=== PATIENT | male | born 1935 | race Caucasian/White ===

== ENCOUNTER 2019-07-07 21:14 | Inpatient (IN) | payer MEDICARE ==
[~2019-07-07] VITALS: Ht 180.3 cm; Wt 78.9 kg
--- NOTE | 2019-07-07 21:17 | NUR ---
BIB EMS 860 C/O BACK PAIN S/P GLF. DENIES KO PT ALERT AND ORIENTED TIMES THREE. WALKS WITH ASSISTANCE, GENERALIZED WEAKNESS. PAIN REPORTED 8/10 ON ASSESMENT
[2019-07-07] MEDS ORDERED: AMLO5TAB9 PO (21:44)
[2019-07-07] MEDS ORDERED: GABA600T12 PO (21:44)
[2019-07-07] MEDS ORDERED: GABA-534 PO (21:44)
[2019-07-07] MEDS ORDERED: INSU100C10 SQ (21:44)
[2019-07-07] MEDS ORDERED: PANT40TA4 PO (21:52)
[2019-07-07] MEDS ORDERED: BIMA2.5D5 EACHEYE (21:52)
[2019-07-07] MEDS ORDERED: METO-295 PO (21:52)
[2019-07-07] MEDS ORDERED: INSU100I30 SQ (21:52)
[2019-07-07] MEDS ORDERED: TAMS-12 PO (21:52)
[2019-07-07] MEDS ORDERED: QUIN40TA14 PO (21:52)
[2019-07-07] MEDS ORDERED: HYDROCODONE/APAP 5/325MG 1 EACH TABLET ONE (21:52)
[2019-07-07] MEDS ORDERED: LEVO50TA8 PO (21:52)
[2019-07-07] MEDS ORDERED: TIMO5SOL11 EACHEYE (21:52)
[2019-07-07] MEDS ORDERED: HYDROCODONE/APAP 5/325MG 1 EACH TABLET PO ONE (22:00)
--- NOTE | 2019-07-07 22:10 | NUR ---
PT IN RADIOLOGY
--- NOTE | 2019-07-08 00:37 | NUR ---
CALLED RN CHIROPRACTOR SOLE PRACTITIONER FOR MED SURG BED.
--- NOTE | 2019-07-08 00:39 | NUR ---
BED ASSIGNMENT 309-1
--- NOTE | 2019-07-08 01:05 | NUR ---
CALLED [facility] FOR PANEL ADMISSION, WAITING FOR DNP DMIITRIY CALL BACK
--- NOTE | 2019-07-08 01:06 | NUR ---
DR. GARCIA SPEAKING TO [facility] RONY REGARDING ADMISSION.
--- NOTE | 2019-07-08 01:08 | NUR ---
report given to herrera in 3 west to transfer pt. pt stable in NAD.
[2019-07-08] MEDS ORDERED: MORPHINE SULFATE INJ 2 MG/ML DISP.SYRIN IV PRN (01:30)
[2019-07-08] MEDS ORDERED: MAGNESIUM HYDROXIDE 30 ML UDC PO PRN (01:30)
[2019-07-08] MEDS ORDERED: ONDANSETRON HCL/PF 4 MG/2 ML VIAL IVP PRN (01:30)
[2019-07-08] MEDS ORDERED: ACETAMINOPHEN 325 MG TABLET PO PRN (01:30)
[2019-07-08] MEDS ORDERED: ZOLPIDEM TARTRATE 5 MG TABLET PO PRN (01:30)
[2019-07-08] MEDS ORDERED: MAG HYDROX/AL HYDROX/SIMETH 30 ML UDC PO PRN (01:30)
[2019-07-08] MEDS ORDERED: Z GUARD REMEDY 2 OZ OINT TP PRN (01:30)
[2019-07-08] MEDS ORDERED: CLONIDINE HCL 0.1 MG TABLET PO PRN (01:30)
--- NOTE | 2019-07-08 01:35 | NUR ---
PT TRANSFERRED TO BED 309 VIA [facility]
--- NOTE | 2019-07-08 01:40 | NUR ---
RECEIVED PATIENT VIA GURNEY FROM ED IN STABLE CONDITION. PATIENT AWAKE, A/O X4. NO C/O PAIN OR DISCOMFORT. PERIPHERAL LINE IN RIGHT WRIST #22 GAUGE PLACED AND TOLERATED WELL. NO ACTIVE BLEEDING NOTED. URINE COLLECTED FOR UA. ENCOURAGED USE OF CALL LIGHT FOR ASSISTANCE AND VERBALIZED GOOD UNDERSTANDING. BED ALARM ON AND FUNCTIONING PROPERLY. BED IN LOW LOCK SETTING WITH ALL BELONGINGS PLACED NEAR BEDSIDE. WILL CONTINUE TO MONITOR
[2019-07-08 02:00] VITALS: BP 156/75
[2019-07-08] MEDS ORDERED: DEXTROSE 50%-WATER 50 ML DISP.SYRIN IV PRN (02:00)
[2019-07-08 02:19] LABS: BILIRUBIN,URINE NEGATIVE (NEGATIVE); BLOOD, URINE TRACE-INTA Ery/uL (NEGATIVE); COLOR,URINE YELLOW (YELLOW); KETONES,URINE TRACE (NEGATIVE); LEUKOCYTE ESTERASE ,URINE 2+ (NEGATIVE); NITRITE, URINE NEGATIVE (NEGATIVE); PH,URINE 5.5 (5.0-8.0); PROTEIN,URINE NEGATIVE (NEGATIVE); UGLUCOSE 1+ mg/dL (NEGATIVE); UROBILINOGEN,URINE 0.2 EU/dL (0.2)
[2019-07-08 02:24] LABS: APPEARANCE,URINE HAZY (CLEAR)
[2019-07-08 02:26] LABS: BASOPHILS # (AUTO) 0.1 /CMM (0.0-0.2); BASOPHILS % (AUTO) 0.7 % (0.0-2.0); EOSINOPHILS % (AUTO) 1.8 % (0.0-6.0); HEMATOCRIT 56 % (39-51); LYMPHOCYTES # (AUTO) 1.5 /CMM (0.8-4.8); LYMPHOCYTES % (AUTO) 10.9 % (20.0-44.0); MEAN CORPUSCULAR HGB CONC 31 g/dl (31.0-36.0); MEAN CORPUSCULAR VOLUME 66 fL (80-96); MONOCYTES # (AUTO) 1.5 /CMM (0.1-1.30); MONOCYTES % (AUTO) 10.9 % (2.0-12.0); NEUTROPHILS # (AUTO) 10.7 /CMM (1.8-8.9); NEUTROPHILS % (AUTO) 75.7 % (43.0-81.0); WHITE BLOOD COUNT (AUTO) 14.1 K/uL (4.3-11.0)
[2019-07-08 02:32] LABS: RED BLOOD CELL COUNT(AUTO) > 8.00 MIL/uL (4.5-6.0)
[2019-07-08 02:37] LABS: BACTERIA,URINE Moderate /HPF (None Seen); SQUAMOUS EPITHELIAL CELL,UR Moderate /HPF (None Seen); WBC,URINE 51-80 /HPF (0-3)
[2019-07-08 02:44] LABS: ALANINE AMINOTRANSFERASE 24 U/L (12-78); ALBUMIN 3.6 g/dL (3.4-5.0); ALKALINE PHOSPHATASE 81 U/L (46-116); ASPARTATE AMINOTRANSFERASE 22 U/L (15-37); BILIRUBIN,DIRECT 0.1 mg/dL (0.0-0.2); BILIRUBIN,TOTAL 0.6 mg/dL (0.2-1.0); CALCIUM, SERUM 9.3 mg/dL (8.5-10.1); CARBON DIOXIDE 21 mmol/L (21-32); CHLORIDE 99 mmol/L (98-107); CREATININE 1.8 mg/dL (0.6-1.3); GLUCOSE 221 mg/dL (74-106); MAGNESIUM 1.8 mg/dL (1.8-2.4); PHOSPHORUS 3.8 mg/dL (2.5-4.9); POTASSIUM 5.5 mmol/L (3.5-5.1); SODIUM SERUM 135 mmol/L (136-145); TOTAL PROTEIN, SERUM 7.6 g/dL (6.4-8.2); UREA NITROGEN, BLOOD 43 mg/dL (7-18)
--- NOTE | 2019-07-08 02:45 | NUR ---
RACK PRODUCTION WORKER RONY MADE AWARE OF ABNORMAL LABS: K+ 5.5, NA+ 135, UA (+), STAT TROP (-). WITH NEW ORDERS FOR NS 0.9% AT 75ML/HR AND ROCEPHIN 1GM Q24 HRS. ORDERED CARRIED OUT AND VERIFIED
[2019-07-08 03:09] LABS: PLATELET COUNT (AUTO) 352 /CMM (150-450)
[2019-07-08 03:13] LABS: BAND % (MANUAL) 3 % (0.0-5.0); CHOLESTEROL 154 mg/dL (<200); EOSINOPHILS % (MANUAL) 3 % (0-4); HDL CHOLESTEROL 61 mg/dL (40-60); LDL 90 mg/dL (0-99); LYMPHOCYTES % (MANUAL) 16 % (16-48); MONOCYTES % (MANUAL) 7 % (0-11.0); NEUTROPHILS % (MANUAL) 71 (42-76); THYROID STIMULATING HORMONE 3.025 uIU/mL (0.358-3.74); TRIGLYCERIDES 24 mg/dL (30-150)
[2019-07-08] MEDS ORDERED: CEFTRIAXONE 1 G VIAL IM SCH ×2 (04:00→05:00)
[2019-07-08] MEDS: IV NS 0.9% 1,000 ML IV PRN ×2 (04:59→18:26)
[2019-07-08] MEDS ORDERED: SODIUM POLYSTYRENE SULFONATE 15 G/60 ML BOTTLE PO ONE (05:00)
[2019-07-08] MEDS ORDERED: CEFTRIAXONE 1 G VIAL IV SCH (05:00)
[2019-07-08] MEDS: CEFTRIAXONE 1 G in IV NS 0.9% 50 ML IV SCH (05:19)
[2019-07-08] MEDS ORDERED: SODIUM POLYSTYRENE SULFONATE 15 G/60 ML BOTTLE ONE (05:53)
[2019-07-08] MEDS: HYDROCODONE/APAP 5/325MG 1 EACH TABLET PO PRN ×2 (05:59→22:40)
[2019-07-08] MEDS: INSULIN REGULAR, HUMAN 100 UNIT/ML 3 ML VIAL SQ PRN ×4 (06:13→21:45)
--- NOTE | 2019-07-08 06:46 | NUR ---
MS RN NOTES PATIENT ASLEEP IN BED WITH NO DISTRESS NOTED. CALL LIGHT WITHIN REACH. NO C/O PAIN OR DISCOMFORT. PERIPHERAL LINE REMAINS INTACT AND PATENT. ALL DUE MEDS GIVEN ORDERED WITH NO ASE. BED IN LOW LOCK SETTING. BED ALARM ON AND FUNCTIONING PROPERLY. ALL BELONGINGS KEPT NEAR BEDSIDE. WILL CONTINUE TO MONITOR.
[2019-07-08] MEDS: BLOOD SUGAR DIAGNOSTIC 1 EACH STRIP IN SCH ×4 (06:59→21:20)
--- NOTE | 2019-07-08 07:15 | NUR ---
MS RN NOTES PATIENT IN BED ALERT ORIENTED X 4. NO ACUTE DISTRESS NOTED, BREATHING UNLABORED. IV ACCESS PATENT AND INTACT, NO REDNESS OR SWELLING NOTED.SAFETY MEASURES IN PLACE. CALL LIGHT WITHIN REACH. WILL CONTINUE TO MONITOR ACCORDINGLY.
[2019-07-08] MEDS ORDERED: PANTOPRAZOLE 40 MG TABLET.DR PO SCH (07:30)
[2019-07-08] MEDS: PANTOPRAZOLE 40 MG TABLET.DR PO SCH (07:49)
[2019-07-08] MEDS: LEVOTHYROXINE SODIUM 50 MCG TABLET PO SCH (07:50)
[2019-07-08 08:00] VITALS: BP 127/93
[2019-07-08] MEDS ORDERED: TIMOLOL -XE 0.5% 5 ML BOTTLE EACHEYE SCH (09:00)
[2019-07-08] MEDS ORDERED: QUINAPRIL HCL 40 MG PO SCH (09:00)
[2019-07-08] MEDS ORDERED: LISINOPRIL (20MG) 20 MG TABLET PO SCH (09:00)
[2019-07-08] MEDS ORDERED: NAPROXEN 250 MG TABLET PO SCH (09:00)
[2019-07-08] MEDS ORDERED: AMLODIPINE BESYLATE 5 MG TABLET PO SCH (09:00)
[2019-07-08] MEDS: TAMSULOSIN 0.4 MG CAP.SR.24H PO SCH (09:37)
[2019-07-08] MEDS: GABAPENTIN 300 MG CAPSULE PO SCH ×3 (09:37→16:59)
[2019-07-08] MEDS: METOCLOPRAMIDE HCL 10 MG TABLET PO SCH ×4 (09:37→21:19)
[2019-07-08] MEDS: TIMOLOL 0.5% SOLN OPHTH 5 ML BOTTLE EACHEYE SCH (10:41)
[2019-07-08] MEDS: hydrALAZINE HCL 25 MG TABLET PO SCH ×2 (13:39→21:20)
[2019-07-08 16:00] VITALS: BP 160/109
[2019-07-08] MEDS: AMLODIPINE BESYLATE 5 MG TABLET PO SCH (17:04)
[2019-07-08] MEDS ORDERED: BIMATOPROST 2.5 ML DROPS OP SCH (18:00)
--- NOTE | 2019-07-08 18:55 | NUR ---
MS RN NOTES PATIENT IN BED ALERT ORIENTED X 4. NO ACUTE DISTRESS NOTED, BREATHING UNLABORED. DUE MEDICATIONS GIVEN, NO ASE NOTED. NEEDS ATTENDED AND ANTICIPATED.KEPT CLEAN DRY AND COMFORTABLE. IV ACCESS PATENT AND INTACT, NO REDNESS OR SWELLING NOTED.SAFETY MEASURES IN PLACE. CALL LIGHT WITHIN REACH. WILL ENDORSE TO NIGHT NURSE FOR CONTINUITY OF CARE
--- NOTE | 2019-07-08 19:30 | NUR ---
MS RN NOTE: PATIENT RESTING IN BED, NO ACUTE DISTRESS NOTED. BREATHING EVEN AND UNLABORED, NO SOB NOTED. NOTED THAT PATIENT IV WAS DISLODGED, WILL TRY TO START A NEW IV. NO S/S HYPER/HYPOGLYCEMIA NOTED. BED LOCKED AND IN LOWEST POSITION, CALL LIGHT IN REACH. WILL CONTINUE TO MONITOR.
[2019-07-08 20:00] VITALS: BP 137/92
[2019-07-08] MEDS: LATANOPROST EYE DROP 0.005% 2.5 ML BOTTLE OP SCH (21:22)
[2019-07-08] MEDS: INSULIN GLARGINE, 100 UNIT/ML CARTRIDGE SQ SCH (21:44)
--- NOTE | 2019-07-08 21:55 | NUR ---
MS RN NOTE: PATIENT BLOOD SUGAR LEVEL 227MG/DL, PATIENT TO RECEIVE 4 UNITS PER SLIDING SCALE. NO S/S OF HYPERGLYCEMIA NOTED. WILL CONTINUE TO MONITOR.
[2019-07-08] MEDS ORDERED: INSULIN GLARGINE,BASAGLAR 100 UNIT/ML INSULN.PEN SQ SCH (22:00)
--- NOTE | 2019-07-08 22:20 | NUR ---
MS RN NOTE: IV STARTED TO LEFT HAND #24 WITH GOOD BLOOD RETURN. WILL CONTINUE TO MONITOR.
--- NOTE | 2019-07-08 23:05 | NUR ---
RN INITIAL NOTES: RECEIVED REPORT FROM SALOME CASILLAS. PT IN BED, AWAKE, A/O X2-3 FORGETFUL AT TIMES. NEW IV ACCESS IN PLACED G 24, PATENT AND FLUSHING WELL. PT AWAITING DELIVERY OF TLSO BRACE. FOR CT LUMBAR SPINE, CT THORACIC SPINE IN WO CONTRAST. AWAITING NEUROSURGERY EVAL PER DR THOMAS/NEUROLOGIST. SAFETY PRECAUTIONS FOR FALL INITIATED, CALL LIGHT IN REACH, WILL CONTINUE MONITORING PT.
[2019-07-09] MEDS ORDERED: CEFTRIAXONE 1 G VIAL IV SCH (04:00)
[2019-07-09] MEDS: CEFTRIAXONE 1 G in IV NS 0.9% 50 ML IV SCH (05:03)
[2019-07-09 05:08] VITALS: BP 157/97
[2019-07-09] MEDS: hydrALAZINE HCL 25 MG TABLET PO SCH ×3 (05:08→21:00)
[2019-07-09] MEDS: BLOOD SUGAR DIAGNOSTIC 1 EACH STRIP IN SCH ×4 (06:03→21:17)
[2019-07-09] MEDS: INSULIN REGULAR, HUMAN 100 UNIT/ML 3 ML VIAL SQ PRN ×4 (06:06→17:22)
--- NOTE | 2019-07-09 06:07 | NUR ---
accu check: blood sugar 248, 4units of insulin given per sliding scale. will continue to monitor
[2019-07-09] MEDS: IV NS 0.9% 1,000 ML IV PRN (06:24)
[2019-07-09 06:43] LABS: BASOPHILS # (AUTO) 0.1 /CMM (0.0-0.2); BASOPHILS % (AUTO) 0.9 % (0.0-2.0); EOSINOPHILS % (AUTO) 3.7 % (0.0-6.0); HEMATOCRIT 56 % (39-51); HEMOGLOBIN 17.4 g/dL (13.5-17.5); LYMPHOCYTES # (AUTO) 1.4 /CMM (0.8-4.8); LYMPHOCYTES % (AUTO) 16.3 % (20.0-44.0); MEAN CORPUSCULAR HGB CONC 31 g/dl (31.0-36.0); MEAN CORPUSCULAR VOLUME 66 fL (80-96); MONOCYTES # (AUTO) 1.3 /CMM (0.1-1.30); MONOCYTES % (AUTO) 14.4 % (2.0-12.0); NEUTROPHILS # (AUTO) 5.6 /CMM (1.8-8.9); NEUTROPHILS % (AUTO) 64.7 % (43.0-81.0); PLATELET COUNT (AUTO) 353 /CMM (150-450); WHITE BLOOD COUNT (AUTO) 8.7 K/uL (4.3-11.0)
[2019-07-09 06:49] LABS: ALANINE AMINOTRANSFERASE 21 U/L (12-78); ALBUMIN 3.3 g/dL (3.4-5.0); ALKALINE PHOSPHATASE 87 U/L (46-116); ASPARTATE AMINOTRANSFERASE 14 U/L (15-37); BILIRUBIN,TOTAL 0.5 mg/dL (0.2-1.0); CALCIUM, SERUM 8.7 mg/dL (8.5-10.1); CARBON DIOXIDE 26 mmol/L (21-32); CHLORIDE 101 mmol/L (98-107); CREATININE 1.5 mg/dL (0.6-1.3); GLUCOSE 223 mg/dL (74-106); MAGNESIUM 1.6 mg/dL (1.8-2.4); PHOSPHORUS 3.1 mg/dL (2.5-4.9); POTASSIUM 4.6 mmol/L (3.5-5.1); SODIUM SERUM 137 mmol/L (136-145); TOTAL PROTEIN, SERUM 7.6 g/dL (6.4-8.2); UREA NITROGEN, BLOOD 29 mg/dL (7-18)
[2019-07-09 06:51] LABS: CREATINE KINASE, TOTAL 40 U/L (39-308)
--- NOTE | 2019-07-09 06:52 | NUR ---
rn closing notes: pt remains forgetful, a/o x2-3, on ra respirations even and unlabored. iv access remains patent and flushing well, infusing with ns at 75ml/hr. awaiting for delivery of tlso brace, for pt eval, neurosurgery consult. p[t for ct thoracic and ct lumbar spine wo contrast. vs remains stable, needs attended. safety precautions for fall remains engaged, call light in reach, will endorse to day rn for continuity of care.
[2019-07-09 06:57] LABS: RED BLOOD CELL COUNT(AUTO) > 8.00 MIL/uL (4.5-6.0)
--- NOTE | 2019-07-09 07:30 | NUR ---
PHUONG RN OPENING NOTES RECEIVED PATIENT ASLEEP IN BED, AROUSABLE. HOB ELEVATED. NO SOB OBSERVED. DENIES ANY C/O PAIN NOR DISCOMFORT. ALERT AND ORIENTED X2-3 WITH EPISODES OF FORGETFULNESS. LEFT HAND #25 INTACT AND PATENT INFUSING NS @ 75ML/HR VIRGIL WELL. BED IN LOWEST POSITION, LOCKED. BED ALARM ON. CALL LIGHT WITHIN REACH.
[2019-07-09 08:00] VITALS: BP 143/96
[2019-07-09 08:34] LABS: BAND % (MANUAL) 5 % (0.0-5.0); EOSINOPHILS % (MANUAL) 2 % (0-4); LYMPHOCYTES % (MANUAL) 12 % (16-48); MONOCYTES % (MANUAL) 11 % (0-11.0); NEUTROPHILS % (MANUAL) 70 (42-76)
[2019-07-09] MEDS: AMLODIPINE BESYLATE 5 MG TABLET PO SCH ×2 (08:37→17:14)
[2019-07-09] MEDS: PANTOPRAZOLE 40 MG TABLET.DR PO SCH (08:37)
[2019-07-09] MEDS: TAMSULOSIN 0.4 MG CAP.SR.24H PO SCH (08:37)
[2019-07-09] MEDS: LEVOTHYROXINE SODIUM 50 MCG TABLET PO SCH (08:37)
[2019-07-09] MEDS: GABAPENTIN 300 MG CAPSULE PO SCH ×3 (08:37→17:14)
[2019-07-09] MEDS: METOCLOPRAMIDE HCL 10 MG TABLET PO SCH ×4 (08:38→21:00)
[2019-07-09] MEDS: TIMOLOL 0.5% SOLN OPHTH 5 ML BOTTLE EACHEYE SCH (09:44)
--- NOTE | 2019-07-09 09:56 | NUR ---
MS RN NOTES PATIENT OFF UNIT FOR CT SCAN WITHOUT CONTRAST.
[2019-07-09] MEDS: Magnesium 1GM/D5W 100ML PREMIX 100 ML IV SCH ×2 (11:50→12:59)
--- NOTE | 2019-07-09 12:30 | NUR ---
MS RN NOTES PATIENT BEING FITTED TLSO BRACE BY [facility].
--- NOTE | 2019-07-09 12:53 | NUR ---
WOUND CARE CONSULT:PATIENT PRESENTS WITH INCONTINENCE ASSOCIATED SKIN DAMAGE BOTH INNER BUTTOCKS ,SCROTUM , ALSO HAS BOTH ELBOW WITH REDNESS , RT ELBOW HEALING ABRASION, BOTH LOWER EXTREMITIES WITH SKIN DISCOLORATION , SKIN INTACT, PRESENT ON ADMISSION, RECOMMENDATION MADE FOR SKIN PROTECTION , DISCUSES WITH NURSING STAFF, CURRENT GUSTAVO SCORE IS 13, ISOFLEX CRISTIN BED IN PLACE, MD IN AGREEMENT WITH PLAN OF CARE . WILL SEE PRN Addendum: 07/09/19 at 1302 by ANTONIO CORONA RN Amended: Links added.
[2019-07-09] MEDS: HYDROCODONE/APAP 5/325MG 1 EACH TABLET PO PRN (14:04)
[2019-07-09 16:00] VITALS: BP 132/86
--- NOTE | 2019-07-09 17:24 | NUR ---
MS RN NOTES BS 212MG/DL, INSULIN HELD DUE TO PATIENT REFUSED DINNER.
--- NOTE | 2019-07-09 18:44 | NUR ---
MS RN CLOSING NOTES PATIENT ALERT AND AWAKE ORIENTED X2-3 WITH EPISODES OF FORGETFULNESS. HOB ELEVATED. NO SOB OBSERVED. DENIES ANY C/O PAIN NOR DISCOMFORT. LEFT HAND #25 INTACT AND PATENT INFUSING NS @ 75ML/HR VIRGIL WELL. PATIENT VIRGIL PHYSICAL THERAPY WELL. PATIENT INDEPENDENT WITH BED MOBILITY, ABLE TO STAND UP WITH CONTACT GUARD ASSIST BUT DID NOT WANT TO WALK PER PHYSICAL THERAPIST. TLSO BRACE IN PLACE. PATIENT ABLE TO STAND WITH STREADY GAIT. ABLE TO VERBALIZE NEEDS. IN NO APPARENT DISTRESS. BED IN LOWEST POSITION, LOCKED. BED ALARM ON. CALL LIGHT WITHIN REACH.
--- NOTE | 2019-07-09 19:05 | NUR ---
MS RN NOTE RECEIVED PT IN STABLE CONDITION A/O X2-3. CURRENTLY ASLEEP. NO SIGNS OF SOB OR DISTRESS, NO INDICATIONS OF PAIN. IV IN L HAND IN PLACE WITH IVF INFUSING. BRACE PLACE AT BEDSIDE. ALL CURRENT NEEDS ATTENDED TO. BED LOW, LOCKED, UPPER RAILS UP, AND CALL LIGHT WITHIN REACH. WILL CONT. TO MONITOR.
[2019-07-09 20:00] VITALS: BP 123/69
[2019-07-09 20:53] VITALS: BP 128/69
[2019-07-09] MEDS: LATANOPROST EYE DROP 0.005% 2.5 ML BOTTLE OP SCH (21:18)
[2019-07-09] MEDS: INSULIN GLARGINE, 100 UNIT/ML CARTRIDGE SQ SCH (21:22)
--- NOTE | 2019-07-09 21:23 | NUR ---
MS RN NOTE PT NOTED WITH BP OF 123/69, SCHEDULED HYDRALAZINE HELD. PT NOTED WITH BLOOD SUGAR OF 228. PER AM SHIFT, PT DID NOT EAT ANY DINNER. SCHEDULED DOSE OF 25 LONG ACTING INSULIN HELD. WHEN ATTEMPTED TO GIVE PT HIS SCHEDULED REGLAN, PT REFUSED. STATED, "I DON'T WANT ANY PILLS." RISKS AND BENEFITS MADE AWARE. PT ENCOURAGED TO HAVE DINNER SO INSULIN CAN BE GIVEN. PT REFUSED. WILL CONT. TO MONITOR.
[2019-07-10] MEDS: HYDROCODONE/APAP 5/325MG 1 EACH TABLET PO PRN ×2 (02:57→15:55)
[2019-07-10] MEDS: hydrALAZINE HCL 25 MG TABLET PO SCH ×3 (04:53→21:00)
[2019-07-10] MEDS: CEFTRIAXONE 1 G in IV NS 0.9% 50 ML IV SCH (04:54)
[2019-07-10] MEDS: INSULIN REGULAR, HUMAN 100 UNIT/ML 3 ML VIAL SQ PRN ×2 (06:11→12:08)
[2019-07-10 06:23] LABS: BASOPHILS # (AUTO) 0.1 /CMM (0.0-0.2); BASOPHILS % (AUTO) 1.1 % (0.0-2.0); EOSINOPHILS % (AUTO) 4.3 % (0.0-6.0); HEMATOCRIT 53 % (39-51); HEMOGLOBIN 16.2 g/dL (13.5-17.5); LYMPHOCYTES # (AUTO) 1.7 /CMM (0.8-4.8); LYMPHOCYTES % (AUTO) 17.5 % (20.0-44.0); MEAN CORPUSCULAR HGB CONC 31 g/dl (31.0-36.0); MEAN CORPUSCULAR VOLUME 66 fL (80-96); MONOCYTES # (AUTO) 1.4 /CMM (0.1-1.30); MONOCYTES % (AUTO) 14.4 % (2.0-12.0); NEUTROPHILS # (AUTO) 5.9 /CMM (1.8-8.9); NEUTROPHILS % (AUTO) 62.7 % (43.0-81.0); PLATELET COUNT (AUTO) 334 /CMM (150-450); WHITE BLOOD COUNT (AUTO) 9.5 K/uL (4.3-11.0)
--- NOTE | 2019-07-10 06:23 | NUR ---
MS RN NOTE PT IN STABLE CONDITION A/O X2-3. CURRENTLY RESTING IN BED. NO SIGNS OF SOB OR DISTRESS, NO INDICATIONS OF PAIN. IV IN L HAND IN PLACE WITH IVF INFUSING. BRACE REMAINS AT BEDSIDE. ALL CURRENT NEEDS ATTENDED TO. BED LOW, LOCKED, UPPER RAILS UP, AND CALL LIGHT WITHIN REACH. WILL CONT. TO MONITOR AND ENDORSE TO NEXT SHIFT FOR JOZEF.
[2019-07-10 06:27] LABS: RED BLOOD CELL COUNT(AUTO) > 8.00 MIL/uL (4.5-6.0)
[2019-07-10 06:29] LABS: CARBON DIOXIDE 26 mmol/L (21-32); CHLORIDE 102 mmol/L (98-107); CREATININE 1.5 mg/dL (0.6-1.3); GLUCOSE 237 mg/dL (74-106); POTASSIUM 4.2 mmol/L (3.5-5.1); SODIUM SERUM 137 mmol/L (136-145); UREA NITROGEN, BLOOD 25 mg/dL (7-18)
[2019-07-10] MEDS: BLOOD SUGAR DIAGNOSTIC 1 EACH STRIP IN SCH ×4 (06:32→21:21)
--- NOTE | 2019-07-10 07:41 | NUR ---
MS RN OPENING NOTES RECEIVED PATIENT IN BED, ALERT AND AWAKE X3. PATIENT WITH EPISODES OF FORGETFULNESS. DENIES ANY C/O PAIN NOR DISCOMFORT AT THIS TIME. SNO SOB. HOB ELEVATED. SEN BY DR. SIFUENTES. BED IN LOWEST POSITION, LOCKED. BED ALARM ON. CALL LIGHT WITHIN REACH. IN NO APPARENT DISTRESS.
[2019-07-10 08:00] VITALS: BP 128/87
[2019-07-10] MEDS: PANTOPRAZOLE 40 MG TABLET.DR PO SCH (08:19)
[2019-07-10] MEDS: LEVOTHYROXINE SODIUM 50 MCG TABLET PO SCH (08:19)
[2019-07-10] MEDS: TIMOLOL 0.5% SOLN OPHTH 5 ML BOTTLE EACHEYE SCH (08:37)
[2019-07-10] MEDS: GABAPENTIN 300 MG CAPSULE PO SCH ×3 (08:38→17:54)
[2019-07-10] MEDS: METOCLOPRAMIDE HCL 10 MG TABLET PO SCH ×4 (08:38→21:00)
[2019-07-10] MEDS: TAMSULOSIN 0.4 MG CAP.SR.24H PO SCH (08:39)
[2019-07-10] MEDS: AMLODIPINE BESYLATE 5 MG TABLET PO SCH ×2 (08:39→17:54)
[2019-07-10 10:07] LABS: *SPE A/G RATIO 0.9 (0.7-1.7); *SPE ALBUMIN 3.2 g/dL (2.9-4.4); *SPE ALPHA-1-GLOBULIN 0.3 g/dL (0.0-0.4); *SPE ALPHA-2-GLOBULIN 0.9 g/dL (0.4-1.0); *SPE BETA GLOBULIN 1.3 g/dL (0.7-1.3); *SPE GLOBULIN, TOTAL 3.4 g/dL (2.2-3.9); *SPE M-SPIKE Not Observed g/dL (Not Observed); *SPEGAMMA GLOBULIN 0.9 g/dL (0.4-1.8)
[2019-07-10 13:09] LABS: PTH, INTACT 29 pg/mL (15-65)
[2019-07-10 16:00] VITALS: BP 132/81
--- NOTE | 2019-07-10 17:30 | NUR ---
MS RN NOTES BS 240MG/DL, INSULIN HELD. PATIENT DID NOT WANT TO EAT DINNER.
--- NOTE | 2019-07-10 17:52 | NUR ---
MS RN NOTES SEEN BY NICOLA SORTO (NEURO SURGERY) WITH NNO. NO REC FOR SURGERY.
--- NOTE | 2019-07-10 18:55 | NUR ---
MS RN CLOSING NOTES ALERT AND AWAKE X3. PATIENT WITH EPISODES OF FORGETFULNESS. DENIES ANY C/O PAIN NOR DISCOMFORT AT THIS TIME. NO SOB. HOB ELEVATED. PATIENT SEEN BY PHYSICAL THERAPY VIRGIL WELL. TLSO BRACE APPLIED WHEN OUT OF BED. PATIENT INDEPENDENT WITH BED MOBILITY AND ABLE TO TOLREATE PAIN. LEFT HAND @22 SL INTACT AND PATENT WITHOUT S/S OF COMPLICATIONS. BED IN LOWEST POSITION, LOCKED. BED ALARM ON. CALL LIGHT WITHIN REACH. IN NO APPARENT DISTRESS.
[2019-07-10 20:40] VITALS: BP 112/71
[2019-07-10] MEDS: LATANOPROST EYE DROP 0.005% 2.5 ML BOTTLE OP SCH (21:17)
[2019-07-10] MEDS: INSULIN GLARGINE, 100 UNIT/ML CARTRIDGE SQ SCH (21:22)
--- NOTE | 2019-07-10 21:22 | NUR ---
MS RN NOTE PT NOTED WITH BLOOD SUGAR OF 219, PER MORNING SHIFT PT REFUSED DINNER. INSULIN COVERAGE HELD AND 21OO DOSE OF 25 UNITS OF LANTUS HELD. HYDRALAZINE HELD FOR BP OF 112/71. PT REFUSES REGLAN. RISKS AND BENEFITS MADE AWARE. ENCOURAGE PT TO EAT A SANDWICH 3X BUT PT REFUSED. WILL CONT. TO MONITOR.
[2019-07-11] MEDS: hydrALAZINE HCL 25 MG TABLET PO SCH ×2 (04:35→13:28)
[2019-07-11] MEDS: CEFTRIAXONE 1 G in IV NS 0.9% 50 ML IV SCH (04:35)
[2019-07-11] MEDS: INSULIN REGULAR, HUMAN 100 UNIT/ML 3 ML VIAL SQ PRN ×3 (06:12→17:27)
[2019-07-11 06:25] LABS: BASOPHILS # (AUTO) 0.1 /CMM (0.0-0.2); BASOPHILS % (AUTO) 1.3 % (0.0-2.0); EOSINOPHILS % (AUTO) 4.2 % (0.0-6.0); HEMATOCRIT 52 % (39-51); LYMPHOCYTES # (AUTO) 1.4 /CMM (0.8-4.8); LYMPHOCYTES % (AUTO) 17.6 % (20.0-44.0); MEAN CORPUSCULAR HGB CONC 31 g/dl (31.0-36.0); MEAN CORPUSCULAR VOLUME 65 fL (80-96); MONOCYTES # (AUTO) 1.1 /CMM (0.1-1.30); MONOCYTES % (AUTO) 13.4 % (2.0-12.0); NEUTROPHILS # (AUTO) 5.2 /CMM (1.8-8.9); NEUTROPHILS % (AUTO) 63.5 % (43.0-81.0); PLATELET COUNT (AUTO) 318 /CMM (150-450); RED BLOOD CELL COUNT(AUTO) 7.92 MIL/uL (4.5-6.0); WHITE BLOOD COUNT (AUTO) 8.2 K/uL (4.3-11.0)
--- NOTE | 2019-07-11 06:25 | NUR ---
MS RN NOTE PT REMAINS IN STABLE CONDITION A/O X2-3. CURRENTLY WATCHING TV. NO SIGNS OF SOB OR DISTRESS, NO INDICATIONS OF PAIN. IV IN L HAND IN PLACE WITH IVF INFUSING. BRACE PLACED AT BEDSIDE. ALL CURRENT NEEDS ATTENDED TO. BED LOW, LOCKED, UPPER RAILS UP, AND CALL LIGHT WITHIN REACH. WILL CONT. TO MONITOR AND ENDORSE TO NEXT SHIFT FOR JOZEF.
[2019-07-11 07:00] LABS: CALCIUM, SERUM 8.7 mg/dL (8.5-10.1); CARBON DIOXIDE 22 mmol/L (21-32); CHLORIDE 101 mmol/L (98-107); CREATININE 1.6 mg/dL (0.6-1.3); GLUCOSE 286 mg/dL (74-106); MAGNESIUM 1.8 mg/dL (1.8-2.4); PHOSPHORUS 3.3 mg/dL (2.5-4.9); POTASSIUM 4.3 mmol/L (3.5-5.1); SODIUM SERUM 136 mmol/L (136-145); UREA NITROGEN, BLOOD 24 mg/dL (7-18)
--- NOTE | 2019-07-11 07:15 | NUR ---
MS/RN - Assessment Patient is awake, A/O x 2, no complaints overnight, denies pain at this time, no apparent distress noted, afebrile, stable on room air. Saline lock on the left hand is patent, intact, with no signs of infiltration. Labs reviewed, no critical results seen. Will do wound care as ordered. Patient educated on plan of care. Fall and aspiration precautions maintained. Will continue with current medical management.
[2019-07-11 08:00] VITALS: BP 137/78
[2019-07-11] MEDS: BLOOD SUGAR DIAGNOSTIC 1 EACH STRIP IN SCH ×3 (08:15→17:17)
[2019-07-11] MEDS: METOCLOPRAMIDE HCL 10 MG TABLET PO SCH ×3 (08:21→17:14)
[2019-07-11] MEDS: TAMSULOSIN 0.4 MG CAP.SR.24H PO SCH (08:21)
[2019-07-11] MEDS: PANTOPRAZOLE 40 MG TABLET.DR PO SCH (08:21)
[2019-07-11] MEDS: LEVOTHYROXINE SODIUM 50 MCG TABLET PO SCH (08:21)
[2019-07-11] MEDS: GABAPENTIN 300 MG CAPSULE PO SCH ×3 (08:23→17:14)
[2019-07-11] MEDS: AMLODIPINE BESYLATE 5 MG TABLET PO SCH ×2 (08:23→17:15)
[2019-07-11] MEDS: TIMOLOL 0.5% SOLN OPHTH 5 ML BOTTLE EACHEYE SCH (08:24)
[2019-07-11] MEDS ORDERED: CEFTRIAXONE 1 G in IV D5W 50 ML IV SCH (12:40)
[2019-07-11 16:00] VITALS: BP 126/85
--- NOTE | 2019-07-11 16:00 | NUR ---
MS/RN - Neurosurgery Eval Seen and examined by Dr. Tashi Chávez with order to do outpatient MRI without contrast of thoracic/lumbar spine in 4 weeks and follow up with him in 5 weeks.
[2019-07-11 17:15] VITALS: BP 126/85
--- NOTE | 2019-07-11 17:35 | NUR ---
M/S RN - Discharge Patient states feeling a little bit better, A/O x 2, discharged to [facility] in stable condition. Reviewed discharge instructions with SONJA Christianson at [facility] and she verbalized full understanding and all questions answered to her satisfaction. All belongings with patient and he deny any missing items. VSS, denies pain, afebrile, no c/o SOB, tolerating room air, no apparent distress seen. No fall/injury during hospital stay. Patient allowed picture to be taken on sacrum area but refused the rest. Patient stated "Too many pictures, they already took tons of pictures 2 days ago." Explained to the patient the hospital policy regarding skin but still refused. Per order of Dr. Hinojosa, discharge with IV line for Rocephin to be given 1 more day to complete antibiotic course for UTI. Discharge papers sent with ambulance crew. Sister aware of discharge.
[2019-07-11] MEDS ORDERED: INSULIN GLARGINE, 100 UNIT/ML CARTRIDGE SQ SCH (22:00)
[2019-07-12] MEDS ORDERED: CEFTRIAXONE 1 G in IV D5W 50 ML IV SCH (05:00)
== END 2019-07-11 17:50 | DRG 551 ==
LOC: ER 21:18 → MED 07-08 01:08
PROVIDERS: ADMIT Family Medicine; ATTEND Student in an Organized Health Care Education/Training Program
DX: S22.059A Unspecified fracture of T5-T6 vertebra, initial encounter for closed fracture (principal); N17.0 Acute kidney failure with tubular necrosis; E87.1 Hypo-osmolality and hyponatremia; N39.0 Urinary tract infection, site not specified; N11.9 Chronic tubulo-interstitial nephritis, unspecified; S22.089A Unspecified fracture of T11-T12 vertebra, initial encounter for closed fracture; I12.9 Hypertensive chronic kidney disease with stage 1 through stage 4 chronic kidney disease, or unspecified chronic kidney disease; Y92.121 Bathroom in nursing home as the place of occurrence of the external cause; W18.30XA Fall on same level, unspecified, initial encounter; N18.9 Chronic kidney disease, unspecified; E11.22 Type 2 diabetes mellitus with diabetic chronic kidney disease; E11.65 Type 2 diabetes mellitus with hyperglycemia; E11.21 Type 2 diabetes mellitus with diabetic nephropathy; E03.9 Hypothyroidism, unspecified; K21.9 Gastro-esophageal reflux disease without esophagitis; N40.0 Benign prostatic hyperplasia without lower urinary tract symptoms; Z83.3 Family history of diabetes mellitus; Z82.49 Family history of ischemic heart disease and other diseases of the circulatory system; Z79.4 Long term (current) use of insulin; Z88.7 Allergy status to serum and vaccine; H40.9 Unspecified glaucoma; Z79.899 Other long term (current) drug therapy; M47.814 Spondylosis without myelopathy or radiculopathy, thoracic region; M41.9 Scoliosis, unspecified; D72.829 Elevated white blood cell count, unspecified; E87.5 Hyperkalemia; D75.1 Secondary polycythemia; E86.1 Hypovolemia; M48.061 Spinal stenosis, lumbar region without neurogenic claudication; M25.78 Osteophyte, vertebrae
CPT/HCPCS: 36415; 71045-TC; 72074-TC; 72128-TC; 72131-TC; 76770-TC; 80048-TC; 80053-TC; 80061-TC; 80076-TC; 81000-TC; 82550-TC; 82962-TC; 83735-TC; 83970; 84100-TC; 84155; 84165; 84443-TC; 84484-TC; 85025-TC; 87081-TC; 87086-TC; 97110-TC; 97116-TC; 97530-TC; A4216; G0378; J0696; J1815; J2270; J3475; J7030; J7060; J8597

== ENCOUNTER 2019-09-30 23:05 | Inpatient (IN) | payer MEDICARE ==
[~2019-09-30] VITALS: Ht 182.9 cm; Wt 76.7 kg
[~2019-09-30 23:05] MED LIST: AMLO5TAB9 PO; BIMA2.5D5 EACHEYE; GABA-534 PO; GABA600T12 PO; INSU100C10 SQ; INSU100I30 SQ; LEVO50TA8 PO; METO-295 PO; PANT40TA4 PO; QUIN40TA14 PO; TAMS-12 PO; TIMO5SOL11 EACHEYE
--- NOTE | 2019-09-30 23:14 | NUR ---
RECEIVED PT W/ ALOC. PT NON-VERBAL AND COMNFUSED. BED RIDDEN. PLACED PT ON O2 OF 5 LPM VIA NC AND SUCTIONED O2 SAT INCREASED FROM 89% TO 94%. ALSO W/ RECTAL TEMP OF 87.5. MADE AWARE AND CALLED DERMATOLOGY NURSE PRACTITIONER FOR CLIFFORD LIPSCOMB. PT IS PLACED ON AMONITOR
[2019-09-30] MEDS ORDERED: PIPERACILLIN /TAZOBACTAM 3.375 G in IV D5W 50 ML IV ONE (23:30)
[2019-09-30] MEDS ORDERED: VANCOMYCIN 1 GM in IV D5W 250 ML IV ONE (23:30)
[2019-09-30] MEDS ORDERED: IV NS 0.9% 1,000 ML BAG IV ONE (23:30)
[2019-09-30] MEDS ORDERED: VANCOMYCIN 1 GM VIAL ONE (23:47)
[2019-09-30] MEDS ORDERED: PIPERACILLIN /TAZOBACTAM 3.375 G VIAL IV ONE (23:47)
[2019-09-30 23:50] LABS: BASOPHILS % (AUTO) 0.3 % (0.0-2.0); EOSINOPHILS % (AUTO) 2.4 % (0.0-6.0); HEMATOCRIT 45 % (39-51); HEMOGLOBIN 13.7 g/dL (13.5-17.5); LYMPHOCYTES # (AUTO) 0.8 /CMM (0.8-4.8); LYMPHOCYTES % (AUTO) 8.5 % (20.0-44.0); MEAN CORPUSCULAR HGB CONC 30 g/dl (31.0-36.0); MEAN CORPUSCULAR VOLUME 67 fL (80-96); MONOCYTES # (AUTO) 0.6 /CMM (0.1-1.30); MONOCYTES % (AUTO) 7.3 % (2.0-12.0); NEUTROPHILS # (AUTO) 7.2 /CMM (1.8-8.9); NEUTROPHILS % (AUTO) 81.5 % (43.0-81.0); PLATELET COUNT (AUTO) 207 /CMM (150-450); RED BLOOD CELL COUNT(AUTO) 6.71 MIL/uL (4.5-6.0); WHITE BLOOD COUNT (AUTO) 8.9 K/uL (4.3-11.0)
[2019-09-30 23:56] LABS: CALCIUM, SERUM 9.2 mg/dL (8.5-10.1); CARBON DIOXIDE 27 mmol/L (21-32); CHLORIDE 102 mmol/L (98-107); CREATININE 1.9 mg/dL (0.6-1.3); GLUCOSE 180 mg/dL (74-106); POTASSIUM 4.3 mmol/L (3.5-5.1); SODIUM SERUM 133 mmol/L (136-145); UREA NITROGEN, BLOOD 50 mg/dL (7-18)
[2019-10-01] VITALS (73 sets, daily range): BP systolic 81–131; BP diastolic 46–96
[2019-10-01] LABS: ALANINE AMINOTRANSFERASE 41 U/L (12-78); ALBUMIN 2.8 g/dL (3.4-5.0); ALKALINE PHOSPHATASE 99 U/L (46-116); ASPARTATE AMINOTRANSFERASE 29 U/L (15-37); BILIRUBIN,DIRECT 0.1 mg/dL (0.0-0.2); BILIRUBIN,TOTAL 0.2 mg/dL (0.2-1.0); TOTAL PROTEIN, SERUM 7.1 g/dL (6.4-8.2)
--- NOTE | 2019-10-01 00:37 | NUR ---
PT NEEDS FREQUENT SUCTIONING TO KEEP THE O2 SAT ABOVE 90%. CURRENTLY ON O2 AT 5LPM VIA NC W/ O2 SAT OF 93. WILL CONT TO MONITOR ,
[2019-10-01] MEDS ORDERED: DEXAMETHASONE SOD PHOSPHATE 10 MG/ML VIAL ONE (00:55)
[2019-10-01] MEDS ORDERED: IV NS 0.9% 1,000 ML BAG IV ONE (01:00)
[2019-10-01] MEDS ORDERED: DEXAMETHASONE SOD PHOSPHATE 10 MG/ML VIAL IV ONE (01:00)
[2019-10-01] MEDS ORDERED: APIX5TAB4 PO (01:26)
[2019-10-01] MEDS ORDERED: GABA300C PO (01:26)
[2019-10-01] MEDS ORDERED: AMLO5TAB4 PO (01:26)
[2019-10-01] MEDS ORDERED: HYDR20VI4 IJ (01:26)
[2019-10-01] MEDS ORDERED: METO-295 PO (01:26)
[2019-10-01] MEDS ORDERED: PANT40TA2 PO (01:26)
[2019-10-01] MEDS ORDERED: CHOL200026 PO (01:26)
[2019-10-01] MEDS ORDERED: TAMS-12 GT (01:26)
[2019-10-01] MEDS ORDERED: MIRT15TA GT (01:26)
[2019-10-01] MEDS ORDERED: DOCU-141 PO (01:26)
[2019-10-01] MEDS ORDERED: LEVO25TA7 GT (01:26)
[2019-10-01] MEDS ORDERED: ATOR10TA GT (01:26)
[2019-10-01] MEDS ORDERED: ASPI-1169 PO (01:26)
--- NOTE | 2019-10-01 01:41 | NUR ---
etomidate 20mg Iv given
--- NOTE | 2019-10-01 01:42 | NUR ---
SUCCINYLCHOLINE 100MG IVPP GIVEN
--- NOTE | 2019-10-01 01:44 | NUR ---
PT GOT SUCCESSFULLY INTUBATED AT THE BED SIDE BY ROSALIO FOOTE
[2019-10-01] MEDS ORDERED: NOREPINEPHRINE 4 MG/4 ML AMPUL IV ONE ×2 (01:45→01:48)
[2019-10-01] MEDS ORDERED: PROPOFOL 100 ML ONE (01:45)
--- NOTE | 2019-10-01 01:45 | NUR ---
RT NOTES: PT RECEIVED ON NON REBREATHER 15 LPM. PT SHOWS SIGNS OF RESP DISTRESS. PT INTUBATED VIA ETT 7.5 SECURED @24 CM AT THE LIP LINE BY ER MD TEE. CO2 COLOR METRIC COLOR CHANGE CONFIRM. BREATH SOUNDS CLEAR BILATERALLY. PT PLACED ON [facility] VENT ON NOTED SETTINGS PER MD ORDERS. SUCTIONED LARGE AMOUNT OF BLOODY THICK SECRETIONS. ALARMS SET AND AUDIBLE. VENT PLUGGED INTO RED OUTLET. AMBUBAG AT BEDSIDE. ABG TO BE TAKEN IN 30 MINS. WAITING ON X-RAY RESULTS. WILL CONT. TO MONITOR. Addendum: 10/01/19 at 0212 by MANDEEP LAW RT Amended: Links added.
--- NOTE | 2019-10-01 01:57 | NUR ---
LEVOPHED STARTED AT RATE OF 7 MCG/ MIN PER MD'S ORDER. PT REMAINED ON CONT MONITORING
--- NOTE | 2019-10-01 02:16 | NUR ---
PROPOFOL STARTED AT 10 MCG/KG/MIN. PT REMAINED ON CONT MONITORING.
[2019-10-01] MEDS ORDERED: IV D5/0.45 NACL 1,000 ML IV PRN ×2 (02:22→09:58)
[2019-10-01] MEDS ORDERED: MORPHINE SULFATE INJ 2 MG/ML DISP.SYRIN IV PRN (02:30)
[2019-10-01] MEDS ORDERED: MAG HYDROX/AL HYDROX/SIMETH 30 ML UDC PO PRN (02:30)
[2019-10-01] MEDS ORDERED: MAGNESIUM HYDROXIDE 30 ML UDC PO PRN (02:30)
[2019-10-01] MEDS ORDERED: ACETAMINOPHEN 650 MG/SUPP.RECT RC PRN (02:30)
[2019-10-01] MEDS ORDERED: ONDANSETRON HCL/PF 4 MG/2 ML VIAL IVP PRN (02:30)
[2019-10-01 02:37] LABS: APPEARANCE,URINE SL CLOUDY (CLEAR); BILIRUBIN,URINE NEGATIVE (NEGATIVE); BLOOD, URINE SMALL Ery/uL (NEGATIVE); COLOR,URINE YELLOW (YELLOW); KETONES,URINE NEGATIVE (NEGATIVE); LEUKOCYTE ESTERASE ,URINE NEGATIVE (NEGATIVE); NITRITE, URINE NEGATIVE (NEGATIVE); PROTEIN,URINE TRACE mg/dl (NEGATIVE); UGLUCOSE NEGATIVE (NEGATIVE); UROBILINOGEN,URINE 0.2 EU/dL (0.2)
--- NOTE | 2019-10-01 02:55 | NUR ---
REPORT GIVEN TO ANN AT ICU
[2019-10-01] MEDS ORDERED: VANCOMYCIN 1 GM in IV D5W 250ml IV SCH (03:00)
[2019-10-01] MEDS ORDERED: DEXTROSE 50%-WATER 50 ML DISP.SYRIN IV PRN (03:00)
[2019-10-01] MEDS ORDERED: ETOMIDATE 2 MG/ML VIAL IV ONE ×2 (03:00→09:31)
[2019-10-01] MEDS ORDERED: SUCCINYLCHOLINE CHLORIDE 20 MG/ML VIAL IV ONE ×2 (03:00→09:31)
[2019-10-01] MEDS ORDERED: NOREPINEPHRINE 8 MG in IV D5W 500 ML IV PRN ×2 (03:00)
[2019-10-01] MEDS ORDERED: PROPOFOL 100 ML IV PRN (03:00)
--- NOTE | 2019-10-01 03:04 | NUR ---
PT CURRENTLY ON LEVOPHED AT 20MCG/ MIN AND PROPOFOL 20 MCG/KG/MIN. REMANINED ON CONTINUOUS MONITORING W/ STABLE VS.
[2019-10-01 03:09] LABS: ABG BASE EXCESS -8.6 mmol/L; ABG OXYGEN SATURATION 98.9 % (92.0-98.5); ABG PCO2 38.7 mmHg (35.0-45.0); ABG PH 7.275 (7.350-7.450); ABG PO2 196.6 mmHg (75.0-100.0); AaDO2 477.7 mmHg; MetHb 0.3 % (0.0-1.5); O2Hb 96.6 % (94.0-97.0); PEEP,BG 0 cm H2O; SITE, ABG Right Radial
--- NOTE | 2019-10-01 03:31 | NUR ---
PT WAS TRANSFERRED TO ICU UNDER ACLS
[2019-10-01 03:35] LABS: BACTERIA,URINE Few /HPF (None Seen); RBC,URINE TOO NUMEROUS TO COUN /HPF (0-2); SQUAMOUS EPITHELIAL CELL,UR Rare /HPF (None Seen)
--- NOTE | 2019-10-01 04:00 | NUR ---
DOUGH CUTTER. ADMISSION. RECEIVED THE PT FROM ER VIA RNEY. ORALLY INTUBATED. SEDATED WITH DIPRIVAN. ETT 7.5LIP 24, AC 16,TV 500,FIO2 100%,SAT 98%. NO ACUTE DISTRESS NOTED, DISH CLOTH INSPECTOR SHOWING NSR. DAVID SOFT WRIST RESTRAINT INITIATED FROM ER. DIPRIVAN STARTED FROM ER. 10MCG/KG/MIN, LEVOPHED STARED FROM ER RECEIVED WITH 22MCG/MIN, MULTIPLE WOUND NOTED, WOUND CONSULTATION ORDERED. PICTURE TAKEN AND PLACED IN THE CHART. ETT SUCTION BLOOD.NOTED.WILL CONTINUE TO MONITOR.
[2019-10-01] MEDS: PROPOFOL 100 ML IV PRN ×2 (04:17→12:57)
[2019-10-01 04:20] LABS: BASOPHILS % (AUTO) 0.2 % (0.0-2.0); CARBON DIOXIDE 20 mmol/L (21-32); CHLORIDE 104 mmol/L (98-107); CREATININE 1.8 mg/dL (0.6-1.3); GLUCOSE 258 mg/dL (74-106); HEMATOCRIT 43 % (39-51); HEMOGLOBIN 12.9 g/dL (13.5-17.5); LYMPHOCYTES # (AUTO) 0.4 /CMM (0.8-4.8); LYMPHOCYTES % (AUTO) 3.4 % (20.0-44.0); MEAN CORPUSCULAR HGB CONC 30 g/dl (31.0-36.0); MEAN CORPUSCULAR VOLUME 67 fL (80-96); MONOCYTES # (AUTO) 0.2 /CMM (0.1-1.30); MONOCYTES % (AUTO) 1.8 % (2.0-12.0); NEUTROPHILS # (AUTO) 10.5 /CMM (1.8-8.9); NEUTROPHILS % (AUTO) 93.6 % (43.0-81.0); PLATELET COUNT (AUTO) 216 /CMM (150-450); POTASSIUM 4.4 mmol/L (3.5-5.1); RED BLOOD CELL COUNT(AUTO) 6.41 MIL/uL (4.5-6.0); SODIUM SERUM 133 mmol/L (136-145); UREA NITROGEN, BLOOD 45 mg/dL (7-18); WHITE BLOOD COUNT (AUTO) 11.3 K/uL (4.3-11.0)
[2019-10-01 04:26] LABS: ALANINE AMINOTRANSFERASE 38 U/L (12-78); ALBUMIN 2.5 g/dL (3.4-5.0); ALKALINE PHOSPHATASE 93 U/L (46-116); ASPARTATE AMINOTRANSFERASE 32 U/L (15-37); BILIRUBIN,TOTAL 0.7 mg/dL (0.2-1.0); MAGNESIUM 1.7 mg/dL (1.8-2.4); PHOSPHORUS 4.6 mg/dL (2.5-4.9); TOTAL PROTEIN, SERUM 6.3 g/dL (6.4-8.2)
[2019-10-01 04:30] LABS: THYROID STIMULATING HORMONE 10.144 uIU/mL (0.358-3.74)
[2019-10-01] MEDS ORDERED: PIPERACILLIN /TAZOBACTAM 3.375 G VIAL IV ONE (05:06)
[2019-10-01 05:08] LABS: BAND % (MANUAL) 4 % (0.0-5.0); LYMPHOCYTES % (MANUAL) 5 % (16-48); MONOCYTES % (MANUAL) 1 % (0-11.0); NEUTROPHILS % (MANUAL) 90 (42-76)
[2019-10-01] MEDS: PIPERACILLIN /TAZOBACTAM 3.375 G in IV D5W 50 ML IV SCH ×3 (05:34→17:09)
[2019-10-01] MEDS ORDERED: FEE PK DOSING 1 MIN EA MC ONE (06:23)
[2019-10-01] MEDS: NOREPINEPHRINE 8 MG in IV D5W 500 ML IV PRN ×4 (06:44→17:45)
[2019-10-01] MEDS ORDERED: MAG HYDROX/AL HYDROX/SIMETH 30 ML UDC GT PRN (07:00)
[2019-10-01] MEDS ORDERED: MAGNESIUM HYDROXIDE 30 ML UDC GT PRN (07:00)
--- NOTE | 2019-10-01 07:00 | NUR ---
RN NOTES RECEIVED PT ON BED, INTUBATED AND SEDATED , TOLERATING CURRENT VENT SETTING WELL, VSS STABLE, ON TELE SR HR IN 90'S , T=94.0, PT ON BEAR HUGGER , R NARE NGT TUBE INTACT AND CLAMPED AT THIS TIME , DIPRIVAN AT 10MCG/KG/MIN AND LEVO AT 22 MCG/ MIN RUINING VIA L FEMORAL TLC IV SITE , SR UP X3. CALL LIGHT WITHIN EASY REACH, BED LOCKED AND IN LOWEST POSITION , CONTINUE TO MONITOR
--- NOTE | 2019-10-01 07:29 | NUR ---
WINDING MACHINE OPERATOR. RT RUPINDER NGT PLACED.
--- NOTE | 2019-10-01 07:29 | NUR ---
APPARATUS OPERATOR. AM CARE. ORAL CARE. BED BATH GIVEN. FIO2 TITRATED DOWN 50%. LIABILITY CLAIMS REPRESENTATIVE SHOWING NSR. IV RT FEMORAL TRIPLE LUMEN DIPRIVAN 10MCG/KG/MIN,LEVOPHED 22MCG/MIN. IVF D51/2NS 100ML/H. HOB ELEVATED. NPO. DAVID SOFT WRIST RESTRAINT CHECKED AND RELEASED. NO INJURY OR REDNESS NOTED.CLIFFORD HUGGER ON. TEMPERATURE WAS 88.4. WILL CONTINUE TO MONITOR.
[2019-10-01] MEDS: BLOOD SUGAR DIAGNOSTIC 1 EACH STRIP IN SCH ×4 (08:11→22:11)
[2019-10-01] MEDS: INSULIN REGULAR, HUMAN 100 UNIT/ML 3 ML VIAL SQ PRN ×5 (08:11→22:14)
[2019-10-01] MEDS: GABAPENTIN 300 MG CAPSULE GT SCH ×3 (08:12→16:38)
[2019-10-01] MEDS: LEVOTHYROXINE SODIUM 25 MCG TABLET GT SCH (08:12)
[2019-10-01] MEDS: ASPIRIN 81 MG TAB.CHEW GT SCH (08:12)
[2019-10-01] MEDS: CHOLECALCIFEROL 1,000 UNIT TABLET (VIT D3) GT SCH (08:12)
[2019-10-01] MEDS: TAMSULOSIN 0.4 MG CAP.SR.24H GT SCH (08:12)
[2019-10-01] MEDS: APIXABAN 2.5 MG TABLET GT SCH ×2 (08:14→16:38)
[2019-10-01] MEDS ORDERED: LORAZEPAM INJ 2 MG/ML VIAL IV STA (08:47)
[2019-10-01] MEDS ORDERED: ASPIRIN 81 MG TAB.CHEW PO SCH (09:00)
[2019-10-01] MEDS ORDERED: APIXABAN 5 MG TABLET PO SCH (09:00)
[2019-10-01] MEDS ORDERED: GABAPENTIN 300 MG CAPSULE PO SCH (09:00)
--- NOTE | 2019-10-01 09:00 | NUR ---
RN NOTES PT HAS NOT VOIDED YET, DR ARMANDO NOTIFED. DR TORRES WILL BE ON THE FLOOR TO INSERT COUDE CATHETER
[2019-10-01] MEDS ORDERED: LORAZEPAM INJ 2 MG/ML VIAL IVP PRN (10:00)
[2019-10-01 10:25] LABS: ABG BASE EXCESS -7.8 mmol/L; ABG OXYGEN SATURATION 97.8 % (92.0-98.5); ABG PH 7.331 (7.350-7.450); ABG PO2 113.5 mmHg (75.0-100.0); AaDO2 205.9 mmHg; COHb 1.8 % (0.5-1.5); MetHb 0.3 % (0.0-1.5); O2Hb 95.7 % (94.0-97.0); SITE, ABG Right Femoral; VT, ABG 500 mL
[2019-10-01] MEDS ORDERED: IV NS 0.9% 500 ML IV ONE ×2 (10:30→12:30)
[2019-10-01] MEDS ORDERED: Magnesium 1GM/D5W 100ML PREMIX 100 ML IV SCH (10:30)
[2019-10-01] MEDS ORDERED: NOREPINEPHRINE 16 MG in IV D5W 500 ML IV PRN (12:00)
--- NOTE | 2019-10-01 12:00 | NUR ---
RN NOTED PT HAS NOT VOIDED YET, DR ARMANDO NOTIFED. DR TORRES WILL BE ON THE FLOOR TO INSERT COUDE CATHETER PER DR ARMANDO.
--- NOTE | 2019-10-01 12:15 | NUR ---
RN NOTES BG =400, DR PRABHA ANTONIOFED, PT IS SEDATED , INSULIN COVERAGE GIVEN PER SLIDING SCALE, NEW ORDER RECEIVED TO CHANGE IVF TO NS AT 125CC/HR , CONTINUE TO MONITOR .
[2019-10-01] MEDS: Z GUARD REMEDY 2 OZ OINT TP PRN (12:43)
[2019-10-01] MEDS ORDERED: LIDOCAINE HCL/MPF 1% 30 ML VIAL IJ ONE (13:28)
[2019-10-01] MEDS: IV NS 0.9% 1,000 ML IV PRN ×2 (13:43→22:05)
--- NOTE | 2019-10-01 13:49 | NUR ---
RN NOTES BLOODY DRAINAGE NOTED AT THE LEFT FEMORAL TLC SITE, DR TORRES AT THE BEDSIDE , PRESSURE DRESSING APPLIED, CONTINUE TO MONITOR.
[2019-10-01] MEDS ORDERED: IV NS 0.9% 1,000 ML BAG IV PRN (14:00)
--- NOTE | 2019-10-01 14:00 | NUR ---
RN NOTES UNABLE TO WEAN OFF PRESSOR, IVF NS 500x2 BAGS GIVEN , DR STOKES NOTIFED .
--- NOTE | 2019-10-01 14:19 | NUR ---
RN NOTES BG =340 , DR PRABHA MAGALLANES, ORDER RECEIVED TO COVER BG WITH SLIDING SCALE . CONTINUE TO MONITOR .
[2019-10-01 14:38] LABS: CREATININE, URINE 109.8 MG/DL (30.0-125.0); URINE TOTAL PROTEIN 31.6 mg/dL (0-11.9)
[2019-10-01 16:56] LABS: CREATININE, URINE 74.5 MG/DL (30.0-125.0); URINE TOTAL PROTEIN 24.8 mg/dL (0-11.9)
--- NOTE | 2019-10-01 17:00 | NUR ---
RN NOTES L FEMORAL LTC SITE , CLEAN, DRY AND INTACT ,DR STOKES NOTIFED REGARDING CORTISOL LEVEL 8.1, NEW ORDER RECEIVED.
[2019-10-01 17:07] LABS: APPEARANCE,URINE CLEAR (CLEAR); BILIRUBIN,URINE NEGATIVE (NEGATIVE); BLOOD, URINE LARGE Ery/uL (NEGATIVE); COLOR,URINE YELLOW (YELLOW); KETONES,URINE NEGATIVE (NEGATIVE); LEUKOCYTE ESTERASE ,URINE NEGATIVE (NEGATIVE); NITRITE, URINE NEGATIVE (NEGATIVE); PROTEIN,URINE NEGATIVE (NEGATIVE); UGLUCOSE 250 MG/DL mg/dL (NEGATIVE); UROBILINOGEN,URINE 0.2 EU/dL (0.2)
[2019-10-01 17:20] LABS: BACTERIA,URINE 1+ /HPF (None Seen); RBC,URINE TOO NUMEROUS TO COUN /HPF (0-2); SQUAMOUS EPITHELIAL CELL,UR Few /HPF (None Seen); WBC,URINE 0-2 /HPF (0-3)
[2019-10-01] MEDS: HYDROCORTISONE SOD SUCCINATE 100 MG/2 ML VIAL IV SCH (17:44)
[2019-10-01 17:53] LABS: EOSINOPHIL,URINE None Seen
--- NOTE | 2019-10-01 18:21 | NUR ---
RN NOTES PT REMAINS INTUBATED AND SEDATED, ,DIPRIVAN AT 16 MCG /KG/MIN AND LEVO AT 12 MCG/MIN RUNNING VIA LEFT FEMORAL TLC RUNNING , NS AT 125CC/HR , SR UP X3, CALL LIGHT WITHIN EASY REACH, BED LOCKED AND IN LOWEST POSITION, WILL ENDOSE TO PROMOTIONAL REPRESENTATIVE NURSE FOR CONTINUITY OF CARE .
--- NOTE | 2019-10-01 19:00 | NUR ---
RECEIVED PATIENT ORALLY INTUBATED TO THE VENTILATOR ON AC MODE,NOT IN ANY DISTRESS,SEDATED ON PROPOFOL DRIP, + WEAK GAG.+ COUGH.WITHDRAWS TO PAIN. ON LEVOPHED DRIP FOR BP SUPPORT. TRIPLE LUMEN CATH . @ LEFT GROIN, DRESSING DRY AND INTACT( WILL MONITOR SITE FOR BLEEDING). JOHNSON CATH. WITH BLOODY DRAINAGE( WILL CLOSELY MONITOR,IRRIGATE IF NEEDED TO PREVENT CLOTTING). COMFORT CARE DONE. WILL TITRATE LEVOPHED DRIP TOLERATED.
[2019-10-01] MEDS: DOCUSATE SODIUM LIQ 100 MG/10 ML UDC GT SCH (21:48)
[2019-10-01] MEDS: ATORVASTATIN 10 MG TABLET GT SCH (21:48)
[2019-10-01] MEDS: MIRTAZAPINE 15 MG TABLET GT SCH (21:48)
[2019-10-01] MEDS ORDERED: DOCUSATE SODIUM 100 MG CAPSULE PO SCH (22:00)
--- NOTE | 2019-10-01 22:00 | NUR ---
JOHNSON CATH. STILL DRAINING DARK BLOOD,IRRIGATED , OBTAINED FEW SMALL BLOOD CLOTS.WILL CLOSELY MONITOR AND OBSERVE IF IT CLEARS OUT WITH IRRIGATION.
[2019-10-02] VITALS (90 sets, daily range): BP systolic 72–123; BP diastolic 24–92
--- NOTE | 2019-10-02 | NUR ---
STATUS UNCHANGED.STILL ON LEVOPHED DRIP, WILL TITRATE PROPOFOL DOWN.STILL VERY SEDATED ,RESPONDS TO DEEP PAIN ONLY.JOHNSON CATH DRAINAGE CLEARING A LITTLE ,NO MORE BLOOD CLOTS NOTED.
[2019-10-02] MEDS: PIPERACILLIN /TAZOBACTAM 3.375 G in IV D5W 50 ML IV SCH ×5 (00:06→23:57)
[2019-10-02] MEDS: VANCOMYCIN 1 GM in IV D5W 250 ML IV SCH (00:31)
--- NOTE | 2019-10-02 02:00 | NUR ---
BP REMAINS STABLE, PROPOFOL DOWN TO 14 MCG/MIN.STILL WITH RASS =3.URINE NOT BLOODY ANYMORE,MORE PINKISH. AM CARE DONE.
[2019-10-02] MEDS: PROPOFOL 100 ML IV PRN ×2 (02:04→16:50)
--- NOTE | 2019-10-02 04:00 | NUR ---
remains stable.levophed drip now down to 8 mcg/min.remains sedated,not in any distress.Report given to Guera CASILLAS
[2019-10-02 04:22] LABS: BASOPHILS % (AUTO) 0.1 % (0.0-2.0); HEMATOCRIT 37 % (39-51); HEMOGLOBIN 11.2 g/dL (13.5-17.5); LYMPHOCYTES # (AUTO) 0.8 /CMM (0.8-4.8); LYMPHOCYTES % (AUTO) 2.9 % (20.0-44.0); MEAN CORPUSCULAR HGB CONC 31 g/dl (31.0-36.0); MEAN CORPUSCULAR VOLUME 66 fL (80-96); MONOCYTES # (AUTO) 0.5 /CMM (0.1-1.30); NEUTROPHILS # (AUTO) 24.8 /CMM (1.8-8.9); PLATELET COUNT (AUTO) 207 /CMM (150-450); RED BLOOD CELL COUNT(AUTO) 5.51 MIL/uL (4.5-6.0); WHITE BLOOD COUNT (AUTO) 26.1 K/uL (4.3-11.0)
[2019-10-02 04:50] LABS: ALANINE AMINOTRANSFERASE 34 U/L (12-78); ALBUMIN 2.1 g/dL (3.4-5.0); ALKALINE PHOSPHATASE 80 U/L (46-116); ASPARTATE AMINOTRANSFERASE 27 U/L (15-37); BILIRUBIN,TOTAL 0.3 mg/dL (0.2-1.0); CALCIUM, SERUM 7.4 mg/dL (8.5-10.1); CARBON DIOXIDE 20 mmol/L (21-32); CHLORIDE 103 mmol/L (98-107); CREATININE 2.1 mg/dL (0.6-1.3); GLUCOSE 212 mg/dL (74-106); MAGNESIUM 1.9 mg/dL (1.8-2.4); PHOSPHORUS 2.9 mg/dL (2.5-4.9); POTASSIUM 4.5 mmol/L (3.5-5.1); SODIUM SERUM 134 mmol/L (136-145); TOTAL PROTEIN, SERUM 5.6 g/dL (6.4-8.2); UREA NITROGEN, BLOOD 46 mg/dL (7-18)
[2019-10-02 04:53] LABS: CREATINE KINASE, TOTAL 24 U/L (39-308)
[2019-10-02] MEDS: NOREPINEPHRINE 8 MG in IV D5W 500 ML IV PRN ×2 (05:04→23:46)
[2019-10-02] MEDS: HYDROCORTISONE SOD SUCCINATE 100 MG/2 ML VIAL IV SCH ×3 (05:27→21:24)
[2019-10-02 06:15] LABS: BAND % (MANUAL) 15 % (0.0-5.0); LYMPHOCYTES % (MANUAL) 4 % (16-48); MONOCYTES % (MANUAL) 1 % (0-11.0); NEUTROPHILS % (MANUAL) 80 (42-76)
--- NOTE | 2019-10-02 07:10 | NUR ---
MANAGER CHEMICAL INITIAL NOTES Rec'd pt on bed, sedated, not in any distress. On MV via ETT, sating at 98%. SR on telemonitor. Has NGT on R nare, patent & intact, clamped at this time. Has L femoral in place no s/sx of infection/infiltration noted w/ NS x 125 cc/hr, Levophed x 8 mcg, & Propofol x 14 mcg infusing well. Has L wrist G20 SL. Has FC draining to pinkish UOP. Has B soft wrist restraints in place, no sign of injury noted. Safety precaution in place w/ bed in lowest & locked pos. Call light placed w/in reach. Will cont to monitor & attend pt needs.
--- NOTE | 2019-10-02 07:57 | NUR ---
WOUND CARE CONSULT: PT FOLLOWED BY PLASTIC SURGERY AND PODIATRY TEAMS FOR WOUNDS. DEFER TO SURGICAL TEAMS FOR WOUND TREATMENT PLAN. DISCUSSED SKIN PROTECTION WITH NURSING STAFF. FIRST STEP LOW AIRLOSS MATTRESS ON ORDER. WILL SEE PRN. CURRENT GUSTAVO SCORE IS 10.
--- NOTE | 2019-10-02 08:00 | NUR ---
Sedation vacation started. Pt noted having involuntary muscle twitching more on L side of the body. 0830 Pt seen & examined by Dr. Allen, updated about pt condition. made aware that pt having involuntary muscle twitching upon turning off the Propofol. Per , may give Ativan PRN. 0900 Dr. Allen informed that pt having pink tinged urine. Pt on ASA & Eliquis. Per , hold ASA & give Eliquis.
--- NOTE | 2019-10-02 08:02 | NUR ---
RT NOTE RECEIVED PT ETT ON VENT.PT IS STABLE AT THIS TIME WITH NO SIGNS OF SOB. STEPHANE AMARAL. SKeysha'D FOR MOD AMT OF FROTHY TINGED SECRETIONS. VENT ALARMS SET AND AUDIBLE. VENT PLUGGED IN RED OUTLET. CONTINUE [facility] VENT SUPPORT. CONTINUE TO MONITOR. Addendum: 10/02/19 at 0806 by MAGALIE RIVERA RT Amended: Links added.
[2019-10-02] MEDS: BLOOD SUGAR DIAGNOSTIC 1 EACH STRIP IN SCH ×4 (08:07→23:47)
[2019-10-02] MEDS: INSULIN REGULAR, HUMAN 100 UNIT/ML 3 ML VIAL SQ PRN ×4 (08:09→23:56)
[2019-10-02 08:27] LABS: ABG BASE EXCESS -8.1 mmol/L; ABG OXYGEN SATURATION 95.1 % (92.0-98.5); ABG PCO2 27.8 mmHg (35.0-45.0); ABG PH 7.372 (7.350-7.450); ABG PO2 75.2 mmHg (75.0-100.0); COHb 1.9 % (0.5-1.5); MetHb 0.3 % (0.0-1.5); PEEP,BG 0 cm H2O; SITE, ABG Right Radial; VENT MODE, BG AC 500 40% +0; VT, ABG 500 mL
--- NOTE | 2019-10-02 08:45 | NUR ---
Per Arti SHARMA, may order NPO except meds & start pt on SSI q6h while NPO.
[2019-10-02] MEDS: GABAPENTIN 300 MG CAPSULE GT SCH ×3 (08:53→16:50)
[2019-10-02] MEDS: LEVOTHYROXINE SODIUM 25 MCG TABLET GT SCH (08:53)
[2019-10-02] MEDS: ASPIRIN 81 MG TAB.CHEW GT SCH ×2 (08:53→09:00)
[2019-10-02] MEDS: CHOLECALCIFEROL 1,000 UNIT TABLET (VIT D3) GT SCH (08:53)
[2019-10-02] MEDS: TAMSULOSIN 0.4 MG CAP.SR.24H GT SCH (08:53)
[2019-10-02] MEDS: APIXABAN 2.5 MG TABLET GT SCH (08:54)
[2019-10-02] MEDS ORDERED: DEXTROSE 50%-WATER 50 ML DISP.SYRIN IV PRN (09:00)
[2019-10-02] MEDS: THERAHONEY GEL 1.5 OZ TUBE TP SCH (09:01)
[2019-10-02] MEDS: IV NS 0.9% 1,000 ML IV PRN ×2 (10:15→17:18)
--- NOTE | 2019-10-02 12:00 | NUR ---
Pt seen & examined by Arti SHARMA, updated about pt status.
[2019-10-02] MEDS: Z GUARD REMEDY 2 OZ OINT TP PRN (12:23)
--- NOTE | 2019-10-02 12:30 | NUR ---
Victorina CAMARILLO updated about status.
--- NOTE | 2019-10-02 13:25 | NUR ---
Pt seen & examined by Dr. Lubin.
--- NOTE | 2019-10-02 15:30 | NUR ---
Noted moderate bleeding from L femoral TLC site, gauze soaked w/ blood. Pressure dressing reinforced. Also noted bleeding from penile area. Dr. Allen notified, ordered may hold ASA & eliquis for 48 hours. CN made aware.
--- NOTE | 2019-10-02 18:06 | NUR ---
Pt seen & examined by Joi SHARMA, updated about pt status.
--- NOTE | 2019-10-02 18:52 | NUR ---
UPPER INSPECTOR CLOSING NOTES Pt resting comfortably on his bed, remains sedated. Tolerated MV settings via ETT, sating at 98%. SR/SB on telemonitor. NGT on R nare kept patent & intact, NPO except meds for now. L femoral kept in place w/ pressure dressing on d/t bleeding noted - NS x 80 cc/hr, Levophed x 2 mcg, & Propofol x 10 mcg infusing well. L wrist G20 SL. FC still draining to pinkish UOP. B soft wrist restraints kept in place, no sign of injury noted. Safety precaution kept in place w/ bed in lowest & locked pos. Will endorse to PM RN for JOZEF.
--- NOTE | 2019-10-02 19:30 | NUR ---
HEAVY DUTY MECHANIC INITIAL SHIFT NOTES RECEIVED PATIENT IN BED, ASLEEP, SEDATED ON DIPRIVAN GTT @ 10MCG/KG/MIN. ALSO ON LEVOPHED GTT AT 2MCG/MIN. DRIPS INFUSING THROUGH LEFT FEMORAL TLC. ALL PORTS FLUSHED WITH NS, NOTED WITH GOOD BLOOD RETURN, SITE FREE FROM ANY S/S OF INFILTRATION OR PHLEBITIS. LEFT FEM TLC COVERED WITH PRESSURE DRESSING DUE TO BLEEDING NOTED AT SITE, MD AWARE PER DAY SHIFT NURSE, CURRENTLY HOLDING BLOOD THINNER MEDS UNTIL 10/04/19, MD TO REASSESS AT THAT TIME FOR CONTINUATION IF NEEDED. JOHNSON CATHETER PATENT AND INTACT, DRAINING PINK COLORED URINE VIA GRAVITY, NOTED WITH SEDIMENTS AND OCCASIONAL MUCOUS THREADS. PATIENT ORALLY INTUBATED, ON MECHANICAL VENTILATION AT PRESCRIBED SETTINGS, TOLERATING WELL, FREE FROM ANY S/S OF RESPIRATORY DISTRESS. CLIFFORD HUGGER CURRENTLY IN PLACE, CORE TEMP 95.0, AXILLARY TEMP @ 96.2. BED IN LOWEST AND LOCKED POSITION, SEMIFOWLERS. WILL MONITOR CLOSELY
[2019-10-02] MEDS: ATORVASTATIN 10 MG TABLET GT SCH (21:24)
[2019-10-02] MEDS: DOCUSATE SODIUM LIQ 100 MG/10 ML UDC GT SCH (21:24)
[2019-10-02] MEDS: MIRTAZAPINE 15 MG TABLET GT SCH (21:24)
--- NOTE | 2019-10-02 21:34 | NUR ---
RECEIVED PT INTUBATED ON VENT. NO RESP DISTRESS. PT TOLERATING VENT SETTINGS. SX'D FOR MOD AMT OF THIN RED BLOOD SECRETIONS. VENT ALARMS SET AND AUDIBLE. CONTINUE [facility] VENT SUPPORT. Addendum: 10/02/19 at 2135 by RUMA PARTIDA RT Amended: Links added.
[2019-10-03] VITALS (77 sets, daily range): BP systolic 92–134; BP diastolic 44–84
--- NOTE | 2019-10-03 | NUR ---
CHILDBIRTH AND INFANT CARE TEACHER CLOSING NOTES NO ACUTE CHANGES SO FAR IN SHIFT, REMAINS ON LEVOPHED GTT @ 2MCG/MIN AND DIPRIVAN GTT @ 10MCG/KG/MIN. WILL CONTINUE TO MONITOR.
[2019-10-03] MEDS: VANCOMYCIN 1 GM in IV D5W 250 ML IV SCH (00:36)
[2019-10-03 04:28] LABS: LYMPHOCYTES # (AUTO) 0.8 /CMM (0.8-4.8); MONOCYTES # (AUTO) 0.4 /CMM (0.1-1.30)
[2019-10-03] MEDS: PROPOFOL 100 ML IV PRN ×2 (04:33→14:35)
[2019-10-03 04:35] LABS: BASOPHILS % (AUTO) 0.1 % (0.0-2.0); HEMATOCRIT 35 % (39-51); HEMOGLOBIN 10.7 g/dL (13.5-17.5); LYMPHOCYTES % (AUTO) 4.3 % (20.0-44.0); MEAN CORPUSCULAR HGB CONC 31 g/dl (31.0-36.0); MEAN CORPUSCULAR VOLUME 66 fL (80-96); MONOCYTES % (AUTO) 2.5 % (2.0-12.0); NEUTROPHILS # (AUTO) 16.3 /CMM (1.8-8.9); NEUTROPHILS % (AUTO) 93.1 % (43.0-81.0); PLATELET COUNT (AUTO) 138 /CMM (150-450); RED BLOOD CELL COUNT(AUTO) 5.21 MIL/uL (4.5-6.0); WHITE BLOOD COUNT (AUTO) 17.6 K/uL (4.3-11.0)
[2019-10-03] MEDS: HYDROCORTISONE SOD SUCCINATE 100 MG/2 ML VIAL IV SCH ×3 (04:35→21:00)
[2019-10-03 04:40] LABS: CALCIUM, SERUM 7.4 mg/dL (8.5-10.1); CARBON DIOXIDE 17 mmol/L (21-32); CHLORIDE 107 mmol/L (98-107); GLUCOSE 246 mg/dL (74-106); MAGNESIUM 2.4 mg/dL (1.8-2.4); PHOSPHORUS 3.7 mg/dL (2.5-4.9); POTASSIUM 3.6 mmol/L (3.5-5.1); SODIUM SERUM 137 mmol/L (136-145); UREA NITROGEN, BLOOD 46 mg/dL (7-18)
[2019-10-03] MEDS: PIPERACILLIN /TAZOBACTAM 3.375 G in IV D5W 50 ML IV SCH ×4 (05:14→23:28)
[2019-10-03] MEDS: BLOOD SUGAR DIAGNOSTIC 1 EACH STRIP IN SCH ×3 (05:15→17:00)
[2019-10-03] MEDS: INSULIN REGULAR, HUMAN 100 UNIT/ML 3 ML VIAL SQ PRN ×3 (05:17→17:41)
--- NOTE | 2019-10-03 06:30 | NUR ---
CENTRAL PROCESSING TECH CLOSING NOTES PATIENT RESTING COMFORTABLY IN BED, NO ACUTE DISTRESS NOTED. LEVOPHED GTT TITRATED OFF/ON HOLD AT THIS TIME DUE TO BP 121/71, SBP TRENDING ABOVE 90 CONSECUTIVELY. DIPRIVAN GTT REMAINS AT 10MCG/KG/MIN, UNABLE TO TITRATE OFF PATIENT BEGINS TO GAG ON ETT AND SET OFF VENTILATOR. WILL ENDORSE THE PATIENT TO THE AM SHIFT NURSE FOR CONTINUITY OF CARE
--- NOTE | 2019-10-03 07:30 | NUR ---
ICU/RN: Pt received intubated, sedated, tolerating current vent settings. OGT auscultated, positive placement, clamped. Medications infusing well into L femoral TLC. Saturated dressing noted with large blood clots noted; dressing changed, pressure dressing applied. Initiated sedation vacation to assess to neuro status. No seizure activity noted. FC draining clear yellow urine to gravity with pink sediments. Turned and repositioned for comfort. Safety measures in place. Will continue to monitor pt.
[2019-10-03] MEDS: IV NS 0.9% 1,000 ML IV PRN ×2 (08:09→20:58)
[2019-10-03] MEDS: TAMSULOSIN 0.4 MG CAP.SR.24H GT SCH (08:10)
[2019-10-03] MEDS: GABAPENTIN 300 MG CAPSULE GT SCH ×3 (08:10→16:12)
[2019-10-03] MEDS: Z GUARD REMEDY 2 OZ OINT TP PRN (08:10)
[2019-10-03] MEDS: CHOLECALCIFEROL 1,000 UNIT TABLET (VIT D3) GT SCH (08:10)
[2019-10-03] MEDS: THERAHONEY GEL 1.5 OZ TUBE TP SCH (08:10)
[2019-10-03] MEDS: LEVOTHYROXINE SODIUM 25 MCG TABLET GT SCH (08:10)
--- NOTE | 2019-10-03 08:30 | NUR ---
ICU/RN: Resumed sedation; pt unable to follow commands however exhibits s/s pain and discomfort, pt gagging on tube and crying. Restraint care rendered.
[2019-10-03 08:35] LABS: ABG BASE EXCESS -7.4 mmol/L; ABG OXYGEN SATURATION 97.5 % (92.0-98.5); ABG PCO2 26.2 mmHg (35.0-45.0); ABG PH 7.402 (7.350-7.450); ABG PO2 105.9 mmHg (75.0-100.0); AaDO2 149.2 mmHg; COHb 1.8 % (0.5-1.5); MetHb 0.3 % (0.0-1.5); O2Hb 95.5 % (94.0-97.0); PEEP,BG 0 cm H2O; SITE, ABG Right Radial; VT, ABG 500 mL
[2019-10-03 11:07] LABS: PTH, INTACT 103 pg/mL (15-65)
[2019-10-03 13:07] LABS: *SPE A/G RATIO 0.9 (0.7-1.7); *SPE ALBUMIN 2.4 g/dL (2.9-4.4); *SPE ALPHA-1-GLOBULIN 0.4 g/dL (0.0-0.4); *SPE ALPHA-2-GLOBULIN 0.8 g/dL (0.4-1.0); *SPE GLOBULIN, TOTAL 2.7 g/dL (2.2-3.9); *SPE M-SPIKE Not Observed g/dL (Not Observed); *SPEGAMMA GLOBULIN 0.5 g/dL (0.4-1.8)
--- NOTE | 2019-10-03 14:30 | NUR ---
ICU/RN: Arti Young, TIME STAMP ASSEMBLER at bedside; updated on pt status. Pt remains off Levophed; currently sedated on Diprivan. Informed of bloody dressing this am. New orders noted and carried out.
--- NOTE | 2019-10-03 15:15 | NUR ---
ICU/RN: Bed bath, wound care rendered. FC irrigated. Tolerated well.
[2019-10-03] MEDS: GLUCERNA 1.2 1,000 ML BOTTLE NG PRN (17:00)
--- NOTE | 2019-10-03 18:42 | NUR ---
ICU/RN: Pt s/n [employer] for ID f/u. Updated on pt status.
--- NOTE | 2019-10-03 19:34 | NUR ---
PT RECEIVED ORALLY INTUBATED WITH 7.5 ETT SECURED @ 24 CM LIPLINE ON MECHANICAL VENTILATION WITH NOTED SETTINGS. PT IS SEDATED. AMBU BAG @ BEDSIDE. SX DONE. ALARMS ON AND AUDIBLE. VENT PLUGGED INTO RED OUTLET. NO SOB OR RESPIRATORY DISTRESS NOTED AT THIS TIME. WILL MONITOR T/O SHIFT.
--- NOTE | 2019-10-03 19:45 | NUR ---
ICU/STOCK ROOM MANAGER RECEIVED REPORT FROM DAY SHIFT NURSE. SEE FLOWSHEET FOR ASSESSMENT. THERE ARE A COUPLE SKIN ISSUES THAT PT HAS, WHICH IS ADDRESSED ON FLOWSHEET ALONG WITH THE INTERVENTION TO EACH.PT HAS RIGHT NG-TUBE WITH FEEDING, WHICH PT IS TOLERATING.WILL TITRATE FEEDING TO GOAL RATE OF 60. PT WAS TURNING AND REPOSITIONING FOR COMFORT AND CARE. WILL CONTINUE TO MONITOR THIS PT.
--- NOTE | 2019-10-03 20:37 | NUR ---
ICU/SAUSAGE GRINDER DR CECILIA HOUGH CAME TO SEE PT. ASKED THAT SEDATION VACATION BE DONE WHILE HE WAS HERE. THIS WAS DONE. PT DID NOT WAKE UP MUCH. HOWEVER HE DID OPEN EYES, VENT WAS BEING BUCKED PT AT THIS TIME. DR SMITH ASKED THAT SEDATION BE DECREASED DOWN TO 5 MCG AND NOT BE INCREASED. THIS WAS DONE . WILL CONTINUE TO MONITOR THIS PT.
[2019-10-03] MEDS: ATORVASTATIN 10 MG TABLET GT SCH (20:57)
[2019-10-03] MEDS: MIRTAZAPINE 15 MG TABLET GT SCH (20:57)
[2019-10-03] MEDS: DOCUSATE SODIUM LIQ 100 MG/10 ML UDC GT SCH (20:57)
--- NOTE | 2019-10-03 21:54 | NUR ---
ICU/CASE SPECIALIST RESIDUALS FROM FEEDING IS AT 40ML. WILL CONTINUE TO KEEP THE FEEDING AT 30ML AND WILL RECHECK THE RESIDUALS AT MIDNIGHT.
--- NOTE | 2019-10-03 22:20 | NUR ---
ICU/TIMBER SETTER PT WAS GIVEN PM CARE, ALONG WITH ORAL CARE. PT TOLERATED THIS WELL, REMAINS ON CURRENT VENT SETTINGS WITH SATURATION AT 100%. PT WAS TURNED AND REPOSITIONED FOR COMFORT AND CARE. WILL CONTINUE TO MONITOR THIS PT.
[2019-10-04] VITALS (38 sets, daily range): BP systolic 98–128; BP diastolic 52–76
[2019-10-04] MEDS: BLOOD SUGAR DIAGNOSTIC 1 EACH STRIP IN SCH ×4 (00:07→17:04)
[2019-10-04] MEDS: INSULIN REGULAR, HUMAN 100 UNIT/ML 3 ML VIAL SQ PRN ×4 (00:08→17:06)
--- NOTE | 2019-10-04 00:10 | NUR ---
ICU/MORGUE KEEPER PT'S MIDNIGHT BLOOD SUGAR IS 165. THERE IS COVERAGE FOR THIS PER MD ORDERS AND HOSPITAL PROTOCOL. PT WILL CONTINUE TO MONITOR THIS SUGARS ORDERS. PT WAS TURNED AND REPOSITIONED FOR COMFORT AND CARE.
[2019-10-04] MEDS: VANCOMYCIN 1 GM in IV D5W 250 ML IV SCH (00:15)
--- NOTE | 2019-10-04 00:20 | NUR ---
ICU/COAT OPERATOR INSULATOR RESIDUALS FROM FEEDING IS AT 50ML. WILL CONTINUE TO KEEP THE FEEDING AT 30ML AND WILL RECHECK THE RESIDUALS IN 2 HOURS.
--- NOTE | 2019-10-04 02:30 | NUR ---
ICU/ARTISTS' BOOKING REPRESENTATIVE PT WAS GIVEN AM CARE, ALONG WITH ORAL CARE. PT TOLERATED THIS WELL, REMAINS ON CURRENT VENT SETTINGS WITH SATURATION AT 100%. PT WAS TURNED AND REPOSITIONED FOR COMFORT AND CARE. WILL CONTINUE TO MONITOR THIS PT.
--- NOTE | 2019-10-04 03:00 | NUR ---
ICU/FABRIC CUTTER RESIDUALS FROM FEEDING IS AT 55ML. WILL CONTINUE TO KEEP THE FEEDING AT 30ML AND WILL RECHECK THE RESIDUALS IN 2-3 HOURS.
--- NOTE | 2019-10-04 04:20 | NUR ---
ICU/SPORTS INSTRUCTOR AM LABS WERE DRAWN, AWAIT FOR ANY ABNORMAL LABS
[2019-10-04 05:00] LABS: CALCIUM, SERUM 7.1 mg/dL (8.5-10.1); CARBON DIOXIDE 18 mmol/L (21-32); CHLORIDE 111 mmol/L (98-107); GLUCOSE 220 mg/dL (74-106); MAGNESIUM 2.7 mg/dL (1.8-2.4); PHOSPHORUS 3.3 mg/dL (2.5-4.9); POTASSIUM 3.1 mmol/L (3.5-5.1); SODIUM SERUM 140 mmol/L (136-145); UREA NITROGEN, BLOOD 44 mg/dL (7-18)
[2019-10-04 05:32] LABS: BASOPHILS % (AUTO) 0.1 % (0.0-2.0); EOSINOPHILS % (AUTO) 0.1 % (0.0-6.0); HEMATOCRIT 34 % (39-51); HEMOGLOBIN 10.4 g/dL (13.5-17.5); LYMPHOCYTES # (AUTO) 1.2 /CMM (0.8-4.8); LYMPHOCYTES % (AUTO) 7.2 % (20.0-44.0); MEAN CORPUSCULAR HGB CONC 31 g/dl (31.0-36.0); MEAN CORPUSCULAR VOLUME 66 fL (80-96); MONOCYTES # (AUTO) 0.9 /CMM (0.1-1.30); MONOCYTES % (AUTO) 5.4 % (2.0-12.0); NEUTROPHILS # (AUTO) 13.9 /CMM (1.8-8.9); NEUTROPHILS % (AUTO) 87.2 % (43.0-81.0); PLATELET COUNT (AUTO) 139 /CMM (150-450); RED BLOOD CELL COUNT(AUTO) 5.11 MIL/uL (4.5-6.0)
[2019-10-04] MEDS: HYDROCORTISONE SOD SUCCINATE 100 MG/2 ML VIAL IV SCH ×3 (05:51→20:51)
[2019-10-04] MEDS: PIPERACILLIN /TAZOBACTAM 3.375 G in IV D5W 50 ML IV SCH ×3 (05:51→17:06)
[2019-10-04] MEDS: PROPOFOL 100 ML IV PRN ×2 (05:52→08:23)
--- NOTE | 2019-10-04 06:00 | NUR ---
ICU/OFFICE AUTOMATION CLERK PT'S AM BLOOD SUGAR IS 220. THERE IS COVERAGE FOR THIS PER MD ORDERS AND HOSPITAL PROTOCOL. PT WILL CONTINUE TO MONITOR THIS SUGARS ORDERS. PT WAS TURNED AND REPOSITIONED FOR COMFORT AND CARE.
[2019-10-04 06:13] LABS: BAND % (MANUAL) 4 % (0.0-5.0); LYMPHOCYTES % (MANUAL) 6 % (16-48); MONOCYTES % (MANUAL) 6 % (0-11.0); NEUTROPHILS % (MANUAL) 84 (42-76)
[2019-10-04] MEDS: CHOLECALCIFEROL 1,000 UNIT TABLET (VIT D3) GT SCH (08:22)
[2019-10-04] MEDS: TAMSULOSIN 0.4 MG CAP.SR.24H GT SCH (08:22)
[2019-10-04] MEDS: GABAPENTIN 300 MG CAPSULE GT SCH ×3 (08:22→16:08)
[2019-10-04] MEDS: LEVOTHYROXINE SODIUM 25 MCG TABLET GT SCH (08:22)
[2019-10-04] MEDS: Z GUARD REMEDY 2 OZ OINT TP PRN (08:23)
[2019-10-04] MEDS: THERAHONEY GEL 1.5 OZ TUBE TP SCH (08:23)
[2019-10-04] MEDS ORDERED: APIXABAN 5 MG TABLET PO SCH (09:00)
--- NOTE | 2019-10-04 09:15 | NUR ---
ICU/RN: Dr Alejandro dumont; updated on pt status. Informed of current fluid status, output, pt currently in intermittent a-fib, sinus bradycardia. New orders noted and carried out.
[2019-10-04] MEDS: ASPIRIN 81 MG TAB.CHEW PO SCH (09:19)
[2019-10-04] MEDS: IV NS 0.9% 1,000 ML IV PRN (09:52)
--- NOTE | 2019-10-04 10:00 | NUR ---
ICU/RN: ZACHARY Young rounds; updated on pt status. Neuro recs reviewed. Pt with no change in mental status, on low dose Diprivan. Tolerating TF with 20cc residual. Urine with less blood clots. Currently in a-fib. New orders noted and carried out.
[2019-10-04] MEDS ORDERED: POTASSIUM CHLORIDE 20 MEQ POWDER PACKET GT SCH (11:00)
[2019-10-04] MEDS: APIXABAN 2.5 MG TABLET PO SCH ×2 (11:31→16:07)
--- NOTE | 2019-10-04 15:00 | NUR ---
ICU/RN: Resumed sedation; pt noted gagging and crying from discomfort.
[2019-10-04] MEDS: GLUCERNA 1.2 1,000 ML BOTTLE NG PRN (16:20)
--- NOTE | 2019-10-04 18:00 | NUR ---
ICU/RN: Spoke with SONAJ Mullen from [facility] - per RN, pt was previously "A&Ox2 and able to communicate needs, but I can't verify because the chart has been transferred to medical records. You'll have to call again in the morning."
--- NOTE | 2019-10-04 18:20 | NUR ---
ICU/RN: Called Zach (person to notify on chart) and Mary (sister). Unable to contact to obtain consent for authorization to release medical records for Dr Sy. Zach, nephew does not have voice mal box set up; Mary, sister has non-working number listed. Will endorse oncoming RN to f/u consent.
--- NOTE | 2019-10-04 18:59 | NUR ---
ICU/RN: Sedation resumed; pt bucking vent, gagging, appears distressed. TF ongoing with 35 cc residuals. FC draining to gravity. Safety measures in place.
--- NOTE | 2019-10-04 19:30 | NUR ---
ICU NOTES RECEIVED PT ON VENT VIA ORAL ET-TUBE W/ FIO2%40%,TV 500,A/C16 W/ O2 SAT OF 98%.ET-TUBE FR 7.5 AT 24 CM LIP LINE.SUCTIONED FOR SMALL-MODERATE BLOODY SECRETIONS.OPENS EYES WHEN NAME CALLED,DOES NOT TRACK,DOES NOT FOLLOW COMMANDS.ON DIPRIVAN DRIP AT 5MCG/KG/MIN.SALEM SUMP TUBE VIA RT. NARES PATENT,ASPIRATED 5ML TUBE FEEDING W/C IS RUNNING AT 40ML/HR.JOHNSON INTACT,DRAINING YELLOW URINE W/ SEDIMENTS.ON CLIFFORD LIPSCOMB,TEMP =98.6 DEGREE F.
--- NOTE | 2019-10-04 22:00 | NUR ---
ICU NOTES SUCTIONED FOR SCANT BLOODY-SECRETIONS FROM ET-TUBE,MODERATE AMT WHITE SECRETIONS FROM MOUTH.ORAL CARE DONE.
[2019-10-04] MEDS: DOCUSATE SODIUM LIQ 100 MG/10 ML UDC GT SCH (22:10)
[2019-10-04] MEDS: ATORVASTATIN 10 MG TABLET GT SCH (22:10)
[2019-10-04] MEDS: MIRTAZAPINE 15 MG TABLET GT SCH (22:10)
[2019-10-05] VITALS (29 sets, daily range): BP systolic 101–134; BP diastolic 58–68
[2019-10-05] MEDS: PIPERACILLIN /TAZOBACTAM 3.375 G in IV D5W 50 ML IV SCH ×5 (00:48→23:54)
[2019-10-05] MEDS: INSULIN REGULAR, HUMAN 100 UNIT/ML 3 ML VIAL SQ PRN ×5 (00:57→23:58)
[2019-10-05] MEDS: BLOOD SUGAR DIAGNOSTIC 1 EACH STRIP IN SCH ×4 (01:13→23:55)
[2019-10-05] MEDS: PROPOFOL 100 ML IV PRN (01:18)
[2019-10-05] MEDS: VANCOMYCIN 1 GM in IV D5W 250 ML IV SCH ×2 (01:19→23:55)
--- NOTE | 2019-10-05 03:00 | NUR ---
ICU NOTES INCONTINENT OF LARGE SOFT STOOL,CLEANSED.BED BATH DONE.CONTINUES TO SUCTION BLOOD TO PINK-TINGED SECRETIONS.ORAL CARE DONE.OPENS EYES WHEN CALLED.DOES NOT FOLLOW COMMANDS.
[2019-10-05 04:30] LABS: BASOPHILS % (AUTO) 0.2 % (0.0-2.0); EOSINOPHILS % (AUTO) 0.1 % (0.0-6.0); HEMATOCRIT 34 % (39-51); HEMOGLOBIN 10.5 g/dL (13.5-17.5); LYMPHOCYTES % (AUTO) 5.5 % (20.0-44.0); MEAN CORPUSCULAR HGB CONC 31 g/dl (31.0-36.0); MEAN CORPUSCULAR VOLUME 67 fL (80-96); MONOCYTES # (AUTO) 0.9 /CMM (0.1-1.30); MONOCYTES % (AUTO) 5.2 % (2.0-12.0); NEUTROPHILS # (AUTO) 16.1 /CMM (1.8-8.9); PLATELET COUNT (AUTO) 152 /CMM (150-450); RED BLOOD CELL COUNT(AUTO) 5.12 MIL/uL (4.5-6.0)
[2019-10-05 04:44] LABS: CALCIUM, SERUM 7.5 mg/dL (8.5-10.1); CHLORIDE 112 mmol/L (98-107); CREATININE 1.8 mg/dL (0.6-1.3); GLUCOSE 304 mg/dL (74-106); MAGNESIUM 2.1 mg/dL (1.8-2.4); PHOSPHORUS 3.1 mg/dL (2.5-4.9); POTASSIUM 3.7 mmol/L (3.5-5.1); SODIUM SERUM 142 mmol/L (136-145); UREA NITROGEN, BLOOD 45 mg/dL (7-18)
[2019-10-05 04:50] LABS: CARBON DIOXIDE 21 mmol/L (21-32)
[2019-10-05] MEDS: HYDROCORTISONE SOD SUCCINATE 100 MG/2 ML VIAL IV SCH ×3 (05:30→20:57)
--- NOTE | 2019-10-05 06:48 | NUR ---
RT PT RECEIVED INTUBATED ON [facility] VENT WITH NOTED SETTING. ETT PATENT AND SECURE. PT TOLERATING SETTING WELL. NO SOB OR DISTRESS NOTED ON SHIFT. CONTINUE CURRENT CARE PLAN AND MONITOR FOR ANY CHANGES. Addendum: 10/05/19 at 0651 by JERRY ZAMORA RT Amended: Links added.
[2019-10-05 07:14] LABS: BAND % (MANUAL) 2 % (0.0-5.0); LYMPHOCYTES % (MANUAL) 3 % (16-48); MONOCYTES % (MANUAL) 7 % (0-11.0); MYELOCYTES % 1 % (0-0); NEUTROPHILS % (MANUAL) 87 (42-76)
--- NOTE | 2019-10-05 07:15 | NUR ---
RN INITIAL NOTES RECEIVED PT INTUBATED, TOLERATING VENT WELL. NO RESPIRATORY DISTRESS NOTED. NO HOB ELEVATED. NO SIGNS OF PAIN NOTED. BLOODY SECRETIONS NOTED FROM ETT. PT SEDATED, ON DIPRIVAN AT 5MCG/KG/MIN. WILL TITRATE ACCORDINGLY. RIGHT NARE NGT IN PLACE. TOLERATING GTF WELL. NO RESIDUAL NOTED. FC IN PLACE. NO HEMATURIA NOTED. BLE ELEVATED. WILL MONITOR
[2019-10-05] MEDS: TAMSULOSIN 0.4 MG CAP.SR.24H GT SCH (08:13)
[2019-10-05] MEDS: GABAPENTIN 300 MG CAPSULE GT SCH ×3 (08:13→17:12)
[2019-10-05] MEDS: CHOLECALCIFEROL 1,000 UNIT TABLET (VIT D3) GT SCH (08:13)
[2019-10-05] MEDS: LEVOTHYROXINE SODIUM 25 MCG TABLET GT SCH (08:13)
[2019-10-05] MEDS: THERAHONEY GEL 1.5 OZ TUBE TP SCH (08:14)
[2019-10-05] MEDS: ASPIRIN 81 MG TAB.CHEW PO SCH (08:15)
[2019-10-05] MEDS: APIXABAN 2.5 MG TABLET PO SCH ×2 (08:15→17:00)
[2019-10-05 08:33] LABS: ABG BASE EXCESS -6.8 mmol/L; ABG OXYGEN SATURATION 97.3 % (92.0-98.5); ABG PCO2 23.3 mmHg (35.0-45.0); ABG PH 7.446 (7.350-7.450); AaDO2 159.4 mmHg; COHb 1.5 % (0.5-1.5); O2Hb 95.8 % (94.0-97.0); SITE, ABG Right Radial
[2019-10-05] MEDS: GLUCERNA 1.2 1,000 ML BOTTLE NG PRN (12:14)
[2019-10-05] MEDS ORDERED: DEXTROSE 50%-WATER 50 ML DISP.SYRIN IV PRN (12:30)
--- NOTE | 2019-10-05 15:00 | NUR ---
RN NOTES 1200 SEEN AND EXAMINED BY ARMANDO HAYNES NP. AWARE OF LAB VALUES AND CXR RESULT. PT OFF DIPRIVAN. PT NON FOLLOWING COMMANDS. WITHDRAWS TO PAIN. PUPILS UNEQUAL. NO SEIZURE NOTED. TOLERATING GTF WELL. BLOODY SECRETIONS NOTED. HELD ELIQUIS AND ASPIRIN. NO HEMATURIA NOTED. WILL MONITOR 1500 SEEN AND EXAMINED BY DR STOKES. AWARE OF ABG RESULT. PT OFF DIPRIVAN. NO SEIZURE NOTED. SPOKE WITH MAURO BhattNEPHVENTURA) REGARDING PLAN OF CARE. WILL MONITOR
--- NOTE | 2019-10-05 18:40 | NUR ---
RN CLOSING NOTES NO SIGNIFICANT CHANGE NOTED. PT REMAINS INTUBATED, ON VENT. NO RESPIRATORY DISTRESS NOTED. NO SIGNS OF PAIN NOTED. TOLERATING GTF WELL. TX PROVIDED ORDERED. KEPT CLEAN AND DRY. REPOSITIONED Q2. WILL ENDORSE FOR CONTINUITY OF CARE.
--- NOTE | 2019-10-05 19:39 | NUR ---
ACTOR UNDERSTUDY. INITIAL ASSESSMENT. RECEIVED THE PT REST ON THE BED, ORALLY INTUBATED, DIPRIVAN OFF. PT IS VERY LETHARGIC, DOES NOT FOLLOW COMMANDS. ETT 7.5,AC 16,LIP 24,TV 500,FIO2 40%.SAT 98%. NO ACUTE DISTRESS NOTED, SAND MOLDER SHOWING NSR, IV LT FEMORAL TLC, TKO RUNNING. RT NARE NGT INTACT, GLUCERNA 59ML/H. FC PATENT. HOB ELEVATED, WILL CONTINUE TO MONITOR VITALS.
--- NOTE | 2019-10-05 19:43 | NUR ---
RT Pt received orally intubated with a 7.5 ET tube secured at 24cm at the lip line. Pt responds to stimuli when suctioned. Vent is plugged into red outlet. No respiratory distress noted. Addendum: 10/05/19 at 2330 by LAURA ADEN RT Amended: Links added.
[2019-10-05] MEDS: MIRTAZAPINE 15 MG TABLET GT SCH (20:57)
[2019-10-05] MEDS: DOCUSATE SODIUM LIQ 100 MG/10 ML UDC GT SCH (20:57)
[2019-10-05] MEDS: ATORVASTATIN 10 MG TABLET GT SCH (20:58)
[2019-10-06] VITALS (29 sets, daily range): BP systolic 103–132; BP diastolic 58–72
[2019-10-06 05:03] LABS: BASOPHILS % (AUTO) 0.2 % (0.0-2.0); EOSINOPHILS % (AUTO) 1.5 % (0.0-6.0); HEMATOCRIT 34 % (39-51); HEMOGLOBIN 10.6 g/dL (13.5-17.5); LYMPHOCYTES # (AUTO) 1.2 /CMM (0.8-4.8); LYMPHOCYTES % (AUTO) 7.1 % (20.0-44.0); MEAN CORPUSCULAR HGB CONC 31 g/dl (31.0-36.0); MEAN CORPUSCULAR VOLUME 67 fL (80-96); MONOCYTES # (AUTO) 1.3 /CMM (0.1-1.30); MONOCYTES % (AUTO) 7.5 % (2.0-12.0); NEUTROPHILS # (AUTO) 14.6 /CMM (1.8-8.9); NEUTROPHILS % (AUTO) 83.7 % (43.0-81.0); PLATELET COUNT (AUTO) 157 /CMM (150-450); RED BLOOD CELL COUNT(AUTO) 5.08 MIL/uL (4.5-6.0); WHITE BLOOD COUNT (AUTO) 17.4 K/uL (4.3-11.0)
[2019-10-06 05:17] LABS: CALCIUM, SERUM 7.7 mg/dL (8.5-10.1); CARBON DIOXIDE 22 mmol/L (21-32); CHLORIDE 111 mmol/L (98-107); CREATININE 1.6 mg/dL (0.6-1.3); GLUCOSE 275 mg/dL (74-106); MAGNESIUM 2.1 mg/dL (1.8-2.4); POTASSIUM 3.7 mmol/L (3.5-5.1); SODIUM SERUM 140 mmol/L (136-145); UREA NITROGEN, BLOOD 43 mg/dL (7-18)
--- NOTE | 2019-10-06 05:17 | NUR ---
curriculum assistant. am, care, oral care, bed bath given. linen changed, remaining same vent setting tolerated well. sat 98%, no acute distress noted, satellite project site monitor showing nsr, iv lt femoral tko running, hob elevated, fc patent urine draining. turn and reposition q2h. ngt feeding tolearted well. afebrile. will continue to monitor vitals.
[2019-10-06] MEDS: PIPERACILLIN /TAZOBACTAM 3.375 G in IV D5W 50 ML IV SCH ×3 (05:49→17:10)
[2019-10-06] MEDS: BLOOD SUGAR DIAGNOSTIC 1 EACH STRIP IN SCH ×4 (05:50→23:49)
[2019-10-06] MEDS: HYDROCORTISONE SOD SUCCINATE 100 MG/2 ML VIAL IV SCH ×3 (05:50→21:28)
[2019-10-06] MEDS: INSULIN REGULAR, HUMAN 100 UNIT/ML 3 ML VIAL SQ PRN ×3 (05:53→17:22)
[2019-10-06] MEDS: GLUCERNA 1.2 1,000 ML BOTTLE NG PRN (05:53)
[2019-10-06 05:58] LABS: EOSINOPHILS % (MANUAL) 2 % (0-4); LYMPHOCYTES % (MANUAL) 5 % (16-48); MONOCYTES % (MANUAL) 4 % (0-11.0); NEUTROPHILS % (MANUAL) 89 (42-76)
--- NOTE | 2019-10-06 07:15 | NUR ---
RN INITIAL NOTES RECEIVED PT INTUBATED, TOLERATING VENT WELL. NO RESPIRATORY DISTRESS NOTED. NO HOB ELEVATED. NO SIGNS OF PAIN NOTED. RIGHT NARE NGT IN PLACE. TOLERATING GTF WELL. NO RESIDUAL NOTED. FC IN PLACE. NO HEMATURIA NOTED. BLE ELEVATED. WILL MONITOR
[2019-10-06] MEDS: LEVOTHYROXINE SODIUM 25 MCG TABLET GT SCH (08:27)
[2019-10-06] MEDS: CHOLECALCIFEROL 1,000 UNIT TABLET (VIT D3) GT SCH (08:27)
[2019-10-06] MEDS: TAMSULOSIN 0.4 MG CAP.SR.24H GT SCH (08:27)
[2019-10-06] MEDS: ASPIRIN 81 MG TAB.CHEW PO SCH (08:27)
[2019-10-06] MEDS: GABAPENTIN 300 MG CAPSULE GT SCH ×3 (08:27→17:09)
[2019-10-06] MEDS: THERAHONEY GEL 1.5 OZ TUBE TP SCH (08:28)
[2019-10-06] MEDS: APIXABAN 2.5 MG TABLET PO SCH ×2 (08:28→17:11)
--- NOTE | 2019-10-06 09:45 | NUR ---
PATIENT SUCTIONED -MODERATE AMOUNT OF THICK YELLOW SECRETIONS.
--- NOTE | 2019-10-06 10:00 | NUR ---
PATIENT NOTED TACHYPNEIC. OVERBREATHING THE VENT. COUGHING CONTINUOUSLY. AWAKE BUT DOES NOT FOLLOW SIMPLE COMMANDS. DIPRIVAN 5 MCG/KG/MIN STARTED-TITRATE PER PROTOCOL.
[2019-10-06] MEDS: PROPOFOL 100 ML IV PRN (10:02)
--- NOTE | 2019-10-06 14:00 | NUR ---
RN NOTES 1200 SEEN AND EXAMINED BY DR NOLAN. PT INTUBATED, ON VENT. NO RESPIRATORY DISTRESS NOTED. ON DIPRIVAN AT 5MCG/KG/MIN. NO RESPIRATORY DISTRESS NOTED. HOB ELEVATED. PINK TINGED SECRETIONS NOTED. WILL MONITOR 1400 SEEN AND EXAMINED BY ARMANDO HAYNES NP. PT AWAKE, EYES TRACKS, RESPONDS TO PAIN. ON DIPRIVAN AT 5MCG/KG/MIN. MANAGER FRONT AWARE OF LATEST LAB VALUES AND CXR RESULT. TOLERATING GTF WELL. WILL CLOSELY MONITOR. POSSIBLE TRACH AND PEG PLACEMENT.
--- NOTE | 2019-10-06 18:35 | NUR ---
RN CLOSING NOTES PT REMAINS INTUBATED, ON VENT. NO RESPIRATORY DISTRESS NOTED. NO SIGNS OF PAIN NOTED. ON DIPRIVAN AT 5MCG/KG/MIN. OPEN EYES SPONTANEOUSLY, TRACKS. TOLERATING GTF WELL. TX PROVIDED ORDERED. KEPT CLEAN AND DRY. REPOSITIONED Q2. WILL ENDORSE FOR CONTINUITY OF CARE.
--- NOTE | 2019-10-06 19:25 | NUR ---
ICU/RN NOTES PATIENT IN BED, OBTUNDED, IN NO ACUTE DISTRESS, INTUBATED, WITH PRESCRIBED VENT SETTING, O2 SAT 100. BREATHING EVEN AND UNLABORED. NO SOB NOTED. PATIENT ON TELE MONITORING WITH SINUS RHYTHM, WITH BBB. FC IN PLACE, PATENT, DRAINING WELL WITH CLEAR YELLOW URINE, HOB ELEVATED 45 DEGREE. IV SITES WITH NO S/S OF INFECTION INFILTRATION RUNNING WITH PROPOFOL ORDERED. TOLERATING WELL. G-TUBE IN PLACE, PATENT, CONNECTED TO FEEDING ORDERED. SAFETY MAINTAINED, BED AT THE LOWEST LOCKED POSITION. CALL LIGHT WITHIN REACH. WILL CONTINUE TO MONITOR PER PLAN OF CARE.
[2019-10-06] MEDS: CEFEPIME 1 GM in IV NS 0.9% 50 ML IV SCH (20:15)
[2019-10-06] MEDS: ATORVASTATIN 10 MG TABLET GT SCH (21:28)
[2019-10-06] MEDS: DOCUSATE SODIUM LIQ 100 MG/10 ML UDC GT SCH (21:28)
[2019-10-06] MEDS: MIRTAZAPINE 15 MG TABLET GT SCH (21:28)
[2019-10-07] VITALS (25 sets, daily range): BP systolic 91–139; BP diastolic 52–77
[2019-10-07] MEDS: INSULIN REGULAR, HUMAN 100 UNIT/ML 3 ML VIAL SQ PRN ×5 (00:03→23:52)
[2019-10-07] MEDS: PROPOFOL 100 ML IV PRN (03:02)
[2019-10-07 04:29] LABS: HEMATOCRIT 34 % (39-51); HEMOGLOBIN 10.6 g/dL (13.5-17.5); LYMPHOCYTES # (AUTO) 0.9 /CMM (0.8-4.8); LYMPHOCYTES % (AUTO) 5.3 % (20.0-44.0); MEAN CORPUSCULAR HGB CONC 31 g/dl (31.0-36.0); MEAN CORPUSCULAR VOLUME 67 fL (80-96); MONOCYTES # (AUTO) 1.4 /CMM (0.1-1.30); MONOCYTES % (AUTO) 7.9 % (2.0-12.0); NEUTROPHILS % (AUTO) 85.8 % (43.0-81.0); PLATELET COUNT (AUTO) 153 /CMM (150-450); RED BLOOD CELL COUNT(AUTO) 5.05 MIL/uL (4.5-6.0); WHITE BLOOD COUNT (AUTO) 17.5 K/uL (4.3-11.0)
[2019-10-07] MEDS: GLUCERNA 1.2 1,000 ML BOTTLE NG PRN (04:40)
[2019-10-07] MEDS: HYDROCORTISONE SOD SUCCINATE 100 MG/2 ML VIAL IV SCH ×3 (04:40→21:09)
[2019-10-07 05:06] LABS: CALCIUM, SERUM 7.8 mg/dL (8.5-10.1); CARBON DIOXIDE 24 mmol/L (21-32); CHLORIDE 113 mmol/L (98-107); CREATININE 1.4 mg/dL (0.6-1.3); GLUCOSE 252 mg/dL (74-106); MAGNESIUM 2.1 mg/dL (1.8-2.4); PHOSPHORUS 2.8 mg/dL (2.5-4.9); POTASSIUM 3.9 mmol/L (3.5-5.1); SODIUM SERUM 145 mmol/L (136-145); UREA NITROGEN, BLOOD 44 mg/dL (7-18)
[2019-10-07 05:13] LABS: BAND % (MANUAL) 2 % (0.0-5.0); EOSINOPHILS % (MANUAL) 1 % (0-4); LYMPHOCYTES % (MANUAL) 7 % (16-48); MONOCYTES % (MANUAL) 5 % (0-11.0); NEUTROPHILS % (MANUAL) 85 (42-76)
[2019-10-07] MEDS: BLOOD SUGAR DIAGNOSTIC 1 EACH STRIP IN SCH ×4 (06:31→23:50)
--- NOTE | 2019-10-07 06:54 | NUR ---
ICU/RN NOTES PATIENT IN BED, AWAKE, OPEN EYES, IN NO ACUTE DISTRESS, INTUBATED, WITH PRESCRIBED VENT SETTING, O2 SAT 99%. BREATHING EVEN AND UNLABORED. NO SOB NOTED. PATIENT ON TELE MONITORING WITH SINUS RHYTHM. FC IN PLACE, PATENT, DRAINING WELL WITH CLEAR YELLOW URINE, HOB ELEVATED 45 DEGREE. IV SITE AND LEFT FEMORAL TLC SITE WITH NO S/S OF INFECTION INFILTRATION RUNNING WITH PROPOFOL ORDERED. TOLERATING WELL. NG-TUBE IN PLACE, PATENT, CONNECTED TO FEEDING, DECREASED RATE TO 30CC/HR DUE TO PATIENT HAVING RESIDUAL 80-90CC, PATIENT WITH 20CC RESIDUAL AT THIS TIME, HOB ELEVATED. ALL DUE MEDS GIVEN ORDERED, TREATMENTS RENDERED, TOLERATED WELL. SAFETY MAINTAINED, BED AT THE LOWEST LOCKED POSITION. CALL LIGHT WITHIN REACH. WILL ENDORSE TO AM SHIFT NURSE FOR JOZEF.
--- NOTE | 2019-10-07 07:30 | NUR ---
RN NOTES RECEIVED PATIENT. SEDATED. INTUBATED WITH ETT 7.5 AT 25 CM ON THE LIP. TOLERATING CURRENT VENT SETTING. SATING FINE. SINUS RHYTHM ON THE MONITOR WITH HR ON THE 80'S. GTF FEEDING RUNNING AT DESIRED RATE. GT IN PLACE AND INTACT, MINIMAL GASTRIC RESIDUAL TAKEN AT THIS TIME. WITH ONGOING DIPRIVAN AT MCG/MIN THROUGH THE L FEMORAL PICC TLC, DRESSING CLEAN AND INTACT. SEDATION VACATION INITIATED WILL RESTART ADMINISTRATION WHEN NECESSARY. JOHNSON CATHETER IN PLACE AND DRAINING TO CLOUDY URINE. HOB ELEVATED. SAFETY MEASURES IN PLACE. CALL LIGHT WITHIN REACH. WILL CONTINUE TO MONITOR PATIENT ACCORDINGLY
[2019-10-07] MEDS: GABAPENTIN 300 MG CAPSULE GT SCH ×3 (08:42→17:12)
[2019-10-07] MEDS: TAMSULOSIN 0.4 MG CAP.SR.24H GT SCH (08:42)
[2019-10-07] MEDS: CHOLECALCIFEROL 1,000 UNIT TABLET (VIT D3) GT SCH (08:42)
[2019-10-07] MEDS: ASPIRIN 81 MG TAB.CHEW PO SCH (08:42)
[2019-10-07] MEDS: LEVOTHYROXINE SODIUM 25 MCG TABLET GT SCH (08:42)
[2019-10-07] MEDS: APIXABAN 2.5 MG TABLET PO SCH ×2 (08:44→17:13)
[2019-10-07] MEDS: THERAHONEY GEL 1.5 OZ TUBE TP SCH (08:46)
--- NOTE | 2019-10-07 19:30 | NUR ---
RN NOTES HANDS OFF. ENDORSED FOR CONTINUITY OF CARE. NOT ON ANY DISTRESS. ON DIPRIVAN AT 5MCG/KG/MIN. ALL NURSING NEEDS ANTICIPATED AND ATTENDED.CALL LIGHT WITHIN REACH.
[2019-10-07] MEDS ORDERED: MEROPENEM 1 G VIAL IV ONE (19:50)
--- NOTE | 2019-10-07 20:00 | NUR ---
RETAIL ACCOUNT SPECIALIST NOTES PT IN BED SEDATED, AND INTUBATED WITH ETT 7.5 AT 25 CM ON THE LIP. NO DISTRESS OR DISCOMFORT NOTED. NO S/S OF PAIN NOTED. ON VENT TOLERATING THE SETTINGS WELL. O2 SAT 99%. ON TELE SB 52. GTF INFUSING WELL GLUCERNA AT 30 ML/HR, 0 ML RESIDUAL NOTED. KEPT HOB ELEVATED. ON DIPRIVAN AT 5MCG/MIN VIA L FEMORAL TLC. DRESSING CLEAN AND INTACT. F/C INTACT AND PATENT DRAINING CLOUDY URINE. REPOSITION HIM FOR SKIN MANAGEMENT. ALL NEEDS ATTENDED. SIDE RAILS UP X 3 AND CALL LIGHT WITHIN REACH. VSS. WILL CONTINUE TO MONITOR HIM.
[2019-10-07] MEDS ORDERED: CEFEPIME 1 GM VIAL ONE (20:45)
[2019-10-07] MEDS: CEFEPIME 1 GM in IV NS 0.9% 50 ML IV SCH (20:53)
[2019-10-07] MEDS: ATORVASTATIN 10 MG TABLET GT SCH (21:09)
[2019-10-07] MEDS: DOCUSATE SODIUM LIQ 100 MG/10 ML UDC GT SCH (21:09)
[2019-10-07] MEDS: MIRTAZAPINE 15 MG TABLET GT SCH (21:09)
[2019-10-08] VITALS (26 sets, daily range): BP systolic 108–146; BP diastolic 59–88
[2019-10-08] MEDS: PROPOFOL 100 ML IV PRN (02:34)
[2019-10-08] MEDS: HYDROCORTISONE SOD SUCCINATE 100 MG/2 ML VIAL IV SCH ×3 (05:13→21:48)
[2019-10-08 05:15] LABS: BASOPHILS % (AUTO) 0.2 % (0.0-2.0); EOSINOPHILS % (AUTO) 2.9 % (0.0-6.0); HEMATOCRIT 33 % (39-51); HEMOGLOBIN 10.2 g/dL (13.5-17.5); LYMPHOCYTES % (AUTO) 6.8 % (20.0-44.0); MEAN CORPUSCULAR HGB CONC 31 g/dl (31.0-36.0); MEAN CORPUSCULAR VOLUME 67 fL (80-96); MONOCYTES # (AUTO) 1.1 /CMM (0.1-1.30); MONOCYTES % (AUTO) 7.2 % (2.0-12.0); NEUTROPHILS # (AUTO) 12.5 /CMM (1.8-8.9); NEUTROPHILS % (AUTO) 82.9 % (43.0-81.0); PLATELET COUNT (AUTO) 185 /CMM (150-450); RED BLOOD CELL COUNT(AUTO) 4.92 MIL/uL (4.5-6.0); WHITE BLOOD COUNT (AUTO) 15.1 K/uL (4.3-11.0)
[2019-10-08 05:27] LABS: CALCIUM, SERUM 8.2 mg/dL (8.5-10.1); CREATININE 1.3 mg/dL (0.6-1.3); MAGNESIUM 2.4 mg/dL (1.8-2.4); PHOSPHORUS 2.7 mg/dL (2.5-4.9); POTASSIUM 3.7 mmol/L (3.5-5.1)
[2019-10-08] MEDS: BLOOD SUGAR DIAGNOSTIC 1 EACH STRIP IN SCH ×4 (06:05→23:33)
[2019-10-08] MEDS: INSULIN REGULAR, HUMAN 100 UNIT/ML 3 ML VIAL SQ PRN ×4 (06:15→23:35)
--- NOTE | 2019-10-08 06:28 | NUR ---
SEASONAL WAREHOUSE ASSOCIATE NOTE PT IN BED SEDATED. NO DISTRESS OR DISCOMFORT NOTED. NO S/S OF PAIN NOTED. 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 NGT RT NARES INTACT AND PATENT INFUSING GLUCERNA WELL, 0 ML RESIDUAL NOTED. REPOSITION HIM Q2H, KEPT HIM DRY AND CLEAN. ALL NEEDS ATTENDED. SIDE RAILS UP X 3 AND CALL LIGHT WITHIN REACH. WILL ENDORSE TO DAY SHIFT NURSE FOR CONTINUE TO CARE.
--- NOTE | 2019-10-08 06:34 | NUR ---
ORTHODONTIC BAND MAKER NOTE DIPRIVAN REMAIN INFUSING AT 5MCG PT REMAIN SEDATED. NO DISTRESS OR DISCOMFORT NOTED. KEPT HIM DRY AND CLEAN.
--- NOTE | 2019-10-08 07:30 | NUR ---
RN NOTES RECEIVED PATIENT BACK FROM INSPECTOR FINAL ASSEMBLY CONVEYOR LINE NURSE, PATIENT ON VENT, NO SIGN OF RESPIRATORY DISTRESS NOTED. NO INDICATION OF PAIN. PATIENT ON SEDATION OF DIPRIVAN AT 5MCCG/ MIN, WILL DO SEDATION VACATION. GTF FEEDING ON HOLD TEMPORARILY PATIENT HAS RESIDUAL PER INSPECTOR FINAL ASSEMBLY CONVEYOR LINE NURSE. 500CC NOTED UPON CHECKING, WILL RESTART IN A WHILE. HOB KEPT ELEVATED. SUCTIONED SECRETIONS ON THE MOUTH AND THROUGH ETT. SAFETY MEASURES IN PLACE. WILL CONTINUE TO MONITOR AND AND ANTICIPATE NEEDS
--- NOTE | 2019-10-08 08:00 | NUR ---
RN NOTES NGT NOT IN PLACE UPON CHECKING. NEW ONE INSERTED AT 75CM ON THE TIP NOSE. PLACEMENT CONFIRMED WITH SONJA PETERS
--- NOTE | 2019-10-08 08:45 | NUR ---
RN NOTES DR. STOKES WITH ORDERS FOR VENT SETTING CHANGES.
[2019-10-08] MEDS: GABAPENTIN 300 MG CAPSULE GT SCH ×3 (09:01→17:24)
[2019-10-08] MEDS: ASPIRIN 81 MG TAB.CHEW PO SCH (09:01)
[2019-10-08] MEDS: CHOLECALCIFEROL 1,000 UNIT TABLET (VIT D3) GT SCH (09:01)
[2019-10-08] MEDS: LEVOTHYROXINE SODIUM 25 MCG TABLET GT SCH (09:01)
[2019-10-08] MEDS: TAMSULOSIN 0.4 MG CAP.SR.24H GT SCH (09:01)
[2019-10-08] MEDS: APIXABAN 2.5 MG TABLET PO SCH ×2 (09:02→17:26)
[2019-10-08] MEDS: THERAHONEY GEL 1.5 OZ TUBE TP SCH (09:03)
[2019-10-08] MEDS: GLUCERNA 1.2 1,000 ML BOTTLE NG PRN (09:07)
[2019-10-08 10:00] LABS: ABG BASE EXCESS -1.4 mmol/L; ABG OXYGEN SATURATION 97.6 % (92.0-98.5); ABG PCO2 30.8 mmHg (35.0-45.0); ABG PH 7.464 (7.350-7.450); ABG PO2 104.2 mmHg (75.0-100.0); AaDO2 145.6 mmHg; COHb 1.2 % (0.5-1.5); MetHb 0.1 % (0.0-1.5); O2Hb 96.3 % (94.0-97.0); PEEP,BG 5 cm H2O; SITE, ABG Right Femoral; VENT MODE, BG simv; VT, ABG 500 mL
--- NOTE | 2019-10-08 17:07 | NUR ---
RT END OF THE SHIFT REPORT, PT. 84 Y OLD MALE REMAIN ORALLY INTUBATED ETT#7.5 @ 24 CM LIP LINE WITH NOTED VENT SETTINGS, @0845 PLACED ON SIMV MODE PER DR. STOKES ORDER AT THE BEDSIDE. POST ABG DONE NO CHANGES PT. REMAIN IN SAME SETTINGS, VIRGIL. WELL AND WILL KEEP ON CURRENT SETTINGS, CPAP TRAIL 10/09 AM. BILATERALLY CHEST RISE NOTED, B/S BILATERALLY RALES AND SUX'S FOR MOD. AMT OF YELLOW SECRETIONS, PT. STABLE VENT PLUGGED INTO RED OUT LET AND HME CHANGED, MARKETING OPERATIONS CONSULTANT DONE. CONTINUE TO MONITOR CLOSELY AND REPORT WILL PASS TO PM SHIFT. Addendum: 10/08/19 at 1710 by ROSEMARY PABLO RT Amended: Links added.
--- NOTE | 2019-10-08 19:25 | NUR ---
RN NOTES HANDS OFF. ENDORSED FOR CONTINUITY OF CARE NOT ON ANY FORM OF DISTRESS. TOLERATING CURRENT VEENT SETTING AT SIMV MODE. ALL NURSING NEEDS ANTICIPATED, AND ATTENDED. SAFETY MEASURES IN PLACE
[2019-10-08] MEDS: CEFEPIME 1 GM in IV D5W 50 ML IV SCH (21:08)
[2019-10-08] MEDS: FLUCONAZOLE IN NS,PREMIX 100 MG in PREMIX 1 EA IV SCH ×2 (21:13)
[2019-10-08] MEDS: DOXYCYCLINE 100 MG in IV D5W 100 ML IV SCH (21:45)
[2019-10-08] MEDS: DOCUSATE SODIUM LIQ 100 MG/10 ML UDC GT SCH (21:48)
[2019-10-08] MEDS: MIRTAZAPINE 15 MG TABLET GT SCH (21:48)
[2019-10-08] MEDS: ATORVASTATIN 10 MG TABLET GT SCH (21:48)
[2019-10-09] VITALS (25 sets, daily range): BP systolic 112–153; BP diastolic 59–110
[2019-10-09 04:24] LABS: BASOPHILS % (AUTO) 0.2 % (0.0-2.0); EOSINOPHILS % (AUTO) 1.5 % (0.0-6.0); HEMATOCRIT 33 % (39-51); LYMPHOCYTES # (AUTO) 0.9 /CMM (0.8-4.8); LYMPHOCYTES % (AUTO) 6.5 % (20.0-44.0); MEAN CORPUSCULAR HGB CONC 31 g/dl (31.0-36.0); MEAN CORPUSCULAR VOLUME 68 fL (80-96); MONOCYTES # (AUTO) 0.7 /CMM (0.1-1.30); MONOCYTES % (AUTO) 5.1 % (2.0-12.0); NEUTROPHILS # (AUTO) 12.2 /CMM (1.8-8.9); NEUTROPHILS % (AUTO) 86.7 % (43.0-81.0); PLATELET COUNT (AUTO) 270 /CMM (150-450); WHITE BLOOD COUNT (AUTO) 14.1 K/uL (4.3-11.0)
[2019-10-09 04:52] LABS: CALCIUM, SERUM 8.1 mg/dL (8.5-10.1); CREATININE 1.2 mg/dL (0.6-1.3); MAGNESIUM 2.2 mg/dL (1.8-2.4); POTASSIUM 3.8 mmol/L (3.5-5.1)
[2019-10-09] MEDS: HYDROCORTISONE SOD SUCCINATE 100 MG/2 ML VIAL IV SCH ×2 (05:39→10:24)
[2019-10-09] MEDS: BLOOD SUGAR DIAGNOSTIC 1 EACH STRIP IN SCH ×3 (05:40→17:36)
[2019-10-09] MEDS: INSULIN REGULAR, HUMAN 100 UNIT/ML 3 ML VIAL SQ PRN ×3 (05:59→17:39)
[2019-10-09] MEDS: GLUCERNA 1.2 1,000 ML BOTTLE NG PRN (06:03)
--- NOTE | 2019-10-09 06:46 | NUR ---
APICULTURIST APICULTURIST DISCUSSED SACRAL DTI WITH WOUND MARQUISE BARAKAT. OF 10/08/19, DTI NOW IN EVOLUTION AND WAS EVALUATED BY APICULTURIST ON 10-08-19. TREATMENT PLAN REVIEWED AND IN PLACE. WOUND CARE TEAM WILL CONTINUE TO FOLLOW FOR PROGRESSION/HEALING. PATIENT CONTINUES TO HAVE MULTIPLE CO-MORBIDITIES, FURTHER SKIN BREAKDOWN MAY BE UNAVOIDABLE. ALL PRESSURE ULCER PREVENTION MEASURES CONTINUE TO BE IN PLACE AT THIS TIME.
--- NOTE | 2019-10-09 07:07 | NUR ---
EDUCATION REPORTER NOTE NO ACUTE DISTRESS NOTED. TOLERATED VENT SETTINGS WELL. ETT IN PLACE. SUCTIONED NEEDED. NGT IN PLACE WITH POSITIVE PLACEMENT AND NO RESIDUALS NOTED. ALL NEEDS ATTENDED TO PROMPTLY. KEPT CLEAN AND DRY. REPOSITIONED Q2H. WILL ENDORSE TO NEXT SHIFT FOR CONTINUITY OF CARE.
--- NOTE | 2019-10-09 07:52 | NUR ---
RT PT RECEIVED ORALLY INTUBATED WITH 7.5 ETT SECURED AT 25 CM AT THE LIP. ON SIMV MODE, TOLERATED WELL. PER MD ORDER, PT PLACED ON CPAP MODE. CURRENTLY TOLERATING WELL. VENT ALARMS CHECKED AND AUDIBLE. CUFF PRESSURE CHECKED, PELLETIZER OPERATOR. PT AIRWAY SUCTIONED AND PATENT. SMALL, THICK, YELLOW SECRETIONS SUCTIONED. BREATH SOUNDS CLEAR. AMBU BAG AT HEAD OF BED. HOB AT 30 DEGREES. CONTINUING CURRENT PLAN OF RESPIRATORY CARE. Addendum: 10/09/19 at 1038 by GARY MARTINEZ RT Amended: Links added.
[2019-10-09] MEDS: CHOLECALCIFEROL 1,000 UNIT TABLET (VIT D3) GT SCH (08:27)
[2019-10-09] MEDS: ASPIRIN 81 MG TAB.CHEW PO SCH (08:27)
[2019-10-09] MEDS: APIXABAN 2.5 MG TABLET PO SCH ×2 (08:27→15:43)
[2019-10-09] MEDS: LEVOTHYROXINE SODIUM 25 MCG TABLET GT SCH (08:28)
[2019-10-09] MEDS: TAMSULOSIN 0.4 MG CAP.SR.24H GT SCH (08:28)
[2019-10-09] MEDS: GABAPENTIN 300 MG CAPSULE GT SCH ×3 (08:28→17:25)
[2019-10-09] MEDS: DOXYCYCLINE 100 MG in IV D5W 100 ML IV SCH ×2 (08:29→21:55)
[2019-10-09] MEDS: THERAHONEY GEL 1.5 OZ TUBE TP SCH (08:29)
[2019-10-09 09:24] LABS: ABG BASE EXCESS 0.9 mmol/L; ABG OXYGEN SATURATION 96.8 % (92.0-98.5); ABG PCO2 31.4 mmHg (35.0-45.0); ABG PH 7.495 (7.350-7.450); ABG PO2 95.7 mmHg (75.0-100.0); AaDO2 81.3 mmHg; COHb 0.5 % (0.5-1.5); O2Hb 95.3 % (94.0-97.0); SITE, ABG Right Radial; VENT MODE, BG CPAP 12 +5 30%
[2019-10-09] MEDS: LACTOBACILLUS RHAMNOSUS GG 1 EACH CAP.SPRINK PO SCH ×2 (09:51→17:25)
--- NOTE | 2019-10-09 10:36 | NUR ---
RN NOTE 0715: Received patient awake, opens eyes, able to answer yes/no at times. With ETT to SIMV mode, tolerated, no respiratory distress noted at this time. With left NGT intact, feeding tolerated well, no residuals, kept HOB elevated. With left femoral TLC intact, on TKO. Per previous nurse, with episode of BM with blood clots, will continue to observe. With Henson cath intact, noted with adiel colored urine drained to BSD. 0730: RT changed settings to CPAP. 0900: Dr. Allen aware for the ABG result, will continue CPAP and plan to do cool aerosol tomorrow. 1030: No any significant changes noted at this time. Turned and repositioned q2.
[2019-10-09] MEDS ORDERED: NEUTRA PHOS 1 POWD.PACKET NG ONE (11:30)
--- NOTE | 2019-10-09 15:42 | NUR ---
RN NOTE Noted with episode again of blood in stool, sent to lab, made Jaziel SHARMA aware, he consulted GI.
--- NOTE | 2019-10-09 15:43 | NUR ---
RN NOTE Will hold Eliquis for bleeding, GEOGRAPHIC INFORMATION SYSTEM ANALYST aware, awaiting GI consult.
[2019-10-09 18:13] LABS: OCCULT BLOOD STOOL POSITIVE (NEGATIVE)
--- NOTE | 2019-10-09 18:48 | NUR ---
RN NOTE No any significant changes. Tolerated CPAP. No respiratory distress noted. Kept clean, warm and dry. Needs attended. NGT feeding tolerated.
--- NOTE | 2019-10-09 19:30 | NUR ---
GRINDER MILL OPERATOR NOTE RECEIVED PT ASLEEP BUT EASILY AROUSABLE TO NAME AND STIMULI. ON VENT WITH CPAP SETTINGS WELL TOLERATED. BREATHING UNLABORED. HOB ELEVATED AND ON ASPIRATION PRECAUTIONS. HOB ELEVATED. TELE- SR 70. LEFT FEMORAL CENTRAL LINE IN PLACE AND PATENT. NG TUBE IN PLACE WITH POSITIVE PLACEMENT AND NO RESIDUALS NOTED. JOHNSON CATHETER IN PLACE AND DRAINING BY GRAVITY. WILL CONTINUE TO MONITOR.
[2019-10-09] MEDS: CEFEPIME 1 GM in IV D5W 50 ML IV SCH (19:51)
[2019-10-09] MEDS: FLUCONAZOLE IN NS,PREMIX 100 MG in PREMIX 1 EA IV SCH ×2 (20:16)
[2019-10-09] MEDS: MIRTAZAPINE 15 MG TABLET GT SCH (22:01)
[2019-10-09] MEDS: ATORVASTATIN 10 MG TABLET GT SCH (22:01)
[2019-10-09] MEDS: DOCUSATE SODIUM LIQ 100 MG/10 ML UDC GT SCH (22:01)
[2019-10-10] VITALS (25 sets, daily range): BP systolic 98–138; BP diastolic 51–108
[2019-10-10] MEDS: BLOOD SUGAR DIAGNOSTIC 1 EACH STRIP IN SCH ×4 (00:45→18:05)
[2019-10-10] MEDS: INSULIN REGULAR, HUMAN 100 UNIT/ML 3 ML VIAL SQ PRN ×4 (00:52→18:10)
[2019-10-10 04:18] LABS: BASOPHILS % (AUTO) 0.1 % (0.0-2.0); EOSINOPHILS % (AUTO) 4.9 % (0.0-6.0); HEMATOCRIT 28 % (39-51); HEMOGLOBIN 8.6 g/dL (13.5-17.5); LYMPHOCYTES # (AUTO) 1.8 /CMM (0.8-4.8); LYMPHOCYTES % (AUTO) 14.9 % (20.0-44.0); MEAN CORPUSCULAR HGB CONC 31 g/dl (31.0-36.0); MEAN CORPUSCULAR VOLUME 69 fL (80-96); MONOCYTES # (AUTO) 1.3 /CMM (0.1-1.30); MONOCYTES % (AUTO) 10.8 % (2.0-12.0); NEUTROPHILS # (AUTO) 8.5 /CMM (1.8-8.9); NEUTROPHILS % (AUTO) 69.3 % (43.0-81.0); PLATELET COUNT (AUTO) 322 /CMM (150-450); RED BLOOD CELL COUNT(AUTO) 4.08 MIL/uL (4.5-6.0); WHITE BLOOD COUNT (AUTO) 12.3 K/uL (4.3-11.0)
[2019-10-10 04:29] LABS: CALCIUM, SERUM 7.9 mg/dL (8.5-10.1); CREATININE 1.1 mg/dL (0.6-1.3); POTASSIUM 3.5 mmol/L (3.5-5.1)
[2019-10-10] MEDS: GLUCERNA 1.2 1,000 ML BOTTLE NG PRN (04:55)
--- NOTE | 2019-10-10 05:43 | NUR ---
RECEIVED PT ON MECH VENT, CPAP MODE. NO DISTRESS THE WHOLE NIGHT. TOLERATED WELL. CONTINUE MECH VENT SUPPORT. Addendum: 10/10/19 at 0545 by RUMA PARTIDA RT Amended: Links added.
--- NOTE | 2019-10-10 07:08 | NUR ---
METAL ROOFING MECHANIC NOTE PT REMAINED STABLE DURING SHIFT. NO DISTRESS NOTED. VENT SETTINGS TOLERATED. REPOSITIONED Q2H. SUCTIONED NEEDED. WOUND CARE PERFORMED ORDERED. ALL NEEDS ATTENDED TO PROMPTLY. WILL ENDORSE TO NEXT SHIFT FOR CONTINUITY OF CARE.
[2019-10-10] MEDS: GABAPENTIN 300 MG CAPSULE GT SCH ×3 (08:56→16:44)
[2019-10-10] MEDS: LACTOBACILLUS RHAMNOSUS GG 1 EACH CAP.SPRINK PO SCH ×2 (08:56→16:45)
[2019-10-10] MEDS: HYDROCORTISONE SOD SUCCINATE 100 MG/2 ML VIAL IV SCH (08:56)
[2019-10-10] MEDS: TAMSULOSIN 0.4 MG CAP.SR.24H GT SCH (08:56)
[2019-10-10] MEDS: CHOLECALCIFEROL 1,000 UNIT TABLET (VIT D3) GT SCH (08:56)
[2019-10-10] MEDS: LEVOTHYROXINE SODIUM 25 MCG TABLET GT SCH (08:56)
[2019-10-10] MEDS: APIXABAN 2.5 MG TABLET PO SCH ×2 (08:57→16:45)
[2019-10-10] MEDS: THERAHONEY GEL 1.5 OZ TUBE TP SCH (08:57)
[2019-10-10] MEDS: DOXYCYCLINE 100 MG in IV D5W 100 ML IV SCH ×2 (08:57→20:57)
[2019-10-10] MEDS: ASPIRIN 81 MG TAB.CHEW PO SCH (08:57)
[2019-10-10] MEDS: IV D5W 1,000 ML IV PRN (10:52)
[2019-10-10] MEDS ORDERED: NEUTRA PHOS 1 POWD.PACKET PO ONE (11:00)
--- NOTE | 2019-10-10 11:47 | NUR ---
RN NOTE 0715: Received patient opens eyes, responds to name. With ETT to CPAP, tolerated well. No respiratory distress noted. With NGT intact, feeding tolerated, noted with 30mL residuals, kept HOB elevated. With left femoral TLC intact. With Henson intact, noted with cloudy yellow urine with sediments. 0830: S/E by Dr. Allen, RT just placed on cool aerosol, will monitor. 0900: S/E by Dr. Webster, made aware for x2 bloody BM last night, per MD, will not scope yet, and to do BT when <7 Hgb. MD ordered to do H/H q12. 1145: No any significant changes noted. Tolerated cool aerosol at this time. RT will run ABG.
[2019-10-10 13:24] LABS: ABG BASE EXCESS 1.7 mmol/L; ABG OXYGEN SATURATION 97.2 % (92.0-98.5); ABG PH 7.466 (7.350-7.450); ABG PO2 101.3 mmHg (75.0-100.0); AaDO2 142.5 mmHg; COHb 1.1 % (0.5-1.5); MetHb 0.2 % (0.0-1.5); O2Hb 95.9 % (94.0-97.0); SITE, ABG Left Radial; VENT MODE, BG CA 40%
[2019-10-10 17:02] LABS: HEMOGLOBIN 7.7 g/dL (13.5-17.5)
--- NOTE | 2019-10-10 19:00 | NUR ---
Received patient lethargic ,arousable,opens eyes spontaneously,+ cough and gag,grimaces to pain.,right arm contracted,withdraws left arm and both lower extremities to pain.Orally intubated on T -piece ,not in any distress,breathing regular and non labored. On tube feeding via NGT ,Aspiration Precaution observed.Comfort care done .Monitor for S/S of bleeding.H and H check q 12 hrs.
--- NOTE | 2019-10-10 19:14 | NUR ---
RN NOTE No any significant changes. Still noted with 2 BM with blood clots, GI aware. Monitoring H/H, >7.0 at this time. Tolerated cool aerosol, no respiratory distress noted.
[2019-10-10] MEDS: CEFEPIME 1 GM in IV D5W 50 ML IV SCH (19:54)
[2019-10-10] MEDS: FLUCONAZOLE IN NS,PREMIX 100 MG in PREMIX 1 EA IV SCH ×2 (19:54)
--- NOTE | 2019-10-10 22:00 | NUR ---
Status unchanged,stable vital signs,not in nay resp .distress.Noted some rectal bleed.back care done.
[2019-10-10] MEDS: ATORVASTATIN 10 MG TABLET GT SCH (22:06)
[2019-10-10] MEDS: MIRTAZAPINE 15 MG TABLET GT SCH (22:06)
[2019-10-10] MEDS: DOCUSATE SODIUM LIQ 100 MG/10 ML UDC GT SCH (22:06)
[2019-10-11] VITALS (29 sets, daily range): BP systolic 111–149; BP diastolic 54–119
--- NOTE | 2019-10-11 | NUR ---
Status unchanged,lethargic but easily arousable,not in any distress,tolerating T- piece.Still with rectal bleed noted but V/S stable,no other bleeding site noted.
[2019-10-11] MEDS: BLOOD SUGAR DIAGNOSTIC 1 EACH STRIP IN SCH ×5 (00:27→23:08)
[2019-10-11] MEDS: INSULIN REGULAR, HUMAN 100 UNIT/ML 3 ML VIAL SQ PRN ×4 (00:30→17:08)
[2019-10-11] MEDS: GLUCERNA 1.2 1,000 ML BOTTLE NG PRN (03:03)
--- NOTE | 2019-10-11 04:00 | NUR ---
Remains stable, on T -piece, saturating well but with copious amount of secretions.Still with rectal bleed.
--- NOTE | 2019-10-11 05:00 | NUR ---
AM care done,aptient very awake and lalert.tolerating T piece, not in nay distress.
[2019-10-11 05:11] LABS: BASOPHILS # (AUTO) 0.1 /CMM (0.0-0.2); BASOPHILS % (AUTO) 1.1 % (0.0-2.0); HEMATOCRIT 23 % (39-51); LYMPHOCYTES # (AUTO) 1.8 /CMM (0.8-4.8); LYMPHOCYTES % (AUTO) 16.2 % (20.0-44.0); MEAN CORPUSCULAR HGB CONC 30 g/dl (31.0-36.0); MEAN CORPUSCULAR VOLUME 70 fL (80-96); MONOCYTES # (AUTO) 1.1 /CMM (0.1-1.30); MONOCYTES % (AUTO) 9.5 % (2.0-12.0); NEUTROPHILS # (AUTO) 7.6 /CMM (1.8-8.9); NEUTROPHILS % (AUTO) 67.2 % (43.0-81.0); PLATELET COUNT (AUTO) 357 /CMM (150-450); RED BLOOD CELL COUNT(AUTO) 3.24 MIL/uL (4.5-6.0); WHITE BLOOD COUNT (AUTO) 11.4 K/uL (4.3-11.0)
[2019-10-11 05:24] LABS: CALCIUM, SERUM 7.7 mg/dL (8.5-10.1); CREATININE 1.1 mg/dL (0.6-1.3); MAGNESIUM 1.8 mg/dL (1.8-2.4); PHOSPHORUS 2.3 mg/dL (2.5-4.9); POTASSIUM 3.8 mmol/L (3.5-5.1)
[2019-10-11 06:03] LABS: HEMOGLOBIN 6.9 g/dL (13.5-17.5)
[2019-10-11 06:18] LABS: EOSINOPHILS % (MANUAL) 6 % (0-4)
[2019-10-11 06:19] LABS: LYMPHOCYTES % (MANUAL) 19 % (16-48); MONOCYTES % (MANUAL) 8 % (0-11.0)
[2019-10-11 06:20] LABS: NEUTROPHILS % (MANUAL) 67 (42-76)
--- NOTE | 2019-10-11 06:30 | NUR ---
Hgb=6.9,Dr. Dorsey was made aware ,ordered to transfuse 1 unit PRBC today.
--- NOTE | 2019-10-11 07:30 | NUR ---
OUTER DIAMETER GRINDER TOOL INITIAL NOTE RECEIVED PATIENT AWAKE, SLEEPY, RESPONDS TO NAME, FOLLOWS SIMPLE COMMANDS. DENIES PAIN OR DISCOMFORT. NO RESPIRATORY DISTRESS NOTED. WITH ETT IN PLACE PATENT AND INTACT ON CA TOLERATING WELL. ON TELE MONITOR SR. RIGHT NARE NGT PATENT AND INTACT, TOLERATING GTF. F/C PATENT, INTACT, DRAINING BY GRAVITY. WITH LEFT FEMORAL TLC PATENT AND INTACT, IVF RUNNING. PER REPORT PATIENT STILL WITH BLOODY STOOL LAST NIGHT. PENDING BLOOD TRANSFUSION. CALL [facility] FOR CONSENT, NO ANSWER AT THIS TIME. WILL CALL AGAIN LATER. HOB ELEVATED. SIDE RAILS UP AND LOCKED. WILL CONTINUE TO MONITOR.
--- NOTE | 2019-10-11 08:33 | NUR ---
CLAM TREADER NOTE SEEN AND EXAMINED BY ZACHARY MARTINEZ.
--- NOTE | 2019-10-11 08:34 | NUR ---
JOB PRINTER NOTE SECOND ATTEMPT TO CALL [facility], NO ANSWER AND NO VOICEMAIL IS SET UP. WILL TRY AGAIN LATER.
[2019-10-11] MEDS: GABAPENTIN 300 MG CAPSULE GT SCH ×3 (08:42→17:07)
[2019-10-11] MEDS: LACTOBACILLUS RHAMNOSUS GG 1 EACH CAP.SPRINK PO SCH ×2 (08:42→17:07)
[2019-10-11] MEDS: ASPIRIN 81 MG TAB.CHEW PO SCH (08:42)
[2019-10-11] MEDS: LEVOTHYROXINE SODIUM 25 MCG TABLET GT SCH (08:42)
[2019-10-11] MEDS: TAMSULOSIN 0.4 MG CAP.SR.24H GT SCH (08:42)
[2019-10-11] MEDS: HYDROCORTISONE SOD SUCCINATE 100 MG/2 ML VIAL IV SCH (08:42)
[2019-10-11] MEDS: APIXABAN 2.5 MG TABLET PO SCH ×2 (08:43→17:00)
[2019-10-11] MEDS: THERAHONEY GEL 1.5 OZ TUBE TP SCH (08:43)
[2019-10-11] MEDS: CHOLECALCIFEROL 1,000 UNIT TABLET (VIT D3) GT SCH (08:44)
[2019-10-11] MEDS: DOXYCYCLINE 100 MG in IV D5W 100 ML IV SCH ×2 (08:45→20:54)
[2019-10-11] MEDS: IV D5W 1,000 ML IV PRN (09:11)
[2019-10-11 09:25] LABS: ABG BASE EXCESS 5.3 mmol/L; ABG OXYGEN SATURATION 97.6 % (92.0-98.5); ABG PCO2 37.8 mmHg (35.0-45.0); ABG PH 7.501 (7.350-7.450); AaDO2 131.7 mmHg; COHb 1.2 % (0.5-1.5); MetHb 0.4 % (0.0-1.5); SITE, ABG Right Radial; VENT MODE, BG T-PIECE 40% C/A
--- NOTE | 2019-10-11 09:28 | NUR ---
VALVE INSERTER NOTE SEEN AND EXAMINED BY DR. STOKES, NO PLANS FOR EXTUBATION TODAY. WILL CONTINUE TO MONITOR. THIRD CALL MADE TO [facility].
--- NOTE | 2019-10-11 09:34 | NUR ---
curriculum writer note seen and examined by dr. mcclendon. informed him regarding bleeding at central line and still attempting to receive consent for blood transfusion. per dr. mcclendon monitor for now and ordered ptt, pt/inr stat. will continue to monitor.
--- NOTE | 2019-10-11 10:55 | NUR ---
ROLL TUBE SETTER NOTE RELAYED TO DR. ALBA PTT, PT/INR RESULT WITH ORDER TO RECEIVE CONSENT FOR EGD/COLONOSCOPY FOR TOMORROW
--- NOTE | 2019-10-11 11:07 | NUR ---
MANAGED CARE PROVIDER NOTE RECEIVED TELEPHONE CONSENT FOR BLOOD TRANSFUSION AND EGD/COLONOSCOPY FROM [facility]
[2019-10-11] MEDS ORDERED: NEUTRA PHOS 1 POWD.PACKET PO ONE (11:30)
[2019-10-11] MEDS: HYDROGEL DRESSING 90 GM TUBE TP SCH (13:43)
[2019-10-11 17:24] LABS: HEMOGLOBIN 8.2 g/dL (13.5-17.5)
--- NOTE | 2019-10-11 19:17 | NUR ---
HOTBED LEVER OPERATOR CLOSING NOTE NO SIGNIFICANT CHANGES OVERNIGHT. NO RESPIRATORY DISTRESS. TOLERATING COOL AEROSOL. NO S/S OF PAIN OR DISCOMFORT NOTED. NGT PATENT, INTACT, IN PLACE, TOLERATING GTF. F/C PATENT AND INTACT, DRAINING BY GRAVITY. HAD ONE UNIT OF PRBC TRANSFUSED AND TOLERATED WELL WITH NO COMPLICATIONS. KEPT CLEAN AND DRY. WOUND TX DONE. HOB ELEVATED. SUCTIONED Q2. SIDE RAILS UP AND LOCKED. BED KEPT AT LOWEST POSITION. TURNED AND REPOSITIONED Q2 AND PRN. WILL ENDORSE CONTINUITY OF CARE TO PM NURSE.
[2019-10-11] MEDS ORDERED: PEG 3350/NA SULF,BICARB,CL/KCL 4,000 ML BOTTLE PO ONE (19:30)
--- NOTE | 2019-10-11 19:44 | NUR ---
INCINERATOR PLANT GENERAL SUPERVISOR. INITIAL ASSESSMENT. RECEIVED THE PT REST ON THE BED. AWAKE, ALERT, FOLLOW COMMANDS. ETT PATENT. OXYGEN T PIECE CONNECTED TO THE ETT. ETT 7.5,LIP 25CM, FIO2 40%. SAT 98%. NO ACUTE DISTRESS NOTED. SALT MANAGER SHOWING NSR. IV LT FEMORAL TLC. FC PATENT. HOB ELEVATED. NGT INTACT. GLUCERNIA 60ML/ HR ,IVF D5W 50ML/H. HOB ELEVATED. TURN AND REPOSITION Q2H. WILL CONTINUE TO MONITOR VITALS.
--- NOTE | 2019-10-11 20:37 | NUR ---
RT NOTE PT RECEIVED INTUBATED WITH ET TUBE SIZE 7.5 @ 25 MID LIP LINE ON AEROSOL T-PIECE @ 40%. CUFF DEFLATED. PT AWAKE/ALERT. TX GIVEN, NO ADVERSE REACTIONS NOTED. SX DONE, ET TUBE SECURED AND PATENT. WATER CHANGED. NO SOB NOTED AT THIS TIME. Addendum: 10/11/19 at 2037 by JOSE MANUEL JIANG RT Amended: Links added.
[2019-10-11] MEDS: ATORVASTATIN 10 MG TABLET GT SCH (20:53)
[2019-10-11] MEDS: DOCUSATE SODIUM LIQ 100 MG/10 ML UDC GT SCH (20:53)
[2019-10-11] MEDS: MIRTAZAPINE 15 MG TABLET GT SCH (20:53)
[2019-10-11] MEDS: CEFEPIME 1 GM in IV D5W 50 ML IV SCH (20:54)
[2019-10-11] MEDS: FLUCONAZOLE IN NS,PREMIX 100 MG in PREMIX 1 EA IV SCH ×2 (20:54)
--- NOTE | 2019-10-11 23:09 | NUR ---
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 pt is npo. from 0000. tomorrow am. colonoscopy.
[2019-10-12] VITALS (44 sets, daily range): BP systolic 58–144; BP diastolic 37–99
--- NOTE | 2019-10-12 02:46 | NUR ---
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 AM CARE, ORAL CARE, BED BATH GIVEN. LINEN CHANGED. REMAINING SAME OXYGEN TOLERATED WELL. SAT 99%. NO ACUTE DISTRESS NOTED. CASING IN LINE SETTER SHOWING NSR. IV LT FEMORAL TRIPLE LUMEN. IVF D5W 50ML/H. FC PATENT. URINR DRAINING., PT IS NPO. SINCE 0000. AFEBRILE. TURN AND REPOSITION Q2H. WILL CONTINUE TO MONITOR VITALS.
[2019-10-12] MEDS: IV D5W 1,000 ML IV PRN (02:55)
[2019-10-12] MEDS: BLOOD SUGAR DIAGNOSTIC 1 EACH STRIP IN SCH ×4 (04:52→23:53)
[2019-10-12] MEDS: INSULIN REGULAR, HUMAN 100 UNIT/ML 3 ML VIAL SQ PRN ×4 (04:53→23:52)
[2019-10-12 05:04] LABS: BASOPHILS # (AUTO) 0.1 /CMM (0.0-0.2); BASOPHILS % (AUTO) 0.5 % (0.0-2.0); EOSINOPHILS % (AUTO) 5.8 % (0.0-6.0); HEMATOCRIT 26 % (39-51); HEMOGLOBIN 8.1 g/dL (13.5-17.5); LYMPHOCYTES % (AUTO) 15.2 % (20.0-44.0); MEAN CORPUSCULAR HGB CONC 31 g/dl (31.0-36.0); MEAN CORPUSCULAR VOLUME 73 fL (80-96); MONOCYTES # (AUTO) 1.3 /CMM (0.1-1.30); MONOCYTES % (AUTO) 9.3 % (2.0-12.0); NEUTROPHILS # (AUTO) 9.4 /CMM (1.8-8.9); NEUTROPHILS % (AUTO) 69.2 % (43.0-81.0); PLATELET COUNT (AUTO) 366 /CMM (150-450); RED BLOOD CELL COUNT(AUTO) 3.59 MIL/uL (4.5-6.0); WHITE BLOOD COUNT (AUTO) 13.5 K/uL (4.3-11.0)
[2019-10-12 05:15] LABS: CALCIUM, SERUM 7.8 mg/dL (8.5-10.1); CREATININE 0.9 mg/dL (0.6-1.3); PHOSPHORUS 2.3 mg/dL (2.5-4.9); POTASSIUM 3.9 mmol/L (3.5-5.1)
[2019-10-12] MEDS ORDERED: SORBITOL SOLUTION 30 ML PO SCH (06:00)
[2019-10-12] MEDS ORDERED: NEUTRA PHOS 1 POWD.PACKET PO ONE ×2 (07:30→12:00)
--- NOTE | 2019-10-12 08:00 | NUR ---
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
--- NOTE | 2019-10-12 08:15 | NUR ---
DIRECTOR DATA ARCHITECTURE: is in room, updated with pt.current condition, VS, resp status on T-piece, suction amount, I/O, NPO, waiting EGD/colonoscopy, see new order
--- NOTE | 2019-10-12 08:40 | NUR ---
COMPTROLLER: is in room, updated with pt.current condition, neurostatus, VS, labs, NPO (Golytely was given, pt.is clear by report, Sorbitol was not given/ said to ask night nurse why/charge nurse notified), EGD will be at BS, ordered: place pt back on AC mode vent
[2019-10-12] MEDS: DOXYCYCLINE 100 MG in IV D5W 100 ML IV SCH ×2 (08:43→21:30)
[2019-10-12] MEDS: LACTOBACILLUS RHAMNOSUS GG 1 EACH CAP.SPRINK PO SCH ×2 (09:00→17:15)
[2019-10-12] MEDS: APIXABAN 2.5 MG TABLET PO SCH ×2 (09:00→16:47)
[2019-10-12] MEDS: GABAPENTIN 300 MG CAPSULE GT SCH ×3 (09:00→17:15)
--- NOTE | 2019-10-12 09:15 | NUR ---
SERVICE SUPPORT REPRESENTATIVE: Anesthesiologist, OR team updated with pt.current condition, VS, NPO, vent setting, labs
--- NOTE | 2019-10-12 10:05 | NUR ---
UPHOLSTERY DEPARTMENT SUPERVISOR: EGD/Colonoscopy done, no any path events for bleeding by report, ordered: resume all meds, GTF, place back in NGT. SBP 65-85 now, SR, MAP 60, pt.is reactive with suction, anesthesiologist is in room, said: give bolus IV NS 500ml, see order
--- NOTE | 2019-10-12 10:25 | NUR ---
SEMICONDUCTORS WAFER BREAKER: called to pt family/nobody answered, no events of acute bleeding with EGD/colonoscopy/see note. NS bolus running, SBP 99, SR, O2sat. 100%
--- NOTE | 2019-10-12 10:30 | NUR ---
RETAIL GROCER: NS 500 ml bolus given, BP 114/58 now, SR, pt.can open eyes, rest
--- NOTE | 2019-10-12 11:30 | NUR ---
MACHINE BANDER AND CELLOPHANER HELPER: sacral area debridement was done by MARQUISE Dodson, no bleeding, spoke with ZACHARY Sheriff re EGD/colonoscopy result, 30% L.femoral TLC dressing saturated with blood, said: continue hold Eliquis, will reevaluate TLC, pt had bleeding from TLC before. R.NGT paced in with SONJA Ritter verification, resume NGTF
[2019-10-12] MEDS: TAMSULOSIN 0.4 MG CAP.SR.24H GT SCH (11:47)
[2019-10-12] MEDS: ASPIRIN 81 MG TAB.CHEW PO SCH (11:47)
[2019-10-12] MEDS: GLUCERNA 1.2 1,000 ML BOTTLE NG PRN (11:47)
[2019-10-12] MEDS: HYDROCORTISONE SOD SUCCINATE 100 MG/2 ML VIAL IV SCH (11:47)
[2019-10-12] MEDS: CHOLECALCIFEROL 1,000 UNIT TABLET (VIT D3) GT SCH (11:47)
[2019-10-12] MEDS: LEVOTHYROXINE SODIUM 25 MCG TABLET GT SCH (11:47)
[2019-10-12] MEDS: HYDROGEL DRESSING 90 GM TUBE TP SCH (11:50)
[2019-10-12] MEDS: THERAHONEY GEL 1.5 OZ TUBE TP SCH (11:50)
--- NOTE | 2019-10-12 13:27 | NUR ---
ROOM SERVICE SUPERVISOR: NGTF residual 30 ml now, keep HOB over 40, pt.is awake, eyes contact+, SR, O2sat. over 96%, SBP over 100, updated with EGD, colonoscopy result, VS more stable now, said: switch to T-piece in 1 hr, RT notified
--- NOTE | 2019-10-12 18:08 | NUR ---
SILVER HOLLOWARE ASSEMBLER: BS 250, Na+ 143, pt is getting NGTF Glucerna 60ml/h, IVF D5W@50ml/h, notified ZACHARY Sheriff/ordered: change IVF for 1/2NS@50ml/h. All PM,skin,wounds care done, O2sat. WNL on T-piece, no SOB, SR, SBP over 100, below 150, same neurostatus, reactive by touch, suctioned well/less secretion
[2019-10-12] MEDS: IV 1/2NS 1000 ML 1,000 ML IV PRN (18:15)
[2019-10-12] MEDS: CEFEPIME 1 GM in IV D5W 50 ML IV SCH (20:00)
--- NOTE | 2019-10-12 20:00 | NUR ---
Received patient resting in no acute distress. EET to cool aerosol at 40% FIO2 tolerating well. Secretions suctioned PRN.SR.VSS.Hemodynamically stable.Tube feeding via Right nare NGT infusing. Patient with order NPO except meds.NGT flushed and clamped.Placement verified.IVF infusing well. FC to gravity drainage.Turned and repositioned.
[2019-10-12] MEDS: FLUCONAZOLE IN NS,PREMIX 100 MG in PREMIX 1 EA IV SCH ×2 (20:30)
[2019-10-12] MEDS: DOCUSATE SODIUM LIQ 100 MG/10 ML UDC GT SCH (21:42)
[2019-10-12] MEDS: MIRTAZAPINE 15 MG TABLET GT SCH (21:42)
[2019-10-12] MEDS: ATORVASTATIN 10 MG TABLET GT SCH (21:42)
[2019-10-13] VITALS (22 sets, daily range): BP systolic 96–132; BP diastolic 48–82
[2019-10-13 05:19] LABS: BASOPHILS # (AUTO) 0.1 /CMM (0.0-0.2); BASOPHILS % (AUTO) 0.5 % (0.0-2.0); HEMATOCRIT 25 % (39-51); HEMOGLOBIN 7.7 g/dL (13.5-17.5); LYMPHOCYTES # (AUTO) 1.7 /CMM (0.8-4.8); LYMPHOCYTES % (AUTO) 14.8 % (20.0-44.0); MEAN CORPUSCULAR HGB CONC 31 g/dl (31.0-36.0); MEAN CORPUSCULAR VOLUME 72 fL (80-96); MONOCYTES # (AUTO) 1.2 /CMM (0.1-1.30); MONOCYTES % (AUTO) 10.7 % (2.0-12.0); NEUTROPHILS # (AUTO) 7.8 /CMM (1.8-8.9); PLATELET COUNT (AUTO) 363 /CMM (150-450); RED BLOOD CELL COUNT(AUTO) 3.43 MIL/uL (4.5-6.0); WHITE BLOOD COUNT (AUTO) 11.4 K/uL (4.3-11.0)
[2019-10-13 05:37] LABS: CALCIUM, SERUM 7.2 mg/dL (8.5-10.1); CREATININE 0.9 mg/dL (0.6-1.3); MAGNESIUM 1.4 mg/dL (1.8-2.4); PHOSPHORUS 2.4 mg/dL (2.5-4.9); POTASSIUM 3.5 mmol/L (3.5-5.1)
[2019-10-13] MEDS: BLOOD SUGAR DIAGNOSTIC 1 EACH STRIP IN SCH ×3 (05:39→17:17)
--- NOTE | 2019-10-13 06:00 | NUR ---
Patient resting.VS remains stable.SR.No significant change noted.Cool aerosol FIO2 titrated down to 28 % by Sebastian DICKENS.Patent tolerating well.AM care done.Wound care done.All due medications administered.All needs anticipated and met.
[2019-10-13 06:25] LABS: EOSINOPHILS % (MANUAL) 3 % (0-4); LYMPHOCYTES % (MANUAL) 14 % (16-48); MONOCYTES % (MANUAL) 4 % (0-11.0); NEUTROPHILS % (MANUAL) 79 (42-76)
--- NOTE | 2019-10-13 07:56 | NUR ---
CURING ROOM SUPERVISOR: pt.is awake, Ox1, very weak, eyes contact+, can answer y/n, can follow simple commands, R.site weakness/CVA history, SR, SBP over 100 below 160, O2sat. over 96% on T-piece ETT 28% 10L, large amount of frothy secretion /suctioned, RT is in room/updated, order for NPO was place by 10/11 for service time 19.30 10/12, but pt.was on NPO over night 10/12, EGD done10/12 morning time, continue NGTF per order, NPO cancelled, TLC dressing is intact, 50 saturated with old blood, no acute bleeding by report, waiting to reevaluate TLC, H/H 7.06/14 now, Eliquis on hold per ZACHARY Sheriff order, B.foot wounds care done morning time by report
[2019-10-13] MEDS ORDERED: NEUTRA PHOS 1 POWD.PACKET PO ONE (08:00)
[2019-10-13] MEDS: Magnesium 1GM/D5W 100ML PREMIX 100 ML IV SCH ×2 (08:42→09:34)
[2019-10-13] MEDS: CHOLECALCIFEROL 1,000 UNIT TABLET (VIT D3) GT SCH (08:43)
[2019-10-13] MEDS: ASPIRIN 81 MG TAB.CHEW PO SCH (08:43)
[2019-10-13] MEDS: TAMSULOSIN 0.4 MG CAP.SR.24H GT SCH (08:43)
[2019-10-13] MEDS: HYDROCORTISONE SOD SUCCINATE 100 MG/2 ML VIAL IV SCH (08:43)
[2019-10-13] MEDS: LACTOBACILLUS RHAMNOSUS GG 1 EACH CAP.SPRINK PO SCH ×2 (08:43→16:12)
[2019-10-13] MEDS: LEVOTHYROXINE SODIUM 25 MCG TABLET GT SCH (08:43)
[2019-10-13] MEDS: HYDROGEL DRESSING 90 GM TUBE TP SCH (08:44)
[2019-10-13] MEDS: Z GUARD REMEDY 2 OZ OINT TP PRN (08:45)
[2019-10-13] MEDS: GABAPENTIN 300 MG CAPSULE GT SCH ×3 (08:49→16:12)
[2019-10-13] MEDS: APIXABAN 2.5 MG TABLET PO SCH ×2 (09:00→16:50)
--- NOTE | 2019-10-13 09:00 | NUR ---
PRESS CLEANER: is in room, updated with pt.current condition, VS, O2sat., ETT suction amount, neurostatus, GTF, I/O, plan: good suction/upper airway toilet/keep on T-piece during 1-2 days more, reevaluation for possible extubation, RT is in room
[2019-10-13] MEDS: DOXYCYCLINE 100 MG in IV D5W 100 ML IV SCH ×2 (09:13→21:31)
[2019-10-13] MEDS: THERAHONEY GEL 1.5 OZ TUBE TP SCH (09:14)
--- NOTE | 2019-10-13 09:30 | NUR ---
MOCCASIN SEWER: ZACHARY Sheriff is in room, updated with pt.neurostatus, VS, I/O, IVF, GTF, labs, H/H, meds, visit and plan, checked L.femoral TLC, ordered: check H/H at 17.00, labs for tomorrow
[2019-10-13] MEDS: INSULIN REGULAR, HUMAN 100 UNIT/ML 3 ML VIAL SQ PRN ×2 (11:43→17:19)
--- NOTE | 2019-10-13 11:46 | NUR ---
MAIL CARRIER TECHNICIAN: is in room/updated with pt.VS, I/O, GTF, labs, H/H, EGD/colonoscopy result, orders, POC per
--- NOTE | 2019-10-13 14:19 | NUR ---
DIETITIAN ASSISTANT: is in room, updated with pt current condition, POC, orders, VS, I/O, NGTF, H/H, meds, no new orders
[2019-10-13] MEDS: IV 1/2NS 1000 ML 1,000 ML IV PRN (17:06)
--- NOTE | 2019-10-13 17:20 | NUR ---
SMELLER: pt.is awake/Ox1, very weak, rest, no pain, SR, SBP over 100, O2sat.over 95%, NGTF residual WNL, still lot of suctioned frothy secretion from ETT, all PM, skin, wounds care done, L.femoral TLC dressing changed/no bleeding, H/H 7.6 now
[2019-10-13 17:23] LABS: HEMOGLOBIN 7.6 g/dL (13.5-17.5)
--- NOTE | 2019-10-13 19:20 | NUR ---
AIR TUCKER NOTE PATIENT RECEIVED A/O X 1. ABLE TO FOLLOW SIMPLE COMMANDS AND ANSWER YES OR NO QUESTIONS. PATIENT CURRENTLY ON T-PEICE 10 L TOLERATING WELL. 02% AT 98%. PATIENT NOTED TO HAVE WET COUGH. PATIENT SUCTIONED THIN WHITE FROTHY SPUTUM NOTED. PATIENT NG PATENT AND INTACT AT 70 CM. NO S/S OF ASPIRATION NOTED. NO RESIDUAL NOTED. PATIENT HAS JOHNSON CATH PATENT AND DRAINING TO GRAVITY. PATIENT REPOSITIONED FOR COMFORT. RN WILL CONTINUE TO MONITOR FOR CHANGES.
[2019-10-13] MEDS: CEFEPIME 1 GM in IV D5W 50 ML IV SCH (19:28)
[2019-10-13] MEDS: FLUCONAZOLE IN NS,PREMIX 100 MG in PREMIX 1 EA IV SCH ×2 (19:54)
--- NOTE | 2019-10-13 21:00 | NUR ---
RETAIL MERCHANDISING COORDINATOR NOTE NO NEW CHANGES. RN WILL CONTINUE TO MONITOR. PATIENT TURNED AND REPOSITIONED. ORAL CARE GIVEN.
[2019-10-13] MEDS: GLUCERNA 1.2 1,000 ML BOTTLE NG PRN (21:02)
[2019-10-13] MEDS: DOCUSATE SODIUM LIQ 100 MG/10 ML UDC GT SCH (21:31)
[2019-10-13] MEDS: MIRTAZAPINE 15 MG TABLET GT SCH (21:31)
[2019-10-13] MEDS: ATORVASTATIN 10 MG TABLET GT SCH (21:31)
[2019-10-14] VITALS (23 sets, daily range): BP systolic 99–134; BP diastolic 56–75
--- NOTE | 2019-10-14 | NUR ---
FINE GRADE BULLDOZER OPERATOR NOTE WOUND CARE GIVEN, BED BATH GIVEN. PATIENT TOLERATED TURNING WELL
[2019-10-14] MEDS: BLOOD SUGAR DIAGNOSTIC 1 EACH STRIP IN SCH ×5 (00:34→23:40)
[2019-10-14] MEDS: INSULIN REGULAR, HUMAN 100 UNIT/ML 3 ML VIAL SQ PRN ×5 (00:36→23:43)
[2019-10-14 04:52] LABS: BASOPHILS # (AUTO) 0.1 /CMM (0.0-0.2); BASOPHILS % (AUTO) 1.5 % (0.0-2.0); EOSINOPHILS % (AUTO) 4.5 % (0.0-6.0); HEMATOCRIT 24 % (39-51); HEMOGLOBIN 7.5 g/dL (13.5-17.5); LYMPHOCYTES # (AUTO) 1.3 /CMM (0.8-4.8); LYMPHOCYTES % (AUTO) 14.7 % (20.0-44.0); MEAN CORPUSCULAR HGB CONC 32 g/dl (31.0-36.0); MEAN CORPUSCULAR VOLUME 73 fL (80-96); MONOCYTES % (AUTO) 11.2 % (2.0-12.0); NEUTROPHILS # (AUTO) 6.2 /CMM (1.8-8.9); NEUTROPHILS % (AUTO) 68.1 % (43.0-81.0); PLATELET COUNT (AUTO) 362 /CMM (150-450); RED BLOOD CELL COUNT(AUTO) 3.24 MIL/uL (4.5-6.0); WHITE BLOOD COUNT (AUTO) 9.1 K/uL (4.3-11.0)
--- NOTE | 2019-10-14 05:00 | NUR ---
LARRIMAN NOTE NO ACUTE CHANGES NOTED. NO RESIDUAL NOTED. PATIENT SUCTIONED AND ORAL CARE GIVEN. RN WILL CONTINUE TO MONITOR.
[2019-10-14 05:10] LABS: CALCIUM, SERUM 7.8 mg/dL (8.5-10.1); CARBON DIOXIDE 32 mmol/L (21-32); CHLORIDE 107 mmol/L (98-107); GLUCOSE 173 mg/dL (74-106); MAGNESIUM 1.7 mg/dL (1.8-2.4); PHOSPHORUS 2.3 mg/dL (2.5-4.9); POTASSIUM 3.6 mmol/L (3.5-5.1); SODIUM SERUM 141 mmol/L (136-145); UREA NITROGEN, BLOOD 15 mg/dL (7-18)
--- NOTE | 2019-10-14 07:20 | NUR ---
TOOL AND DIE DESIGNER NOTES RECEIVED BEDSIDE REPORT. PATIENT AWAKE A/O X1-2 ABLE ANSWER SIMPLE QUESTIONS WITH A NOD.NO S/S OF RESPIRATORY DISTRESS ETT 7.5/25 TOLERATING VENT SETTINGS ORDERED. NO C/O PAIN AT THIS TIME. SINUS ON MONITOR JOHNSON CATH DRAINING CLEAR YELLOW URINE. NGT IN RIGHT NARES RUNNING GLUCERNA @ 60ML/HR TOLERATING WELL WITH NO RESIDUAL . IVF TKO TO LEFT WRIST # 20 GAUGE. LEFT FEMORAL HD CATH NO BLEEDING NOTED. SAFETY AND ASPIRATION PRECAUTIONS IN PLACE BED IN LOW LOCKED POSITION . WILL CONT TO MONITOR ACCORDINGLY Addendum: 10/14/19 at 0819 by ENRIQUE ADEN RN CORRECTION PT ETT ON T-PIECE @ 10 LTRS
--- NOTE | 2019-10-14 07:41 | NUR ---
SEPTIC TANK SETTER NOTE REPORT GIVEN TO ENRIQUE CASILLAS FOR JOZEF.NO CHANGES NOTED THROUGH THE SHIFT. CARE GIVEN ORDERED.
[2019-10-14] MEDS: TAMSULOSIN 0.4 MG CAP.SR.24H GT SCH (08:33)
[2019-10-14] MEDS: HYDROCORTISONE SOD SUCCINATE 100 MG/2 ML VIAL IV SCH (08:33)
[2019-10-14] MEDS: CHOLECALCIFEROL 1,000 UNIT TABLET (VIT D3) GT SCH (08:33)
[2019-10-14] MEDS: LACTOBACILLUS RHAMNOSUS GG 1 EACH CAP.SPRINK PO SCH ×2 (08:33→16:41)
[2019-10-14] MEDS: GABAPENTIN 300 MG CAPSULE GT SCH ×3 (08:33→16:41)
[2019-10-14] MEDS: LEVOTHYROXINE SODIUM 25 MCG TABLET GT SCH (08:33)
[2019-10-14] MEDS: DOXYCYCLINE HYCLATE (100 MG) 100 MG TABLET GT SCH ×2 (08:47→21:01)
[2019-10-14] MEDS ORDERED: NEUTRA PHOS 1 POWD.PACKET PO ONE (09:00)
[2019-10-14] MEDS: ASPIRIN 81 MG TAB.CHEW PO SCH (09:00)
[2019-10-14] MEDS: APIXABAN 2.5 MG TABLET PO SCH ×2 (09:00→16:39)
[2019-10-14] MEDS: THERAHONEY GEL 1.5 OZ TUBE TP SCH (09:15)
[2019-10-14] MEDS: Magnesium 1GM/D5W 100ML PREMIX 100 ML IV SCH ×2 (09:15→10:22)
[2019-10-14] MEDS: HYDROGEL DRESSING 90 GM TUBE TP SCH (09:15)
--- NOTE | 2019-10-14 14:45 | NUR ---
BEDBATH GIVE ORAL RICHY AND WOUND TREATMENTS RENDERED
[2019-10-14] MEDS: IV 1/2NS 1000 ML 1,000 ML IV PRN (15:02)
[2019-10-14] MEDS: GLUCERNA 1.2 1,000 ML BOTTLE NG PRN (16:41)
--- NOTE | 2019-10-14 19:19 | NUR ---
REPORT ENDORSED TO NOC NO SIGNIFICANT CHANGES NOTED THROUGHOUT SHIFT
--- NOTE | 2019-10-14 19:25 | NUR ---
CERTIFIED ACTIVITIES DIRECTOR NOTES, RECEIVED BEDSIDE REPORT FROM SONJA NUNEZ PATIENT AWAKE A/O TO SELF, ABLE NOD TO SIMPLE QUESTIONS, BREATHING EVEN AND UNLABORED, NO S/S OF RESPIRATORY DISTRESS, NO C/O PAIN OR DISCOMFORT AT THIS TIME, ETT 7.5/25 ON COOL AEROSOL, AT 40%O2, POSSIBLE EXTUBATION TOMORROW, NSR ON MONITOR WITH HR IN 70S AT THIS TIME, JOHNSON CATH DRAINING CLEAR YELLOW URINE BY GRAVITY, NGT IN RIGHT NARE, GLUCERNA INFUSING @ 60ML/H, PATIENT TOLERATING WELL WITH, NO RESIDUAL NOTED AT THIS TIME, IVF TKO TO LEFT WRIST # 20 GAUGE. LEFT FEMORAL HD CATH NO BLEEDING/ABNORMALITY NOTED AT THIS TIME, SAFETY AND ASPIRATION PRECAUTIONS IN PLACED, SUCTIONED AT THIS TIME, BED LOCKED AND IN LOW POSITION , WILL CONTINUE TO MONITOR CLOSELY.
[2019-10-14] MEDS: CEFEPIME 1 GM in IV D5W 50 ML IV SCH (20:01)
[2019-10-14] MEDS: FLUCONAZOLE (100 MG) 100 MG TABLET PO SCH (20:57)
[2019-10-14] MEDS: ATORVASTATIN 10 MG TABLET GT SCH (21:01)
[2019-10-14] MEDS: MIRTAZAPINE 15 MG TABLET GT SCH (21:01)
[2019-10-14] MEDS: DOCUSATE SODIUM LIQ 100 MG/10 ML UDC GT SCH (21:01)
[2019-10-15] VITALS (24 sets, daily range): BP systolic 113–154; BP diastolic 57–96
[2019-10-15 04:31] LABS: BASOPHILS # (AUTO) 0.2 /CMM (0.0-0.2); BASOPHILS % (AUTO) 2.1 % (0.0-2.0); EOSINOPHILS % (AUTO) 4.8 % (0.0-6.0); HEMATOCRIT 25 % (39-51); HEMOGLOBIN 7.5 g/dL (13.5-17.5); LYMPHOCYTES # (AUTO) 1.3 /CMM (0.8-4.8); LYMPHOCYTES % (AUTO) 16.8 % (20.0-44.0); MEAN CORPUSCULAR HGB CONC 31 g/dl (31.0-36.0); MEAN CORPUSCULAR VOLUME 74 fL (80-96); MONOCYTES # (AUTO) 0.8 /CMM (0.1-1.30); MONOCYTES % (AUTO) 10.4 % (2.0-12.0); NEUTROPHILS % (AUTO) 65.9 % (43.0-81.0); PLATELET COUNT (AUTO) 371 /CMM (150-450); RED BLOOD CELL COUNT(AUTO) 3.31 MIL/uL (4.5-6.0); WHITE BLOOD COUNT (AUTO) 7.7 K/uL (4.3-11.0)
[2019-10-15 04:54] LABS: PHOSPHORUS 2.5 mg/dL (2.5-4.9); POTASSIUM 3.7 mmol/L (3.5-5.1)
[2019-10-15] MEDS: BLOOD SUGAR DIAGNOSTIC 1 EACH STRIP IN SCH ×3 (05:08→18:05)
[2019-10-15] MEDS: INSULIN REGULAR, HUMAN 100 UNIT/ML 3 ML VIAL SQ PRN ×4 (05:12→18:07)
--- NOTE | 2019-10-15 06:48 | NUR ---
SYSTEMS APPLICATIONS PROGRAMMING LEAD NOTES, NO SIGNIFICANT CHANGES IN CONDITION NOTED THROUGHOUT THE NIGHT, WILL ENDORSE CONTINUITY OF CARE TO ONCOMING NURSE.
--- NOTE | 2019-10-15 07:13 | NUR ---
ICU REGISTERED NURSE NOTES RECEIVED BEDSIDE REPORT. PATIENT AWAKE A/O X1-2 ABLE ANSWER SIMPLE QUESTIONS WITH A NOD.NO S/S OF RESPIRATORY DISTRESS ETT 7.5/25 T-PIECE @ 10 LTRS. NO C/O PAIN AT THIS TIME. SINUS ON MONITOR JOHNSON CATH DRAINING CLEAR YELLOW URINE. NGT IN RIGHT NARES RUNNING GLUCERNA @ 60ML/HR TOLERATING WELL WITH NO RESIDUAL . IV LEFT WRIST # 20 GAUGE SL LEFT FEMORAL TRIPLE LUMEN LINE TKO DRESSING CLEAN AND DRY WITH OLD BLOOD NOTED . SAFETY AND ASPIRATION PRECAUTIONS IN PLACE BED IN LOW LOCKED POSITION . WILL CONT TO MONITOR ACCORDINGLY
[2019-10-15] MEDS: LACTOBACILLUS RHAMNOSUS GG 1 EACH CAP.SPRINK PO SCH ×2 (08:07→16:26)
[2019-10-15] MEDS: DOXYCYCLINE HYCLATE (100 MG) 100 MG TABLET GT SCH ×2 (08:07→20:36)
[2019-10-15] MEDS: ASPIRIN 81 MG TAB.CHEW PO SCH (08:07)
[2019-10-15] MEDS: HYDROCORTISONE SOD SUCCINATE 100 MG/2 ML VIAL IV SCH (08:07)
[2019-10-15] MEDS: TAMSULOSIN 0.4 MG CAP.SR.24H GT SCH (08:07)
[2019-10-15] MEDS: GABAPENTIN 300 MG CAPSULE GT SCH ×3 (08:07→16:26)
[2019-10-15] MEDS: LEVOTHYROXINE SODIUM 25 MCG TABLET GT SCH (08:07)
[2019-10-15] MEDS: CHOLECALCIFEROL 1,000 UNIT TABLET (VIT D3) GT SCH (08:07)
[2019-10-15] MEDS: HYDROGEL DRESSING 90 GM TUBE TP SCH (08:08)
[2019-10-15] MEDS: APIXABAN 2.5 MG TABLET PO SCH ×2 (08:08→16:33)
[2019-10-15] MEDS: THERAHONEY GEL 1.5 OZ TUBE TP SCH (08:09)
[2019-10-15 08:13] LABS: EOSINOPHILS % (MANUAL) 1 % (0-4); LYMPHOCYTES % (MANUAL) 13 % (16-48); MONOCYTES % (MANUAL) 15 % (0-11.0); NEUTROPHILS % (MANUAL) 71 (42-76)
[2019-10-15] MEDS: GLUCERNA 1.2 1,000 ML BOTTLE NG PRN (09:09)
--- NOTE | 2019-10-15 09:20 | NUR ---
RT PER DR SHI ORDER PATIENT WAS EXTUBATED AND PLACED ON 5L N/C VIRGIL WELL.
--- NOTE | 2019-10-15 09:21 | NUR ---
PT EXTUBATED PLACED ON 5 LTRS NASAL CANNULA
[2019-10-15] MEDS ORDERED: DC PROPOFOL WHEN EXTUBATED XX PRN (10:00)
[2019-10-15] MEDS: IV 1/2NS 1000 ML 1,000 ML IV PRN (10:57)
[2019-10-15 10:59] LABS: ABG BASE EXCESS 7.6 mmol/L; ABG OXYGEN SATURATION 97.8 % (92.0-98.5); ABG PCO2 44.2 mmHg (35.0-45.0); ABG PH 7.476 (7.350-7.450); ABG PO2 110.2 mmHg (75.0-100.0); AaDO2 124.2 mmHg; COHb 1.1 % (0.5-1.5); MetHb 0.4 % (0.0-1.5); O2Hb 96.3 % (94.0-97.0); SITE, ABG Right Radial; VENT MODE, BG 5L N/C
--- NOTE | 2019-10-15 11:19 | NUR ---
OBTAINED ORDER FROM RONY FOR SWALLOW EVALUATION
--- NOTE | 2019-10-15 11:30 | NUR ---
DR RAMÍREZ TO SEE PT FOR GT PLACEMENT. KEEP PT OFF ELIQUIS AND ASA TILL DECISION IS MADE WELL PROCEDURE
--- NOTE | 2019-10-15 12:21 | NUR ---
ST AT BEDSIDE FOR SWALLOW EVALUATION . PT TOLERATED BUT WILL DO FURTHER EVALUATION TUES 10/16
--- NOTE | 2019-10-15 13:00 | NUR ---
BEDBATH GIVEN WOUND AND ORAL CARE RENDERED
[2019-10-15] MEDS: IV NS 0.9% 250 ML IV PRN (16:25)
--- NOTE | 2019-10-15 19:13 | NUR ---
REPORT ENDORSED TO JOSE ESTRADA
--- NOTE | 2019-10-15 19:30 | NUR ---
ICU NOTES RECEIVED PT AWAKE ALERT,FOLLOWS SIMPLE VERBAL COMMANDS.ON 5LN/C W/ SATURATION OF100%.DENIES SHORTNESS OF BREATH,DENIES PAIN OR DISCOMFORT.LT WRIST W/ RESTRAINTS PT. ATTEMPTS TO PULL TUBES.RT ARM W/ SEVERE WEAKNESS SEC. TO PREVIOUS CVA.MONITOR SHOWS.TUBE FEEDING OF GLUCERNA AT 70ML/HR VIA LT NARES,NO RESIDUAL OBTAINED.JOHNSON PATENT AND DRAINING YELLOW URINE.
[2019-10-15] MEDS: FLUCONAZOLE (100 MG) 100 MG TABLET PO SCH (19:47)
[2019-10-15] MEDS: ATORVASTATIN 10 MG TABLET GT SCH (22:34)
[2019-10-15] MEDS: MIRTAZAPINE 15 MG TABLET GT SCH (22:34)
[2019-10-15] MEDS: DOCUSATE SODIUM LIQ 100 MG/10 ML UDC GT SCH (22:34)
[2019-10-16] VITALS (18 sets, daily range): BP systolic 128–153; BP diastolic 65–83
[2019-10-16] MEDS: INSULIN REGULAR, HUMAN 100 UNIT/ML 3 ML VIAL SQ PRN ×4 (00:34→17:20)
[2019-10-16] MEDS: BLOOD SUGAR DIAGNOSTIC 1 EACH STRIP IN SCH ×5 (00:36→23:57)
--- NOTE | 2019-10-16 02:07 | NUR ---
ICU NOTES SOUND ASLEEP,RESPIRATIONS REGULAR AND EVEN.UIF=412%
--- NOTE | 2019-10-16 04:00 | NUR ---
ICU NOTES COMPLETE BED BATH DONE.,AFTER DRESSING CHANGES WRITTEN.W/ PRODUCTIVE COUGH BUT SWALLOWS SECRETIONS.ATTEMPTED TO DO PRAL CARE BUT PT BITES TONSIL SUCTION OR SWAB.TOLERATING 3LN/C W/SAT OF 100%.
[2019-10-16 04:28] LABS: BASOPHILS # (AUTO) 0.1 /CMM (0.0-0.2); BASOPHILS % (AUTO) 1.6 % (0.0-2.0); EOSINOPHILS % (AUTO) 5.5 % (0.0-6.0); HEMATOCRIT 25 % (39-51); HEMOGLOBIN 7.8 g/dL (13.5-17.5); LYMPHOCYTES # (AUTO) 1.5 /CMM (0.8-4.8); LYMPHOCYTES % (AUTO) 21.2 % (20.0-44.0); MEAN CORPUSCULAR HGB CONC 32 g/dl (31.0-36.0); MEAN CORPUSCULAR VOLUME 74 fL (80-96); MONOCYTES # (AUTO) 0.7 /CMM (0.1-1.30); MONOCYTES % (AUTO) 9.7 % (2.0-12.0); NEUTROPHILS # (AUTO) 4.5 /CMM (1.8-8.9); PLATELET COUNT (AUTO) 360 /CMM (150-450); RED BLOOD CELL COUNT(AUTO) 3.32 MIL/uL (4.5-6.0); WHITE BLOOD COUNT (AUTO) 7.3 K/uL (4.3-11.0)
[2019-10-16 04:33] LABS: CALCIUM, SERUM 8.1 mg/dL (8.5-10.1); CREATININE 0.9 mg/dL (0.6-1.3); POTASSIUM 3.6 mmol/L (3.5-5.1)
--- NOTE | 2019-10-16 07:06 | NUR ---
ICU NOTES REPORT AND CARE OF PT GIVEN TO ENRIQUE CASILLAS.
[2019-10-16] MEDS: TAMSULOSIN 0.4 MG CAP.SR.24H GT SCH (08:21)
[2019-10-16] MEDS: DOXYCYCLINE HYCLATE (100 MG) 100 MG TABLET GT SCH (08:21)
[2019-10-16] MEDS: LACTOBACILLUS RHAMNOSUS GG 1 EACH CAP.SPRINK PO SCH ×2 (08:21→16:33)
[2019-10-16] MEDS: GABAPENTIN 300 MG CAPSULE GT SCH ×3 (08:21→16:33)
[2019-10-16] MEDS: LEVOTHYROXINE SODIUM 25 MCG TABLET GT SCH (08:22)
[2019-10-16] MEDS: CHOLECALCIFEROL 1,000 UNIT TABLET (VIT D3) GT SCH (08:22)
[2019-10-16] MEDS: HYDROCORTISONE SOD SUCCINATE 100 MG/2 ML VIAL IV SCH (08:22)
[2019-10-16] MEDS: APIXABAN 2.5 MG TABLET PO SCH ×2 (08:23→16:34)
[2019-10-16] MEDS: THERAHONEY GEL 1.5 OZ TUBE TP SCH (08:23)
[2019-10-16] MEDS: HYDROGEL DRESSING 90 GM TUBE TP SCH (08:23)
[2019-10-16] MEDS: ASPIRIN 81 MG TAB.CHEW PO SCH (08:23)
--- NOTE | 2019-10-16 11:00 | NUR ---
NGT REMOVED PT TOLERATED BEDBATH GIVEN ORAL AND WOUND CARE RENDERED
--- NOTE | 2019-10-16 13:30 | NUR ---
PT AT BEDSIDE TO EVALUATE
--- NOTE | 2019-10-16 14:50 | NUR ---
LEFT FEMORAL TRIPLE LUMEN REMOVED CATH INTACT PRESSURE HELD FOR 10 MINUTES. PRESSURE DRESSING APPLIED. LEFT WRIST # 20 GAUGE SALINE LOCK REMOVED PRESSURE APPLIED CATH INTACT
--- NOTE | 2019-10-16 15:11 | NUR ---
REPORT GIVEN TO VICKY RN [facility] PT TO GO TO 115-2
--- NOTE | 2019-10-16 15:30 | NUR ---
PT TRANSFERRED TO [facility] ACLS PROTOCOL ON OXYGEN VIA GURNEY WITH ALL BELONGINGS PT TOLERATED WELL
[2019-10-16] MEDS: IV NS 0.9% 250 ML IV PRN (18:46)
--- NOTE | 2019-10-16 19:32 | NUR ---
[facility]/RN CLOSING NOTES PATIENT CONTINUES TO REMAIN IN STABLE CONDITION THROUGHOUT THE SHIFT. PROVIDED COMFORT AND SAFETY. PATIENT ABLE TO TOLERATE MEALS AND MEDS WELL. IV ACCESS ON KENTRELL INTACT AND PATENT. FLUSHING WELL. NO S/S OF INFECTION OR INFILTRATION. ALL NEEDS ANTICIPATED. KEPT CLEAN AND DRY. CALL LIGHT WITHIN REACHED. BED LOCKED AND IN LOWEST POSITION. SAFETY MAINTAINED. WILL CONTINUE TO MONITOR CLOSELY. ENDORSED TO PM NURSE FOR OJZEF.
--- NOTE | 2019-10-16 21:11 | NUR ---
RN NOTE. INITIAL ASSESSMENT. RECEIVED THE PT REST ON THE BED, AWAKE, ALERT. LETHARGIC. RT SIDE WEAKNESS. S/P CVA. OXYGEN 4L VIA NASAL CANNULA. SAT 98%. NO ACUTE DISTRESS NOTED. DRYING CAN WORKER SHOWING NSR. IV RT UPPER ARM MID LINE SALINE LOCK. HOB ELEVATED. WILL CONTINUE TO MONITOR VITALS.
[2019-10-16] MEDS: DOCUSATE SODIUM LIQ 100 MG/10 ML UDC GT SCH (21:56)
--- NOTE | 2019-10-16 21:56 | NUR ---
SUPERVISOR SANDING. COLACE NOT GIVEN. PT HAS LOOSE STOOL
[2019-10-16] MEDS ORDERED: INSULIN GLARGINE, 100 UNIT/ML CARTRIDGE SQ SCH (22:00)
[2019-10-16] MEDS: MIRTAZAPINE 15 MG TABLET GT SCH (22:03)
[2019-10-16] MEDS: ATORVASTATIN 10 MG TABLET GT SCH (22:03)
[2019-10-16] MEDS: FLUCONAZOLE (100 MG) 100 MG TABLET PO SCH (22:03)
[2019-10-17] VITALS: BP 115/55
--- NOTE | 2019-10-17 02:30 | NUR ---
TD RN NOTE: RECEIVED BEDSIDE REPORT FROM SONJA SOLORIO. PT IS AWAKE WITH NO APPARENT DISTRESS NOTED. NO COMPLAINTS OF PAIN OR DISCOMFORT AT THIS TIME. ON 3LPM NASAL CANNULA, NO SOB NOTED. ON TELE MONITOR SINUS RHYTHM HR 67 BPM. JOHNSON CATH INTACT AND DRAINING WELL. LEFT UPPER ARM MIDLINE INTACT AND PATENT, FLUSHING WELL. KEPT CLEAN, DRY AND COMFORTABLE. SAFETY AND FALL PRECAUTIONS OBSERVED AND MAINTAINED. WILL CONTINUE TO MONITOR PT.
--- NOTE | 2019-10-17 02:32 | NUR ---
report given to evelia davis.
[2019-10-17 04:00] VITALS: BP 114/73
[2019-10-17] MEDS: BLOOD SUGAR DIAGNOSTIC 1 EACH STRIP IN SCH ×2 (05:58→11:52)
--- NOTE | 2019-10-17 06:50 | NUR ---
TD RN NOTE: NO CHANGES NOTED THROUGHOUT THE SHIFT. NO APPARENT DISTRESS NOTED. NO COMPLAINTS OF PAIN OR DISCOMFORT AT THIS TIME. ON 3LPM NASAL CANNULA, NO SOB NOTED. ON TELE MONITOR SINUS RHYTHM HR 64 BPM. LEFT UPPER ARM MIDLINE INTACT AND PATENT, FLUSHING WELL. KEPT CLEAN, DRY AND COMFORTABLE. SAFETY AND FALL PRECAUTIONS OBSERVED AND MAINTAINED. WILL ENDORSE TO DAY SHIFT RN FOR CONTINUITY OF CARE
--- NOTE | 2019-10-17 07:30 | NUR ---
RN NOTES RECEIVED PATIENT ASLEEP, EASILY AWAKEN BY VERBAL STIMULI, ORIENTED X2, ABLE TO RESPOND APPROPRIATELY. ABLE TO FOLLOW COMMANDS. ABLE TO MOVE THE LEFT UPPER EXTREMITY, STRENGTH GREATER THAT THE RIGHT, SAME WITH THE LOWER EXTREMITIES. NOT ON ANY FORM OF DISTRESS, WITH NASAL CANNULA OXYGEN AT 3LPM, SATING FINE. SINUS RHYTHM ON THE MONITOR WITH HR ON THE 90'S. NO COMPLAINTS OF PAIN, NO INDICATION NOTED. IV ACCESS ON THE LEFT UPPER ARM: MIDLINE IN PLACE AND INTACT, SALINE LOCK. JOHNSON CATHETER IN PLACE DRAINING WELL TO CLEAR YELLOW URINE. PATIENT ENCOURAGE TO CALL FOR HELP/ASSISTANCE, VERBALIZE FEELINGS AND CONCERNS. SAFETY MEASURES OBSERVED AND MAINTAINED. BED IN LOW AND LOCKED POSITIONED. WILL CONTINUE TO MONITOR PATIENT AND ANTICIPATE NEEDS
[2019-10-17 07:37] LABS: BASOPHILS # (AUTO) 0.1 /CMM (0.0-0.2); BASOPHILS % (AUTO) 1.5 % (0.0-2.0); EOSINOPHILS % (AUTO) 7.4 % (0.0-6.0); HEMATOCRIT 27 % (39-51); HEMOGLOBIN 8.4 g/dL (13.5-17.5); LYMPHOCYTES # (AUTO) 1.8 /CMM (0.8-4.8); LYMPHOCYTES % (AUTO) 23.9 % (20.0-44.0); MEAN CORPUSCULAR HGB CONC 31 g/dl (31.0-36.0); MEAN CORPUSCULAR VOLUME 75 fL (80-96); MONOCYTES # (AUTO) 0.9 /CMM (0.1-1.30); MONOCYTES % (AUTO) 12.2 % (2.0-12.0); NEUTROPHILS # (AUTO) 4.2 /CMM (1.8-8.9); PLATELET COUNT (AUTO) 244 /CMM (150-450); RED BLOOD CELL COUNT(AUTO) 3.64 MIL/uL (4.5-6.0); WHITE BLOOD COUNT (AUTO) 7.7 K/uL (4.3-11.0)
[2019-10-17 07:38] LABS: CREATININE 0.8 mg/dL (0.6-1.3); MAGNESIUM 1.7 mg/dL (1.8-2.4); PHOSPHORUS 2.2 mg/dL (2.5-4.9); POTASSIUM 3.7 mmol/L (3.5-5.1)
[2019-10-17 08:00] VITALS: BP 135/68
[2019-10-17] MEDS: TAMSULOSIN 0.4 MG CAP.SR.24H GT SCH (09:30)
[2019-10-17] MEDS: GABAPENTIN 300 MG CAPSULE GT SCH ×2 (09:30→13:24)
[2019-10-17] MEDS: CHOLECALCIFEROL 1,000 UNIT TABLET (VIT D3) GT SCH (09:30)
[2019-10-17] MEDS: LACTOBACILLUS RHAMNOSUS GG 1 EACH CAP.SPRINK PO SCH (09:30)
[2019-10-17] MEDS: LEVOTHYROXINE SODIUM 25 MCG TABLET GT SCH (09:30)
[2019-10-17] MEDS: HYDROCORTISONE SOD SUCCINATE 100 MG/2 ML VIAL IV SCH (09:31)
[2019-10-17] MEDS: ASPIRIN 81 MG TAB.CHEW PO SCH (09:31)
[2019-10-17] MEDS: APIXABAN 2.5 MG TABLET PO SCH (09:33)
[2019-10-17] MEDS: HYDROGEL DRESSING 90 GM TUBE TP SCH (09:34)
[2019-10-17] MEDS: THERAHONEY GEL 1.5 OZ TUBE TP SCH (09:34)
[2019-10-17] MEDS: Magnesium 1GM/D5W 100ML PREMIX 100 ML IV SCH ×2 (10:17→11:34)
[2019-10-17] MEDS ORDERED: NEUTRA PHOS 1 POWD.PACKET GT ONE ×2 (11:00)
[2019-10-17] MEDS ORDERED: K PHOS NEUTRAL 250 MG TABLET PO ONE (11:00)
[2019-10-17] MEDS: INSULIN REGULAR, HUMAN 100 UNIT/ML 3 ML VIAL SQ PRN (11:57)
[2019-10-17 12:00] VITALS: BP_SYST 127; BP_DIAS 70; BP_DIAS 77
--- NOTE | 2019-10-17 12:22 | NUR ---
RN NOTES SEEN AND EXAMINED BY DR. SIFUENTES. WITH ORDERS MADE
[2019-10-17 16:00] VITALS: BP 129/72
--- NOTE | 2019-10-17 16:00 | NUR ---
RN NOTES REPORT GIVEN TO SONJA BELL AT [facility].
--- NOTE | 2019-10-17 17:00 | NUR ---
RN NOTES PATIENT WHEELED OUT OF THE UNIT ACCOMPANIED BY 2 EMT. ALL DISCHARGE AND MEDICATION INSTRUCTION GIVEN TO THE NURSE ON REPORT. IV AND ID BAND REMOVED. ALL SKIN ISSUES NOTED, TAKEN PICTURES AND FILED ON THE CHART. NO BELONGINGS NOTED ON CHECKING.
== END 2019-10-17 17:00 | DRG 853 ==
LOC: ER 23:11 → ICU 10-01 01:59 → TELE-TD 10-16 15:37
PROVIDERS: ADMIT Nurse Practitioner Acute Care; ATTEND Student in an Organized Health Care Education/Training Program
PROC: 5A1955Z Respiratory Ventilation, Greater than 96 Consecutive Hours (ICD-10-PCS; principal; 2019-10-01)
PROC: 0BH17EZ Insertion of Endotracheal Airway into Trachea, Via Natural or Artificial Opening (ICD-10-PCS; 2019-10-01)
PROC: 0JBR0ZZ Excision of Left Foot Subcutaneous Tissue and Fascia, Open Approach (ICD-10-PCS; 2019-10-01)
PROC: 30233N1 Transfusion of Nonautologous Red Blood Cells into Peripheral Vein, Percutaneous Approach (ICD-10-PCS; 2019-10-11)
PROC: 05HA33Z Insertion of Infusion Device into Left Brachial Vein, Percutaneous Approach (ICD-10-PCS; 2019-10-11)
PROC: 0JB70ZZ Excision of Back Subcutaneous Tissue and Fascia, Open Approach (ICD-10-PCS; 2019-10-12)
PROC: 0DJ08ZZ Inspection of Upper Intestinal Tract, Via Natural or Artificial Opening Endoscopic (ICD-10-PCS; 2019-10-12)
PROC: 0DJD8ZZ Inspection of Lower Intestinal Tract, Via Natural or Artificial Opening Endoscopic (ICD-10-PCS; 2019-10-12)
DX: A41.9 Sepsis, unspecified organism (principal); J96.02 Acute respiratory failure with hypercapnia; N17.0 Acute kidney failure with tubular necrosis; E43 Unspecified severe protein-calorie malnutrition; J96.01 Acute respiratory failure with hypoxia; R65.21 Severe sepsis with septic shock; G92 Toxic encephalopathy; J69.0 Pneumonitis due to inhalation of food and vomit; B37.0 Candidal stomatitis; I69.351 Hemiplegia and hemiparesis following cerebral infarction affecting right dominant side; E27.40 Unspecified adrenocortical insufficiency; J98.11 Atelectasis; E87.0 Hyperosmolality and hypernatremia; E87.2 Acidosis; L97.429 Non-pressure chronic ulcer of left heel and midfoot with unspecified severity; L97.419 Non-pressure chronic ulcer of right heel and midfoot with unspecified severity; N39.0 Urinary tract infection, site not specified; K55.9 Vascular disorder of intestine, unspecified; T82.838A Hemorrhage due to vascular prosthetic devices, implants and grafts, initial encounter; E11.621 Type 2 diabetes mellitus with foot ulcer; I48.91 Unspecified atrial fibrillation; K21.9 Gastro-esophageal reflux disease without esophagitis; Z83.3 Family history of diabetes mellitus; Z82.49 Family history of ischemic heart disease and other diseases of the circulatory system; Z79.899 Other long term (current) drug therapy; Z79.82 Long term (current) use of aspirin; Z79.4 Long term (current) use of insulin; Z79.01 Long term (current) use of anticoagulants; Z88.7 Allergy status to serum and vaccine; D64.9 Anemia, unspecified; R26.9 Unspecified abnormalities of gait and mobility; E03.9 Hypothyroidism, unspecified; E11.22 Type 2 diabetes mellitus with diabetic chronic kidney disease; E11.36 Type 2 diabetes mellitus with diabetic cataract; E11.40 Type 2 diabetes mellitus with diabetic neuropathy, unspecified; E11.622 Type 2 diabetes mellitus with other skin ulcer; E78.5 Hyperlipidemia, unspecified; H40.9 Unspecified glaucoma; I12.9 Hypertensive chronic kidney disease with stage 1 through stage 4 chronic kidney disease, or unspecified chronic kidney disease; N18.9 Chronic kidney disease, unspecified; N40.0 Benign prostatic hyperplasia without lower urinary tract symptoms; R13.10 Dysphagia, unspecified; K57.30 Diverticulosis of large intestine without perforation or abscess without bleeding; K64.8 Other hemorrhoids; B96.4 Proteus (mirabilis) (morganii) as the cause of diseases classified elsewhere; M62.84 Sarcopenia; J44.9 Chronic obstructive pulmonary disease, unspecified; M12.9 Arthropathy, unspecified; R56.9 Unspecified convulsions; Z74.09 Other reduced mobility; M85.9 Disorder of bone density and structure, unspecified; S70.322A Blister (nonthermal), left thigh, initial encounter; S20.319A Abrasion of unspecified front wall of thorax, initial encounter; S00.211A Abrasion of right eyelid and periocular area, initial encounter; X58.XXXA Exposure to other specified factors, initial encounter; Y92.9 Unspecified place or not applicable; Y95 Nosocomial condition
CPT/HCPCS: 31720; 36415; 36600; 70450-TC; 71045-TC; 76770-TC; 80048-TC; 80053-TC; 80076-TC; 80202-TC; 81000-TC; 82272-TC; 82533; 82550-TC; 82570-TC; 82803-TC; 82962-TC; 83605-TC; 83735-TC; 83970; 84100-TC; 84155; 84155-TC; 84165; 84300-TC; 84439-TC; 84443-TC; 84478-TC; 84484-TC; 85025-TC; 85027-TC; 85610-TC; 85730-TC; 86850-TC; 86921-TC; 87040-TC; 87070-TC; 87081-TC; 87086-TC; 87186-TC; 88305-TC; 92526; 92611-TC; 94002-TC; 94003-TC; 94640-TC; 94760-TC; 94799-TC; 95819-TC; 97110-TC; 97112-TC; 97530-TC; 99082-TC; A4216; A4349; A6248; A6253; A6403; G0378; J0330; J0692; J1100; J1450; J1720; J1815; J2060; J2185; J2543; J2704; J3370; J3475; J3490; J7030; J7040; J7050; J7060; J7070; P9016-BL

== ENCOUNTER 2019-11-18 14:58 | Inpatient (IN) | payer MEDICARE, MEDICAID ==
[~2019-11-18] VITALS: Ht 182.9 cm; Wt 84.8 kg
[2019-11-18] VITALS (7 sets, daily range): BP systolic 90–117; BP diastolic 43–61
[~2019-11-18 14:58] MED LIST changes: +AMLO5TAB4 PO; -AMLO5TAB9 PO; +APIX5TAB4 PO; +ASPI-1169 PO; +ATOR10TA GT; -BIMA2.5D5 EACHEYE; +CHOL200026 PO; +DOCU-141 PO; -GABA-534 PO; +GABA300C PO; -GABA600T12 PO; +HYDR20VI4 IJ; -INSU100C10 SQ; -INSU100I30 SQ; +LEVO25TA7 GT; -LEVO50TA8 PO; +MIRT15TA GT; +PANT40TA2 PO; -PANT40TA4 PO; -QUIN40TA14 PO; +TAMS-12 GT; -TAMS-12 PO; -TIMO5SOL11 EACHEYE
--- NOTE | 2019-11-18 15:14 | NUR ---
PT REC'D TO ER [facility]IA [facility] AL[facility]ED NO SPEECH IV STARTED 20 LEFT HAND HEPLOCKED UA FROM JOHNSON SENT TO LAB MOITORS APPLIED TO PTAWAITING EVALUATION BY ER PROVIDER.
[2019-11-18] MEDS ORDERED: DOCU-141 GT (15:16)
[2019-11-18] MEDS ORDERED: METO-295 GT (15:16)
[2019-11-18] MEDS ORDERED: NA P133E RC (15:16)
[2019-11-18] MEDS ORDERED: PANT40TA2 PO (15:16)
[2019-11-18] MEDS ORDERED: MAGN400O6 GT (15:16)
[2019-11-18] MEDS ORDERED: MIRT15TA7 GT (15:16)
[2019-11-18] MEDS ORDERED: CHOL100045 GT (15:16)
[2019-11-18] MEDS ORDERED: LEVO50TA8 GT (15:16)
[2019-11-18] MEDS ORDERED: HYDR-4076 GT (15:16)
[2019-11-18] MEDS ORDERED: TAMS-12 GT (15:16)
[2019-11-18] MEDS ORDERED: APIX5TAB GT (15:16)
[2019-11-18] MEDS ORDERED: BISA10SU11 RC (15:16)
[2019-11-18] MEDS ORDERED: GABA-534 GT (15:16)
[2019-11-18] MEDS ORDERED: ACET-868 GT (15:16)
[2019-11-18] MEDS ORDERED: ATOR10TA GT (15:16)
[2019-11-18] MEDS ORDERED: INSU100V27 SQ (15:16)
[2019-11-18] MEDS ORDERED: ASPI-1169 GT (15:16)
[2019-11-18] MEDS ORDERED: AMLO5TAB4 GT (15:16)
[2019-11-18] MEDS ORDERED: IV NS 0.9% 500 ML BAG IV ONE (16:00)
[2019-11-18 16:02] LABS: APPEARANCE,URINE CLOUDY (CLEAR); BILIRUBIN,URINE NEGATIVE (NEGATIVE); BLOOD, URINE LARGE Ery/uL (NEGATIVE); COLOR,URINE YELLOW (YELLOW); KETONES,URINE NEGATIVE (NEGATIVE); LEUKOCYTE ESTERASE ,URINE LARGE (NEGATIVE); NITRITE, URINE POSITIVE (NEGATIVE); PROTEIN,URINE 30 mg/dl (NEGATIVE); UGLUCOSE 100 MG/DL mg/dL (NEGATIVE); UROBILINOGEN,URINE 0.2 EU/dL (0.2)
[2019-11-18 16:11] LABS: WHITE BLOOD COUNT (AUTO) 10.2 K/uL (4.3-11.0)
--- NOTE | 2019-11-18 16:11 | NUR ---
PT MORE ALERT IV FLUIDS GIVEN PER MD ORDER
[2019-11-18 16:17] LABS: BACTERIA,URINE 4+ /HPF (None Seen); SQUAMOUS EPITHELIAL CELL,UR 0-2 /HPF (None Seen); WBC,URINE TOO NUMEROUS TO COUN /HPF (0-3)
[2019-11-18 16:18] LABS: CALCIUM, SERUM 9.5 mg/dL (8.5-10.1); CARBON DIOXIDE 30 mmol/L (21-32); CHLORIDE 106 mmol/L (98-107); CREATININE 2.2 mg/dL (0.6-1.3); GLUCOSE 240 mg/dL (74-106); SODIUM SERUM 144 mmol/L (136-145); UREA NITROGEN, BLOOD 56 mg/dL (7-18)
[2019-11-18 16:22] LABS: BASOPHILS # (AUTO) 0.1 /CMM (0.0-0.2); BASOPHILS % (AUTO) 0.6 % (0.0-2.0); EOSINOPHILS % (AUTO) 4.6 % (0.0-6.0); LYMPHOCYTES # (AUTO) 1.9 /CMM (0.8-4.8); LYMPHOCYTES % (AUTO) 18.9 % (20.0-44.0); MEAN CORPUSCULAR HGB CONC 30 g/dl (31.0-36.0); MEAN CORPUSCULAR VOLUME 73 fL (80-96); MONOCYTES # (AUTO) 1.1 /CMM (0.1-1.30); MONOCYTES % (AUTO) 10.7 % (2.0-12.0); NEUTROPHILS # (AUTO) 6.6 /CMM (1.8-8.9); NEUTROPHILS % (AUTO) 65.2 % (43.0-81.0); PLATELET COUNT (AUTO) 428 /CMM (150-450); RED BLOOD CELL COUNT(AUTO) 2.93 MIL/uL (4.5-6.0)
[2019-11-18 16:25] LABS: HEMOGLOBIN 6.4 g/dL (13.5-17.5)
[2019-11-18 16:26] LABS: HEMATOCRIT 21 % (39-51)
[2019-11-18 16:30] LABS: ALANINE AMINOTRANSFERASE 14 U/L (12-78); ALBUMIN 2.1 g/dL (3.4-5.0); ALKALINE PHOSPHATASE 97 U/L (46-116); ASPARTATE AMINOTRANSFERASE 13 U/L (15-37); B-TYPE NATRIURETIC PEPTIDE 300 PG/ML (0-125); BILIRUBIN,DIRECT 0.1 mg/dL (0.0-0.2); BILIRUBIN,TOTAL 0.2 mg/dL (0.2-1.0)
--- NOTE | 2019-11-18 16:33 | NUR ---
CALLED [facility]. TINNER HELPER WAS PAGED
[2019-11-18] MEDS ORDERED: CEFTRIAXONE 1GM BAG (ER ONLY) 1 GM/50 ML PIGGYBACK IV ONE (17:00)
[2019-11-18] MEDS ORDERED: MAGNESIUM HYDROXIDE 30 ML UDC PO PRN ×2 (17:30→18:00)
[2019-11-18] MEDS ORDERED: ACETAMINOPHEN 325 MG TABLET PO PRN ×2 (17:30→18:00)
[2019-11-18] MEDS ORDERED: BISACODYL SUPP (10 MG) 10 MG/SUPP.RECT SUPP.RECT RC PRN (17:30)
[2019-11-18] MEDS ORDERED: NA PHOS,M-B/NA PHOS,DI-BA 1 EA ENEMA RC PRN (17:30)
[2019-11-18] MEDS ORDERED: MAG HYDROX/AL HYDROX/SIMETH 30 ML UDC PO PRN (18:00)
[2019-11-18] MEDS ORDERED: ONDANSETRON HCL/PF 4 MG/2 ML VIAL IVP PRN (18:00)
[2019-11-18] MEDS ORDERED: Z GUARD REMEDY 2 OZ OINT TP PRN (18:00)
[2019-11-18] MEDS ORDERED: ZOSYN IVPB 3.375 G in IV D5W 50ml IV ONE (18:00)
[2019-11-18] MEDS ORDERED: DEXTROSE 50%-WATER 50 ML DISP.SYRIN IV PRN (18:00)
[2019-11-18 18:11] LABS: EOSINOPHILS % (MANUAL) 7 % (0-4); LYMPHOCYTES % (MANUAL) 19 % (16-48); MONOCYTES % (MANUAL) 8 % (0-11.0); NEUTROPHILS % (MANUAL) 66 (42-76)
--- NOTE | 2019-11-18 18:51 | NUR ---
PT GIVEN ROCHPHIN 1 GM PER MD ORDER
[2019-11-18] MEDS: IV D5/0.45 NACL 1,000 ML IV PRN (18:52)
--- NOTE | 2019-11-18 18:52 | NUR ---
REPORT GIVEN TO INES TRANSFER TO FLOOR STABLE
[2019-11-18] MEDS: METOCLOPRAMIDE HCL 10 MG TABLET PO SCH ×2 (18:58→21:57)
--- NOTE | 2019-11-18 19:00 | NUR ---
RN ADMITTING NOTES PT ADMITTED TO UNIT AT 1830 VIA DEMETRICE. A/O X2. PT LOOKS WEAK AND LETHARGIC BUT ABLE TO ANSWER SIMPLE QUESTIONS. ORIENTED TO UNIT AND STAFF. PT WITH DX OF SEPSIS. V/S TAKEN AND RECORDED. PT ON 02 VIA N/C AT 2LPM, TOLERATING WELL WITH SP02 OF 96% NOTED. PT WITH IV ACCESS ON LEFT WRIST G#20 INTACT AND PATENT, IVF OF D5 1/2 NS @ 75ML/HR STARTED. PT PLACED ON TELEMONITORING WITH CURRENT READING OF SR WITH BBB'S AND HR ON THE 80'S. SAFETY MEASURES INITIATED. BED PLACED IN LOWEST LOCKED POSITION WITH SR UP X2. CALL LIGHT WITHIN REACH. PT NOTED WITH HGB OF 6.4, DR VILLAFANA MADE AWARE WITH ORDER FOR TYPE AND SCREEN AND TO INFUSE 1 UNIT OF PRBC. PT ASLEEP AT THIS TIME NOW. hob ELEVATED. WILL ENDORSE TO ASSAULT AMPHIBIOUS VEHICLE CREWMAN NURSE TO CONTINUE THE ADMITTING PROCESS.,
--- NOTE | 2019-11-18 19:55 | NUR ---
RECIEVED TELEPHONE CONSENT FOR BLOOD TRANSFUSION. PT [id number] ; NEPHEW CALLED LISTED DECISION MAKER FOR PATIENT MAURO VANG AND PROVIDED CONSENT OVER THE PHONE FOR TRANSFUSION OF BLOOD. 2ND NURSE PACO RN VERIFIED OVER THE PHONE. ALSO REVIEWED ADMISSION AND POC WITH NEPHEW. ADMISSION ASSESSMENT PERFORMED WITH SOME INFO HE PROVIDED BUT PRIMARILY RECORDS SENT FROM [facility] USED FOR ADMISSION ASSESSMENT.
--- NOTE | 2019-11-18 20:36 | NUR ---
lab clled blood ready
[2019-11-18] MEDS: hydrALAZINE HCL 25 MG TABLET PO SCH (21:00)
[2019-11-18] MEDS: MIRTAZAPINE 15 MG TABLET PO SCH (21:57)
[2019-11-18] MEDS: ATORVASTATIN 10 MG TABLET PO SCH (21:59)
[2019-11-18] MEDS: BLOOD SUGAR DIAGNOSTIC 1 EACH STRIP VI SCH (22:22)
[2019-11-19] VITALS (14 sets, daily range): BP systolic 81–122; BP diastolic 40–66
--- NOTE | 2019-11-19 01:30 | NUR ---
BLOOD TRANSFUSION ENDED; ABX GIVEN LATE. ABX STARTED; DELAYED D/T BLOOD TRANSFUSION. 1 unit of prbc infused. with no s/s of rxn. vss. pt in no aparent distress.
[2019-11-19] MEDS: PIPERACILLIN /TAZOBACTAM 3.375 G in IV D5W 100 ML IV SCH ×3 (01:31→16:35)
[2019-11-19] MEDS: hydrALAZINE HCL 25 MG TABLET PO SCH ×3 (05:25→21:00)
[2019-11-19] MEDS: LEVOTHYROXINE SODIUM 50 MCG TABLET PO SCH (06:35)
[2019-11-19] MEDS: BLOOD SUGAR DIAGNOSTIC 1 EACH STRIP VI SCH ×4 (06:35→21:29)
[2019-11-19] MEDS: METOCLOPRAMIDE HCL 10 MG TABLET PO SCH ×4 (06:35→21:29)
--- NOTE | 2019-11-19 06:55 | NUR ---
MS RN NOTES PATIENT RESTING COMFORTABLY IN BED, SAFETY PRECAUTIONS IN PLACE. BED LOCKED IN LOWEST POSITION WITH SIDE RAILS X2. CALL LIGHT WITHIN EASY REACH. BREATHING EVEN AND UNLABORED, NO S/S OF ACUTE DISTRESS OR DISCOMFORT NOTED. PATIENT ON 2L NC O2, WILL CONTINUE TO MONITOR.
[2019-11-19 07:12] LABS: BASOPHILS # (AUTO) 0.1 /CMM (0.0-0.2); BASOPHILS % (AUTO) 0.6 % (0.0-2.0); EOSINOPHILS % (AUTO) 5.3 % (0.0-6.0); HEMATOCRIT 24 % (39-51); HEMOGLOBIN 7.4 g/dL (13.5-17.5); LYMPHOCYTES # (AUTO) 1.5 /CMM (0.8-4.8); LYMPHOCYTES % (AUTO) 16.2 % (20.0-44.0); MEAN CORPUSCULAR HGB CONC 31 g/dl (31.0-36.0); MEAN CORPUSCULAR VOLUME 74 fL (80-96); MONOCYTES # (AUTO) 0.9 /CMM (0.1-1.30); MONOCYTES % (AUTO) 10.4 % (2.0-12.0); NEUTROPHILS # (AUTO) 6.2 /CMM (1.8-8.9); NEUTROPHILS % (AUTO) 67.5 % (43.0-81.0); PLATELET COUNT (AUTO) 383 /CMM (150-450); RED BLOOD CELL COUNT(AUTO) 3.22 MIL/uL (4.5-6.0); WHITE BLOOD COUNT (AUTO) 9.2 K/uL (4.3-11.0)
[2019-11-19 07:26] LABS: OCCULT BLOOD STOOL POSITIVE (NEGATIVE)
[2019-11-19] MEDS ORDERED: PANTOPRAZOLE 40 MG TABLET.DR PO SCH (07:30)
[2019-11-19 07:35] LABS: CALCIUM, SERUM 8.8 mg/dL (8.5-10.1); CARBON DIOXIDE 28 mmol/L (21-32); CHLORIDE 107 mmol/L (98-107); CREATININE 1.8 mg/dL (0.6-1.3); GLUCOSE 274 mg/dL (74-106); MAGNESIUM 1.8 mg/dL (1.8-2.4); PHOSPHORUS 2.7 mg/dL (2.5-4.9); POTASSIUM 3.9 mmol/L (3.5-5.1); SODIUM SERUM 142 mmol/L (136-145); UREA NITROGEN, BLOOD 44 mg/dL (7-18)
[2019-11-19] MEDS: TAMSULOSIN 0.4 MG CAP.SR.24H PO SCH (08:12)
[2019-11-19] MEDS: PANTOPRAZOLE 40 MG VIAL IV SCH (08:12)
[2019-11-19] MEDS: GABAPENTIN 300 MG CAPSULE PO SCH ×3 (08:12→16:29)
[2019-11-19] MEDS: IV D5/0.45 NACL 1,000 ML IV PRN (08:22)
--- NOTE | 2019-11-19 09:41 | NUR ---
RN NOTE PER GIVE OTHER UNIT OF BLOOD, WILL ADMIN SOON ABLE TO
--- NOTE | 2019-11-19 12:07 | NUR ---
Social service consult requested by Dr. Ceron stating pt. is elderly and lives alone. ALAYNA consulted with classification case manager Krystal who informed SW that pt. is a resident of [facility] and pt. will be discharged back to the SNF.
[2019-11-19] MEDS: INSULIN REGULAR, HUMAN 100 UNIT/ML 3 ML VIAL SQ PRN (12:25)
--- NOTE | 2019-11-19 12:33 | NUR ---
CONSENT FOR DEBRIDEMENT CONSENT OBTAINED FROM LINDSAY VANG AT THIS TIME FOR SERIAL DEBRIDEMENT OF SACRUM AND LEFT HEEL, CONSENT VERIFIED BY SONJA RIVERS
--- NOTE | 2019-11-19 14:30 | NUR ---
NET ARCHITECT NOTES JOINERY SETTER OUT AT BEDSIDE, WOUND DEBRIDEMENT DONE. WILL CONTINUE TO MONITOR. Addendum: 11/19/19 at 1456 by SILVESTRE SANDERS RN SWAB COLLECTED FROM SITE (LEFT HEEL) FOR C/S, AWAITING RESULTS.
[2019-11-19] MEDS: DOCUSATE SODIUM 100 MG CAPSULE PO SCH (16:29)
[2019-11-19 17:14] LABS: HEMOGLOBIN 8.4 g/dL (13.5-17.5)
[2019-11-19] MEDS: *INSULIN REGULAR(HUMULIN R)HUM 100 UNIT/ML VIAL SQ PRN ×2 (17:37→21:31)
[2019-11-19] MEDS: HYDROGEL DRESSING 90 GM TUBE TP SCH (17:54)
--- NOTE | 2019-11-19 18:33 | NUR ---
MS RN CLOSING NOTES PATIENT RESTING COMFORTABLY IN BED, TOLERATING 2L O2 VIA NC WELL; BREATHING EVEN AND UNLABORED; NO S/S OF ACUTE DISTRESS NOTED. SEIZURES AND SAFETY PRECAUTIONS IN PLACE; BED LOCKED IN LOWEST POSITION, SIDE RAILS UP; CALL LIGHT WITHIN EASY REACH. PATIENT SEMI-FOWLERS POSITION. L WRIST #20, INTACT AND PATENT, NO SIGNS OF REDNESS OR INFILTRATION. JOHNSON CATH, INTACT, CLEAN AND DRY, OUTPUT STILL SLIGHTLY CLOUDY. WILL ENDORSE JOZEF TO ONCOMING SHIFT.
--- NOTE | 2019-11-19 19:30 | NUR ---
RN OPEN NOTES RECEIVED PATIENT AWAKE IN BED. A/OX1. NO SIGNS OF DISTRESS OR DISCOMFORT. BREATHING EVEN AND UNLABORED. ON 2LPM O2 VIA NC. IV ACCESS IN L WRIST WITH ZOSYN INFUSING, PATENT AND INTACT, NO SIGNS OF REDNESS OR INFILTRATION. HAS F/C INTACT DRAINING CLOUDY YELLOW FLUID. BED IN LOW LOCKED POSITION WITH SIDE RAILS X2. HOB ELEVATED. CALL LIGHT WITHIN REACH. WILL CONTINUE TO MONITOR.
[2019-11-19] MEDS: ATORVASTATIN 10 MG TABLET PO SCH (21:29)
[2019-11-19] MEDS: MIRTAZAPINE 15 MG TABLET PO SCH (21:29)
--- NOTE | 2019-11-19 21:40 | NUR ---
RN NOTES TELEPHONE CALL TO LINDSAY VANG [phone] TO OBTAIN CONSENT FOR EGD SCHEDULED TOMORROW AM AT [address] MCNEIL. WAS UNABLE TO LEAVE [facility] DUE TO NOT YET SET UP. WILL REATTEMPT AND CONTINUE TO MONITOR.
--- NOTE | 2019-11-19 21:50 | NUR ---
RN NOTES REATTEMPT TELEPHONE CALL TO LINDSAY VANG [phone] TO OBTAIN CONSENT FOR EGD SCHEDULED TOMORROW AM AT [address] MCNEIL. STILL UNABLE TO LEAVE [facility] DUE TO NOT YET SET UP. ALSO MADE PHONE CALL TO NEXT OF [facility] [phone], WHICH IS AN NON WORKING NUMBER. WILL NOTIFY MD OF FAILURE TO RECEIVE CONSENT AND CONTINUE TO MONITOR.
--- NOTE | 2019-11-19 21:55 | NUR ---
RN NOTES NOTIFIED MD OF FAILURE TO OBTAIN CONSENT FOR EGD SCHEDULED IN THE AM. PER MD WILL CANCEL PROCEDURE AT THIS TIME.
[2019-11-20] MEDS: PIPERACILLIN /TAZOBACTAM 3.375 G in IV D5W 100 ML IV SCH ×3 (00:31→15:54)
[2019-11-20] MEDS: hydrALAZINE HCL 25 MG TABLET PO SCH ×3 (05:00→21:00)
[2019-11-20] MEDS: IV D5/0.45 NACL 1,000 ML IV PRN ×2 (06:18→21:20)
[2019-11-20] MEDS: INSULIN REGULAR, HUMAN 100 UNIT/ML 3 ML VIAL SQ PRN ×2 (06:20→11:49)
[2019-11-20] MEDS: BLOOD SUGAR DIAGNOSTIC 1 EACH STRIP VI SCH ×4 (06:20→21:38)
[2019-11-20] MEDS: METOCLOPRAMIDE HCL 10 MG TABLET PO SCH ×4 (07:30→21:24)
--- NOTE | 2019-11-20 07:30 | NUR ---
PT RECEIVED RESTING COMFORTABLY IN BED. NO S/S OR C/O PAIN OR DISTRESS NOTED. SIDE RAILS UP X2, CALL LIGHT LEFT WITHIN REACH. WILL CONTINUE PLAN OF CARE.
--- NOTE | 2019-11-20 07:37 | NUR ---
RN CLOSING NOTES PATIENT RESTING COMFORTABLY IN BED. A/OX1. NO SIGNS OF DISTRESS OR DISCOMFORT. BREATHING EVEN AND UNLABORED. ON 2LPM O2 VIA NC. IV ACCESS IN L WRIST WITH D5 1/2 NS INFUSING, PATENT AND INTACT, NO SIGNS OF REDNESS OR INFILTRATION. HAS F/C INTACT DRAINING CLOUDY YELLOW FLUID. ALL NEEDS MET. NO SIGNIFICANT CHANGES THROUGH THE NIGHT. PATIENT KEPT CLEAN DRY AND COMFORTABLE. REPOSITIONED Q2H AND PRN. BED IN LOW LOCKED POSITION WITH SIDE RAILS X2. HOB ELEVATED. CALL LIGHT WITHIN REACH. ENDORSED TO AM SHIFT FOR JOZEF.
[2019-11-20 07:58] LABS: BASOPHILS # (AUTO) 0.2 /CMM (0.0-0.2); BASOPHILS % (AUTO) 1.6 % (0.0-2.0); EOSINOPHILS % (AUTO) 6.4 % (0.0-6.0); HEMATOCRIT 27 % (39-51); HEMOGLOBIN 8.4 g/dL (13.5-17.5); LYMPHOCYTES % (AUTO) 21.5 % (20.0-44.0); MEAN CORPUSCULAR HGB CONC 32 g/dl (31.0-36.0); MEAN CORPUSCULAR VOLUME 74 fL (80-96); MONOCYTES # (AUTO) 1.1 /CMM (0.1-1.30); MONOCYTES % (AUTO) 11.6 % (2.0-12.0); NEUTROPHILS # (AUTO) 5.6 /CMM (1.8-8.9); NEUTROPHILS % (AUTO) 58.9 % (43.0-81.0); PLATELET COUNT (AUTO) 397 /CMM (150-450); RED BLOOD CELL COUNT(AUTO) 3.59 MIL/uL (4.5-6.0); WHITE BLOOD COUNT (AUTO) 9.5 K/uL (4.3-11.0)
[2019-11-20 08:12] LABS: CALCIUM, SERUM 8.7 mg/dL (8.5-10.1); CARBON DIOXIDE 27 mmol/L (21-32); CHLORIDE 105 mmol/L (98-107); CREATININE 1.7 mg/dL (0.6-1.3); GLUCOSE 172 mg/dL (74-106); MAGNESIUM 1.7 mg/dL (1.8-2.4); PHOSPHORUS 2.6 mg/dL (2.5-4.9); POTASSIUM 3.4 mmol/L (3.5-5.1); SODIUM SERUM 140 mmol/L (136-145); UREA NITROGEN, BLOOD 31 mg/dL (7-18)
[2019-11-20 08:19] VITALS: BP 107/65
[2019-11-20 08:53] LABS: EOSINOPHILS % (MANUAL) 9 % (0-4); LYMPHOCYTES % (MANUAL) 20 % (16-48); MONOCYTES % (MANUAL) 12 % (0-11.0); NEUTROPHILS % (MANUAL) 59 (42-76)
[2019-11-20] MEDS ORDERED: Magnesium 1GM/D5W 100ML PREMIX 100 ML IV SCH (09:28)
--- NOTE | 2019-11-20 10:02 | NUR ---
WOUND CARE CONSULT WOUND CARE RECEIVED CONSULT FOR DIABETIC FOOT ULCER, SACRAL PARTIAL THICKNESS WOUND. WOUND CARE WILL DEFER CONSULT AND ALL TREATMENT PLANS TO PLASTIC SURGICAL TEAM INCLUDING DPLisa HANCOCK WHO ARE ALL FOLLOWING THIS PATIENT. PATIENT WITH GUSTAVO AT 12, ALL PRESSURE ULCER PREVENTION MEASURES ARE NOTED TO BE IN PLACE AT THIS TIME. WILL SEE PRN.
[2019-11-20] MEDS: LEVOTHYROXINE SODIUM 50 MCG TABLET PO SCH (10:09)
[2019-11-20] MEDS: GABAPENTIN 300 MG CAPSULE PO SCH ×3 (10:09→17:40)
[2019-11-20] MEDS: TAMSULOSIN 0.4 MG CAP.SR.24H PO SCH (10:09)
[2019-11-20] MEDS: PANTOPRAZOLE 40 MG VIAL IV SCH (10:10)
[2019-11-20] MEDS: HYDROGEL DRESSING 90 GM TUBE TP SCH (10:11)
[2019-11-20] MEDS ORDERED: POTASSIUM CHLORIDE 10 MEQ TABLET.SA PO ONE (10:30)
[2019-11-20 16:39] VITALS: BP 105/65
[2019-11-20] MEDS: DOCUSATE SODIUM 100 MG CAPSULE PO SCH (17:40)
--- NOTE | 2019-11-20 18:32 | NUR ---
CHANGE OF SHIFT REPORT PT RESTING COMFORTABLY IN BED. NO S/S OR C/O PAIN OR DISTRESS NOTED. SIDE RAILS UP X2, CALL LIGHT LEFT WITHIN REACH. PT KEPT CLEAN, DRY, AND COMFORTABLE. NO SIGNIFICANT CHANGES SINCE PREVIOUS SHIFT. WILL GIVE REPORT TO JOSE CASILLAS.
[2019-11-20] MEDS ORDERED: FEE PK DOSING 1 MIN EA MC ONE (18:53)
[2019-11-20] MEDS: VANCOMYCIN 1 GM in IV D5W 250 ML IV SCH (19:33)
--- NOTE | 2019-11-20 19:54 | NUR ---
MS RN OPENING NOTES Patient received resting in bed a/o x1. On 2L O2 via NC, breathing even and unlabored, no sob noted. No complaints of pain or discomfort, no facial grimacing noted. IV located on R Hand #22 running D5 1/2 NS. Henson catheter noted. Isolation precautions in place. Safety precautions in place with bed in lowest position, call light within reach, breaks on, and side rails up x2. Will continue to monitor.
[2019-11-20 20:00] VITALS: BP 94/61
[2019-11-20] MEDS: MEROPENEM 500 MG in IV NS 0.9% 50 ML IV SCH (21:20)
[2019-11-20] MEDS: MIRTAZAPINE 15 MG TABLET PO SCH (21:24)
[2019-11-20] MEDS: ATORVASTATIN 10 MG TABLET PO SCH (21:24)
[2019-11-20] MEDS: *INSULIN REGULAR(HUMULIN R)HUM 100 UNIT/ML VIAL SQ PRN (21:40)
[2019-11-21] MEDS: hydrALAZINE HCL 25 MG TABLET PO SCH ×3 (04:10→21:45)
[2019-11-21] MEDS: BLOOD SUGAR DIAGNOSTIC 1 EACH STRIP VI SCH ×4 (06:30→22:08)
[2019-11-21] MEDS: INSULIN REGULAR, HUMAN 100 UNIT/ML 3 ML VIAL SQ PRN ×3 (06:33→17:20)
--- NOTE | 2019-11-21 06:41 | NUR ---
MS RN CLOSING NOTES Patient is currently resting in bed a/o x1. Patient on 2L O2 via NC with breathing even and unlabored, no SOB noted. No signs of acute distress and no pain or discomfort noted with no facial grimacing. Henson is intact with 100 mL output. IV located on R hand g 22 running D5 1/2 NS @ 75ml/hr. Patient repositioned as needed, wounds kept clean and dry throughout the shift. All needs were attended to and patient was kept clean and dry. Safety precautions in place with bed in lowest position, call light within reach, breaks on ,and side rails up x2. Will endorse to oncoming shift about anjali.
[2019-11-21 07:38] LABS: BASOPHILS # (AUTO) 0.1 /CMM (0.0-0.2); BASOPHILS % (AUTO) 0.8 % (0.0-2.0); HEMATOCRIT 25 % (39-51); HEMOGLOBIN 7.6 g/dL (13.5-17.5); LYMPHOCYTES # (AUTO) 1.5 /CMM (0.8-4.8); LYMPHOCYTES % (AUTO) 20.2 % (20.0-44.0); MEAN CORPUSCULAR HGB CONC 31 g/dl (31.0-36.0); MEAN CORPUSCULAR VOLUME 75 fL (80-96); MONOCYTES # (AUTO) 0.8 /CMM (0.1-1.30); MONOCYTES % (AUTO) 10.2 % (2.0-12.0); NEUTROPHILS # (AUTO) 4.6 /CMM (1.8-8.9); NEUTROPHILS % (AUTO) 61.8 % (43.0-81.0); PLATELET COUNT (AUTO) 305 /CMM (150-450); RED BLOOD CELL COUNT(AUTO) 3.26 MIL/uL (4.5-6.0); WHITE BLOOD COUNT (AUTO) 7.5 K/uL (4.3-11.0)
[2019-11-21 07:43] LABS: CALCIUM, SERUM 8.2 mg/dL (8.5-10.1); CARBON DIOXIDE 25 mmol/L (21-32); CHLORIDE 103 mmol/L (98-107); CREATININE 1.4 mg/dL (0.6-1.3); GLUCOSE 271 mg/dL (74-106); MAGNESIUM 1.8 mg/dL (1.8-2.4); PHOSPHORUS 2.8 mg/dL (2.5-4.9); POTASSIUM 3.1 mmol/L (3.5-5.1); SODIUM SERUM 138 mmol/L (136-145); UREA NITROGEN, BLOOD 26 mg/dL (7-18)
[2019-11-21 08:00] VITALS: BP 100/57
--- NOTE | 2019-11-21 08:00 | NUR ---
m/s assistant restaurant general manager: initial assessment received pt in bed awake, alert to self only. pt unable to comprehend. reality orientation provided prn. instructed to call for assistance. will continue to monitor.
[2019-11-21] MEDS: MEROPENEM 500 MG in IV NS 0.9% 50 ML IV SCH (09:00)
[2019-11-21] MEDS: PANTOPRAZOLE 40 MG VIAL IV SCH (09:00)
[2019-11-21] MEDS: GABAPENTIN 300 MG CAPSULE PO SCH ×3 (09:06→17:14)
[2019-11-21] MEDS: METOCLOPRAMIDE HCL 10 MG TABLET PO SCH ×4 (09:06→21:46)
[2019-11-21] MEDS: TAMSULOSIN 0.4 MG CAP.SR.24H PO SCH (09:06)
[2019-11-21] MEDS: LEVOTHYROXINE SODIUM 50 MCG TABLET PO SCH (09:06)
[2019-11-21] MEDS: HYDROGEL DRESSING 90 GM TUBE TP SCH (09:11)
--- NOTE | 2019-11-21 10:00 | NUR ---
m/s riffler tender: notes tx done to sacral wound and shona heels ulcers as ordered. kept clean and dry. turned and repositioned. kept comfortable. continue on iv fluids, infusing well. no distress noted. will continue to monitor.
[2019-11-21] MEDS: POTASSIUM CL. PREMIX PERIPHER. 50 ML IV SCH ×4 (10:12→13:31)
--- NOTE | 2019-11-21 12:00 | NUR ---
m/s pipe fitter gas pipe: notes lunch served with hob elevated. aws developer assisting with lunch. no s/s of aspiration noted. will continue to monitor.
[2019-11-21] MEDS: IV D5/0.45 NACL 1,000 ML IV PRN (13:28)
--- NOTE | 2019-11-21 13:45 | NUR ---
m/s director of strategic sales: gi consult seen and examined by dr. bazan with order for egd consent and npo after midnight. orders read back and carried out and acknowledged.
--- NOTE | 2019-11-21 14:30 | NUR ---
m/s pit shovel operator: notes judit rothman (nephew) notified, spoke to him over the phone with another nurse and discussed about egd procedure for tomorrow and given full consents over the phone. pt will be npo after midnight.
[2019-11-21 16:00] VITALS: BP 106/64
--- NOTE | 2019-11-21 16:00 | NUR ---
m/s psychiatry instructor: notes pm care rendered. tx done to sacral wound. turned and repositioned. kept comfortable. no distress noted. will monitor.
--- NOTE | 2019-11-21 17:00 | NUR ---
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 needs attended. no s/s of aspiration noted.
[2019-11-21] MEDS: DOCUSATE SODIUM 100 MG CAPSULE PO SCH (17:14)
--- NOTE | 2019-11-21 19:00 | NUR ---
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 needs attended. no distress noted. continue on iv fluids, infusing well. call light within reach. will monitor.
--- NOTE | 2019-11-21 19:20 | NUR ---
m/s caramel cutter helper: notes report given to pedro (rn) for continuity of care.
[2019-11-21] MEDS: VANCOMYCIN 1 GM in IV D5W 250 ML IV SCH (19:21)
[2019-11-21 20:00] VITALS: BP 137/101
[2019-11-21 21:17] VITALS: BP 137/101
--- NOTE | 2019-11-21 21:36 | NUR ---
MS RN OPENING NOTES Patient currently resting in bed in semi fowlers position, a/o x1. Patient is on 2L O2 via NC, breathing even and unlabored- no SOB noted. No signs of acute distress and no sign of pain or discomfort with no facial grimacing. IV located on Right hand running D51/[address] and noted. Safety precautions are in place with bed in lowest position, side rails up x2, breaks on, and call light within reach. Will continue to monitor.
[2019-11-21] MEDS: MEROPENEM 500 MG in IV NS 0.9% 100 ML IV SCH (21:44)
[2019-11-21] MEDS: MIRTAZAPINE 15 MG TABLET PO SCH (21:45)
[2019-11-21] MEDS: ATORVASTATIN 10 MG TABLET PO SCH (21:45)
[2019-11-21] MEDS: *INSULIN REGULAR(HUMULIN R)HUM 100 UNIT/ML VIAL SQ PRN (22:10)
[2019-11-22] MEDS: hydrALAZINE HCL 25 MG TABLET PO SCH ×3 (05:00→21:00)
[2019-11-22] MEDS: IV D5/0.45 NACL 1,000 ML IV PRN (06:25)
[2019-11-22 07:18] LABS: CALCIUM, SERUM 8.2 mg/dL (8.5-10.1); CREATININE 1.2 mg/dL (0.6-1.3); POTASSIUM 3.7 mmol/L (3.5-5.1)
[2019-11-22] MEDS: LEVOTHYROXINE SODIUM 50 MCG TABLET PO SCH (07:30)
[2019-11-22] MEDS: METOCLOPRAMIDE HCL 10 MG TABLET PO SCH ×4 (07:30→21:57)
--- NOTE | 2019-11-22 07:31 | NUR ---
MS RN CLOSING NOTES Patient currently resting in bed in semi fowlers position, a/o x1. Patient is on 2L O2 via NC, breathing even and unlabored- no SOB noted. No signs of acute distress and no sign of pain or discomfort with no facial grimacing. IV located on Right hand running D51/[address] and noted. Safety precautions are in place with bed in lowest position, side rails up x2, breaks on, and call light within reach. Patient was kept clean and dry throughout the night. All needs attended to. Will continue to monitor.
[2019-11-22] MEDS: BLOOD SUGAR DIAGNOSTIC 1 EACH STRIP VI SCH ×4 (07:34→21:54)
--- NOTE | 2019-11-22 07:39 | NUR ---
RN OPENING NOTES Patient received on 2l nasal cannula, no sob noted, patient remains a/o x1. Henson remains placed and patient currently did not have any output as reported by the NOC RN. Patient remains NPO and R hand #22 with D5 1/2 NS @ 75 ml per hour. Bed at the lowest setting, call light within reach, side rails up x2. last blood sugar check was 93 as reported and did not need any insulin coverage.
[2019-11-22 08:00] VITALS: BP 106/53
[2019-11-22 08:38] LABS: MAGNESIUM 1.6 mg/dL (1.8-2.4); PHOSPHORUS 2.4 mg/dL (2.5-4.9)
[2019-11-22 08:45] LABS: BASOPHILS % (AUTO) 0.3 % (0.0-2.0); EOSINOPHILS % (AUTO) 7.6 % (0.0-6.0); HEMATOCRIT 25 % (39-51); LYMPHOCYTES # (AUTO) 1.1 /CMM (0.8-4.8); LYMPHOCYTES % (AUTO) 12.4 % (20.0-44.0); MEAN CORPUSCULAR HGB CONC 32 g/dl (31.0-36.0); MEAN CORPUSCULAR VOLUME 74 fL (80-96); MONOCYTES # (AUTO) 0.7 /CMM (0.1-1.30); NEUTROPHILS # (AUTO) 6.4 /CMM (1.8-8.9); NEUTROPHILS % (AUTO) 71.7 % (43.0-81.0); PLATELET COUNT (AUTO) 297 /CMM (150-450); RED BLOOD CELL COUNT(AUTO) 3.42 MIL/uL (4.5-6.0); WHITE BLOOD COUNT (AUTO) 8.9 K/uL (4.3-11.0)
[2019-11-22] MEDS: MEROPENEM 500 MG in IV NS 0.9% 100 ML IV SCH ×2 (08:54→21:57)
[2019-11-22] MEDS: PANTOPRAZOLE 40 MG VIAL IV SCH (08:56)
[2019-11-22] MEDS: GABAPENTIN 300 MG CAPSULE PO SCH ×3 (08:57→16:33)
[2019-11-22] MEDS: TAMSULOSIN 0.4 MG CAP.SR.24H PO SCH (08:57)
[2019-11-22] MEDS: HYDROGEL DRESSING 90 GM TUBE TP SCH (08:58)
[2019-11-22] MEDS ORDERED: NEUTRA PHOS 1 POWD.PACKET PO ONE (13:00)
--- NOTE | 2019-11-22 13:09 | NUR ---
RN NOTES Afternoon medications held due to patient having low BP post OP. Stable at this time.
[2019-11-22] MEDS: Magnesium 1GM/D5W 100ML PREMIX 100 ML IV SCH ×2 (13:11→14:40)
[2019-11-22 16:00] VITALS: BP 99/48
[2019-11-22] MEDS: DOCUSATE SODIUM 100 MG CAPSULE PO SCH (16:33)
[2019-11-22] MEDS: INSULIN REGULAR, HUMAN 100 UNIT/ML 3 ML VIAL SQ PRN (16:46)
--- NOTE | 2019-11-22 18:14 | NUR ---
RN CLOSING NOTES Patient remains on 2l nasal cannula, no sob noted, patient shows no s/s of pain at this time. Patient remains a/o x1. Henson intact and drained around 900 ml today. All medication given to patient and blood sugar is stable all shift. Coverage insulin given to patient. Magnesium replaced as well. Bed at the lowest setting, call light within reach, side rails up x2. Will give report to NOC RN for JOZEF bedside.
--- NOTE | 2019-11-22 19:45 | NUR ---
MS RN OPENING NOTES RECEIVED PATIENT FROM MORNING SHIFT, ALERT AND ORIENTED X 1-2. CONFUSED, VERBALLY RESPONSIVE. BREATHING REGULAR AND UNLABORED ON OXYGEN AT 2L/min VIA NASAL CANNULA. RIGHT HAND G22 IV LINE INTACT AND PATENT, INFUSING WELL WITH NO BLEEDING OR S/S OF INFECTION/INFILTRATION NOTED. JOHNSON CATH INTACT, DRAINING CLEAR YELLOW URINE WITH MODERATE AMOUNT ON URINARY BAG. NO S/S OF PAIN/DISCOMFORT NOTED OF THE TIME. BED LOW AND LOCKED ON SEMI FOWLERS POSITION. CALL LIGHT IN REACH. WILL CONTINUE TO MONITOR.
[2019-11-22 20:00] VITALS: BP 104/79
[2019-11-22] MEDS: VANCOMYCIN 1 GM in IV D5W 250 ML IV SCH (20:16)
[2019-11-22] MEDS: MIRTAZAPINE 15 MG TABLET PO SCH (21:57)
[2019-11-22] MEDS: ATORVASTATIN 10 MG TABLET PO SCH (21:57)
[2019-11-22 22:00] VITALS: BP 104/79
--- NOTE | 2019-11-22 22:00 | NUR ---
MS RN NOTES BS 230mg/dl TAKEN, 4UNITS OF REGULAR INSULIN GIVEN SQ. ASSISTED ON EATING SNACKS. WILL CONTINUE TO MONITOR.
[2019-11-22] MEDS: *INSULIN REGULAR(HUMULIN R)HUM 100 UNIT/ML VIAL SQ PRN (22:06)
[2019-11-23] MEDS: hydrALAZINE HCL 25 MG TABLET PO SCH ×3 (05:00→21:00)
[2019-11-23] MEDS: IV D5/0.45 NACL 1,000 ML IV PRN (05:58)
--- NOTE | 2019-11-23 06:30 | NUR ---
MS RN NOTES BS 137mg/dl, 2UNITS OF REGULAR INSULIN GIVEN SQ. ASSISTED ON EATING SNACKS. WILL CONTINUE TO MONITOR.
[2019-11-23] MEDS: BLOOD SUGAR DIAGNOSTIC 1 EACH STRIP VI SCH ×4 (06:32→22:10)
[2019-11-23] MEDS: INSULIN REGULAR, HUMAN 100 UNIT/ML 3 ML VIAL SQ PRN ×2 (06:34→16:49)
--- NOTE | 2019-11-23 06:45 | NUR ---
MS RN CLOSING NOTES PATIENT IN BED ALERT AND ORIENTED X 1. CONFUSED, VERBALLY RESPONSIVE. BREATHING REGULAR AND UNLABORED ON OXYGEN AT 2L/min VIA NASAL CANNULA. RIGHT HAND G22 IV LINE INTACT AND INFUSING WELL WITH NO BLEEDING OR S/S OF INFECTION/INFILTRATION NOTED. JOHNSON CATH INTACT, DRAINING CLEAR YELLOW URINE WITH MODERATE AMOUNT ON URINARY BAG. NO S/S OF PAIN/DISCOMFORT NOTED OF THE TIME. BED LOW AND LOCKED ON SEMI FOWLERS POSITION. CALL LIGHT IN REACH. WILL CONTINUE TO MONITOR. Addendum: 11/23/19 at 0647 by SUSI COLIN RN MS RN CLOSING NOTES PATIENT IN BED ALERT AND ORIENTED X 1. CONFUSED, VERBALLY RESPONSIVE. BREATHING REGULAR AND UNLABORED ON OXYGEN AT 2L/min VIA NASAL CANNULA. RIGHT HAND G22 IV LINE INTACT AND INFUSING WELL. JOHNSON CATH INTACT, DRAINING CLEAR YELLOW URINE WITH 600cc OUTPUT. NO S/S OF PAIN/DISCOMFORT NOTED ON THE SHIFT. BED LOW AND LOCKED ON SEMI FOWLERS POSITION. CALL LIGHT IN REACH. WILL ENDORSE TO MORNING SHIFT FOR JOZEF.
[2019-11-23 07:13] LABS: BASOPHILS # (AUTO) 0.1 /CMM (0.0-0.2); BASOPHILS % (AUTO) 0.7 % (0.0-2.0); EOSINOPHILS % (AUTO) 2.8 % (0.0-6.0); HEMATOCRIT 31 % (39-51); HEMOGLOBIN 10.2 g/dL (13.5-17.5); LYMPHOCYTES # (AUTO) 1.5 /CMM (0.8-4.8); LYMPHOCYTES % (AUTO) 14.9 % (20.0-44.0); MEAN CORPUSCULAR HGB CONC 33 g/dl (31.0-36.0); MEAN CORPUSCULAR VOLUME 89 fL (80-96); MONOCYTES % (AUTO) 10.1 % (2.0-12.0); NEUTROPHILS # (AUTO) 7.2 /CMM (1.8-8.9); NEUTROPHILS % (AUTO) 71.5 % (43.0-81.0); PLATELET COUNT (AUTO) 390 /CMM (150-450); RED BLOOD CELL COUNT(AUTO) 3.42 MIL/uL (4.5-6.0)
--- NOTE | 2019-11-23 07:20 | NUR ---
RECEIVED PATIENT ALERT AND ORIENTED X 1-2. CONFUSED, VERBALLY RESPONSIVE. BREATHING REGULAR AND UNLABORED ON OXYGEN AT 2L/min VIA NASAL CANNULA. RIGHT HAND G22 IV LINE INTACT AND PATENT, JOHNSON CATH INTACT, DRAINING CLEAR YELLOW URINE . BED LOW AND LOCKED ON SEMI FOWLERS POSITION. CALL LIGHT IN REACH. WILL CONTINUE TO MONITOR.
[2019-11-23 07:57] LABS: CALCIUM, SERUM 8.1 mg/dL (8.5-10.1); CREATININE 1.3 mg/dL (0.6-1.3); MAGNESIUM 1.4 mg/dL (1.8-2.4); PHOSPHORUS 2.5 mg/dL (2.5-4.9); POTASSIUM 3.2 mmol/L (3.5-5.1)
[2019-11-23 08:00] VITALS: BP 95/62
[2019-11-23] MEDS: LEVOTHYROXINE SODIUM 50 MCG TABLET PO SCH (08:57)
[2019-11-23] MEDS: TAMSULOSIN 0.4 MG CAP.SR.24H PO SCH (08:57)
[2019-11-23] MEDS: GABAPENTIN 300 MG CAPSULE PO SCH ×3 (08:57→16:47)
[2019-11-23] MEDS: MEROPENEM 500 MG in IV NS 0.9% 100 ML IV SCH ×2 (08:57→21:51)
[2019-11-23] MEDS: PANTOPRAZOLE 40 MG VIAL IV SCH (08:57)
[2019-11-23] MEDS: METOCLOPRAMIDE HCL 10 MG TABLET PO SCH ×4 (08:58→21:51)
[2019-11-23] MEDS: POTASSIUM CHLORIDE 20 MEQ POWDER PACKET PO SCH ×2 (11:16→11:49)
[2019-11-23] MEDS: Magnesium 1GM/D5W 100ML PREMIX 100 ML IV SCH ×4 (11:16→16:29)
[2019-11-23] MEDS: HYDROGEL DRESSING 90 GM TUBE TP SCH (11:50)
[2019-11-23 16:00] VITALS: BP 136/71
[2019-11-23] MEDS: DOCUSATE SODIUM 100 MG CAPSULE PO SCH (16:47)
--- NOTE | 2019-11-23 18:37 | NUR ---
Patient remains on 2l nasal cannula, no sob noted, no s/s of pain at this time. Patient a/o x1. Henson intact with output 200 ml. Magnesium replaced as ordered. Potassium replaced as ordered. PAtient turned and repositioned Q2HR. Wound care as directed. Bed at the lowest setting, call light within reach, side rails up x2. Call light within reach. All needs attended. Will endorse to next shift for JOZEF
--- NOTE | 2019-11-23 19:30 | NUR ---
MS/RN NOTES RECEIVED PT. LYING IN BED. PT. IS AWAKE, ALERT AND ORIENTED TO SELF. BREATHING EVEN AND UNLABORED ON 2LPM O2 VIA NC. NO SOB, RESPIRATORY DISTRESS OR COMPLAINTS OF PAIN NOTED AT THIS TIME. PT. WITH LEFT FOREARM 22 GAUGE IV SALINE LOCK PRESENT, PATENT AND INTACT. PT. WITH JOHNSON CATHETER PRESENT, PATENT AND INTACT DRAINING KHALIDA COLORED URINE. BED LOCKED AND IN LOWEST POSITION, SIDE RAILS UP X3, BED ALARM ON, CALL LIGHT WITHIN REACH, WILL CONTINUE TO MONITOR.
[2019-11-23] MEDS: VANCOMYCIN 1 GM in IV D5W 250 ML IV SCH (20:16)
[2019-11-23 21:00] VITALS: BP 107/73
[2019-11-23] MEDS: ATORVASTATIN 10 MG TABLET PO SCH (21:51)
[2019-11-23] MEDS: MIRTAZAPINE 15 MG TABLET PO SCH (21:51)
[2019-11-23] MEDS: *INSULIN REGULAR(HUMULIN R)HUM 100 UNIT/ML VIAL SQ PRN (22:04)
[2019-11-24] MEDS: hydrALAZINE HCL 25 MG TABLET PO SCH ×3 (05:00→21:33)
--- NOTE | 2019-11-24 06:50 | NUR ---
MS/RN NOTES PT. IS LYING IN BED RESTING. BREATHING EVEN AND UNLABORED ON 2LPM O2 VIA NC. NO SOB, RESPIRATORY DISTRESS OR COMPLAINTS OF PAIN NOTED AT THIS TIME AND THROUGHOUT SHIFT. PT. WITH LEFT FOREARM 22 GAUGE IV SALINE LOCK PRESENT, PATENT AND INTACT. PT. WITH JOHNSON CATHETER PRESENT, PATENT AND INTACT DRAINING KHALIDA COLORED URINE. ALL PT. NEEDS MET. PT. OFFLOADED, TURNED AND REPOSITIONED Q2H AND NEEDED. BED LOCKED AND IN LOWEST POSITION, SIDE RAILS UP X3, BED ALARM ON, CALL LIGHT WITHIN REACH, WILL ENDORSE TO DAYSHIFT NURSE FOR CONTINUITY OF CARE.
[2019-11-24] MEDS: BLOOD SUGAR DIAGNOSTIC 1 EACH STRIP VI SCH ×4 (07:07→21:45)
[2019-11-24 08:00] VITALS: BP 101/64
--- NOTE | 2019-11-24 08:00 | NUR ---
ms rn received on bed, awake,none verbal patient,not in any form of distress, respirations even and unlabored,no sob noted, lungs are diminish,abdomen soft,positive bowel sounds,denies pain at this time,all needs attended.
[2019-11-24 08:14] LABS: CALCIUM, SERUM 8.1 mg/dL (8.5-10.1); CREATININE 1.2 mg/dL (0.6-1.3); MAGNESIUM 2.9 mg/dL (1.8-2.4); POTASSIUM 3.8 mmol/L (3.5-5.1)
--- NOTE | 2019-11-24 09:00 | NUR ---
ms ryan breakfast served,due meds givne, barely tolerated.
[2019-11-24] MEDS: PANTOPRAZOLE 40 MG VIAL IV SCH (09:59)
[2019-11-24] MEDS: TAMSULOSIN 0.4 MG CAP.SR.24H PO SCH (09:59)
[2019-11-24] MEDS: GABAPENTIN 300 MG CAPSULE PO SCH ×3 (09:59→18:35)
[2019-11-24] MEDS: MEROPENEM 500 MG in IV NS 0.9% 100 ML IV SCH ×2 (10:01→21:31)
[2019-11-24] MEDS: METOCLOPRAMIDE HCL 10 MG TABLET PO SCH ×4 (10:05→21:32)
[2019-11-24] MEDS: LEVOTHYROXINE SODIUM 50 MCG TABLET PO SCH (10:05)
[2019-11-24 16:00] VITALS: BP 97/47
[2019-11-24] MEDS: DOCUSATE SODIUM 100 MG CAPSULE PO SCH (18:35)
[2019-11-24] MEDS: HYDROGEL DRESSING 90 GM TUBE TP SCH (18:36)
[2019-11-24] MEDS: INSULIN REGULAR, HUMAN 100 UNIT/ML 3 ML VIAL SQ PRN (18:38)
--- NOTE | 2019-11-24 18:42 | NUR ---
MS RN ON BED, NO DISTRESS NOTED,
[2019-11-24] MEDS: VANCOMYCIN 1 GM in IV D5W 250 ML IV SCH (19:31)
[2019-11-24 20:00] VITALS: BP 109/44
--- NOTE | 2019-11-24 20:46 | NUR ---
RN NOTES PM SHIFT PATIENT ALERT AND ORIENTED X1, NO DISTRESS, NO SOB, ON HIGH GOLDBERG'S, ABLE TO SWALLOW PUREED DIET, KEPT SAFE, WILL CONTINUE TO MONITOR
[2019-11-24] MEDS: ATORVASTATIN 10 MG TABLET PO SCH (21:33)
[2019-11-24] MEDS: MIRTAZAPINE 15 MG TABLET PO SCH (21:33)
[2019-11-24] MEDS: *INSULIN REGULAR(HUMULIN R)HUM 100 UNIT/ML VIAL SQ PRN (21:44)
[2019-11-25] VITALS (93 sets, daily range): BP systolic 38–206; BP diastolic 19–168
[2019-11-25] MEDS: hydrALAZINE HCL 25 MG TABLET PO SCH (04:18)
--- NOTE | 2019-11-25 05:21 | NUR ---
RN NOTES AM SHIFT DECREASED BP, BEING MONITORED SINCE 399, ON TRENDELENBERG POSITION, BP REMAINED LOW, NOTIFIED DR. MANCUSO, WITH NEW ORDER TO GIVE NS 1L BOLUS, PATIENT IS AROUSEABLE TO VOICE AND TACTILE STIMULATION.
[2019-11-25] MEDS ORDERED: IV NS 0.9% 1,000 ML IV PRN ×2 (05:30→07:30)
[2019-11-25 05:48] LABS: ABG BASE EXCESS -5.3 mmol/L; ABG OXYGEN SATURATION 98.6 % (92.0-98.5); ABG PCO2 37.1 mmHg (35.0-45.0); ABG PH 7.347 (7.350-7.450); ABG PO2 156.3 mmHg (75.0-100.0); AaDO2 122.4 mmHg; MetHb 0.7 % (0.0-1.5); O2Hb 96.9 % (94.0-97.0); SITE, ABG Right Brachial; VENT MODE, BG Nasal Cannula
[2019-11-25 05:55] LABS: BASOPHILS % (AUTO) 0.5 % (0.0-2.0); EOSINOPHILS % (AUTO) 4.6 % (0.0-6.0); HEMATOCRIT 26 % (39-51); HEMOGLOBIN 7.9 g/dL (13.5-17.5); LYMPHOCYTES # (AUTO) 0.9 /CMM (0.8-4.8); LYMPHOCYTES % (AUTO) 13.1 % (20.0-44.0); MEAN CORPUSCULAR HGB CONC 31 g/dl (31.0-36.0); MEAN CORPUSCULAR VOLUME 74 fL (80-96); MONOCYTES # (AUTO) 0.8 /CMM (0.1-1.30); MONOCYTES % (AUTO) 11.7 % (2.0-12.0); NEUTROPHILS # (AUTO) 4.9 /CMM (1.8-8.9); NEUTROPHILS % (AUTO) 70.1 % (43.0-81.0); PLATELET COUNT (AUTO) 210 /CMM (150-450); RED BLOOD CELL COUNT(AUTO) 3.47 MIL/uL (4.5-6.0); WHITE BLOOD COUNT (AUTO) 6.9 K/uL (4.3-11.0)
--- NOTE | 2019-11-25 06:02 | NUR ---
RN NOTES PATIENT BEING MONITORED CLOSELY SINCE 0400, DECREASED BP AND LOW HR, (SEE FLOWSHEET), PATIENT IS PALER AND LETHARGIC, ON 2LPM VIA NC, OLIGURIC, JOHNSON CATHETER OUTPUT 100 ML, NOTIFIED DR. MANCUSO, HAS AN INITIAL ORDER OF BOLUS NS 1L. NOTED PATIENT GETTING MORE PALE, BP HAS NOT IMPROVED, BG 80 MG/DL. NOTIFIED CHARGE NURSE COLLINS, ACTIVATED BORING MACHINE OPERATOR PRODUCTION, GIVEN ATROPINE X2, ABG, STAT BMP, CBC DONE, TRANSFERRED TO ICU, ED CHARGE NURSE. PICC LINE INSERTION ALSO ORDERED.
[2019-11-25 06:06] LABS: CALCIUM, SERUM 7.5 mg/dL (8.5-10.1); CARBON DIOXIDE 22 mmol/L (21-32); CHLORIDE 104 mmol/L (98-107); CREATININE 1.4 mg/dL (0.6-1.3); GLUCOSE 89 mg/dL (74-106); SODIUM SERUM 135 mmol/L (136-145); UREA NITROGEN, BLOOD 17 mg/dL (7-18)
[2019-11-25 06:09] LABS: MAGNESIUM 2.7 mg/dL (1.8-2.4); PHOSPHORUS 2.8 mg/dL (2.5-4.9)
--- NOTE | 2019-11-25 06:23 | NUR ---
EXTRACT OPERATOR PT WAS TRANSFERRED FROM MED/SURG FLOOR ROOM 326-2 AFTER TUBE CUTTER. PT WENT TO HYPOTENSION & SEVERE BRADYCARDIA. PT WAS GIVEN NS BOLUS 1 L. & ATROPIN 1 MG IVP X 2. STAT EKG & ABG DONE, WELL STAT LABS. PT IS ON NRBM-100%. ONLY ONE IV ACCESS GAUGE #22 ON RIGHT FA. HARD STICK- NEED PICC LINE INSERTION. VSS, AFEBRILE. BP-104/72, HR-55, RR-12, O2 SAT-100%. F/C DRAINED ONLY 100 ML OF DARK URINE FOR THE LAST 12 HOURS. SCOPE-SB. PT HAS ORDER TO START LEVOPHED DRIP TO KEEP SBP>90. WILL CONTINUE CLOSE MONITORING.
--- NOTE | 2019-11-25 07:26 | NUR ---
RN NOTES PM SHIFT ATTEMPTED NOTIFYING PATIENT'S NEXT OF KIN TO PHONE NUMBERS LISTED [phone] AND [phone], BOTH NOT WORKING.
[2019-11-25] MEDS: METOCLOPRAMIDE HCL 10 MG TABLET PO SCH ×2 (07:30→12:00)
[2019-11-25] MEDS: LEVOTHYROXINE SODIUM 50 MCG TABLET PO SCH (07:30)
--- NOTE | 2019-11-25 07:30 | NUR ---
ROUGE MILLER INITIAL NOTE RECEIVED PATIENT DROWSY, AROUSABLE TO PAIN. NO S/S PAIN OR DISCOMFORT. NO RESPIRATORY DISTRESS AT THIS TIME, ON 15LPM O2 NON-REBREATHER. ON TELE MONITOR SINUS RUDDY. F/C PATENT, INTACT, DRAINING BY GRAVITY. ISOLATION PRECAUTIONS OBSERVED. HOB ELEVATED. SIDE RAILS UP AND LOCKED. WILL CONTINUE TO MONITOR.
[2019-11-25 07:59] LABS: CALCIUM, SERUM 7.7 mg/dL (8.5-10.1); CREATININE 1.3 mg/dL (0.6-1.3)
--- NOTE | 2019-11-25 08:08 | NUR ---
FASTENER TECHNOLOGIST NOTE NOTED WITH RECTAL TEMP 87.1. WITH NEW ORDER FOR CLIFFORD DEISI. WILL CONTINUE TO MONITOR.
[2019-11-25 08:20] LABS: POTASSIUM 3.9 mmol/L (3.5-5.1)
[2019-11-25 08:23] LABS: CHOLESTEROL 71 mg/dL (<200); FERRITIN 157 ng/mL (8-388); HDL CHOLESTEROL 35 mg/dL (40-60); LDL 29 mg/dL (0-99); THYROID STIMULATING HORMONE 5.587 uIU/mL (0.358-3.74); TRIGLYCERIDES 35 mg/dL (30-150)
[2019-11-25 08:53] LABS: IRON, SERUM 17 ug/dl (50-175); TOTAL IRON BINDING CAPACITY 191 ug/dl (250-450)
[2019-11-25] MEDS ORDERED: PROPOFOL 100 ML IV PRN ×2 (09:00)
[2019-11-25] MEDS: GABAPENTIN 300 MG CAPSULE PO SCH (09:00)
[2019-11-25] MEDS: TAMSULOSIN 0.4 MG CAP.SR.24H PO SCH (09:00)
--- NOTE | 2019-11-25 09:06 | NUR ---
POT PUSHER NOTE ER DOCTOR AT BEDSIDE FOR INTUBATION
--- NOTE | 2019-11-25 09:34 | NUR ---
TANK CAR CLEANER NOTE POST INTUBATION PATIENT HYPOTENSIVE, WAITING ON LEVOPHED MEDICATION. NOTED WITH NO PULSE, PEA, FARZANEH BORJA CALLED. 922: FARZANEH BORJA CALLED DR. LAGOS AT BEDSIDE. [phone]: PULSES PALPABLE, CPR CEASED. WILL CONTINUE TO MONITOR.
[2019-11-25] MEDS: NOREPINEPHRINE 8 MG in IV D5W 500 ML IV PRN (09:49)
[2019-11-25] MEDS: BLOOD SUGAR DIAGNOSTIC 1 EACH STRIP VI SCH ×2 (09:49→12:35)
--- NOTE | 2019-11-25 09:49 | NUR ---
WINDING INSPECTOR AND TESTER NOTE PICC LINE NURSE AT BEDSIDE FOR PICC LINE PLACEMENT
[2019-11-25] MEDS: HYDROGEL DRESSING 90 GM TUBE TP SCH (09:50)
[2019-11-25] MEDS: IV D5/0.45 NACL 1,000 ML IV SCH ×2 (10:00→11:41)
[2019-11-25] MEDS: PANTOPRAZOLE 40 MG VIAL IV SCH (10:42)
[2019-11-25] MEDS: HYDROCORTISONE SOD SUCCINATE 100 MG/2 ML VIAL IV SCH ×3 (10:42→19:20)
[2019-11-25 10:50] LABS: ABG BASE EXCESS -6.7 mmol/L; ABG OXYGEN SATURATION 97.4 % (92.0-98.5); ABG PCO2 28.5 mmHg (35.0-45.0); ABG PH 7.398 (7.350-7.450); ABG PO2 103.5 mmHg (75.0-100.0); AaDO2 220.9 mmHg; COHb 0.8 % (0.5-1.5); MetHb 0.6 % (0.0-1.5); PEEP,BG 0 cm H2O; SITE, ABG Right Radial; VT, ABG 500 mL
--- NOTE | 2019-11-25 11:00 | NUR ---
EMPLOYEE ADVISER NOTE RELAYED CHEST XRAY TO DR. LAGOS WITH NEW ORDERS RECEIVED TO ADVANCE ETT BY 2CM. NOTED AND RT AWARE.
[2019-11-25] MEDS ORDERED: ROCURONIUM BROMIDE 50 MG/5 ML IV ONE (11:40)
[2019-11-25] MEDS ORDERED: ETOMIDATE 2 MG/ML VIAL IV ONE (11:40)
[2019-11-25] MEDS ORDERED: EPINEPHRINE (1:10,000) SYRINGE 1 MG/10 ML DISP.SYRIN IVP ONE (11:40)
[2019-11-25] MEDS ORDERED: ATROPINE SULFATE 1 MG/10 ML DISP.SYRIN IV ONE (11:40)
[2019-11-25] MEDS: MEROPENEM 500 MG in IV NS 0.9% 100 ML IV SCH ×2 (12:15→20:28)
[2019-11-25] MEDS: INSULIN REGULAR, HUMAN 100 UNIT/ML 3 ML VIAL SQ PRN ×2 (12:36→19:19)
[2019-11-25] MEDS ORDERED: MAG HYDROX/AL HYDROX/SIMETH 30 ML UDC GT PRN (12:46)
[2019-11-25] MEDS ORDERED: ATORVASTATIN 10 MG TABLET GT SCH (12:46)
[2019-11-25] MEDS ORDERED: MAGNESIUM HYDROXIDE 30 ML UDC GT PRN (12:47)
[2019-11-25] MEDS ORDERED: ACETAMINOPHEN 650 MG/20.3 ML UDC PO PRN (13:00)
[2019-11-25] MEDS ORDERED: PHARMACY TO CHANGE PO MEDS TO GT/NG XX PRN (13:00)
[2019-11-25] MEDS ORDERED: DEXTROSE 50%-WATER 50 ML DISP.SYRIN IV PRN (13:00)
[2019-11-25] MEDS ORDERED: ACETAMINOPHEN 650 MG/20.3 ML UDC GT PRN (13:00)
[2019-11-25] MEDS: GABAPENTIN 300 MG CAPSULE GT SCH ×2 (13:00→17:00)
[2019-11-25] MEDS ORDERED: ACETAMINOPHEN LIQUID 325 MG/10.1 ML UDC GT PRN (13:00)
--- NOTE | 2019-11-25 15:59 | NUR ---
DIGITAL ASSOCIATE NOTE BLOOD TRANSFUSION COMPLETED WITH NO COMPLICATIONS/REACTIONS. WILL CONTINUE TO MONITOR.
[2019-11-25] MEDS: METOCLOPRAMIDE HCL 10 MG TABLET GT SCH ×2 (17:30→22:22)
[2019-11-25] MEDS: IV D5/0.45 NACL 1,000 ML IV PRN (17:58)
[2019-11-25] MEDS: DOCUSATE SODIUM LIQ 100 MG/10 ML UDC GT SCH (18:00)
[2019-11-25] MEDS: BLOOD SUGAR DIAGNOSTIC 1 EACH STRIP IN SCH (19:04)
[2019-11-25] MEDS: VANCOMYCIN 1 GM in IV D5W 250 ML IV SCH (19:29)
--- NOTE | 2019-11-25 19:43 | NUR ---
BREWMASTER NOTE CONTINUITY OF CARE ENDORSED TO PM NURSE
--- NOTE | 2019-11-25 20:00 | NUR ---
WELFARE MANAGER - NOTES - RECEIVED PATIENT INTUBATED, AROUSABLE TO PAIN. NO S/S PAIN OR DISCOMFORT. NO RESPIRATORY DISTRESS AT THIS TIME. ON TELE MONITOR SINUS RHYTHM. F/C PATENT, INTACT, DRAINING MINIMAL URINE OUTPUT. ISOLATION PRECAUTIONS OBSERVED. HOB ELEVATED. SIDE RAILS UP AND LOCKED. WILL CONTINUE TO MONITOR.
[2019-11-25] MEDS: MIRTAZAPINE 15 MG TABLET GT SCH (22:21)
[2019-11-26] VITALS (100 sets, daily range): BP systolic 76–172; BP diastolic 32–117
[2019-11-26] MEDS: BLOOD SUGAR DIAGNOSTIC 1 EACH STRIP IN SCH ×4 (00:21→17:56)
[2019-11-26] MEDS: INSULIN REGULAR, HUMAN 100 UNIT/ML 3 ML VIAL SQ PRN ×4 (00:24→17:57)
[2019-11-26] MEDS: IV D5/0.45 NACL 1,000 ML IV PRN (01:40)
[2019-11-26 04:20] LABS: BASOPHILS % (AUTO) 0.3 % (0.0-2.0); EOSINOPHILS % (AUTO) 0.1 % (0.0-6.0); HEMATOCRIT 30 % (39-51); HEMOGLOBIN 9.6 g/dL (13.5-17.5); LYMPHOCYTES # (AUTO) 0.4 /CMM (0.8-4.8); LYMPHOCYTES % (AUTO) 4.4 % (20.0-44.0); MEAN CORPUSCULAR HGB CONC 32 g/dl (31.0-36.0); MEAN CORPUSCULAR VOLUME 75 fL (80-96); MONOCYTES # (AUTO) 0.1 /CMM (0.1-1.30); NEUTROPHILS # (AUTO) 9.6 /CMM (1.8-8.9); NEUTROPHILS % (AUTO) 94.2 % (43.0-81.0); PLATELET COUNT (AUTO) 235 /CMM (150-450); RED BLOOD CELL COUNT(AUTO) 4.02 MIL/uL (4.5-6.0); WHITE BLOOD COUNT (AUTO) 10.2 K/uL (4.3-11.0)
[2019-11-26 04:30] LABS: ALANINE AMINOTRANSFERASE 15 U/L (12-78); ALBUMIN 1.5 g/dL (3.4-5.0); ALKALINE PHOSPHATASE 85 U/L (46-116); ASPARTATE AMINOTRANSFERASE 21 U/L (15-37); BILIRUBIN,TOTAL 0.2 mg/dL (0.2-1.0); CALCIUM, SERUM 7.3 mg/dL (8.5-10.1); CARBON DIOXIDE 17 mmol/L (21-32); CHLORIDE 100 mmol/L (98-107); CREATININE 1.8 mg/dL (0.6-1.3); GLUCOSE 283 mg/dL (74-106); MAGNESIUM 2.4 mg/dL (1.8-2.4); PHOSPHORUS 2.6 mg/dL (2.5-4.9); POTASSIUM 4.1 mmol/L (3.5-5.1); SODIUM SERUM 132 mmol/L (136-145); TOTAL PROTEIN, SERUM 5.7 g/dL (6.4-8.2); UREA NITROGEN, BLOOD 18 mg/dL (7-18)
[2019-11-26] MEDS: LEVOTHYROXINE SODIUM 50 MCG TABLET GT SCH (07:30)
[2019-11-26] MEDS: METOCLOPRAMIDE HCL 10 MG TABLET GT SCH ×4 (07:30→22:57)
--- NOTE | 2019-11-26 07:30 | NUR ---
LANDFILL GAS COLLECTION OPERATOR INITIAL NOTE RECEIVED PATIENT NON-VERBAL, OBTUNDED. NO S/S OF PAIN OR DISCOMFORT. NO RESPIRATORY DISTRESS NOTED. WITH ETT 7.5CM/ 24CM AT THE LIP. ON TELE MONITOR SINUS RHYTHM. OGT PATENT AND INTACT, CLAMPED. F/C DRAINING BY GRAVITY. BILATERAL WRIST RESTRAINTS IN PLACE FOR SAFETY. CIRCULATION CHECKED. ANTHONY PICC LINE PATENT AND INTACT, IVF RUNNING. HOB ELEVATED. TURNED AND REPOSITIONED. SIDE RAILS UP AND LOCKED. BED KEPT AT LOWEST POSITION. WILL CONTINUE TO MONITOR.
[2019-11-26] MEDS: MEROPENEM 500 MG in IV NS 0.9% 100 ML IV SCH ×2 (08:09→20:26)
[2019-11-26] MEDS: HYDROCORTISONE SOD SUCCINATE 100 MG/2 ML VIAL IV SCH ×3 (08:09→17:55)
[2019-11-26] MEDS: IV NS 0.9% 1,000 ML IV PRN ×2 (08:09→13:16)
[2019-11-26] MEDS: PANTOPRAZOLE 40 MG VIAL IV SCH (08:09)
[2019-11-26] MEDS: HYDROGEL DRESSING 90 GM TUBE TP SCH (08:10)
[2019-11-26] MEDS: GABAPENTIN 300 MG CAPSULE GT SCH ×3 (08:10→17:00)
[2019-11-26] MEDS: TAMSULOSIN 0.4 MG CAP.SR.24H GT SCH (08:10)
[2019-11-26 08:13] LABS: ABG BASE EXCESS -9.4 mmol/L; ABG OXYGEN SATURATION 96.4 % (92.0-98.5); ABG PCO2 24.7 mmHg (35.0-45.0); ABG PH 7.384 (7.350-7.450); ABG PO2 92.2 mmHg (75.0-100.0); AaDO2 164.6 mmHg; MetHb 1.4 % (0.0-1.5); O2Hb 94.1 % (94.0-97.0); SITE, ABG Right Radial
--- NOTE | 2019-11-26 08:35 | NUR ---
INTELLIGENCE DIRECTOR NOTE SEEN AND EXAMINED BY DR VILLAFANA. HOLD GT MEDS AT THIS TIME. RELAYED PATIENT WITH LOW URINE OUTPUT, RELAYED ABG. NNO AT THIS TIME. WILL CONTINUE TO MONITOR.
--- NOTE | 2019-11-26 09:00 | NUR ---
SIGNAL TOWER OPERATOR NOTE SEE AND EXAMINED BY DR. STOKES, INFORMED REGARDING PATIENT MUSCLE TWITCHING. CLIFFORD HUGGER TURNED OFF, CORE TEMP 98.0 WILL CONTINUE TO MONITOR.
[2019-11-26] MEDS: NOREPINEPHRINE 8 MG in IV D5W 500 ML IV PRN (09:38)
[2019-11-26 11:17] LABS: APPEARANCE,URINE CLOUDY (CLEAR); BILIRUBIN,URINE NEGATIVE (NEGATIVE); BLOOD, URINE NEGATIVE Ery/uL (NEGATIVE); COLOR,URINE YELLOW (YELLOW); KETONES,URINE TRACE (NEGATIVE); LEUKOCYTE ESTERASE ,URINE TRACE (NEGATIVE); NITRITE, URINE NEGATIVE (NEGATIVE); PROTEIN,URINE TRACE mg/dl (NEGATIVE); UGLUCOSE NEGATIVE (NEGATIVE); UROBILINOGEN,URINE 0.2 EU/dL (0.2)
[2019-11-26 11:23] LABS: CREATININE, URINE 134.7 MG/DL (30.0-125.0); URINE TOTAL PROTEIN 81.4 mg/dL (0-11.9)
[2019-11-26 11:51] LABS: BACTERIA,URINE Rare /HPF (None Seen); MUCUS,URINE Few /LPF (None Seen); RBC,URINE 0-2 /HPF (0-2); SQUAMOUS EPITHELIAL CELL,UR 0-2 /HPF (None Seen); TRIPLE PHOSPHATE CRYSTAL,UR Moderate /HPF (None Seen); URINE AMORPHOUS URATE Moderate /HPF (None Seen)
[2019-11-26 11:52] LABS: COARSE GRANULAR CASTS,URINE Few /LPF (None Seen)
--- NOTE | 2019-11-26 13:10 | NUR ---
BEATER ROOM SUPERVISOR NOTE RECEIVED CALL FROM PHARMACY REGARDING VANCO TROUGH. ALTHOUGH TROUGH IS 23, IT'S TRENDING DOWN AND OK TO GIVE VANCO DOSE THIS EVENING. WILL INFORM PETROL TANKER DRIVER
--- NOTE | 2019-11-26 13:31 | NUR ---
CURTAIN INSPECTOR NOTE INFORMED DR. VILLAFANA REGARDING LOW URINE OUTPUT OF 20ML SINCE THIS MORNING, AND SWELLING OF BUE. INFORMED PATIENT ON IVF AT 200ML/HR. WITH NNO AT THIS TIME. WILL CONTINUE TO MONITOR.
[2019-11-26] MEDS: DOCUSATE SODIUM LIQ 100 MG/10 ML UDC GT SCH (17:49)
[2019-11-26] MEDS: IV D5/ 0.9% NACL 1,000 ML IV PRN (18:20)
--- NOTE | 2019-11-26 20:39 | NUR ---
RECEIVED PT INTUBATED ON VENT. 7.5 ETT SECURED AT 24CM AT THE LIP. NO RESP DISTRESS, PT TOLERATING VENT SETTINGS. SX'D FOR SML AMT OF THICK DELONG SECRETIONS. VENT ALARMS SET AND AUDIBLE. AMBU BAG AT BEDSIDE. CONTINUE [facility] VENT SUPPORT. Addendum: 11/26/19 at 2040 by RUMA PARTIDA RT Amended: Links added.
[2019-11-26] MEDS: MIRTAZAPINE 15 MG TABLET GT SCH (22:57)
[2019-11-26] MEDS: VANCOMYCIN 1 GM in IV D5W 250 ML IV SCH (22:58)
[2019-11-27] VITALS (84 sets, daily range): BP systolic 74–158; BP diastolic 48–76
[2019-11-27] MEDS: BLOOD SUGAR DIAGNOSTIC 1 EACH STRIP IN SCH ×4 (00:44→17:07)
[2019-11-27] MEDS: INSULIN REGULAR, HUMAN 100 UNIT/ML 3 ML VIAL SQ PRN ×4 (00:44→17:32)
[2019-11-27 04:41] LABS: BASOPHILS % (AUTO) 0.1 % (0.0-2.0); HEMATOCRIT 26 % (39-51); HEMOGLOBIN 8.1 g/dL (13.5-17.5); LYMPHOCYTES # (AUTO) 0.7 /CMM (0.8-4.8); LYMPHOCYTES % (AUTO) 4.5 % (20.0-44.0); MEAN CORPUSCULAR HGB CONC 31 g/dl (31.0-36.0); MEAN CORPUSCULAR VOLUME 76 fL (80-96); MONOCYTES # (AUTO) 0.3 /CMM (0.1-1.30); MONOCYTES % (AUTO) 2.3 % (2.0-12.0); NEUTROPHILS # (AUTO) 14.2 /CMM (1.8-8.9); NEUTROPHILS % (AUTO) 93.1 % (43.0-81.0); PLATELET COUNT (AUTO) 131 /CMM (150-450); RED BLOOD CELL COUNT(AUTO) 3.42 MIL/uL (4.5-6.0); WHITE BLOOD COUNT (AUTO) 15.2 K/uL (4.3-11.0)
[2019-11-27 04:54] LABS: ALANINE AMINOTRANSFERASE 13 U/L (12-78); ALKALINE PHOSPHATASE 77 U/L (46-116); ASPARTATE AMINOTRANSFERASE 21 U/L (15-37); BILIRUBIN,TOTAL 0.2 mg/dL (0.2-1.0); CALCIUM, SERUM 6.9 mg/dL (8.5-10.1); CARBON DIOXIDE 17 mmol/L (21-32); CHLORIDE 105 mmol/L (98-107); CREATININE 1.9 mg/dL (0.6-1.3); GLUCOSE 257 mg/dL (74-106); MAGNESIUM 2.2 mg/dL (1.8-2.4); PHOSPHORUS 2.8 mg/dL (2.5-4.9); POTASSIUM 3.9 mmol/L (3.5-5.1); SODIUM SERUM 133 mmol/L (136-145); TOTAL PROTEIN, SERUM 4.9 g/dL (6.4-8.2); UREA NITROGEN, BLOOD 21 mg/dL (7-18)
[2019-11-27 05:04] LABS: ALBUMIN 1.3 g/dL (3.4-5.0)
[2019-11-27] MEDS: IV D5/ 0.9% NACL 1,000 ML IV PRN ×2 (05:55→15:16)
--- NOTE | 2019-11-27 07:10 | NUR ---
TELEGRAPH INSTALLER OPENING NOTE RECEIVED REPORT FROM PM NURSE.PATIENT NON-VERBAL, OBTUNDED. NO S/S OF PAIN OR DISCOMFORT. NO RESPIRATORY DISTRESS NOTED. INTUBATED WITH ETT 7.5CM/ 24CM AT THE LIP. ON TELE MONITOR SINUS RHYTHM HR 66. OGT PATENT AND INTACT, CLAMPED. F/C DRAINING BY GRAVITY CLEAR YELLOW URINE. BILATERAL WRIST RESTRAINTS IN PLACE FOR SAFETY. CIRCULATION CHECKED. ANTHONY PICC LINE PATENT AND INTACT WITH LEVO AND IVF. HOB ELEVATED. ASPIRATION AND SAFETY MEASURES IN PLACE.BED IS LOW AND IN LOCKED POSITION.CALL LIGHT IN REACH.BED ALARM ON SRX3.WILL CONTINUE TO MONITOR.
--- NOTE | 2019-11-27 07:45 | NUR ---
RT Pt received orally intubated on mechanical ventilation with noted settings. Vent is plugged into red outlet. No SOB or respiratory distress noted at this time. Addendum: 11/27/19 at 0840 by LAURA ADEN RT Amended: Links added.
[2019-11-27] MEDS: PANTOPRAZOLE 40 MG/PACK PACK GT SCH (08:12)
[2019-11-27] MEDS: TAMSULOSIN 0.4 MG CAP.SR.24H GT SCH (08:12)
[2019-11-27] MEDS: MEROPENEM 500 MG in IV NS 0.9% 100 ML IV SCH ×2 (08:12→21:30)
[2019-11-27] MEDS: HYDROCORTISONE SOD SUCCINATE 100 MG/2 ML VIAL IV SCH ×3 (08:12→17:07)
[2019-11-27] MEDS: GABAPENTIN 300 MG CAPSULE GT SCH ×3 (08:12→17:07)
[2019-11-27] MEDS: LEVOTHYROXINE SODIUM 50 MCG TABLET GT SCH (08:12)
[2019-11-27] MEDS: METOCLOPRAMIDE HCL 10 MG TABLET GT SCH ×4 (08:13→21:30)
[2019-11-27] MEDS: HYDROGEL DRESSING 90 GM TUBE TP SCH (08:14)
[2019-11-27 08:30] LABS: ABG BASE EXCESS -8.4 mmol/L; ABG PCO2 22.9 mmHg (35.0-45.0); ABG PH 7.425 (7.350-7.450); ABG PO2 123.4 mmHg (75.0-100.0); AaDO2 135.5 mmHg; COHb 0.3 % (0.5-1.5); MetHb 0.6 % (0.0-1.5); O2Hb 97.1 % (94.0-97.0); SITE, ABG Right Radial; VENT MODE, BG ac 14 500 40% +0
--- NOTE | 2019-11-27 09:30 | NUR ---
CARGO OPERATIONS AGENT NOTE SEEN BY .UPDATED ABOUT PATIENT CONDITION WITH ABG RESULT.WILL CONTINUE TO MONITOR.
--- NOTE | 2019-11-27 14:59 | NUR ---
BEESWAX BLEACHER NOTE DIETITIAN RECOMMENDATION RELAYED TO .OK TO START FEEDING RECOMMENDED.WILL CONTINUE TO MONITOR.
[2019-11-27] MEDS: NOREPINEPHRINE 8 MG in IV D5W 500 ML IV PRN (15:13)
--- NOTE | 2019-11-27 16:57 | NUR ---
SENIOR SOLUTIONS CONSULTANT NOTE LEFT MESSAGE TO ABOUT NEW CONSULT FROM BLENDER OPERATOR.WILL CONTINUE TO MONITOR.
[2019-11-27] MEDS: DOCUSATE SODIUM LIQ 100 MG/10 ML UDC GT SCH (17:07)
--- NOTE | 2019-11-27 18:02 | NUR ---
ELECTRONIC IMAGING SYSTEM OPERATOR NOTE SEEN BY .UPDATED ABOUT PATIENT CONDITION WITH CONSULT REQUEST.CONTINUE SAME TREATMENT.WILL F/U AFTER PATIENT STABLE ENOUGH TO DO PROCEDURE.
[2019-11-27] MEDS: GLUCERNA 1.2 1,000 ML BOTTLE NG PRN (18:13)
--- NOTE | 2019-11-27 19:11 | NUR ---
TECHNICAL SALES MANAGER CLOSING NOTE PATIENT NON-VERBAL,OPEN EYES FOR PAINFUL STIMULI AND TOUCH. NO S/S OF PAIN OR DISCOMFORT. NO SOB NO RESPIRATORY DISTRESS NOTED.TOLERATING VENT SETTINGS ORDERED. INTUBATED WITH ETT 7.5CM/ 24CM AT THE LIP. ON TELE MONITOR SINUS RHYTHM HR 69. OGT PATENT AND INTACT WITH FEEDING GLUCERNA 1.2@20ML/HR.ON BILATERAL SOFT RESTRAINTS. CIRCULATION CHECKED. ANTHONY PICC LINE PATENT AND INTACT WITH LEVO AND IVF. HOB ELEVATED. ASPIRATION AND SAFETY MEASURES IN PLACE.BED IS LOW AND IN LOCKED POSITION.CALL LIGHT IN REACH.BED ALARM ON SRX3. MADE AWARE ABOUT UNABLE TO FEEL PULSE IN LEFT LOWER EXTREMITY .ENDORSED TO PM NURSE FOR JOZEF.
[2019-11-27] MEDS: MIRTAZAPINE 15 MG TABLET GT SCH (21:30)
[2019-11-28] VITALS (48 sets, daily range): BP systolic 95–131; BP diastolic 53–67
[2019-11-28] MEDS: IV D5/ 0.9% NACL 1,000 ML IV PRN ×3 (00:30→22:00)
[2019-11-28] MEDS: BLOOD SUGAR DIAGNOSTIC 1 EACH STRIP IN SCH ×4 (00:31→19:03)
[2019-11-28] MEDS: INSULIN REGULAR, HUMAN 100 UNIT/ML 3 ML VIAL SQ PRN ×4 (00:31→19:04)
[2019-11-28 04:37] LABS: BASOPHILS % (AUTO) 0.1 % (0.0-2.0); HEMATOCRIT 27 % (39-51); HEMOGLOBIN 8.4 g/dL (13.5-17.5); LYMPHOCYTES # (AUTO) 0.8 /CMM (0.8-4.8); LYMPHOCYTES % (AUTO) 5.9 % (20.0-44.0); MEAN CORPUSCULAR HGB CONC 31 g/dl (31.0-36.0); MEAN CORPUSCULAR VOLUME 76 fL (80-96); MONOCYTES # (AUTO) 0.4 /CMM (0.1-1.30); MONOCYTES % (AUTO) 3.1 % (2.0-12.0); NEUTROPHILS # (AUTO) 12.3 /CMM (1.8-8.9); NEUTROPHILS % (AUTO) 90.9 % (43.0-81.0); PLATELET COUNT (AUTO) 139 /CMM (150-450); RED BLOOD CELL COUNT(AUTO) 3.56 MIL/uL (4.5-6.0); WHITE BLOOD COUNT (AUTO) 13.5 K/uL (4.3-11.0)
[2019-11-28 04:51] LABS: ALANINE AMINOTRANSFERASE 19 U/L (12-78); ALKALINE PHOSPHATASE 82 U/L (46-116); ASPARTATE AMINOTRANSFERASE 37 U/L (15-37); BILIRUBIN,TOTAL 0.2 mg/dL (0.2-1.0); CALCIUM, SERUM 7.1 mg/dL (8.5-10.1); CARBON DIOXIDE 17 mmol/L (21-32); CHLORIDE 108 mmol/L (98-107); CREATININE 2.1 mg/dL (0.6-1.3); GLUCOSE 260 mg/dL (74-106); MAGNESIUM 2.1 mg/dL (1.8-2.4); PHOSPHORUS 2.6 mg/dL (2.5-4.9); POTASSIUM 3.4 mmol/L (3.5-5.1); SODIUM SERUM 138 mmol/L (136-145); TOTAL PROTEIN, SERUM 5.1 g/dL (6.4-8.2); UREA NITROGEN, BLOOD 24 mg/dL (7-18)
[2019-11-28 05:03] LABS: ALBUMIN 1.4 g/dL (3.4-5.0)
[2019-11-28] MEDS ORDERED: POTASSIUM CHLORIDE 20 MEQ POWDER PACKET NG ONE (06:30)
--- NOTE | 2019-11-28 07:00 | NUR ---
Patient remains in no acute distress in bed. Patient did not have any signfiicant change in condition during shift. All needs met, all orders carried out. Endorsed care to radha RN for continuity of care.
--- NOTE | 2019-11-28 07:00 | NUR ---
ENVIRONMENTAL HEALTH OFFICER OPENING NOTE RECEIVED PATIENT IN BED, NON-VERBAL, OPENS EYES FOR PAINFUL STIMULI AND TOUCH. NO S/S OF PAIN OR DISCOMFORT. CONTACT ISOLATION PRECAUTIONS IN PLACE, STAFF AWARE AND COMPLIANCE MONITORED. NO SOB NO RESPIRATORY DISTRESS NOTED.TOLERATING VENT SETTINGS ORDERED. INTUBATED WITH ETT 7.5CM/ 24CM AT THE LIP. ON TELE MONITOR SINUS RHYTHM HR 80. OGT PATENT AND INTACT WITH FEEDING GLUCERNA 1.2@20ML/HR.ON BILATERAL SOFT RESTRAINTS. CIRCULATION CHECKED. ANTHONY PICC LINE PATENT AND INTACT WITH D5NS AND NS INFUSING WELL. HOB ELEVATED. ASPIRATION AND SAFETY MEASURES IN PLACE. BED IS LOW AND IN LOCKED POSITION. CALL LIGHT IN REACH. BED ALARM ON SRX3. PER HX PULSES UNABLE TO BE PALPATED ON THE LOWER EXTREMITIES. WILL CONTINUE TO MONITOR.
[2019-11-28] MEDS: METOCLOPRAMIDE HCL 10 MG TABLET GT SCH ×4 (07:16→21:56)
[2019-11-28] MEDS: LEVOTHYROXINE SODIUM 50 MCG TABLET GT SCH (07:16)
[2019-11-28] MEDS: POTASSIUM CL. PREMIX PERIPHER. 50 ML IV SCH ×4 (08:08→13:18)
[2019-11-28] MEDS: TAMSULOSIN 0.4 MG CAP.SR.24H GT SCH (08:36)
[2019-11-28] MEDS: HYDROCORTISONE SOD SUCCINATE 100 MG/2 ML VIAL IV SCH ×3 (08:36→17:16)
[2019-11-28] MEDS: PANTOPRAZOLE 40 MG/PACK PACK GT SCH (08:36)
[2019-11-28] MEDS: GABAPENTIN 300 MG CAPSULE GT SCH ×3 (08:36→17:16)
[2019-11-28 08:46] LABS: ABG BASE EXCESS -8.9 mmol/L; ABG OXYGEN SATURATION 96.7 % (92.0-98.5); ABG PCO2 22.4 mmHg (35.0-45.0); ABG PH 7.416 (7.350-7.450); ABG PO2 93.2 mmHg (75.0-100.0); AaDO2 94.4 mmHg; COHb 0.3 % (0.5-1.5); MetHb 0.5 % (0.0-1.5); O2Hb 95.9 % (94.0-97.0); SITE, ABG Right Radial
[2019-11-28] MEDS: HYDROGEL DRESSING 90 GM TUBE TP SCH (09:56)
[2019-11-28] MEDS: MEROPENEM 500 MG in IV NS 0.9% 100 ML IV SCH ×2 (09:57→21:56)
[2019-11-28] MEDS: DOCUSATE SODIUM LIQ 100 MG/10 ML UDC GT SCH (17:16)
--- NOTE | 2019-11-28 19:30 | NUR ---
WASTE RECLAIMER CLOSING NOTE PATIENT REMAINS IN BED, NON-VERBAL, OPENS EYES FOR PAINFUL STIMULI AND TOUCH. NO S/S OF PAIN OR DISCOMFORT. CONTACT ISOLATION PRECAUTIONS IN PLACE. NO SOB NO RESPIRATORY DISTRESS NOTED.TOLERATING VENT SETTINGS ORDERED. INTUBATED WITH ETT 7.5CM/ 24CM AT THE LIP. ON TELE MONITOR SINUS RHYTHM. OGT PATENT AND INTACT WITH FEEDING GLUCERNA 1.2@30ML/HR.ON BILATERAL SOFT RESTRAINTS. CIRCULATION CHECKED. ANTHONY PICC LINE PATENT AND INTACT WITH D5NS AND NS INFUSING WELL. HOB ELEVATED. ASPIRATION AND SAFETY MEASURES IN PLACE. BED IS LOW AND IN LOCKED POSITION. CALL LIGHT IN REACH. BED ALARM ON SRX3. 1 BM NOTED ON SHIFT. WEANING NOT DONE ON SHIFT. ENDROSED TO MUNICIPAL FIREFIGHTER FOR JOZEF.
--- NOTE | 2019-11-28 20:02 | NUR ---
PT RECEIVED ORALLY INTUBATED WITH 7.5 ETT SECURED @24 CM @ THE LIP ON [facility] VENT WITH NOTED SETTINGS PER MD ORDER. PT IS AWAKE, ALERT, NON VERBAL AND RESPONDS TO STIMULI WHEN SUCTIONED. VENT PLUGGED INTO RED OUTLET. ALARMS ON AND AUDIBLE. SUCTIONED AND MONITORED PRN. NO SOB NOTED AT THIS TIME. WILL CONTINUE TO MONITOR FOR ANY CHANGES. Addendum: 11/28/19 at 0348 by CAMILLE MCGUIRE RT PT DOESN'T FOLLOW COMMANDS, NOT ALERT
[2019-11-28] MEDS: MIRTAZAPINE 15 MG TABLET GT SCH (21:56)
[2019-11-28] MEDS: VANCOMYCIN 1 GM in IV D5W 250 ML IV SCH (23:00)
--- NOTE | 2019-11-28 23:16 | NUR ---
RN NOTES PATIENT HAS VANCOMYCIN SCHEDULED AT 2300. VANCO TROUGH AT 22:15 IS 24. CALLED AFTER HOURS PHARMACY AND PER PHARMACIST JJ WILL HOLD THE DOSE. WILL CONTINUE TO MONITOR PATIENT CLOSELY.
[2019-11-29] VITALS (76 sets, daily range): BP systolic 90–115; BP diastolic 52–69
[2019-11-29] MEDS: BLOOD SUGAR DIAGNOSTIC 1 EACH STRIP IN SCH ×5 (00:38→23:54)
[2019-11-29] MEDS: INSULIN REGULAR, HUMAN 100 UNIT/ML 3 ML VIAL SQ PRN ×5 (00:44→23:57)
[2019-11-29 04:42] LABS: BASOPHILS % (AUTO) 0.1 % (0.0-2.0); HEMATOCRIT 27 % (39-51); HEMOGLOBIN 8.6 g/dL (13.5-17.5); LYMPHOCYTES # (AUTO) 0.8 /CMM (0.8-4.8); LYMPHOCYTES % (AUTO) 6.2 % (20.0-44.0); MEAN CORPUSCULAR HGB CONC 32 g/dl (31.0-36.0); MEAN CORPUSCULAR VOLUME 76 fL (80-96); MONOCYTES # (AUTO) 0.6 /CMM (0.1-1.30); MONOCYTES % (AUTO) 4.7 % (2.0-12.0); NEUTROPHILS # (AUTO) 11.4 /CMM (1.8-8.9); PLATELET COUNT (AUTO) 148 /CMM (150-450); RED BLOOD CELL COUNT(AUTO) 3.57 MIL/uL (4.5-6.0); WHITE BLOOD COUNT (AUTO) 12.8 K/uL (4.3-11.0)
[2019-11-29 04:50] LABS: CALCIUM, SERUM 7.4 mg/dL (8.5-10.1); CARBON DIOXIDE 16 mmol/L (21-32); CHLORIDE 113 mmol/L (98-107); CREATININE 1.9 mg/dL (0.6-1.3); GLUCOSE 253 mg/dL (74-106); SODIUM SERUM 141 mmol/L (136-145); UREA NITROGEN, BLOOD 27 mg/dL (7-18)
[2019-11-29] MEDS: GLUCERNA 1.2 1,000 ML BOTTLE NG PRN (04:58)
--- NOTE | 2019-11-29 06:59 | NUR ---
RN NOTE PATIENT REMAINS IN BED, NON-VERBAL, OPENS EYES FOR PAINFUL STIMULI AND TOUCH. NO S/S OF PAIN OR DISCOMFORT NOTED DURING MY SHIFT. CONTACT ISOLATION PRECAUTIONS IN PLACE. NO SOB NO RESPIRATORY DISTRESS NOTED.TOLERATING VENT SETTINGS ORDERED. INTUBATED WITH ETT 7.5CM/ 24CM AT THE LIP. ON TELE MONITOR SINUS RHYTHM. OGT PATENT AND INTACT WITH FEEDING GLUCERNA 1.2@40ML/HR.ON BILATERAL SOFT RESTRAINTS. CIRCULATION CHECKED. ANTHONY PICC LINE PATENT AND INTACT WITH D5NS AT 100ML/HR . HOB ELEVATED. ASPIRATION AND SAFETY MEASURES IN PLACE. BED IS LOW AND IN LOCKED POSITION. CALL LIGHT IN REACH. BED ALARM ON SRX3. ENDORSED TO AM SHIFT FOR JOZEF.
--- NOTE | 2019-11-29 07:00 | NUR ---
RN NOTE RECEIVED PATIENT ON BED, NON-VERBAL, OPENS EYES TO PAINFUL STIMULI AND TOUCH. DOES NOT FOLLOW COMMANDS , ON TELE SR HR IN 80'S. TOLERATING VENT SETTINGS ORDERED. INTUBATED WITH ETT 7.5CM/ 24CM AT THE LIP. OGT PATENT AND INTACT WITH FEEDING GLUCERNA 1.2@20ML/HR. BILATERAL SOFT RESTRAINTS ON FOR PT SAFETY, CIRCULATION CHECKED. ANTHONY PICC LINE PATENT AND INTACT WITH D5NS INFUSING WELL. JOHNSON DRINING TO GRAVITY, HOB ELEVATED. ASPIRATION AND SAFETY MEASURES IN PLACE. BED IS LOW AND IN LOCKED POSITION. CALL LIGHT IN REACH. SRX3. WILL CONTINUE TO MONITOR. Addendum: 11/29/19 at 1833 by LULU WINSTON RN CORRECTION TF AT 40CC/HR KANDIS
[2019-11-29] MEDS: GABAPENTIN 300 MG CAPSULE GT SCH ×3 (08:11→16:42)
[2019-11-29] MEDS: TAMSULOSIN 0.4 MG CAP.SR.24H GT SCH (08:11)
[2019-11-29] MEDS: HYDROCORTISONE SOD SUCCINATE 100 MG/2 ML VIAL IV SCH ×2 (08:11→16:42)
[2019-11-29] MEDS: METOCLOPRAMIDE HCL 10 MG TABLET GT SCH ×4 (08:11→22:28)
[2019-11-29] MEDS: LEVOTHYROXINE SODIUM 50 MCG TABLET GT SCH (08:11)
[2019-11-29] MEDS: MEROPENEM 500 MG in IV NS 0.9% 100 ML IV SCH ×2 (08:11→20:45)
[2019-11-29] MEDS: PANTOPRAZOLE 40 MG/PACK PACK GT SCH (08:11)
[2019-11-29] MEDS: HYDROGEL DRESSING 90 GM TUBE TP SCH (08:12)
[2019-11-29 09:34] LABS: ABG OXYGEN SATURATION 97.4 % (92.0-98.5); ABG PCO2 22.6 mmHg (35.0-45.0); ABG PH 7.437 (7.350-7.450); ABG PO2 109.3 mmHg (75.0-100.0); MetHb 1.2 % (0.0-1.5); O2Hb 96.2 % (94.0-97.0); SITE, ABG Right Radial
[2019-11-29] MEDS: IV D5/ 0.9% NACL 1,000 ML IV PRN ×2 (11:29→11:31)
--- NOTE | 2019-11-29 12:00 | NUR ---
RN NOTES VSS STABLE, ORAL AND ET SUCTIONING DONE, CONTINUE TO MONITOR .
[2019-11-29] MEDS: DOCUSATE SODIUM LIQ 100 MG/10 ML UDC GT SCH (17:11)
--- NOTE | 2019-11-29 18:00 | NUR ---
RN NOTES PT JOSE M SIMV MODE WELL, REMAINS INTUBATED, NO DISTRESS NOTED, VSS STABLE, SR UP x3, CALL LIGHT WITHIN EASY REACH, WILL ENDOSE TO TUCK POINTER NURSE FOR CONTINUITY OF CARE .
--- NOTE | 2019-11-29 20:00 | NUR ---
FURNACE WORKER - NOTES -RECEIVED PATIENT ON BED, NON-VERBAL, OPENS EYES TO PAINFUL STIMULI AND TOUCH. DOES NOT FOLLOW COMMANDS , ON TELE SR HR IN 80'S. TOLERATING VENT SETTINGS ORDERED. INTUBATED WITH ETT 7.5CM/ 24CM AT THE LIP. OGT PATENT AND INTACT WITH FEEDING GLUCERNA 1.2. BILATERAL SOFT RESTRAINTS ON FOR PT SAFETY, CIRCULATION CHECKED. ANTHONY PICC LINE PATENT AND INTACT WITH D5NS INFUSING WELL. JOHNSON DRAINING TO GRAVITY, HOB ELEVATED. ASPIRATION AND SAFETY MEASURES IN PLACE. BED IS LOW AND IN LOCKED POSITION. CALL LIGHT IN REACH. SRX3. WILL CONTINUE TO MONITOR.
[2019-11-29] MEDS: MIRTAZAPINE 15 MG TABLET GT SCH (22:28)
[2019-11-29] MEDS ORDERED: VANCOMYCIN 1 GM in IV D5W 250 ML IV SCH (23:00)
[2019-11-30] VITALS (50 sets, daily range): BP systolic 92–122; BP diastolic 48–69
[2019-11-30] MEDS: GLUCERNA 1.2 1,000 ML BOTTLE NG PRN ×2 (00:04→15:37)
[2019-11-30 05:07] LABS: CALCIUM, SERUM 7.2 mg/dL (8.5-10.1); CARBON DIOXIDE 18 mmol/L (21-32); CHLORIDE 114 mmol/L (98-107); CREATININE 1.8 mg/dL (0.6-1.3); GLUCOSE 168 mg/dL (74-106); POTASSIUM 3.8 mmol/L (3.5-5.1); SODIUM SERUM 141 mmol/L (136-145); UREA NITROGEN, BLOOD 32 mg/dL (7-18)
[2019-11-30 05:17] LABS: BASOPHILS % (AUTO) 0.1 % (0.0-2.0); EOSINOPHILS % (AUTO) 0.9 % (0.0-6.0); HEMATOCRIT 27 % (39-51); HEMOGLOBIN 8.5 g/dL (13.5-17.5); LYMPHOCYTES # (AUTO) 1.9 /CMM (0.8-4.8); LYMPHOCYTES % (AUTO) 12.2 % (20.0-44.0); MEAN CORPUSCULAR HGB CONC 32 g/dl (31.0-36.0); MEAN CORPUSCULAR VOLUME 75 fL (80-96); MONOCYTES # (AUTO) 1.3 /CMM (0.1-1.30); MONOCYTES % (AUTO) 8.4 % (2.0-12.0); NEUTROPHILS # (AUTO) 12.3 /CMM (1.8-8.9); NEUTROPHILS % (AUTO) 78.4 % (43.0-81.0); PLATELET COUNT (AUTO) 157 /CMM (150-450); RED BLOOD CELL COUNT(AUTO) 3.59 MIL/uL (4.5-6.0); WHITE BLOOD COUNT (AUTO) 15.7 K/uL (4.3-11.0)
--- NOTE | 2019-11-30 06:47 | NUR ---
RT PT RECEIVED ORALLY INTUBATED ON THE [facility] VENT WITH NOTED SETTING. ETT PATENT AND SECURE VIA ANCHOR FAST. DISASTER RECOVERY ANALYST NOTED. VENT ALARMS SET AND AUDIBLE. VENT TO RED OUTLET. NO SOB OR DISTRESS NOTED ON SHIFT. PT TOLERATING VENT SETTING WELL. CONTINUE CURRENT CARE AND MONITOR FOR ANY CHANGES. Addendum: 11/30/19 at 0647 by JERRY ZAMORA RT Amended: Links added.
--- NOTE | 2019-11-30 07:00 | NUR ---
RN NOTES RECEIVED PATIENT ON BED, NON-VERBAL, OPENS EYES TO PAINFUL STIMULI AND TOUCH. DOES NOT FOLLOW COMMANDS , ON TELE SR HR IN 60'S. TOLERATING CURREN VENT SETTING WELL, INTUBATED WITH ETT 7.5CM/ 24CM AT THE LIP. OGT PATENT AND INTACT WITH FEEDING GLUCERNA 1.2. BILATERAL, SOFT RESTRAINTS ON FOR PT SAFETY, CIRCULATION CHECKED. ANTHONY PICC LINE PATENT AND INTACT WITH D5NS INFUSING AT 40CC/HR , JOHNSON DRAINING TO GRAVITY, HOB ELEVATED. ASPIRATION AND SAFETY MEASURES IN PLACE. BED IS LOWEST AND LOCKED POSITION. CALL LIGHT WITHIN EASY REACH. SRX3. WILL CONTINUE TO MONITOR.
[2019-11-30] MEDS: BLOOD SUGAR DIAGNOSTIC 1 EACH STRIP IN SCH ×3 (07:02→18:09)
[2019-11-30] MEDS: INSULIN REGULAR, HUMAN 100 UNIT/ML 3 ML VIAL SQ PRN ×2 (07:04→18:09)
--- NOTE | 2019-11-30 07:45 | NUR ---
PT IS AWAKE BUT UNABLE TO FOLLOW COMMANDS PLACED INTO COOL AEROSOL@ 28% FIO2 ORDER. SPO2 98% RRR 13 - 16 BPM HR 63 - 66 bpm RN NOTIFIED ON CHANGES. Addendum: 11/30/19 at 0749 by KATELYNN ZAPATA RT Amended: Links added.
[2019-11-30] MEDS: PANTOPRAZOLE 40 MG/PACK PACK GT SCH (08:07)
[2019-11-30] MEDS: LEVOTHYROXINE SODIUM 50 MCG TABLET GT SCH (08:07)
[2019-11-30] MEDS: TAMSULOSIN 0.4 MG CAP.SR.24H GT SCH (08:08)
[2019-11-30] MEDS: METOCLOPRAMIDE HCL 10 MG TABLET GT SCH (08:08)
[2019-11-30] MEDS: HYDROGEL DRESSING 90 GM TUBE TP SCH (08:08)
[2019-11-30] MEDS: GABAPENTIN 300 MG CAPSULE GT SCH ×3 (08:08→16:06)
[2019-11-30] MEDS: MEROPENEM 500 MG in IV NS 0.9% 100 ML IV SCH ×2 (08:09→21:42)
[2019-11-30 09:42] LABS: ABG BASE EXCESS -7.7 mmol/L; ABG OXYGEN SATURATION 95.1 % (92.0-98.5); ABG PCO2 23.7 mmHg (35.0-45.0); ABG PH 7.428 (7.350-7.450); ABG PO2 75.6 mmHg (75.0-100.0); AaDO2 96.1 mmHg; COHb 0.2 % (0.5-1.5); MetHb 0.3 % (0.0-1.5); O2Hb 94.6 % (94.0-97.0); SITE, ABG Right Radial; VENT MODE, BG 28% COOL AEROSOL
--- NOTE | 2019-11-30 10:00 | NUR ---
RN NOTES SOLU-CORTEF IS NOT AVAILABLE PER PHARMACY AT TIME .
[2019-11-30] MEDS: HYDROCORTISONE SOD SUCCINATE 100 MG/2 ML VIAL IV SCH ×2 (11:19→16:06)
--- NOTE | 2019-11-30 14:00 | NUR ---
RN NOTES TRACH SUCTIONING DONE ,VSS STABLE, CONTINUE TO MONITOR
[2019-11-30] MEDS: IV D5/ 0.9% NACL 1,000 ML IV PRN (15:38)
--- NOTE | 2019-11-30 18:00 | NUR ---
RN NOTES PT TOLERATING COOL AEROSOL AT 28% WELL , NO SIGNIFICANT CHANGES NOTED ON THIS SHIFT, TOLERATING TF WELL, D5NS AT 40CC/HR RUNNING , R UPPER ARM PICC LINE SITE CLEAN, DRY AND INTACT, SR UP x3, CALL LIGHT WITHIN EASY REACH, WILL ENDORSE TO SAUSAGE SMOKER NURSE FOR CONTINUITY OF CARE.
--- NOTE | 2019-11-30 19:00 | NUR ---
RCVD PT ON COOL AEROSOL 28% 5L. PT IS AWAKE AND UNABLE TO FOLLOW COMMANDS. NO RESPIRATORY DISTRESS NOTED AT THIS TIME. SX DONE PRN.
[2019-11-30] MEDS: MIRTAZAPINE 15 MG TABLET GT SCH (21:45)
[2019-12-01] VITALS (24 sets, daily range): BP systolic 92–135; BP diastolic 51–76
[2019-12-01] MEDS: BLOOD SUGAR DIAGNOSTIC 1 EACH STRIP IN SCH ×4 (00:35→17:02)
[2019-12-01] MEDS: INSULIN REGULAR, HUMAN 100 UNIT/ML 3 ML VIAL SQ PRN ×4 (00:44→17:05)
[2019-12-01 05:25] LABS: CARBON DIOXIDE 18 mmol/L (21-32); CHLORIDE 116 mmol/L (98-107); CREATININE 1.6 mg/dL (0.6-1.3); GLUCOSE 197 mg/dL (74-106); POTASSIUM 4.4 mmol/L (3.5-5.1); SODIUM SERUM 145 mmol/L (136-145); UREA NITROGEN, BLOOD 35 mg/dL (7-18)
--- NOTE | 2019-12-01 05:46 | NUR ---
RN NOTES PT TOLERATING COOL AEROSOL AT 28% , 5LO2 WELL , NO SIGNIFICANT CHANGES NOTED ON THIS SHIFT, TOLERATING TF WELL W/O ANY RESIDUAL, D5NS AT 40CC/HR RUNNING , R UPPER ARM PICC LINE SITE CLEAN, DRY AND INTACT, SR UP x3, CALL LIGHT WITHIN EASY REACH, WILL ENDORSE TO AM SHIFT NURSE FOR CONTINUITY OF CARE.
--- NOTE | 2019-12-01 07:10 | NUR ---
POSTAL CARRIER NOTES RECEIVED BEDSIDE REPORT PT A/O X0 OPENS EYES SPONTANEOUSLY DOES NOT FOLLOW COMMANDS. NO S/S OF RESPIRATORY DISTRESS ETT 7.5 ON LIP WITH COOL ARESOL 28% @ 5LTRS. NO S/S OF PAIN NOTED. SINUS ON MONITOR AFEBRILE JOHNSON CATH DRAINING CLOUDY URINE. BILATERAL WRIST RESTRAINTS APPLIED CHECKED FOR CIRCULATION AND PULSES.OGT FEEDING GLUCERNA 1.2@ 65ML/HR TOLERATING WELL WITH NO RESIDUAL ANTHONY PICC TKO. SAFETY AND ASPIRATION PRECAUTIONS IN PLACE BED IN LOW LOCKED POSITION WILL CONT TO MONITOR ACCORDINGLY
[2019-12-01] MEDS: TAMSULOSIN 0.4 MG CAP.SR.24H GT SCH (08:13)
[2019-12-01] MEDS: LEVOTHYROXINE SODIUM 50 MCG TABLET GT SCH (08:13)
[2019-12-01] MEDS: GABAPENTIN 300 MG CAPSULE GT SCH ×3 (08:13→17:04)
[2019-12-01] MEDS: HYDROCORTISONE SOD SUCCINATE 100 MG/2 ML VIAL IV SCH ×2 (08:13→17:04)
[2019-12-01] MEDS: PANTOPRAZOLE 40 MG/PACK PACK GT SCH (08:14)
[2019-12-01] MEDS: HYDROGEL DRESSING 90 GM TUBE TP SCH (08:15)
[2019-12-01] MEDS: MEROPENEM 500 MG in IV NS 0.9% 100 ML IV SCH ×2 (08:57→20:23)
[2019-12-01] MEDS: GLUCERNA 1.2 1,000 ML BOTTLE NG PRN (11:24)
--- NOTE | 2019-12-01 12:10 | NUR ---
bedbath given oral and wound care rendered pt tolerated repositioned for comfort
[2019-12-01] MEDS: IV NS 0.9% 250 ML IV PRN (15:33)
--- NOTE | 2019-12-01 17:31 | NUR ---
IV FLUIDS D/C THIS AM PATIENT URINE OUTPUT 200 ML FOR SHIFT. BUN ELEVATED 35 MDS AWARE PER NOTES. BILATERAL HANDS +3 EDEMA SCROTUM AND PENIS ENLARGED. WILL F/U WITH HOSPITALIST AND NEPHROLOGY
--- NOTE | 2019-12-01 18:44 | NUR ---
NO NEW RX ORDERS. MONITOR PT OVERNIGHT FOR FLUID OVERLOAD
--- NOTE | 2019-12-01 18:47 | NUR ---
ICU NOTES PT REMAINED AFEBRILE THROUGHOUT SHIFT. REPOSITIONED FOR COMFORT AND CLEANED NEEDED. TOLERATED ETT/ COOL AEROSOL SATURATING >95%. ALL ORDERS FOLLOWED OUT. ASPIRATION AND ISOLATION PRECAUTION IN PLACE WILL ENDORSE TO NOC /JOZEF
--- NOTE | 2019-12-01 19:17 | NUR ---
POLICE SERGEANT OPENING NOTES RECEIVED BEDSIDE REPORT, PT OPENS EYES SPONTANEOUSLY TO TOUCH AND PAIN, DOES NOT FOLLOW COMMANDS. NO S/S OF RESPIRATORY DISTRESS NOTED, ETT 7.5/26 ON LIP WITH COOL ARESOL 28% @ 5LTRS. SINUS RHYTHM ON MONITOR. JOHNSON CATHETER INTACT, PATENT, DRAINING CLOUDY URINE. BILATERAL SOFT WRIST RESTRAINTS CHECKED FOR CIRCULATION, SKIN INTEGRITY AND PULSES. OGT FEEDING GLUCERNA 1.2@ 65ML/HR TOLERATING WELL WITH NO RESIDUAL NOTED. ANTHONY PICC TKO. SAFETY AND ASPIRATION PRECAUTIONS IN PLACE, BED IN LOW POSITION, LOCKED. WILL CONTINUE TO MONITOR.
--- NOTE | 2019-12-01 20:33 | NUR ---
RECEIVED PT INTUBATED ON COOL AEROSOL 28%. BS KENNY HERNANDEZAT. SKeysha'D FOR MOD AMT OF THICK WHITE SECRETIONS. WILL CONTINUE TO MONITOR. Addendum: 12/01/19 at 2033 by RUMA PARTIDA RT Amended: Links added.
[2019-12-01] MEDS: MIRTAZAPINE 15 MG TABLET GT SCH (21:11)
[2019-12-01] MEDS: VANCOMYCIN 1 GM in IV D5W 250 ML IV SCH (22:02)
[2019-12-02] VITALS (24 sets, daily range): BP systolic 105–147; BP diastolic 56–74
[2019-12-02] MEDS: BLOOD SUGAR DIAGNOSTIC 1 EACH STRIP IN SCH ×5 (00:13→23:43)
[2019-12-02] MEDS: INSULIN REGULAR, HUMAN 100 UNIT/ML 3 ML VIAL SQ PRN ×5 (00:19→23:44)
[2019-12-02 05:09] LABS: CALCIUM, SERUM 7.5 mg/dL (8.5-10.1); CARBON DIOXIDE 19 mmol/L (21-32); CHLORIDE 113 mmol/L (98-107); CREATININE 1.7 mg/dL (0.6-1.3); GLUCOSE 270 mg/dL (74-106); POTASSIUM 4.6 mmol/L (3.5-5.1); SODIUM SERUM 141 mmol/L (136-145); UREA NITROGEN, BLOOD 48 mg/dL (7-18)
--- NOTE | 2019-12-02 06:54 | NUR ---
WORKERS COMPENSATION CLAIMS ADJUSTER CLOSING NOTES PT OPENS EYES SPONTANEOUSLY, DOES NOT FOLLOW COMMANDS. ETT 7.5/ ON LIP WITH COOL ARESOL 28% @ 5LTRS, NO S/S OF RESPIRATORY DISTRESS NOTED. SINUS RHYTHM ON MONITOR. JOHNSON CATHETER INTACT, PATENT, DRAINING CLOUDY URINE. BILATERAL SOFT WRIST RESTRAINTS CHECKED FOR CIRCULATION, SKIN INTEGRITY AND PULSES. OGT FEEDING GLUCERNA 1.2@ 65ML/HR TOLERATING WELL WITH NO RESIDUAL NOTED. ANTHONY PICC TKO. SAFETY AND ASPIRATION PRECAUTIONS IN PLACE, BED IN LOW POSITION, LOCKED. PROVIDED SAFETY AND COMFORT TO PT THROUGHOUT SHIFT, TURNED AND REPOSITIONED EVERY 2 HOURS, WILL ENDORSE TO AM NURSE FOR JOZEF.
--- NOTE | 2019-12-02 07:49 | NUR ---
SALES ANALYST NOTES RECEIVED BEDSIDE REPORT PT A/O X0 OPENS EYES SPONTANEOUSLY DOES NOT FOLLOW COMMANDS. NO S/S OF RESPIRATORY DISTRESS ETT 7.5 ON LIP WITH COOL ARESOL 28% @ 5LTRS VIA T-PIECE NO S/S OF PAIN NOTED. SINUS ON MONITOR AFEBRILE CLIFFORD LIPSCOMB APPLIED JOHNSON CATH DRAINING CLOUDY MINIMAL URINE. BILATERAL WRIST RESTRAINTS APPLIED CHECKED FOR CIRCULATION AND PULSES.OGT FEEDING GLUCERNA 1.2@ 65ML/HR TOLERATING WELL WITH NO RESIDUAL ANTHONY PICC TKO. SAFETY AND ASPIRATION PRECAUTIONS IN PLACE BED IN LOW LOCKED POSITION WILL CONT TO MONITOR ACCORDINGLY
[2019-12-02] MEDS: PANTOPRAZOLE 40 MG/PACK PACK GT SCH (08:23)
[2019-12-02] MEDS: HYDROCORTISONE SOD SUCCINATE 100 MG/2 ML VIAL IV SCH ×2 (08:23→17:28)
[2019-12-02] MEDS: LEVOTHYROXINE SODIUM 50 MCG TABLET GT SCH (08:23)
[2019-12-02] MEDS: TAMSULOSIN 0.4 MG CAP.SR.24H GT SCH (08:23)
[2019-12-02] MEDS: GABAPENTIN 300 MG CAPSULE GT SCH ×3 (08:23→17:19)
[2019-12-02] MEDS: HYDROGEL DRESSING 90 GM TUBE TP SCH (08:24)
[2019-12-02] MEDS: MEROPENEM 500 MG in IV NS 0.9% 100 ML IV SCH ×2 (08:25→21:33)
--- NOTE | 2019-12-02 09:15 | NUR ---
MD at bedside made aware of decrease urine output and increased will wait for curtains and draperies salesperson to round for evaluation
[2019-12-02] MEDS: GLUCERNA 1.2 1,000 ML BOTTLE NG PRN (10:33)
--- NOTE | 2019-12-02 13:15 | NUR ---
BED BATH GIVEN ORAL AND WOUND CARE RENDERED. PT TOLERATED.
--- NOTE | 2019-12-02 14:19 | NUR ---
DR PIPER MADE AWARE OF PT INCREASED EDEMA NEW ORDERS FOR BUMEX 0.5 MG IV X8HRS
[2019-12-02] MEDS ORDERED: BUMETANIDE INJ 4 MG in IV D5W 24 ML IV ONE (14:30)
[2019-12-02] MEDS: IV NS 0.9% 250 ML IV PRN (15:46)
[2019-12-02] MEDS ORDERED: HYDROCORTISONE SOD SUCCINATE 100 MG/2 ML VIAL IV SCH (17:00)
--- NOTE | 2019-12-02 19:30 | NUR ---
SALES AND MARKETING REPRESENTATIVE NOTES, RECEIVED BEDSIDE REPORT, PATIENT ON BED, OPENS EYES SPONTANEOUSLY BUT DOESN'T FOLLOW COMMANDS, WITH ETT 7.5 ON LIP IN PLACED, WITH COOL AEROSOL 28% @ 5LTRS VIA T-PIECE, NO SOB/ACUTE RESPIRATORY DISTRESS NOTED, NSR ON THE MONITOR WITH HR IN 90S AT THIS TIME, AFEBRILE AT THIS TIME, BILATERAL WRIST RESTRAINTS IN PLACED, NO ABNORMALITY NOTED AT SITE, PULSES PRESENT, ANTHONY PICC LINE IN PLACED PATENT AND INTACT, ON BUMEX AT THIS TIME RUNNING AT 5ML/HR WILL BE 8 HRS TOTAL, SUCTIONED AT THIS TIME, ORAL GT IN PLACED AND GLUCERNA 1.2 INFUSING AT 65ML/HR, MINIMAL RESIDUAL NOTED AT THIS TIME, SAFETY AND ASPIRATION PRECAUTIONS IN PLACE, HOB ELEVATED AT ALL TIMES, BED LOCKED AND IN LOW POSITION, DRY AND CLEAN, WILL CONTINUE TO MONITOR CLOSELY.
[2019-12-02] MEDS: MIRTAZAPINE 15 MG TABLET GT SCH (21:33)
[2019-12-03] VITALS (22 sets, daily range): BP systolic 104–129; BP diastolic 51–77
[2019-12-03 04:39] LABS: EOSINOPHILS % (AUTO) 0.2 % (0.0-6.0); HEMATOCRIT 29 % (39-51); HEMOGLOBIN 8.9 g/dL (13.5-17.5); LYMPHOCYTES # (AUTO) 1.2 /CMM (0.8-4.8); LYMPHOCYTES % (AUTO) 5.3 % (20.0-44.0); MEAN CORPUSCULAR HGB CONC 31 g/dl (31.0-36.0); MEAN CORPUSCULAR VOLUME 77 fL (80-96); MONOCYTES # (AUTO) 1.7 /CMM (0.1-1.30); MONOCYTES % (AUTO) 7.9 % (2.0-12.0); NEUTROPHILS % (AUTO) 86.6 % (43.0-81.0); PLATELET COUNT (AUTO) 235 /CMM (150-450); RED BLOOD CELL COUNT(AUTO) 3.76 MIL/uL (4.5-6.0); WHITE BLOOD COUNT (AUTO) 21.9 K/uL (4.3-11.0)
[2019-12-03 04:49] LABS: THYROID STIMULATING HORMONE 5.468 uIU/mL (0.358-3.74)
[2019-12-03 04:50] LABS: ALANINE AMINOTRANSFERASE 232 U/L (12-78); ALKALINE PHOSPHATASE 90 U/L (46-116); ASPARTATE AMINOTRANSFERASE 244 U/L (15-37); BILIRUBIN,TOTAL 0.3 mg/dL (0.2-1.0); CALCIUM, SERUM 7.3 mg/dL (8.5-10.1); CARBON DIOXIDE 21 mmol/L (21-32); CHLORIDE 113 mmol/L (98-107); CREATININE 1.8 mg/dL (0.6-1.3); GLUCOSE 221 mg/dL (74-106); MAGNESIUM 2.1 mg/dL (1.8-2.4); PHOSPHORUS 3.4 mg/dL (2.5-4.9); POTASSIUM 3.9 mmol/L (3.5-5.1); SODIUM SERUM 145 mmol/L (136-145); TOTAL PROTEIN, SERUM 4.2 g/dL (6.4-8.2); UREA NITROGEN, BLOOD 56 mg/dL (7-18)
[2019-12-03] MEDS: BLOOD SUGAR DIAGNOSTIC 1 EACH STRIP IN SCH ×4 (05:14→23:36)
[2019-12-03] MEDS: INSULIN REGULAR, HUMAN 100 UNIT/ML 3 ML VIAL SQ PRN ×4 (05:16→23:38)
[2019-12-03 05:34] LABS: ALBUMIN 1.3 g/dL (3.4-5.0)
--- NOTE | 2019-12-03 06:55 | NUR ---
RECONCILEMENT CLERK NOTES, PATIENT CONTINUE WITH ETT 7.04/15 ON LIP IN PLACED, WITH COOL AEROSOL 28% @ 5LTRS VIA T-PIECE, NO SOB/ACUTE RESPIRATORY DISTRESS NOTED, WITH OPTIMAL 02 SAT LEVEL, AFEBRILE AT THIS TIME, BILATERAL WRIST RESTRAINTS IN PLACED, FREQUENT CHECKS DONE, NO ABNORMALITY NOTED, NO SIGNIFICANT CHANGE IN CONDITION DURING THE NIGHT NO ABNORMALITY NOTED AT SITE, NPO SINCE 0600 FOR TRACHEOSTOMY PROCEDURE AT 1500 TODAY,DRY AND CLEAN, SAFETY AND ASPIRATION PRECAUTIONS IN PLACE, HOB ELEVATED AT ALL TIMES, BED LOCKED AND IN LOW POSITION, DRY AND CLEAN, WILL ENDORSE CONTINUITY OF CARE TO ONCOMING NURSE.
--- NOTE | 2019-12-03 07:20 | NUR ---
RN OPENING NOTE: RECEIVED PATIENT IN BED. OPENS EYES SPONTANEOUSLY BUT DOESN'T FOLLOW COMMANDS, WITH ETT 7.[address], WITH COOL AEROSOL 28% @ 5LTRS VIA T-PIECE, NO SOB/ACUTE RESPIRATORY DISTRESS NOTED, NSR ON THE MONITOR AT THIS TIME, AFEBRILE AT THIS TIME. BILATERAL WRIST RESTRAINTS IN PLACE. ANTHONY PICC LINE IN PLACE. PATENT AND INTACT. ORAL GT IN PLACE, ON NPO EXCEPT MEDICATIONS. CALL LIGHT IN REACH. BED LOCKED, LOW AND AT SEMI-GOLDBERG'S POSITION. SIDE RAILS UP X3. PATIENT SCHEDULED FOR PEG PLACEMENT AT 1500. WILL CONTINUE TO MONITOR.
[2019-12-03] MEDS: LEVOTHYROXINE SODIUM 50 MCG TABLET GT SCH (07:44)
[2019-12-03] MEDS: HYDROCORTISONE SOD SUCCINATE 100 MG/2 ML VIAL IV SCH ×2 (09:07→17:36)
[2019-12-03] MEDS: GABAPENTIN 300 MG CAPSULE GT SCH ×3 (09:07→17:36)
[2019-12-03] MEDS: TAMSULOSIN 0.4 MG CAP.SR.24H GT SCH (09:07)
[2019-12-03] MEDS: PANTOPRAZOLE 40 MG/PACK PACK GT SCH (09:07)
[2019-12-03] MEDS: HYDROGEL DRESSING 90 GM TUBE TP SCH (09:08)
[2019-12-03] MEDS: MEROPENEM 500 MG in IV NS 0.9% 100 ML IV SCH ×2 (09:43→20:18)
--- NOTE | 2019-12-03 09:50 | NUR ---
RN NOTE: REPORTED TO DR. VILLAFANA THAT PATIENT'S GASTRIC RESIDUAL IS 860MLS @0930. ORDER FOR REGLAN 10MG Q 6HR PRN RECEIVED. NOTED AND CARRIED OUT.
[2019-12-03] MEDS ORDERED: METOCLOPRAMIDE HCL 10 MG/2 ML VIAL IV SCH ×2 (10:30→11:00)
[2019-12-03] MEDS ORDERED: LIDOCAINE HCL/MPF 1% 30 ML VIAL IJ ONE (12:03)
--- NOTE | 2019-12-03 14:45 | NUR ---
RN NOTE: PATIENT TAKEN TO OR FOR TRACH TUBE PLACEMENT PROCEDURE. INFORMED OR STAFF OF PATIENT'S GASTRIC RESIDUAL OF 360MLS.
--- NOTE | 2019-12-03 15:45 | NUR ---
RN NOTE: PATIENT CAME BACK FROM TRACH TUBE PLACEMENT PROCEDURE IN STABLE CONDITION, TRACH SITE NOTED TO HAVE SCANT BLOODY SECRETIONS. WITH ORDERS TO RESUME PRE OP ORDERS BY . NOTED AND CARRIED OUT.
--- NOTE | 2019-12-03 15:54 | NUR ---
RN NOTE: TRANSFER OF CARE GIVEN TO SONJA WRIGHT.
--- NOTE | 2019-12-03 15:54 | NUR ---
RN NOTES RECEIVED REPORT FROM MAGALIS FOR JOZEF. PATIENT S/P TRACH PLACEMENT BY DR. HORTON. SITE SOAKED WITH SEROSANGUINOUS DRAINAGE
--- NOTE | 2019-12-03 17:00 | NUR ---
RN NOTES ACCUCHECK DONE. BS 208 MG/DL. ADMINISTERED 6 UNITS HUM R PER SS. STARTED GLUCERNA AT 25 ML/HR. GOAL IS 65 ML. OG TUBE CHECKED FOR PLACEMENT. 10 ML RESIDUAL.
[2019-12-03] MEDS ORDERED: METOCLOPRAMIDE HCL 10 MG/2 ML VIAL IV PRN (17:30)
[2019-12-03] MEDS: GLUCERNA 1.2 1,000 ML BOTTLE NG PRN (17:33)
--- NOTE | 2019-12-03 18:22 | NUR ---
RT END OF THE SHIFT REPORT, Pt. rec. 84 year old male @0700 AM pt. orally intubated on cool aerosol with noted 28% 5 LPM @1535 post tracheostomy ( SHILEY # 8 ) placed on Vent with noted AC mode per Dr. Allen order at the bedside. alarms are set and audible with Ambu bag by bedside. DISPATCHER MAINTENANCE cuff pressure done, HME changed. Vent is plugged into red outlet. bilaterally rales B/S noted and sux'd for minimal amount of pinky secretions, equal chest rise noted. pt. stable and continue to monitor. report will pass to PM shift. Addendum: 12/03/19 at 1833 by ROSEMARY PABLO RT Amended: Links added.
--- NOTE | 2019-12-03 18:50 | NUR ---
RN NOTES PATIENT TRANSFERRED TO [facility] ROOM 120-2. REPORT GIVEN TO JAYE FOR JOZEF.
--- NOTE | 2019-12-03 19:10 | NUR ---
RN NOTE: VIOLA RICH ORDERED TO START PATIENT WITH FEEDING BASED ON DIETARY RECOMMENDATION. NOTED AND CARRIED OUT.
--- NOTE | 2019-12-03 19:19 | NUR ---
PT TRANSFERRED FROM ICU TO TELE ROOM 120-2, RECEIVED REPORT FROM ADRIANA CASILLAS. PT OPENS EYES SPONTANEOUSLY BUT DOESN'T FOLLOW COMMANDS, ON VENT, TOLERATING SETTINGS WELL, NO SIGNS OF RESPIRATORY DISTRESS NOTED, SINUS RHYTHM ON VIDEOGRAPHER, BILATERAL WRIST RESTRAINTS IN PLACE. ANTHONY PICC LINE IN PLACE, PATENT, INTACT SECURED WITH CLEAN DRESSING. ORAL GT IN PLACE AT 55CM. JOHNSON CATHETER INTACT, PATENT, DRAINING YELLOW CLOUDY URINE. CALL LIGHT IN REACH, BED LOCKED, LOW POSITION. GAVE REPORT TO SHINGLE TRIMMER NURSE FOR JOZEF.
--- NOTE | 2019-12-03 19:20 | NUR ---
RN OPENING NOTE RECEIVED PATIENT IN BED WITH HOB ELEVATED. ON VENT. ON ORAL GTF. ON JOHNSON. IN NO APPARENT DISTRESS NOTED AT THIS TIME. CALL LIGHT WITHIN REACH. WILL CONTINUE TO MONITOR.
[2019-12-03] MEDS: MIRTAZAPINE 15 MG TABLET GT SCH (21:54)
[2019-12-03] MEDS: VANCOMYCIN 1 GM in IV D5W 250 ML IV SCH (23:01)
[2019-12-04] VITALS: BP 111/60
[2019-12-04 04:00] VITALS: BP 117/60
[2019-12-04] MEDS: BLOOD SUGAR DIAGNOSTIC 1 EACH STRIP IN SCH ×3 (05:53→17:37)
[2019-12-04] MEDS: INSULIN REGULAR, HUMAN 100 UNIT/ML 3 ML VIAL SQ PRN ×3 (05:55→16:59)
--- NOTE | 2019-12-04 05:56 | NUR ---
RT PT RECEIVED TRACHED ON [facility] VENT WITH NOTED SETTING. PT TRACH PATENT AND SECURE. NO SOB OR DISTRESS NOTED ON SHIFT. PT TOLERATING VENT SETTING WELL. SMALL AMOUNT OF PINK TINGED SECREATIONS SUCTIONED PRN. CONTINUE CONTINUE CURRENT CARE PLAN AND MONITOR FOR ANY CHANGES. Addendum: 12/04/19 at 0558 by JERRY ZAMORA RT Amended: Links added.
[2019-12-04] MEDS: LEVOTHYROXINE SODIUM 50 MCG TABLET GT SCH (06:53)
[2019-12-04 07:01] LABS: EOSINOPHILS % (AUTO) 2.8 % (0.0-6.0); HEMATOCRIT 26 % (39-51); HEMOGLOBIN 7.9 g/dL (13.5-17.5); LYMPHOCYTES # (AUTO) 1.6 /CMM (0.8-4.8); LYMPHOCYTES % (AUTO) 9.9 % (20.0-44.0); MEAN CORPUSCULAR HGB CONC 31 g/dl (31.0-36.0); MEAN CORPUSCULAR VOLUME 76 fL (80-96); MONOCYTES # (AUTO) 1.6 /CMM (0.1-1.30); MONOCYTES % (AUTO) 9.7 % (2.0-12.0); NEUTROPHILS # (AUTO) 12.7 /CMM (1.8-8.9); NEUTROPHILS % (AUTO) 77.6 % (43.0-81.0); PLATELET COUNT (AUTO) 293 /CMM (150-450); RED BLOOD CELL COUNT(AUTO) 3.36 MIL/uL (4.5-6.0); WHITE BLOOD COUNT (AUTO) 16.4 K/uL (4.3-11.0)
--- NOTE | 2019-12-04 07:08 | NUR ---
RN CLOSING NOTE PATIENT IS IN BED RESTING WITH HOB ELEVATED. OBTUNDED, ON VENT, ON ORAL GTF. GTF ON RUNNING AND KEPT PATENT. ALL DUE MEDS GIVEN AND TOLERATED WELL. IN NO APPARENT DISTRESS NOTED AT THIS TIME. PATIENT IS KEPT CLEAN, DRY, AND COMFORTABLE. WILL ENDORSE TO AM SHIFT RN.
[2019-12-04 07:10] LABS: ALANINE AMINOTRANSFERASE 149 U/L (12-78); ALKALINE PHOSPHATASE 76 U/L (46-116); ASPARTATE AMINOTRANSFERASE 73 U/L (15-37); BILIRUBIN,DIRECT 0.1 mg/dL (0.0-0.2); BILIRUBIN,TOTAL 0.3 mg/dL (0.2-1.0); CALCIUM, SERUM 7.4 mg/dL (8.5-10.1); CARBON DIOXIDE 20 mmol/L (21-32); CHLORIDE 114 mmol/L (98-107); CREATININE 1.7 mg/dL (0.6-1.3); GLUCOSE 167 mg/dL (74-106); SODIUM SERUM 144 mmol/L (136-145); UREA NITROGEN, BLOOD 61 mg/dL (7-18)
--- NOTE | 2019-12-04 07:30 | NUR ---
COLLAR PADDER BLINDSTITCH NOTES PT IN BED, RESTING, NON VERBAL, NO FACIAL GRIMACING, NOT IN DISTRESS, ORAL GT FEEDING INFUSING WELL, KEPT WARM AND COMFORTABLE IN BED, ISOLATION PRECAUTIONS OBSERVED.
[2019-12-04 08:00] VITALS: BP 117/61
[2019-12-04 08:17] LABS: ALBUMIN 1.2 g/dL (3.4-5.0)
[2019-12-04] MEDS ORDERED: BUMETANIDE INJ 4 MG in IV D5W 24 ML IV ONE (08:30)
[2019-12-04 09:04] LABS: EOSINOPHILS % (MANUAL) 3 % (0-4); LYMPHOCYTES % (MANUAL) 14 % (16-48); MONOCYTES % (MANUAL) 12 % (0-11.0); NEUTROPHILS % (MANUAL) 71 (42-76)
[2019-12-04] MEDS: TAMSULOSIN 0.4 MG CAP.SR.24H GT SCH (09:38)
[2019-12-04] MEDS: PANTOPRAZOLE 40 MG/PACK PACK GT SCH (09:38)
[2019-12-04] MEDS: GABAPENTIN 300 MG CAPSULE GT SCH ×3 (09:38→16:19)
[2019-12-04] MEDS: MEROPENEM 500 MG in IV NS 0.9% 100 ML IV SCH ×2 (09:40→21:48)
[2019-12-04] MEDS: HYDROGEL DRESSING 90 GM TUBE TP SCH (09:52)
[2019-12-04] MEDS: HYDROCORTISONE SOD SUCCINATE 100 MG/2 ML VIAL IV SCH ×2 (10:18→10:19)
[2019-12-04 12:00] VITALS: BP 109/57
--- NOTE | 2019-12-04 13:00 | NUR ---
PRODUCTION HARDENER NOTES PT IN BED, RESTING, NON VERBAL, NO SIGN OF PAIN OR DISTRESS, ORAL GT INFUSING WELL, TOLERATING WELL, KEPT CLEAN, DRY AND COMFORTABLE.
[2019-12-04 16:00] VITALS: BP 115/60
--- NOTE | 2019-12-04 17:58 | NUR ---
FOXING PAINTER NOTES PT IN BED, RESTING, EASY TO AROUSE, NON VERBAL, NO FACIAL GRIMACING OR MOANING, NOT IN DISTRESS, GT FEEDING INFUSING WELL AND TOLERATING WELL, TURNED AND REPOSITIONED Q2 HOURS, SKIN TREATMENTS DONE, KEPT CLEAN, DRY AND COMFORTABLE, PM MEDS GIVEN, ALL NEEDS ATTENDED.
--- NOTE | 2019-12-04 19:40 | NUR ---
RN NOTES, PATIENT IN BED OBTUNDED, ON MECHANICAL VENTILATOR, NO SOB/ACUTE DISTRESS NOTED, TOLERATING WELL, ON ORAL GTF, ON GLUCERNA 1.2 INFUSING WELL AND PATIENT TOLERATING WELL, ANTHONY PICC LINE PATENT AND INTACT, PATIENT IS KEPT DRY AND CLEAN AN DWELL REPOSITIONED AT THIS TIME,S/R BED UP, BED LOCKED AND LOW POSITION, S/P TRACHEOSTOMY YESTERDAY, NO ACTIVE BLEEDING NOTED AT SITE, WILL CONTINUE TO MONITOR CLOSELY.
--- NOTE | 2019-12-04 20:27 | NUR ---
RT NOTE Pt rec'd trached on [facility] vent on AC mode. No resp distress or sob noted. Pt sx'd for thick mod amt of pale yellow secretions. Trach is patent and secured. Alarms are set and audible. Vent plugged into red outlet. Ambu bag bedside. Will continue to monitor. Addendum: 12/04/19 at 2026 by AXEL CARSON RT Amended: Links added.
[2019-12-04] MEDS: MIRTAZAPINE 15 MG TABLET GT SCH (21:48)
[2019-12-05] MEDS: BLOOD SUGAR DIAGNOSTIC 1 EACH STRIP IN SCH ×5 (00:49→23:40)
[2019-12-05] MEDS: INSULIN REGULAR, HUMAN 100 UNIT/ML 3 ML VIAL SQ PRN ×5 (01:29→23:41)
[2019-12-05 04:00] VITALS: BP 150/70
--- NOTE | 2019-12-05 07:00 | NUR ---
RN NOTES, NO SIGNIFICANT CHANGE IN CONDITION DURING THE NIGHT, NO ACTIVE BLEEDING NOTED IN TRACH SITE, WILL ENDORSE CONTINUITY OF CARE TO ONCOMING NURSE.
--- NOTE | 2019-12-05 07:00 | NUR ---
BOATSWAINS MATE NOTES RECEIVED PATIENT IN BED A/OX 1 WITH ORAL GTUBE ON 25 ML /HR . PATIENT IS ABLE TO REPLY WITH EYE MOVEMENT. NO SOB OR DISCOMFORT NOTED AT THIS TIME. 50 CC RESIDUAL NOTED , AUSCULTATED ABDOMEN. GURGLING PRESENT. FLUSHED WITH WATER. BED AT THE LOWEST POSITION LOCKED, CALL LIGHT WITHIN REACH. WILL CONTINUE TO MONITOR.
[2019-12-05 07:11] LABS: BASOPHILS % (AUTO) 0.1 % (0.0-2.0); EOSINOPHILS % (AUTO) 4.7 % (0.0-6.0); HEMATOCRIT 26 % (39-51); HEMOGLOBIN 8.5 g/dL (13.5-17.5); LYMPHOCYTES # (AUTO) 1.7 /CMM (0.8-4.8); LYMPHOCYTES % (AUTO) 10.1 % (20.0-44.0); MEAN CORPUSCULAR HGB CONC 32 g/dl (31.0-36.0); MEAN CORPUSCULAR VOLUME 76 fL (80-96); MONOCYTES # (AUTO) 1.4 /CMM (0.1-1.30); MONOCYTES % (AUTO) 8.2 % (2.0-12.0); NEUTROPHILS # (AUTO) 13.2 /CMM (1.8-8.9); NEUTROPHILS % (AUTO) 76.9 % (43.0-81.0); PLATELET COUNT (AUTO) 404 /CMM (150-450); RED BLOOD CELL COUNT(AUTO) 3.44 MIL/uL (4.5-6.0); WHITE BLOOD COUNT (AUTO) 17.2 K/uL (4.3-11.0)
[2019-12-05 07:41] LABS: CALCIUM, SERUM 7.5 mg/dL (8.5-10.1); CARBON DIOXIDE 24 mmol/L (21-32); CHLORIDE 113 mmol/L (98-107); CREATININE 1.6 mg/dL (0.6-1.3); GLUCOSE 139 mg/dL (74-106); MAGNESIUM 1.9 mg/dL (1.8-2.4); PHOSPHORUS 2.9 mg/dL (2.5-4.9); POTASSIUM 3.5 mmol/L (3.5-5.1); SODIUM SERUM 147 mmol/L (136-145); UREA NITROGEN, BLOOD 59 mg/dL (7-18)
[2019-12-05 08:00] VITALS: BP 129/67
[2019-12-05] MEDS: LEVOTHYROXINE SODIUM 50 MCG TABLET GT SCH (09:47)
[2019-12-05] MEDS: TAMSULOSIN 0.4 MG CAP.SR.24H GT SCH (09:48)
[2019-12-05] MEDS: MEROPENEM 500 MG in IV NS 0.9% 100 ML IV SCH ×2 (09:48→21:19)
[2019-12-05] MEDS: GABAPENTIN 300 MG CAPSULE GT SCH ×3 (09:48→17:29)
[2019-12-05] MEDS: PANTOPRAZOLE 40 MG/PACK PACK GT SCH (09:48)
[2019-12-05] MEDS: HYDROCORTISONE SOD SUCCINATE 100 MG/2 ML VIAL IV SCH (09:50)
[2019-12-05] MEDS: HYDROGEL DRESSING 90 GM TUBE TP SCH (10:03)
[2019-12-05 10:14] LABS: ABG BASE EXCESS -1.4 mmol/L; ABG OXYGEN SATURATION 97.3 % (92.0-98.5); ABG PCO2 29.8 mmHg (35.0-45.0); ABG PH 7.479 (7.350-7.450); ABG PO2 104.3 mmHg (75.0-100.0); AaDO2 74.6 mmHg; COHb 0.7 % (0.5-1.5); MetHb 0.4 % (0.0-1.5); O2Hb 96.2 % (94.0-97.0); SITE, ABG Right Radial; VENT MODE, BG CPAP +5 PS 15 30%
[2019-12-05 12:00] VITALS: BP 128/57
[2019-12-05 16:00] VITALS: BP 120/55
[2019-12-05] MEDS: GLUCERNA 1.2 1,000 ML BOTTLE NG PRN (16:30)
--- NOTE | 2019-12-05 17:45 | NUR ---
RINK RAT NOTES PATIENT IN BED A/OX1, NO SOB OR DISCOMFORT NOTED AT THIS TIME. PATIENT TOLERATED ORAL G FEEDING WELL. NO MAJOR CHANGES DURING SHIFT. CALL LIGHT WITHIN REACH, BED AT THE LOWEST POSITION LOCKED. ENDORSED TO PET CARETAKER NURSE FOR JOZEF.
--- NOTE | 2019-12-05 19:35 | NUR ---
RN NOTES, PATIENT IN BED OBTUNDED, ON MECHANICAL VENTILATOR, NO SOB/ACUTE DISTRESS NOTED, TOLERATING SETTINGS WELL, ON ORAL GTF, ON GLUCERNA 1.2 INFUSING WELL AND PATIENT TOLERATING WELL, ANTHONY PICC LINE IN PLACED, PATENT AND INTACT, WELL REPOSITIONED AT THIS TIME, DRY AND CLEAN, S/R OF BED UP, BED LOCKED AND LOW POSITION, S/P TRACHEOSTOMY 2 DAYS AGO, NO ACTIVE BLEEDING NOTED AT SITE, WILL CONTINUE TO MONITOR CLOSELY.
[2019-12-05 20:00] VITALS: BP 127/60
[2019-12-05] MEDS: MIRTAZAPINE 15 MG TABLET GT SCH (21:19)
--- NOTE | 2019-12-05 21:52 | NUR ---
RT NOTE PATIENT PLACED ON SIMV DUE TO CONTINUOUS APNEA. PATIENT UNABLE TO MAINTAIN STEADY RESPIRATORY RATE. PATIENT PLACED ON ORDERS OF SIMV4 VT500 30% PEEP+5 PS15 PER MD ORDERS. NO RESPIRATORY DISTRESS NOTED. VENT IS PLUGGED INTO RED OUTLET. ALARMS ARE SET AND AUDIBLE. TRACH IS PATENT AND SECURE. EMERGENCY EQUIPMENT BEDSIDE. WILL CONTINUE TO MONITOR. Addendum: 12/05/19 at 2213 by SKYLER MODI RT Amended: Links added.
[2019-12-05] MEDS: VANCOMYCIN 1 GM in IV D5W 250 ML IV SCH (23:29)
[2019-12-06] VITALS: BP 131/61
[2019-12-06] MEDS: BLOOD SUGAR DIAGNOSTIC 1 EACH STRIP IN SCH ×3 (06:07→17:48)
[2019-12-06] MEDS: INSULIN REGULAR, HUMAN 100 UNIT/ML 3 ML VIAL SQ PRN ×3 (06:09→17:50)
[2019-12-06] MEDS: LEVOTHYROXINE SODIUM 50 MCG TABLET GT SCH (06:52)
[2019-12-06 07:22] LABS: BASOPHILS # (AUTO) 0.1 /CMM (0.0-0.2); BASOPHILS % (AUTO) 0.5 % (0.0-2.0); EOSINOPHILS % (AUTO) 7.1 % (0.0-6.0); HEMATOCRIT 25 % (39-51); HEMOGLOBIN 7.5 g/dL (13.5-17.5); LYMPHOCYTES # (AUTO) 1.5 /CMM (0.8-4.8); LYMPHOCYTES % (AUTO) 12.8 % (20.0-44.0); MEAN CORPUSCULAR HGB CONC 31 g/dl (31.0-36.0); MEAN CORPUSCULAR VOLUME 76 fL (80-96); MONOCYTES # (AUTO) 1.2 /CMM (0.1-1.30); MONOCYTES % (AUTO) 9.9 % (2.0-12.0); NEUTROPHILS # (AUTO) 8.3 /CMM (1.8-8.9); NEUTROPHILS % (AUTO) 69.7 % (43.0-81.0); PLATELET COUNT (AUTO) 466 /CMM (150-450); RED BLOOD CELL COUNT(AUTO) 3.23 MIL/uL (4.5-6.0); WHITE BLOOD COUNT (AUTO) 11.9 K/uL (4.3-11.0)
[2019-12-06 07:50] LABS: CALCIUM, SERUM 7.2 mg/dL (8.5-10.1); CARBON DIOXIDE 24 mmol/L (21-32); CHLORIDE 111 mmol/L (98-107); CREATININE 1.4 mg/dL (0.6-1.3); GLUCOSE 173 mg/dL (74-106); POTASSIUM 3.4 mmol/L (3.5-5.1); SODIUM SERUM 145 mmol/L (136-145); UREA NITROGEN, BLOOD 54 mg/dL (7-18)
[2019-12-06 08:00] VITALS: BP 127/60
[2019-12-06] MEDS: GABAPENTIN 300 MG CAPSULE GT SCH ×3 (08:36→17:48)
[2019-12-06] MEDS: TAMSULOSIN 0.4 MG CAP.SR.24H GT SCH (08:36)
[2019-12-06] MEDS: HYDROCORTISONE SOD SUCCINATE 100 MG/2 ML VIAL IV SCH (08:36)
[2019-12-06] MEDS: PANTOPRAZOLE 40 MG/PACK PACK GT SCH (08:36)
[2019-12-06] MEDS: HYDROGEL DRESSING 90 GM TUBE TP SCH (08:37)
[2019-12-06 08:47] LABS: ABG BASE EXCESS 0.1 mmol/L; ABG OXYGEN SATURATION 96.8 % (92.0-98.5); ABG PCO2 33.5 mmHg (35.0-45.0); ABG PH 7.466 (7.350-7.450); ABG PO2 96.5 mmHg (75.0-100.0); AaDO2 63.6 mmHg; COHb 0.7 % (0.5-1.5); MetHb 0.4 % (0.0-1.5); O2Hb 95.7 % (94.0-97.0); SITE, ABG Right Radial; VENT MODE, BG C/A 28%
[2019-12-06] MEDS: MEROPENEM 500 MG in IV NS 0.9% 100 ML IV SCH ×2 (08:52→22:34)
[2019-12-06] MEDS ORDERED: POTASSIUM CHLORIDE 20 MEQ POWDER PACKET GT SCH ×2 (11:30→18:00)
--- NOTE | 2019-12-06 12:20 | NUR ---
RN NOTES, PATIENT ENDORSED TO SONJA WRIGHT FOR CONTINUATION OF CARE.
--- NOTE | 2019-12-06 12:45 | NUR ---
RN NOTE RECEIVED PATIENT FROM CARLOS CASILLAS AT THIS TIME. PATIENT IS IN BED RESTING WITH HOB ELEVATED. ON ORAL GT FEEDING. IN NO APPARENT DISTRESS NOTED AT THIS TIME. WILL CONTINUE TO MONITOR.
--- NOTE | 2019-12-06 19:30 | NUR ---
TIME BROKER OPENING NOTE RECEIVED PATIENT A/O X1. PATIENT PATIENT IS NON VERBLA WITH ORAL TUBE FEEDINGS. PATIENT IS ON 5L OF 02 WITH COOL AEROSOL. ON THE MONITOR PATIENT SHOWS SINUS RHYTHM. PATIENT IS ON RESTRAINTS CHECKED FOR CIRCULATION. NO SIGN OF ANY DISTRESS AT THE MOMENT. ALL SAFETY PRECATIONS APPLIED. WILL CONTINUE TO MONITOR PATIENT FOR JOZEF.
[2019-12-06] MEDS: MIRTAZAPINE 15 MG TABLET GT SCH (22:34)
[2019-12-07] MEDS: BLOOD SUGAR DIAGNOSTIC 1 EACH STRIP IN SCH ×4 (01:01→18:08)
[2019-12-07] MEDS: INSULIN REGULAR, HUMAN 100 UNIT/ML 3 ML VIAL SQ PRN ×4 (01:02→18:32)
--- NOTE | 2019-12-07 02:13 | NUR ---
AUTOMOTIVE SERVICE ASSISTANT NOTE ENDORSED PATIENT TO INDER FOR JOZEF. PATIENT SHOWS NO SIGN OF DISTRESS. TOLERATING OXYGEN AT 5L WITH COOL AEROSOL. SAFETY PRECAUTIONS APPLIED.
[2019-12-07] MEDS: GLUCERNA 1.2 1,000 ML BOTTLE NG PRN (02:49)
--- NOTE | 2019-12-07 07:04 | NUR ---
RN CLOSING NOTE PATIENT IS IN BED RESTING WITH HOB ELEVATED. NON VERBAL. BREATHING IS EVEN AND NON LABORED. NO SOB NOTED. ON TRACH. ON GTF. GTF KEPT PATENT AND RUNNING. ALL DUE MEDS GIVEN AND TOLERATED WELL. PATIENT IS KEPT CLEAN, DRY, AND COMFORTABLE. CALL LIGHT IS WITHIN EASY REACH. WILL CONTINUE TO MONITOR.
[2019-12-07 07:17] LABS: BASOPHILS # (AUTO) 0.1 /CMM (0.0-0.2); BASOPHILS % (AUTO) 0.5 % (0.0-2.0); EOSINOPHILS % (AUTO) 5.5 % (0.0-6.0); HEMATOCRIT 28 % (39-51); HEMOGLOBIN 8.9 g/dL (13.5-17.5); LYMPHOCYTES # (AUTO) 1.3 /CMM (0.8-4.8); LYMPHOCYTES % (AUTO) 9.2 % (20.0-44.0); MEAN CORPUSCULAR HGB CONC 32 g/dl (31.0-36.0); MEAN CORPUSCULAR VOLUME 76 fL (80-96); MONOCYTES # (AUTO) 1.4 /CMM (0.1-1.30); MONOCYTES % (AUTO) 9.4 % (2.0-12.0); NEUTROPHILS % (AUTO) 75.4 % (43.0-81.0); PLATELET COUNT (AUTO) 593 /CMM (150-450); WHITE BLOOD COUNT (AUTO) 14.5 K/uL (4.3-11.0)
[2019-12-07 07:45] LABS: CALCIUM, SERUM 7.7 mg/dL (8.5-10.1); CREATININE 1.2 mg/dL (0.6-1.3); POTASSIUM 3.5 mmol/L (3.5-5.1)
--- NOTE | 2019-12-07 07:45 | NUR ---
RN OPENING NOTES RECEIVED PT IN BED, AWAKE AND OBTUNDED. NO FACIAL GRIMACING NOTED. RESPIRATION EVEN AND NON LABORED. ON COOL AEROSOL, TOLERATED WELL. WITH ORAL TUBE FEEDING ON GOING GLUCERNA @45ML/HR. INTACT AND PATENT WITH NO RESIDUAL NOTED. PICC LINE ON ANTHONY, INTACT, PATENT AND FLUSHED WELL. NO SIGNS OF INFILTRATION. JOHNSON CATHETER DRAINING VIA GRAVITY WITH COLOR YELLOW URINE. ON TELE MONITOR. BED ON LOWEST POSITION, LOCKED. CALL LIGHT WITHIN REACH . WILL CONTINUE TO MONITOR
[2019-12-07] MEDS: LEVOTHYROXINE SODIUM 50 MCG TABLET GT SCH (07:50)
[2019-12-07 08:00] VITALS: BP 145/84
[2019-12-07 08:18] LABS: ABG BASE EXCESS 0.1 mmol/L; ABG OXYGEN SATURATION 96.9 % (92.0-98.5); ABG PCO2 32.6 mmHg (35.0-45.0); ABG PH 7.473 (7.350-7.450); ABG PO2 92.7 mmHg (75.0-100.0); AaDO2 68.5 mmHg; COHb 0.8 % (0.5-1.5); MetHb 0.6 % (0.0-1.5); O2Hb 95.5 % (94.0-97.0); SITE, ABG Right Radial; VENT MODE, BG CA 28% 5L
[2019-12-07] MEDS: GABAPENTIN 300 MG CAPSULE GT SCH ×3 (09:13→17:26)
[2019-12-07] MEDS: TAMSULOSIN 0.4 MG CAP.SR.24H GT SCH (09:13)
[2019-12-07] MEDS: PANTOPRAZOLE 40 MG/PACK PACK GT SCH (09:13)
[2019-12-07] MEDS: HYDROCORTISONE SOD SUCCINATE 100 MG/2 ML VIAL IV SCH (09:13)
[2019-12-07] MEDS: HYDROGEL DRESSING 90 GM TUBE TP SCH (09:29)
[2019-12-07] MEDS: MEROPENEM 500 MG in IV NS 0.9% 100 ML IV SCH ×2 (10:56→23:02)
--- NOTE | 2019-12-07 11:40 | NUR ---
RN NOTES CALLED SURGERY FOR THE SCHEDULE OF PEG PLACEMENT AND IT WAS CONFIRMED BY KENZIE.IT WILL BE TOMORROW @8AM. INFORMED CHARGE NURSE LULU AND DR. MARCELINO IS AWARE.
[2019-12-07 12:00] VITALS: BP 130/68
[2019-12-07 16:00] VITALS: BP 130/59
--- NOTE | 2019-12-07 19:55 | NUR ---
RT NOTE PT RECEIVED ON COOL AEROSOL @ 28%. PT AWAKE/ALERT. SX DONE, TRACH SECURED AND PATENT. CONT. PULSE OX CONNECTED. NO SOB NOTED. WATER LEVEL GOOD. WILL MONITOR. Addendum: 12/07/19 at 2316 by JOSE MANUEL JIANG RT Amended: Links added.
--- NOTE | 2019-12-07 19:55 | NUR ---
RN CLOSING NOTES PATIENT IN BED OBTUNDED, ON COOL AEROSOL, NO SOB/ACUTE DISTRESS NOTED, TOLERATING SETTINGS WELL, ON ORAL GTF, ON GLUCERNA 1.2 @50 ML/HR INFUSING WELL AND PATIENT TOLERATING WELL, ANTHONY PICC LINE IN PLACED, PATENT AND INTACT, REPOSITIONED PER PROTOCOL, DRY AND CLEAN, BED LOCKED AND LOW POSITION, S/P TRACHEOSTOMY, NO ACTIVE BLEEDING NOTED AT SITE. FOR TUBE PLACEMENT TOMORROW @8AM UNDER DR CUBA. NPO AFTER MIDNIGHT. ENDORSED TO PM NURSE FOR JOZEF.
[2019-12-07 20:00] VITALS: BP 149/55
--- NOTE | 2019-12-07 21:00 | NUR ---
TRIP LIPSCOMB DISCONTINUED PATIENT TEMP 99.3 AXILLARY
[2019-12-07] MEDS: MIRTAZAPINE 15 MG TABLET GT SCH (23:38)
[2019-12-08] VITALS (7 sets, daily range): BP systolic 112–188; BP diastolic 62–89
--- NOTE | 2019-12-08 | NUR ---
TUBE FEEDING STOPPED. PATIENT NPO FOR PEG PLACEMENT SCHEUDLED AT 8AM.
[2019-12-08] MEDS: BLOOD SUGAR DIAGNOSTIC 1 EACH STRIP IN SCH ×5 (00:10→23:22)
[2019-12-08] MEDS: VANCOMYCIN 1 GM in IV D5W 250 ML IV SCH (00:10)
--- NOTE | 2019-12-08 01:57 | NUR ---
RESTRAINTS REMOVED DURING SHIFT PATIENT HAS NOT BEEN SEEN TO ATTEMPT TO REMOVED IV LINES OR TUBES. RESTRAINTS REMOVED WILL CONT TO MONITOR.
[2019-12-08] MEDS: INSULIN REGULAR, HUMAN 100 UNIT/ML 3 ML VIAL SQ PRN ×4 (06:08→23:32)
--- NOTE | 2019-12-08 06:50 | NUR ---
RN PM CLOSING NOTE PATIENT BEEN NPO SINCE MIDNIGHT. ORAL GTUBE STILL IN PLACE PATENT AUSCULTATED FOR PLACEMENT. PREOP CHECK LIST PERFORMED. PATIENT STILL SCHEDULED TO HAVE PEG TUBE PLACEMENT TODAY AT 0800. BED DOWN LOCKED ON AIR MATTRESS SRX3. PATIENT IN NO APPARENT DISTRESS OR PAIN. IV HEPLOCED IN ANTICIPATION OF GOING TO OR. LEFT PICC LINE FLUSING INTACT PATENT WITH GOOD BLOOD RETURN. WILL ENDORSE STATUS TO AM SHIFT.
[2019-12-08] MEDS: LEVOTHYROXINE SODIUM 50 MCG TABLET GT SCH (07:30)
--- NOTE | 2019-12-08 07:51 | NUR ---
RN OPENING NOTES RECEIVED PATIENT IN BED, AWAKE,NOT VERBALLY RESPONSIVE BUT OPEN EYES AND RESPONSE TO TACTILE STIMULI. NO FACIAL GRIMACING NOTED. ON NPO STATUS. KENTRELL PICC LINE INTACT AND PATENT. NO SIGNS OF INFILTRATION. JOHNSON CATHETER DRAINING VIA GRAVITY WITH 10ML URINE OUTPUT ON THE BAG. NO ACUTE DISTRESS NOTED AT THE MOMENT. BED IN LOWEST POSITION AND LOCKED. CALL LIGHT WITHIN REACH. WILL CONTINUE TO MONITOR
[2019-12-08 08:02] LABS: BASOPHILS # (AUTO) 0.1 /CMM (0.0-0.2); BASOPHILS % (AUTO) 0.6 % (0.0-2.0); EOSINOPHILS % (AUTO) 3.9 % (0.0-6.0); HEMATOCRIT 27 % (39-51); HEMOGLOBIN 8.3 g/dL (13.5-17.5); LYMPHOCYTES # (AUTO) 1.7 /CMM (0.8-4.8); LYMPHOCYTES % (AUTO) 10.7 % (20.0-44.0); MEAN CORPUSCULAR HGB CONC 31 g/dl (31.0-36.0); MEAN CORPUSCULAR VOLUME 76 fL (80-96); MONOCYTES # (AUTO) 1.6 /CMM (0.1-1.30); MONOCYTES % (AUTO) 10.3 % (2.0-12.0); NEUTROPHILS # (AUTO) 11.7 /CMM (1.8-8.9); NEUTROPHILS % (AUTO) 74.5 % (43.0-81.0); PLATELET COUNT (AUTO) 486 /CMM (150-450); RED BLOOD CELL COUNT(AUTO) 3.48 MIL/uL (4.5-6.0); WHITE BLOOD COUNT (AUTO) 15.7 K/uL (4.3-11.0)
[2019-12-08] MEDS: PANTOPRAZOLE 40 MG/PACK PACK GT SCH (08:24)
[2019-12-08] MEDS: TAMSULOSIN 0.4 MG CAP.SR.24H GT SCH (08:24)
[2019-12-08] MEDS: GABAPENTIN 300 MG CAPSULE GT SCH ×3 (08:24→18:00)
[2019-12-08 08:41] LABS: CALCIUM, SERUM 7.6 mg/dL (8.5-10.1); CARBON DIOXIDE 26 mmol/L (21-32); CHLORIDE 113 mmol/L (98-107); CREATININE 1.7 mg/dL (0.6-1.3); GLUCOSE 236 mg/dL (74-106); POTASSIUM 4.2 mmol/L (3.5-5.1); SODIUM SERUM 147 mmol/L (136-145); UREA NITROGEN, BLOOD 51 mg/dL (7-18)
[2019-12-08] MEDS: HYDROGEL DRESSING 90 GM TUBE TP SCH (09:00)
[2019-12-08] MEDS: MEROPENEM 500 MG in IV NS 0.9% 100 ML IV SCH ×2 (09:46→20:43)
[2019-12-08] MEDS: HYDROCORTISONE SOD SUCCINATE 100 MG/2 ML VIAL IV SCH (09:46)
--- NOTE | 2019-12-08 10:53 | NUR ---
RN NOTES PATIENT PICKED UP BY SURGERY FOR PEG PLACEMENT, IN STABLE CONDITION. SPOKE WITH KELSEY AT THE SURGERY, ENDORSED ALL CONSENTS.
[2019-12-08 11:35] LABS: BAND % (MANUAL) 1 % (0.0-5.0); EOSINOPHILS % (MANUAL) 1 % (0-4); LYMPHOCYTES % (MANUAL) 13 % (16-48); MONOCYTES % (MANUAL) 8 % (0-11.0); MYELOCYTES % 2 % (0-0); NEUTROPHILS % (MANUAL) 75 (42-76)
--- NOTE | 2019-12-08 11:35 | NUR ---
RN NOTES PATIENT CAME BACK FROM PEG PLACEMENT. VITAL SIGNS STABLE. IN NO ACUTE DISTRESS. OPEN EYES WHEN BEING ASKED. PEG TUBE INTACT, PATENT. NO RESIDUAL NOTED. ALL PRE OP ORDERS TO RESUME PER DR CUBA. WILL CONTINUE TO MONITOR.
--- NOTE | 2019-12-08 19:10 | NUR ---
assembling motor builder opening notes Received Pt from morning nurse. Pt is resting in bed comfortably, non verbal and able to respond to tactile stimuli. Respiration is normal. No SOB. No S/S of distress noted. Tele monitor showed sinus charly HR at 54. ANTHONY PICC line is clean, intact, patent and SL. Turning and repositioning Q 2 Hr. Elevated HOB. Henson cath is intact and draining clear yellow urine. PEG tube is clean, intact and patent. Safety precautions is maintained. Bed at low position, brakes locked, side rails upX3 and call light is within reach. Will continue to monitor.
--- NOTE | 2019-12-08 19:35 | NUR ---
RN CLOSING NOTES PATIENT IN BED OBTUNDED, ON COOL AEROSOL, NO SOB/ACUTE DISTRESS NOTED, TOLERATING SETTINGS WELL, PEG TUBE IN PLACE, NO RESIDUAL NOTED. ANTHONY PICC LINE IN PLACED, PATENT AND INTACT, REPOSITIONED PER PROTOCOL, DRY AND CLEAN, BED LOCKED AND LOW POSITION, S/P PEG PLACEMENT NO ACTIVE BLEEDING NOTED AT SITE. START @8PM GLUCERNA 1.2 @30ML/HR INCREASE 10ML Q4H UNTIL REACH GOAL 65ML/HR. ENDORSED TO PM NURSE FOR JOZEF.
[2019-12-08] MEDS: GLUCERNA 1.2 1,000 ML BOTTLE NG PRN (20:06)
--- NOTE | 2019-12-08 20:30 | NUR ---
flour distributor notes Pt's HR is 54bpm and asymptomatic. Lungs sounds is diminished but no wheezeing. Suctioned Pt multiple times, repositioned Pt and changed pulse ox. Rt called and came. Informed and notified Dr. Matt about Pt's Hr is 54 bpm sinus charly. Received order for EKG stats and albuterol treatment 2.5/Q 6Hr/PRN. Charge nurse is informed and aware. Order carried out.
[2019-12-08] MEDS ORDERED: ALBUTEROL FS 2.5 MG/0.5 ML VIAL.NEB NEB PRN (21:00)
--- NOTE | 2019-12-08 21:00 | NUR ---
clay digger notes Called and informed Dr. Matt about Pt's EKG result was Afib with HR 52. MD order EKG in am and troponin1 in am. Charge nurse is aware and informed. Orders carried out. Will continue to monitor.
[2019-12-08] MEDS: MIRTAZAPINE 15 MG TABLET GT SCH (21:46)
[2019-12-09] VITALS (7 sets, daily range): BP systolic 127–166; BP diastolic 73–83
[2019-12-09] MEDS: BLOOD SUGAR DIAGNOSTIC 1 EACH STRIP IN SCH ×3 (05:16→17:19)
[2019-12-09] MEDS: INSULIN REGULAR, HUMAN 100 UNIT/ML 3 ML VIAL SQ PRN ×3 (05:20→17:19)
[2019-12-09 06:35] LABS: BASOPHILS # (AUTO) 0.1 /CMM (0.0-0.2); BASOPHILS % (AUTO) 0.9 % (0.0-2.0); EOSINOPHILS % (AUTO) 5.9 % (0.0-6.0); HEMATOCRIT 25 % (39-51); HEMOGLOBIN 7.9 g/dL (13.5-17.5); LYMPHOCYTES # (AUTO) 1.6 /CMM (0.8-4.8); LYMPHOCYTES % (AUTO) 19.2 % (20.0-44.0); MEAN CORPUSCULAR HGB CONC 32 g/dl (31.0-36.0); MEAN CORPUSCULAR VOLUME 77 fL (80-96); MONOCYTES % (AUTO) 11.8 % (2.0-12.0); NEUTROPHILS # (AUTO) 5.3 /CMM (1.8-8.9); NEUTROPHILS % (AUTO) 62.2 % (43.0-81.0); PLATELET COUNT (AUTO) 394 /CMM (150-450); RED BLOOD CELL COUNT(AUTO) 3.23 MIL/uL (4.5-6.0); WHITE BLOOD COUNT (AUTO) 8.5 K/uL (4.3-11.0)
[2019-12-09 06:39] LABS: CALCIUM, SERUM 7.9 mg/dL (8.5-10.1); CARBON DIOXIDE 27 mmol/L (21-32); CHLORIDE 115 mmol/L (98-107); CREATININE 1.6 mg/dL (0.6-1.3); GLUCOSE 162 mg/dL (74-106); POTASSIUM 4.4 mmol/L (3.5-5.1); SODIUM SERUM 150 mmol/L (136-145); UREA NITROGEN, BLOOD 48 mg/dL (7-18)
--- NOTE | 2019-12-09 06:40 | NUR ---
shrub grower closing notes Pt is resting in bed comfortably. Respiration is normal in cool aerosol. No SOB. No S/S of distress. NATHONY PICC line #18 is clean, intact and patent. Tele monitor showed sinus charly HR at 56. Routine meds were given as ordered. PEG tube is clean, intact and running glucerna 1.2 at 45ml/hr. Pt tolerated well. Henson cath is intact, patent and draining yellow urine. Kept Pt clean, dry and comfortable. Wound care provided as ordered. Turned and repositioned Q 2 hr. HOB elevated. All needs met and attended. Safety precautions is maintained. Bed at low positioned, brakes locked, side rails upX3 and call light is within reach. Will endorse to morning nurse for JOZEF.
--- NOTE | 2019-12-09 07:24 | NUR ---
DIRECTOR FINANCIAL ANALYSIS OPENING NOTES RECEIVED PATIENT AWAKE IN BED IN NO ACUTE SIGNS OF DISTRESS. HOB ELEVATED. NON-VERBAL. OPEN HIS EYES AND RESPONSIVE TO TACTILE STIMULI, NO FACIAL GRIMACING NOTED AT THIS TIME. CONTACT PRECAUTIONS MAINTAINED. PT ON COOL AEROSOL TRACH, TOLERATING WELL WITH NO SOB NOTED. TELEMONITORING SHOWS SB/SR WITH HR ON THE 50-60'S. TIPPLE LUMEN PICC LINE ON ANTHONY INTACT AND PATENT. G-TUBE IN PLACE AND PATENT WITH FEEDING OF GLUCERNA 1.2 RUNNING AT 45ML/HR @THIS TIME, TOLERATING WELL. ASPIRATION PRECAUTIONS MAINTAINED. JOHNSON IN PLACE AND ACTIVELY DRAINING CLEAR YELLOW URINE OUTPUT. SAFETY MEASURES IN PLACE. BED IN LOW LOCKED SETTING WITH SR UP X3. CALL LIGHT WITHIN REACH. WILL CONTINUE TO MONITOR
[2019-12-09] MEDS: LEVOTHYROXINE SODIUM 50 MCG TABLET GT SCH (07:36)
[2019-12-09] MEDS: MEROPENEM 500 MG in IV NS 0.9% 100 ML IV SCH (08:18)
[2019-12-09] MEDS: PANTOPRAZOLE 40 MG/PACK PACK GT SCH (08:19)
[2019-12-09] MEDS: GABAPENTIN 300 MG CAPSULE GT SCH ×3 (08:19→16:24)
[2019-12-09] MEDS: TAMSULOSIN 0.4 MG CAP.SR.24H GT SCH (08:19)
[2019-12-09] MEDS: HYDROCORTISONE SOD SUCCINATE 100 MG/2 ML VIAL IV SCH (08:19)
[2019-12-09] MEDS: HYDROGEL DRESSING 90 GM TUBE TP SCH (08:20)
[2019-12-09] MEDS ORDERED: IV D5W 1,000 ML IV PRN (09:51)
[2019-12-09] MEDS ORDERED: RXVAN XX (10:56)
[2019-12-09] MEDS ORDERED: MERO500P IV (10:56)
[2019-12-09 16:33] LABS: CALCIUM, SERUM 7.9 mg/dL (8.5-10.1); CARBON DIOXIDE 28 mmol/L (21-32); CHLORIDE 114 mmol/L (98-107); CREATININE 1.5 mg/dL (0.6-1.3); GLUCOSE 143 mg/dL (74-106); SODIUM SERUM 148 mmol/L (136-145); UREA NITROGEN, BLOOD 47 mg/dL (7-18)
[2019-12-09] MEDS: GLUCERNA 1.2 1,000 ML BOTTLE NG PRN (17:47)
--- NOTE | 2019-12-09 17:51 | NUR ---
RN NOTES BMP BLOOD WORK DONE THIS AFTERNOON. SODIUM LEVEL WENT DOWN TO [address] MARCELINO MADE AWARE AND ORDERED TO CONTINUE TO [facility]GE [facility]. SILVINO MALIHA AWARE AND PLACE PT FOR 1999 PICK-UP. .
--- NOTE | 2019-12-09 18:48 | NUR ---
TELEMETRY NURSE CLOSING NOTES PT IN BED LYING AT MODERATE HIGH BACKREST POSITION. NON-VERBAL. OPEN HIS EYES AND RESPONSIVE TO TACTILE STIMULI. CONTACT PRECAUTIONS FOR WOUND MAINTAINED. PT ON COOL AEROSOL T-PIECE TRACH, TOLERATING WELL WITH NO SOB NOTED. TELEMONITORING SHOWS SB/SR WITH HR ON THE 50-60'S. TIPPLE LUMEN PICC LINE ON ANTHONY INTACT AND PATENT. G-TUBE IN PLACE AND PATENT WITH FEEDING OF GLUCERNA 1.2 RUNNING AT 65ML/HR, TOLERATING WELL. ASPIRATION PRECAUTIONS MAINTAINED. JOHNSON IN PLACE AND ACTIVELY DRAINING CLEAR YELLOW URINE OUTPUT, JOHNSON CARE DONE. PT TURNED AND REPOSITIONED Q 2HRS AND PRN. KEPT CLEAN, DRY AND COMFORTABLE. ALL DUE NURSING CARE DONE AND MAINTAINED. SAFETY MEASURES KEPT IN PLACE. BED IN LOW LOCKED POSITION WITH SR UP X3. CALL LIGHT WITHIN REACH. PT FOR DISCHARGE TO [facility], PICK-UP TIME IS AT 1999. RREPORT GIVEN TO RNS JUDSON. WILL ENDORSED TO ACTIVITY THERAPIST NURSE FOR JOZEF.
--- NOTE | 2019-12-09 19:07 | NUR ---
NOTIFIED FAMILY OF PT'S DISCHARGE TO [facility] SPOKE WITH MAURO
--- NOTE | 2019-12-09 19:58 | NUR ---
GAVE REPORT TO WILLIE FROM AMBUL UNIT 168 BP 165/84. LYLY CASILLAS NOT[facility]IED AT [facility], STATED THEY WILL STILL ACCEPT THE PT.
--- NOTE | 2019-12-09 20:15 | NUR ---
LEFT UNIT VIA GURNEY IN STABLE CONDITION
== END 2019-12-09 20:15 | DRG 3 ==
LOC: ER 14:59 → MED 18:12 → TELE 18:37 → MED 11-19 09:06 → ICU 11-25 05:57 → TELE-TD 12-03 18:39 → TELE1 12-03 19:07
PROVIDERS: ADMIT Internal Medicine; ATTEND Family Medicine
PROC: 0KBT0ZZ Excision of Left Lower Leg Muscle, Open Approach (ICD-10-PCS; principal; 2019-11-19)
PROC: 0JB70ZZ Excision of Back Subcutaneous Tissue and Fascia, Open Approach (ICD-10-PCS; 2019-11-19)
PROC: 0DB98ZX Excision of Duodenum, Via Natural or Artificial Opening Endoscopic, Diagnostic (ICD-10-PCS; 2019-11-22)
PROC: 5A1955Z Respiratory Ventilation, Greater than 96 Consecutive Hours (ICD-10-PCS; 2019-11-25)
PROC: 0BH18EZ Insertion of Endotracheal Airway into Trachea, Via Natural or Artificial Opening Endoscopic (ICD-10-PCS; 2019-11-25)
PROC: 30233N1 Transfusion of Nonautologous Red Blood Cells into Peripheral Vein, Percutaneous Approach (ICD-10-PCS; 2019-11-25)
PROC: 02HV33Z Insertion of Infusion Device into Superior Vena Cava, Percutaneous Approach (ICD-10-PCS; 2019-11-25)
PROC: B548ZZA Ultrasonography of Superior Vena Cava, Guidance (ICD-10-PCS; 2019-11-25)
PROC: 0JB70ZZ Excision of Back Subcutaneous Tissue and Fascia, Open Approach (ICD-10-PCS; 2019-11-27)
PROC: 0B113F4 Bypass Trachea to Cutaneous with Tracheostomy Device, Percutaneous Approach (ICD-10-PCS; 2019-12-03)
PROC: 0JB70ZZ Excision of Back Subcutaneous Tissue and Fascia, Open Approach (ICD-10-PCS; 2019-12-07)
PROC: 0DH63UZ Insertion of Feeding Device into Stomach, Percutaneous Approach (ICD-10-PCS; 2019-12-08)
DX: A41.9 Sepsis, unspecified organism (principal); L89.153 Pressure ulcer of sacral region, stage 3; E43 Unspecified severe protein-calorie malnutrition; G92 Toxic encephalopathy; N17.0 Acute kidney failure with tubular necrosis; R65.21 Severe sepsis with septic shock; J96.01 Acute respiratory failure with hypoxia; I46.9 Cardiac arrest, cause unspecified; N39.0 Urinary tract infection, site not specified; I69.351 Hemiplegia and hemiparesis following cerebral infarction affecting right dominant side; E11.52 Type 2 diabetes mellitus with diabetic peripheral angiopathy with gangrene; E87.2 Acidosis; J90 Pleural effusion, not elsewhere classified; J98.11 Atelectasis; L97.429 Non-pressure chronic ulcer of left heel and midfoot with unspecified severity; E27.40 Unspecified adrenocortical insufficiency; I42.9 Cardiomyopathy, unspecified; E87.0 Hyperosmolality and hypernatremia; E87.1 Hypo-osmolality and hyponatremia; M86.9 Osteomyelitis, unspecified; N13.8 Other obstructive and reflux uropathy; Z16.12 Extended spectrum beta lactamase (ESBL) resistance; I12.9 Hypertensive chronic kidney disease with stage 1 through stage 4 chronic kidney disease, or unspecified chronic kidney disease; N18.9 Chronic kidney disease, unspecified; E11.22 Type 2 diabetes mellitus with diabetic chronic kidney disease; K21.9 Gastro-esophageal reflux disease without esophagitis; E11.69 Type 2 diabetes mellitus with other specified complication; E11.621 Type 2 diabetes mellitus with foot ulcer; E11.40 Type 2 diabetes mellitus with diabetic neuropathy, unspecified; E11.36 Type 2 diabetes mellitus with diabetic cataract; E87.6 Hypokalemia; F03.90 Unspecified dementia, unspecified severity, without behavioral disturbance, psychotic disturbance, mood disturbance, and anxiety; F32.9 Major depressive disorder, single episode, unspecified; H40.9 Unspecified glaucoma; R13.10 Dysphagia, unspecified; Z83.3 Family history of diabetes mellitus; D69.6 Thrombocytopenia, unspecified; E03.9 Hypothyroidism, unspecified; E78.5 Hyperlipidemia, unspecified; Z88.7 Allergy status to serum and vaccine; Z79.4 Long term (current) use of insulin; Z79.82 Long term (current) use of aspirin; Z79.899 Other long term (current) drug therapy; B96.20 Unspecified Escherichia coli [E. coli] as the cause of diseases classified elsewhere; D50.0 Iron deficiency anemia secondary to blood loss (chronic); K29.70 Gastritis, unspecified, without bleeding; K29.80 Duodenitis without bleeding; K44.9 Diaphragmatic hernia without obstruction or gangrene; M12.9 Arthropathy, unspecified; M48.00 Spinal stenosis, site unspecified; N40.1 Benign prostatic hyperplasia with lower urinary tract symptoms; S70.321A Blister (nonthermal), right thigh, initial encounter; X58.XXXA Exposure to other specified factors, initial encounter; Y92.9 Unspecified place or not applicable; T38.0X5A Adverse effect of glucocorticoids and synthetic analogues, initial encounter; R26.9 Unspecified abnormalities of gait and mobility; Z82.49 Family history of ischemic heart disease and other diseases of the circulatory system; Z79.01 Long term (current) use of anticoagulants
CPT/HCPCS: 31720; 36415; 36569; 36600; 43246; 71045-TC; 73620-TC; 80048-TC; 80053-TC; 80061-TC; 80076-TC; 80202-TC; 81000-TC; 82272-TC; 82533; 82570-TC; 82728-TC; 82803-TC; 82962-TC; 83540-TC; 83605-TC; 83735-TC; 83880; 84100-TC; 84155-TC; 84300-TC; 84439-TC; 84443-TC; 84481; 84484-TC; 85025-TC; 85027-TC; 85730-TC; 86850-TC; 86921-TC; 87040-TC; 87070-TC; 87081-TC; 87086-TC; 87186-TC; 88305-TC; 92521; 92526; 93307-TC; 93970-TC; 94002-TC; 94003-TC; 94640-TC; 94760-TC; 94762-TC; 94799-TC; A4216; A6248; A6253; A6403; A7526; C9113; G0378; J0171; J0461; J0690; J1720; J1815; J2185; J2543; J2704; J2765; J3370; J3475; J3480; J3490; J7030; J7040; J7042; J7050; J7060; J7070; J8597; P9016-BL

== ENCOUNTER 2019-12-15 03:01 | Inpatient (IN) | payer MEDICARE, MEDICAID ==
[~2019-12-15] VITALS: Ht 182.9 cm; Wt 89.4 kg
[2019-12-15] VITALS (40 sets, daily range): BP systolic 91–229; BP diastolic 38–142
[~2019-12-15 03:01] MED LIST changes: +ACET-868 GT; +AMLO5TAB4 GT; -AMLO5TAB4 PO; +APIX5TAB GT; -APIX5TAB4 PO; +ASPI-1169 GT; -ASPI-1169 PO; +BISA10SU11 RC; +CHOL100045 GT; -CHOL200026 PO; +DOCU-141 GT; -DOCU-141 PO; +GABA-534 GT; -GABA300C PO; +HYDR-4076 GT; -HYDR20VI4 IJ; +INSU100V27 SQ; -LEVO25TA7 GT; +LEVO50TA8 GT; +MAGN400O6 GT; +MERO500P IV; +METO-295 GT; -METO-295 PO; -MIRT15TA GT; +MIRT15TA7 GT; +NA P133E RC; +RXVAN XX
--- NOTE | 2019-12-15 03:14 | NUR ---
PATIENT CAME TO ER BED 9 BIB EMS C/O ABNORMAL LABS. [facility] LOW HEMOGLOBIN NOTED TO BE 6.4, PATIENT ALSO HAS THICK BLOODY SECRETION FROM THE TRACHEOSTOMY. PT HAS A TRACHEOSTOMY, G-TUBE, AND A JOHNSON CATHETER. PT IS AWAKE AND RESPONSIVE TO VERBAL AND MECHANICAL STIMULI. CONNECTED TO FOREIGN EXCHANGE TRADER.
[2019-12-15] MEDS ORDERED: IV NS 0.9% 1,000 ML BAG IV ONE (03:30)
[2019-12-15 03:53] LABS: BASOPHILS # (AUTO) 0.1 /CMM (0.0-0.2); BASOPHILS % (AUTO) 0.9 % (0.0-2.0); EOSINOPHILS % (AUTO) 6.2 % (0.0-6.0); HEMATOCRIT 21 % (39-51); LYMPHOCYTES % (AUTO) 15.1 % (20.0-44.0); MEAN CORPUSCULAR HGB CONC 31 g/dl (31.0-36.0); MEAN CORPUSCULAR VOLUME 78 fL (80-96); MONOCYTES # (AUTO) 0.4 /CMM (0.1-1.30); MONOCYTES % (AUTO) 6.6 % (2.0-12.0); NEUTROPHILS # (AUTO) 4.5 /CMM (1.8-8.9); NEUTROPHILS % (AUTO) 71.2 % (43.0-81.0); PLATELET COUNT (AUTO) 215 /CMM (150-450); RED BLOOD CELL COUNT(AUTO) 2.74 MIL/uL (4.5-6.0); WHITE BLOOD COUNT (AUTO) 6.3 K/uL (4.3-11.0)
[2019-12-15 03:58] LABS: CALCIUM, SERUM 8.2 mg/dL (8.5-10.1); CARBON DIOXIDE 26 mmol/L (21-32); CHLORIDE 103 mmol/L (98-107); CREATININE 1.4 mg/dL (0.6-1.3); GLUCOSE 141 mg/dL (74-106); HEMOGLOBIN 6.7 g/dL (13.5-17.5); POTASSIUM 6.1 mmol/L (3.5-5.1); SODIUM SERUM 133 mmol/L (136-145); UREA NITROGEN, BLOOD 72 mg/dL (7-18)
[2019-12-15 04:03] LABS: ALANINE AMINOTRANSFERASE 37 U/L (12-78); ALKALINE PHOSPHATASE 108 U/L (46-116); ASPARTATE AMINOTRANSFERASE 51 U/L (15-37); BILIRUBIN,TOTAL 0.2 mg/dL (0.2-1.0); LIPASE 106 U/L (73-393); TOTAL PROTEIN, SERUM 4.1 g/dL (6.4-8.2)
[2019-12-15 04:04] LABS: ALBUMIN 1.2 g/dL (3.4-5.0)
--- NOTE | 2019-12-15 04:24 | NUR ---
RT CALLED TO ADMINISTER MEDICATION.
[2019-12-15] MEDS ORDERED: SODIUM POLYSTYRENE SULFONATE 15 G/60 ML BOTTLE PO ONE (04:30)
[2019-12-15] MEDS ORDERED: ALBUTEROL FS 2.5 MG/3 ML VIAL.NEB NEB ONE (04:30)
[2019-12-15] MEDS ORDERED: CALCIUM CHLORIDE 1,000 MG/10 ML DISP.SYRIN IV ONE (04:30)
--- NOTE | 2019-12-15 04:38 | NUR ---
PATIENT GIVEN A CLIFFORD-HUGGER FOR HYPOTHERMIC REASONS.
[2019-12-15] MEDS ORDERED: SODIUM POLYSTYRENE SULFONATE 15 G/60 ML BOTTLE ONE (04:49)
[2019-12-15] MEDS ORDERED: CALCIUM CHLORIDE 1,000 MG/10 ML DISP.SYRIN ONE (04:49)
--- NOTE | 2019-12-15 05:00 | NUR ---
BLOOD TRANSFUSION CONSENT OBTAINED
[2019-12-15] MEDS ORDERED: ALBUTEROL FS 2.5 MG/3 ML VIAL.NEB ONE (05:16)
--- NOTE | 2019-12-15 05:17 | NUR ---
RT AT BEDSIDE.
--- NOTE | 2019-12-15 05:30 | NUR ---
1 UNIT OF BLOOD TRANSFUSION STARTED
[2019-12-15 05:44] LABS: BAND % (MANUAL) 3 % (0.0-5.0); EOSINOPHILS % (MANUAL) 8 % (0-4); LYMPHOCYTES % (MANUAL) 17 % (16-48); MONOCYTES % (MANUAL) 6 % (0-11.0); NEUTROPHILS % (MANUAL) 66 (42-76)
--- NOTE | 2019-12-15 06:31 | NUR ---
REPORT GIVEN TO REVA CASILLAS FOR JOZEF.
--- NOTE | 2019-12-15 06:45 | NUR ---
Received 84 Years old male in [facility] unit. Patient currently receiving PRBC. Low temperature 91.4, Axillary, on Carmita hugger high settings. Breathing even and unlabored. No SOB noted. Trach site noted with active bleeding, On O2 5LPM, saturation 97%. Awake, open eyes, A/O x0. no S/S of pain noted, no facial grimacing. body assessment not done due to patient low temperature. bed at the lowest locked position. Call light within reach. Will Endorse to AM shift nurse for JOZEF.
--- NOTE | 2019-12-15 07:30 | NUR ---
RN NOTES RECEIVED PATIENT RESTING IN BED COMFORTABLY FROM ED. PT IS OBTUNDED, NON-VERBAL, AND BEDBOUND. HE IS ON COOL AEROSOL VIA TRACH. ONE UNIT OF RBC IS STILL TRANSFUSING TO ANTHONY PICC LINE, STARTED IN ED. PT HAS ACTIVE BLEEDING AT TRACH SITE, HGB LEVEL LOW. MULTIPLE SKIN ISSUES THROUGHOUT, PENDING WOUND CONSULT. PT IS FC STATUS. PT HAS HEATING BLANKET DUE TO HYPOTHERMIA. [facility] CATH IS INTACT. SAFETY MEASURES HAVE BEEN IMPLEMENTED, CALL LIGHT IS WITHIN REACH, BED IS IN LOWEST AND LOCKED POSITION, SIDE RAILS UP X2, WILL CONTINUE TO MONITOR FOR ANY CHANGES.
[2019-12-15] MEDS ORDERED: MERO500V21 IV (07:51)
[2019-12-15] MEDS ORDERED: OMEP20CA15 GT (07:51)
[2019-12-15] MEDS ORDERED: AMIN30LI2 GT (07:51)
[2019-12-15] MEDS ORDERED: NUTR1PAC14 GT (07:51)
[2019-12-15] MEDS ORDERED: HYDR-4384 GT (07:51)
[2019-12-15] MEDS ORDERED: BLOO-668 IN (07:51)
[2019-12-15] MEDS ORDERED: MULT-447 GT (07:51)
[2019-12-15] MEDS ORDERED: IPRA3AMP23 IH ×2 (07:51)
[2019-12-15] MEDS ORDERED: NUT.237L30 GT (07:51)
[2019-12-15] MEDS ORDERED: ZINC1CAP2 GT (07:51)
[2019-12-15] MEDS ORDERED: VIT500LI GT (07:51)
[2019-12-15] MEDS ORDERED: VANC1VIA IV (07:51)
[2019-12-15] MEDS ORDERED: IV NS 0.9% 1,000 ML BAG IV PRN (09:00)
--- NOTE | 2019-12-15 10:00 | NUR ---
RN NOTES PT BP DROPPED TO 79/47. NOTIFIED VIOLA RICH, RECEIVED ORDERS FOR STAT CBC, ABG, AND BOLUS OF 500 ML NS, WILL CONTINUE TO MONITOR.
[2019-12-15 10:11] LABS: ABG BASE EXCESS -1.5 mmol/L; ABG OXYGEN SATURATION 96.7 % (92.0-98.5); ABG PCO2 39.2 mmHg (35.0-45.0); ABG PH 7.392 (7.350-7.450); ABG PO2 103.6 mmHg (75.0-100.0); AaDO2 136.5 mmHg; COHb 1.1 % (0.5-1.5); MetHb 0.8 % (0.0-1.5); O2Hb 94.9 % (94.0-97.0); SITE, ABG Left Radial
[2019-12-15] MEDS: IV NS 0.9% 1,000 ML IV PRN (10:26)
[2019-12-15] MEDS ORDERED: IPRATROPIUM NEB FS 0.5 MG/2.5 ML AMPUL.NEB NEB PRN (10:30)
[2019-12-15] MEDS ORDERED: ONDANSETRON HCL/PF 4 MG/2 ML VIAL IVP PRN (10:30)
[2019-12-15] MEDS ORDERED: ALBUTEROL FS 2.5 MG/0.5 ML VIAL.NEB NEB PRN (10:30)
[2019-12-15] MEDS ORDERED: Z GUARD REMEDY 2 OZ OINT TP PRN (10:30)
[2019-12-15] MEDS ORDERED: ACETAMINOPHEN 650 MG/SUPP.RECT RC PRN (10:30)
[2019-12-15] MEDS ORDERED: NOREPINEPHRINE 8 MG in IV D5W 500 ML IV PRN (10:30)
[2019-12-15 10:37] LABS: BASOPHILS # (AUTO) 0.1 /CMM (0.0-0.2); BASOPHILS % (AUTO) 1.1 % (0.0-2.0); EOSINOPHILS % (AUTO) 4.9 % (0.0-6.0); HEMATOCRIT 22 % (39-51); LYMPHOCYTES # (AUTO) 0.8 /CMM (0.8-4.8); LYMPHOCYTES % (AUTO) 11.7 % (20.0-44.0); MEAN CORPUSCULAR HGB CONC 32 g/dl (31.0-36.0); MEAN CORPUSCULAR VOLUME 78 fL (80-96); MONOCYTES # (AUTO) 0.4 /CMM (0.1-1.30); MONOCYTES % (AUTO) 6.3 % (2.0-12.0); NEUTROPHILS # (AUTO) 5.1 /CMM (1.8-8.9); PLATELET COUNT (AUTO) 196 /CMM (150-450); RED BLOOD CELL COUNT(AUTO) 2.76 MIL/uL (4.5-6.0); WHITE BLOOD COUNT (AUTO) 6.7 K/uL (4.3-11.0)
--- NOTE | 2019-12-15 10:45 | NUR ---
RN NOTES PT TO BE TRANSFERRED TO ICU RM [id number], NEEDS MECHANICAL VENT SUPPORT AND 2 UNIT RBC TRANSFUSION
--- NOTE | 2019-12-15 10:45 | NUR ---
RT END OF THE SHIFT NOTE. PT. 84 Y OLD MALE REC/ @ 0700 AM PT. AWAKE, TRACH'D SHILEY # 8 ON AEROSOL, EQUAL CHEST RISE NOTED. B/S BILATERALLY RALES AND RHONCHI SUX'S FOR MOD. AMT. OF THIN REDDISH BLOODY SECRETIONS. POST ABG ORDER PER VIOLA POST ABG RESULTS REPORTED TO MD/RN @ 1045 PT. TRANSFERRED TO ICU PLACED ON VENT PER VIOLA ORDER CONTAINER WASHER AT THE BEDSIDE. ORDERED CONFIRMED. POST [facility] C[facility] PT. CHECKED IN ICU VENT CHECKED DONE SETTINGS REMAIN ON ( AC RR 16, VT 500 FIO2 35%, PEEP +5 ) STABLE, POST X2 ABG RESULTS PASSED TO RN, AND NO CHANGES WAS ORDERED PER MD. VENT PLUGGED INTO RED OUT LET. PT. VIRGIL. WELL AND NO DISTRESS NOTED. AMBU BAG AT THE BEDSIDE PT. REMAIN STABLE. REPORT WILL PASS TO PM SHIFT. Addendum: 12/15/19 at 1835 by ROSEMARY PABLO RT Amended: Links added.
[2019-12-15 10:52] LABS: HEMOGLOBIN 6.8 g/dL (13.5-17.5)
[2019-12-15] MEDS ORDERED: DEXTROSE 50%-WATER 50 ML DISP.SYRIN IV PRN (11:00)
--- NOTE | 2019-12-15 11:02 | NUR ---
RT NOTE Pt rec'd trached on 40% FIO2 Cool Aerosol. Pt sx'd for large amt of thin bloody secretions. Pt transferred to ICU and placed [facility] per md orders. Alarms are set and audible. Vent plugged into red outlet. Ambu bag bedside. Abg to be taken in 1 hr post of mech ventilation. will continue to monitor. Addendum: 12/15/19 at 1211 by AXEL CARSON RT Amended: Links added.
[2019-12-15] MEDS ORDERED: FEE PK DOSING 1 MIN EA MC ONE (11:11)
[2019-12-15] MEDS: PANTOPRAZOLE 40 MG VIAL IV SCH ×2 (11:18→21:08)
[2019-12-15] MEDS: MEROPENEM 1 G in IV NS 0.9% 100 ML IV SCH ×2 (11:54→22:30)
[2019-12-15] MEDS ORDERED: VANCOMYCIN 1 GM in IV D5W 250 ML IV SCH (12:00)
[2019-12-15 12:12] LABS: CALCIUM, SERUM 7.6 mg/dL (8.5-10.1); CARBON DIOXIDE 26 mmol/L (21-32); CHLORIDE 106 mmol/L (98-107); CREATININE 1.4 mg/dL (0.6-1.3); GLUCOSE 115 mg/dL (74-106); POTASSIUM 5.5 mmol/L (3.5-5.1); SODIUM SERUM 136 mmol/L (136-145); UREA NITROGEN, BLOOD 67 mg/dL (7-18)
[2019-12-15 12:34] LABS: BAND % (MANUAL) 2 % (0.0-5.0); EOSINOPHILS % (MANUAL) 2 % (0-4); LYMPHOCYTES % (MANUAL) 9 % (16-48); MONOCYTES % (MANUAL) 3 % (0-11.0); NEUTROPHILS % (MANUAL) 84 (42-76)
[2019-12-15] MEDS: BLOOD SUGAR DIAGNOSTIC 1 EACH STRIP IN SCH ×3 (12:43→23:22)
--- NOTE | 2019-12-15 13:30 | NUR ---
RN NOTES PT BP FLUCTUATING BELOW NORMAL LIMITS, PT STARTED ON LEVO 2 MCG/MIN
[2019-12-15 13:48] LABS: ABG BASE EXCESS -0.7 mmol/L; ABG OXYGEN SATURATION 96.6 % (92.0-98.5); ABG PH 7.397 (7.350-7.450); ABG PO2 103.7 mmHg (75.0-100.0); AaDO2 99.4 mmHg; COHb 1.4 % (0.5-1.5); O2Hb 94.3 % (94.0-97.0); PEEP,BG 5 cm H2O; SITE, ABG Left Radial; VT, ABG 500 mL
[2019-12-15 16:20] LABS: APPEARANCE,URINE CLOUDY (CLEAR); BILIRUBIN,URINE NEGATIVE (NEGATIVE); BLOOD, URINE MODERATE Ery/uL (NEGATIVE); COLOR,URINE YELLOW (YELLOW); KETONES,URINE TRACE (NEGATIVE); LEUKOCYTE ESTERASE ,URINE SMALL (NEGATIVE); NITRITE, URINE NEGATIVE (NEGATIVE); PROTEIN,URINE 100 mg/dl (NEGATIVE); UGLUCOSE NEGATIVE (NEGATIVE); UROBILINOGEN,URINE 0.2 EU/dL (0.2)
[2019-12-15 16:30] LABS: URINE TOTAL PROTEIN 107.4 mg/dL (0-11.9)
--- NOTE | 2019-12-15 16:36 | NUR ---
RN NOTES BLOOD TRANSFUSION HAS BEEN STARTED, NO ADVERSE REACTIONS OCCURRED DURING FIRST 15 MIN OF TRANSFUSION, WILL CONTINUE TO MONITOR FOR ANY CHANGES.
[2019-12-15 16:49] LABS: RBC,URINE 21-50 /HPF (0-2)
[2019-12-15 16:50] LABS: BACTERIA,URINE Moderate /HPF (None Seen); SQUAMOUS EPITHELIAL CELL,UR None Seen /HPF (None Seen); WBC,URINE TOO NUMEROUS TO COUN /HPF (0-3)
[2019-12-15 16:57] LABS: EOSINOPHIL,URINE Few
--- NOTE | 2019-12-15 17:16 | NUR ---
RN NOTES PT BP KEEPS SBP KEEPS FLUCTUATING BETWEEN 140-190. REASSESSED BP ON PT LEG AND WAS WITHIN NORMAL LIMITS AT 106/89. BLOOD TRANSFUSION IS STILL RUNNING, WILL REASSESS BP IN 10 MIN
[2019-12-15] MEDS: INSULIN REGULAR, HUMAN 100 UNIT/ML 3 ML VIAL SQ PRN ×2 (17:36→18:33)
--- NOTE | 2019-12-15 18:29 | NUR ---
RN NOTES BLOOD TRANSFUSION HAS FINISHED. PT TOLERATED WELL, NO ADVERSE REACTIONS OCCURRED. VITAL SIGNS WNL, WILL CONTINUE TO MONITOR FOR ANY CHANGES.
--- NOTE | 2019-12-15 19:15 | NUR ---
RN OPENING NOTES RECEIVED PATIENT IN BED, OBTUNDED. WITH MILD FACIAL AND UPPER EXTREMITY TWITCHING, PER AM RN AWARE. ON TELE MONITOR SR WITH HR 80'S. ON MECHANICAL VENT SETTINGS AC 16, TV 500, FIO2 35%, AND PEEP OF 5; TOLERATING WELL, NO SOB OR RESPIRATORY DISTRESS NOTED, SATURATING 98% AT THE MOMENT. PT NOTED TO HAVE ACTIVE BLEEDING AT TRACH SITE. MULTIPLE SKIN ISSUES THROUGHOUT, PENDING WOUND CONSULT. JOHNSON CATH IS INTACT, DRAINING YELLOW SEDIMENTED URINE NOTED. SCROTAL EDEMA NOTED. GTUBE FLUSHING AND PATENT, CLAMPED. SAFETY MEASURES IN PLACE; CALL LIGHT WITHIN REACH, BED IS IN LOWEST AND LOCKED POSITION, SIDE RAILS UP X2, HOB ELEVATED. WILL CONTINUE TO MONITOR PT CLOSELY.
--- NOTE | 2019-12-15 19:16 | NUR ---
RN CLOSING NOTE: PT IS RESTING IN BED COMFORTABLY AT THIS TIME. NO SIGNS & SYMPTOMS OF RESPIRATORY DISTRESS OR SOB NOTED. PT IS ON MECHANICAL VENT W/ TRACH TOLERATING SETTING WELL. PT IS S/P BLOOD TRANSFUSION, TOLERATED WELL. PT'S NEEDS HAVE BEEN MET, VS STABLE, NO ACUTE CHANGES OCCURRED. SAFETY MEASURES HAVE BEEN IMPLEMENTED, CALL LIGHT IS WITHIN REACH, BED IS IN LOWEST AND LOCKED POSITION, SIDE RAILS UP X2. PT HAS BEEN ENDORSES TO PROMOTION SPECIALIST RN FOR JOZEF.
[2019-12-16] VITALS (94 sets, daily range): BP systolic 45–157; BP diastolic 19–91
--- NOTE | 2019-12-16 02:30 | NUR ---
RN NOTES @ 0215, PATIENT BP 45/21. ADJUSTED PATIENT BP CUFF AND RECHECKED BP AGAIN 65/25. CHARGE NURSE MADE AWARE REGARDING PATIENT CHANGE OF STATUS AND LEVO ORDER ON EMAR. CHARGE NURSE STATED TO FOLLOW UNIT/HOSPITAL PROTOCOL ON LEVO DRIP. RESTARTED PT LEVO DRIP PER PROTOCOL. WILL CONT TO MONITOR PT SBP CLOSELY AND TITRATE PER PROTOCOL.
[2019-12-16 03:21] LABS: BASOPHILS # (AUTO) 0.1 /CMM (0.0-0.2); BASOPHILS % (AUTO) 1.4 % (0.0-2.0); EOSINOPHILS % (AUTO) 5.2 % (0.0-6.0); HEMATOCRIT 24 % (39-51); HEMOGLOBIN 7.9 g/dL (13.5-17.5); LYMPHOCYTES # (AUTO) 1.3 /CMM (0.8-4.8); LYMPHOCYTES % (AUTO) 16.2 % (20.0-44.0); MEAN CORPUSCULAR HGB CONC 33 g/dl (31.0-36.0); MEAN CORPUSCULAR VOLUME 80 fL (80-96); MONOCYTES # (AUTO) 0.8 /CMM (0.1-1.30); MONOCYTES % (AUTO) 10.2 % (2.0-12.0); NEUTROPHILS # (AUTO) 5.5 /CMM (1.8-8.9); PLATELET COUNT (AUTO) 204 /CMM (150-450); RED BLOOD CELL COUNT(AUTO) 3.04 MIL/uL (4.5-6.0); WHITE BLOOD COUNT (AUTO) 8.2 K/uL (4.3-11.0)
[2019-12-16 03:32] LABS: CALCIUM, SERUM 7.5 mg/dL (8.5-10.1); CARBON DIOXIDE 28 mmol/L (21-32); CHLORIDE 103 mmol/L (98-107); CREATININE 1.7 mg/dL (0.6-1.3); GLUCOSE 108 mg/dL (74-106); MAGNESIUM 2.1 mg/dL (1.8-2.4); PHOSPHORUS 3.5 mg/dL (2.5-4.9); POTASSIUM 5.9 mmol/L (3.5-5.1); SODIUM SERUM 137 mmol/L (136-145); UREA NITROGEN, BLOOD 72 mg/dL (7-18)
[2019-12-16] MEDS: IV NS 0.9% 1,000 ML IV PRN (04:00)
[2019-12-16] MEDS: BLOOD SUGAR DIAGNOSTIC 1 EACH STRIP IN SCH ×4 (05:29→23:29)
[2019-12-16] MEDS ORDERED: HYDROCORTISONE SOD SUCCINATE 100 MG/2 ML VIAL IV SCH (07:00)
--- NOTE | 2019-12-16 07:05 | NUR ---
RN CLOSING NOTES GAVE BEDSIDE REPORT TO SONJA GUERRERO FOR JOZEF. PATIENT IN BED, OBTUNDED. WITH MILD FACIAL AND UPPER EXTREMITY TWITCHING, MD AWARE. ON TELE MONITOR SR WITH HR 69. ON MECHANICAL VENT SETTINGS ORDERED, TOLERATING WELL, NO SOB OR RESPIRATORY DISTRESS NOTED, SATURATING 100% AT THE MOMENT. ANTHONY PICC C/D/I. IVF RUNNING ORDERED, LEVO AT 16MCG; TITRATED PER PROTOCOL. PT STILL HAVE ACTIVE BLEEDING AT TRACH SITE AND SCROTUM. JOHNSON CATH IS INTACT, DRAINING YELLOW SEDIMENTED URINE NOTED. GTUBE FLUSHING AND PATENT, CLAMPED. REPOSITIONED Q2H. SAFETY MEASURES IN PLACE; CALL LIGHT WITHIN REACH, BED IS IN LOWEST AND LOCKED POSITION, SIDE RAILS UP X2, HOB ELEVATED.
--- NOTE | 2019-12-16 07:30 | NUR ---
RN OPENING NOTES RECEIVED PATIENT IN BED. NONCONVERSANT.TRACH AT MIDLINE, TOLERATING VENT SETTINGS FOLLOWS: AC 16, TV 500, FIO2 35%, AND PEEP OF 5, CURRENTLY SATING AT 98%. NO SOB NOTED. TRACH SECRETION NOTED TO BE BLOOD TINGED- PER OUTGOING NURSE MD IS AWARE. SR ON THE MONITOR WITH HR 70s. ANTHONY PICC LINE IN PLACE, DRESSING IN PLACE AND INTACT WITH ONGOING A.) LEVOPHED AT 16MCG AND B.) NS AT 75CC/HR. GT CLAMPED AT THIS TIME, FLUSHED AND ASPIRATED, NO RESIDUAL TAKEN. JOHNSON CATHETER IN PLACE AND DRAINING VIA GRAVITY TO YELLOW SEDIMENTED URINE. SCROTAL EDEMA NOTED. HOB KEEP ELEVATED. SAFETY MEASURES IN PLACE, BED IN LOW AND LOCKED POSITION. SIDE RAILS UP X2. CALL LIGHT WITHIN REACH. WILL CONTINUE TO MONITOR PATIENT CLOSELY.
--- NOTE | 2019-12-16 07:30 | NUR ---
RN NOTES INFORMED DR. VILLAFANA THAT PATIENT NOTED WITH FEVER AT THIS TIME AT 101.3 COOLING MEASURES INITIATED WITH TYLENOL 650 MG GIVEN. CLARIFIED WITH THE LATTER REGARDING NOTES FROM DR. TORRES WITH ORDER "START CYPROHEPTADINE IF DEVELOPS FEVER". PER MD DISCONTINUE THAT ORDER. ORDER READ BACK. NOTED AND CARRIED OUT Addendum: 12/16/19 at 2037 by YOLANDA SALCEDO RN DISREGARD NOTES. FOR DIFFERENT PATIENT
[2019-12-16] MEDS: PANTOPRAZOLE 40 MG VIAL IV SCH ×2 (08:50→20:22)
[2019-12-16] MEDS: HYDROCORTISONE SOD SUCCINATE 100 MG/2 ML VIAL IV SCH ×3 (08:50→17:17)
[2019-12-16] MEDS: MEROPENEM 1 G in IV NS 0.9% 100 ML IV SCH ×2 (08:50→22:17)
[2019-12-16] MEDS ORDERED: NOREPINEPHRINE 16 MG in IV D5W 500 ML IV PRN (09:00)
[2019-12-16 11:11] LABS: HEMOGLOBIN 6.9 g/dL (13.5-17.5)
--- NOTE | 2019-12-16 11:45 | NUR ---
RN NOTES RECEIVED CRITICAL RESULTS FROM LABORATORY WITH HGB AT 6.9. PATIENT WITH 2 PRBC READY FOR TRANSFUSION. RELAYED RESULTS TO MD AND CONFIRMED ABOUT TRANSFUSION. PER MD OKAY TO TRANSFUSE 1 UNIT. ORDER READ BACK, NOTED AND CARRIED OUT CALLED MAURO PERRY) TO OBTAIN CONSENT FOR BLOOD TRANSFUSION. CONSENT VERIFIED WITH SONJA GARIBAY
--- NOTE | 2019-12-16 12:49 | NUR ---
RT NOTE: PATIENT RECEIVED TRACH ON PB 840 VENT. ALARMS VERIFIED AND AUDIBLE. SUCTIONED AND LAVAGED SMALL-MODERATE BLOODY SECRETIONS. VENT PLUGGED INTO RED OUTLET. AMBU BAG AT [facility].
--- NOTE | 2019-12-16 14:50 | NUR ---
RN NOTES DR. MCNEIL AT THE UNIT WITH ORDER TO OBTAINED CONSENT FOR EGD. CALLED MAURO DAY ([facility]) TO OBTAIN CONSENT. CONSENT VERIFIED WITH SONJA WHITNEY ( CHARGE NURSE) EGD WITH CLIPPING DONE AT BEDSIDE
--- NOTE | 2019-12-16 16:00 | NUR ---
RN NOTES INFORMED DR. VILLAFANA THAT PATIENT'S POTASSIUM LEVEL AT 5.9 TODAY. ORDER FOR RECHECK WITH THE NEXT BLOOD DRAW. ORDER READ BACK AND CARRIED OUT
[2019-12-16 18:55] LABS: HEMOGLOBIN 9.4 g/dL (13.5-17.5)
--- NOTE | 2019-12-16 19:00 | NUR ---
RN NOTES INFORMED DR. TORRES (RETAIL ROUTE SUPERVISOR) REGARDING POTASSIUM RECHECK AT 5.6. NNO AT THIS TIME
--- NOTE | 2019-12-16 19:30 | NUR ---
RN OPENING NOTE RECEIVED PATIENT IN BED NON VERBAL AT THIS TIME. IN SEMI GOLDBERG'S POSITION .TRACH AT MIDLINE, ON MECHANICAL VENTILATOR AND TOLERATING SETTINGS WELL. NO SOB NOTED. TRACH SECRETION NOTED TO BE PINK TINGED, MD AWARE. ANTHONY PICC LINE IN PLACE, DRESSING IN PLACE AND INTACT WITH ONGOING NS AT 75CC/HR. GT CLAMPED AT THIS TIME, FLUSHED AND ASPIRATED, NO RESIDUAL TAKEN. JOHNSON CATHETER IN PLACE AND DRAINING VIA GRAVITY CLOUDY URINE WITH SEDIMENTS SCROTAL EDEMA NOTED. SAFETY MEASURES IN PLACE, BED IN LOW AND LOCKED POSITION. SIDE RAILS UP X2. CALL LIGHT WITHIN REACH. WILL CONTINUE TO MONITOR PATIENT CLOSELY.
[2019-12-17] VITALS (23 sets, daily range): BP systolic 82–116; BP diastolic 46–94
[2019-12-17] MEDS: IV NS 0.9% 1,000 ML IV PRN ×2 (02:36→14:57)
[2019-12-17 05:15] LABS: BASOPHILS # (AUTO) 0.1 /CMM (0.0-0.2); BASOPHILS % (AUTO) 1.1 % (0.0-2.0); HEMATOCRIT 28 % (39-51); HEMOGLOBIN 9.1 g/dL (13.5-17.5); MEAN CORPUSCULAR HGB CONC 33 g/dl (31.0-36.0); MEAN CORPUSCULAR VOLUME 81 fL (80-96); MONOCYTES # (AUTO) 0.5 /CMM (0.1-1.30); MONOCYTES % (AUTO) 6.3 % (2.0-12.0); NEUTROPHILS # (AUTO) 6.9 /CMM (1.8-8.9); NEUTROPHILS % (AUTO) 80.6 % (43.0-81.0); PLATELET COUNT (AUTO) 156 /CMM (150-450); RED BLOOD CELL COUNT(AUTO) 3.44 MIL/uL (4.5-6.0); WHITE BLOOD COUNT (AUTO) 8.5 K/uL (4.3-11.0)
[2019-12-17] MEDS: BLOOD SUGAR DIAGNOSTIC 1 EACH STRIP IN SCH ×4 (05:17→23:51)
[2019-12-17 05:28] LABS: CALCIUM, SERUM 7.6 mg/dL (8.5-10.1); CARBON DIOXIDE 24 mmol/L (21-32); CHLORIDE 107 mmol/L (98-107); CREATININE 1.7 mg/dL (0.6-1.3); GLUCOSE 177 mg/dL (74-106); POTASSIUM 4.7 mmol/L (3.5-5.1); SODIUM SERUM 139 mmol/L (136-145); UREA NITROGEN, BLOOD 72 mg/dL (7-18)
--- NOTE | 2019-12-17 05:42 | NUR ---
RN NOTE INSULIN HELD DUE TO NPO STATUS. AWARE.
--- NOTE | 2019-12-17 07:15 | NUR ---
PRE CERTIFICATION SPECIALIST NOTES RECEIVED PATIENT OBTUNDED , NOT IN ACUTE DISTRESS , RESPIRATIONS EVEN AND UNLABORED WITH SPO2 OF 100% VIA MECHANICAL VENT SETTING ORDERED , SR 85 ON BEDSIDE MONITOR , FC DRAINING VIA GRAVITY, PEG CLAMPED , ANTHONY PICC LINE PATENT AND INTACT WITH NS @ 75ML/HR INFUSING WELL , WOUND DRESSING INTACT , ALL NEEDS ATTENDED , BED ON LOW AND LOCKED POSITION , SIDE RAILS X2 ,CALL LIGHT WITHIN REACH , WILL CONTINUE TO MONITOR
[2019-12-17] MEDS: PANTOPRAZOLE 40 MG VIAL IV SCH ×2 (08:49→20:27)
[2019-12-17] MEDS: HYDROCORTISONE SOD SUCCINATE 100 MG/2 ML VIAL IV SCH ×3 (08:49→16:07)
--- NOTE | 2019-12-17 09:30 | NUR ---
FLOOR PLAN ADJUSTER NOTES SEEN AND EVALUATED BY DR STOKES , DISCUSSED LATEST LABS , VENT SETTINGS AND PT S/P EGD YESTREDAY , NO BLEEDING NOTED , BP LABILE , PER MD CHANGE PEEP TO ZERO , ORDER CARRIED OUT
[2019-12-17] MEDS: MEROPENEM 1 G in IV NS 0.9% 100 ML IV SCH ×2 (11:18→23:16)
[2019-12-17 11:54] LABS: HEMOGLOBIN 8.7 g/dL (13.5-17.5)
--- NOTE | 2019-12-17 13:13 | NUR ---
PT RECEIVED TRACHED ON MECHANICAL VENT W/ SETTINGS PER MD. VENT IN RED OUTLET, VENT ALARMS CHECKED AND AUDIBLE, AMBUBAG AT BEDSIDE. PT SX'ED AND LAVAGED PRN. BS EQUAL AND DIMINISHED. TRACH TUBE SECURED, PATENT, CLEAN AND DRY. ABG HELD PER DR. STOKES. NO RESP DISTRESS NOTED. PLAN IS TO CONTINUE CARE UNDER CURRENT MD ORDERS AND MONITOR FOR CHANGES. Addendum: 12/17/19 at 1314 by ROMERO AGARWAL RT Amended: Links added.
[2019-12-17] MEDS: CLOTRIMAZOLE 1% 15 GM TUBE TP SCH ×2 (15:00→16:07)
[2019-12-17] MEDS: NEOMY SULF/BACITRAC ZN/POLY 15 GM TUBE TP SCH (15:01)
--- NOTE | 2019-12-17 18:10 | NUR ---
PIPE CHIPPER NOTES PATIENT STABLE OBTUNDED, NOT IN ACUTE DISTRESS , RESPIRATIONS EVEN AND UNLABORED WITH SPO2 OF 100% VIA MECHANICAL VENT SETTING ORDERED , SR 85 ON BEDSIDE MONITOR , FC DRAINING VIA GRAVITY, PEG CLAMPED , ANTHONY PICC LINE PATENT AND INTACT WITH NS @ 75ML/HR INFUSING WELL , WOUND DRESSING INTACT , ALL NEEDS ATTENDED , BED ON LOW AND LOCKED POSITION , SIDE RAILS X2 ,CALL LIGHT WITHIN REACH , REPROT GIVEN TO DILSHAD FOR CONTINUITY OF CARE TRANSFERRED PT TO ROOM 103 VIA ACLS PROTOCOL WITH RT AT BEDSIDE , PT STABLE , ATTACHED TO TELE MONITOR ,
--- NOTE | 2019-12-17 19:20 | NUR ---
RN OPENING NOTES RECEIVED PATIENT IN BED, OBTUNDED, OPENS EYES. ON TELE MONITOR SR WITH HR 80'S. ON MECHANICAL VENT SETTINGS AC 16, TV 500, FIO2 35%, AND PEEP OF 0; TOLERATING WELL, NO SOB OR RESPIRATORY DISTRESS NOTED, SATURATING 98% AT THE MOMENT. IV SITE ANTHONY PICC, FLUSHING AND PATENT, SITE C/D/I. IVF NS RUNNING AT 75ML/HR. JOHNSON CATH IS INTACT, DRAINING YELLOW SEDIMENTED URINE NOTED. SCROTAL EDEMA NOTED. GTUBE FLUSHING AND PATENT, CLAMPED. SAFETY MEASURES IN PLACE; CALL LIGHT WITHIN REACH, BED IS IN LOWEST AND LOCKED POSITION, SIDE RAILS UP X2, HOB ELEVATED. WILL CONTINUE TO MONITOR PT CLOSELY.
[2019-12-17] MEDS: FLUCONAZOLE (100 MG) 100 MG TABLET PO SCH (20:26)
--- NOTE | 2019-12-17 20:54 | NUR ---
TRESSA RN NOTES PATIENT TEMP 91.2F VIA AXILLARY. RECHECKED RECTALLY 92.1F. PT COOL TO TOUCH. INCREASED ROOM TEMP AND COVERED PT WITH WARM BLANKET. MADE AWARE. AWAITING FOR RESPONSE.
--- NOTE | 2019-12-17 21:00 | NUR ---
TRESSA RN NOTES ORDERED CLIFFORD LIPSCOMB FOR PT LOW TEMP. PAGED CENTRAL SUPPLY TWICE FOR CLIFFORD LIPSCOMB. AWAITING FOR RESPONSE. WARMING MEASURES IN PLACE. WILL CONT TO MONITOR PT CLOSELY.
[2019-12-17] MEDS: INSULIN REGULAR, HUMAN 100 UNIT/ML 3 ML VIAL SQ PRN (23:53)
--- NOTE | 2019-12-17 23:55 | NUR ---
TRESSA RN NOTES JUST RECEIVED CLIFFORD LIPSCOMB FROM NURSING SUP. WARMING MEASURES IN PLACE. WILL CONT TO MONITOR PT CLOSELY.
[2019-12-18] VITALS: BP 91/52
[2019-12-18 04:00] VITALS: BP 122/62
[2019-12-18] MEDS: IV NS 0.9% 1,000 ML IV PRN ×2 (04:17→20:40)
[2019-12-18] MEDS: BLOOD SUGAR DIAGNOSTIC 1 EACH STRIP IN SCH ×3 (05:49→17:33)
[2019-12-18 06:30] LABS: BASOPHILS % (AUTO) 0.2 % (0.0-2.0); HEMATOCRIT 25 % (39-51); LYMPHOCYTES # (AUTO) 0.9 /CMM (0.8-4.8); LYMPHOCYTES % (AUTO) 15.2 % (20.0-44.0); MEAN CORPUSCULAR HGB CONC 32 g/dl (31.0-36.0); MEAN CORPUSCULAR VOLUME 81 fL (80-96); MONOCYTES # (AUTO) 0.3 /CMM (0.1-1.30); MONOCYTES % (AUTO) 4.5 % (2.0-12.0); NEUTROPHILS # (AUTO) 4.6 /CMM (1.8-8.9); NEUTROPHILS % (AUTO) 80.1 % (43.0-81.0); PLATELET COUNT (AUTO) 149 /CMM (150-450); WHITE BLOOD COUNT (AUTO) 5.7 K/uL (4.3-11.0)
--- NOTE | 2019-12-18 06:34 | NUR ---
TRESSA RN NOTES @0400 PATIENT STILL HYPOTHERMIC TEMP VIA RECTALLY 95.5F. MADE AWARE. NNO NOTED. @0630 PATIENT WARM TO TOUCH, RECHECKED PATIENT TEMP VIA AXILLARY 97.7F. WARMING MEASURES MAINTAINED. WILL CONT TO MONITOR PT CLOSELY.
[2019-12-18 06:43] LABS: CALCIUM, SERUM 7.3 mg/dL (8.5-10.1); CARBON DIOXIDE 22 mmol/L (21-32); CHLORIDE 109 mmol/L (98-107); CREATININE 1.7 mg/dL (0.6-1.3); GLUCOSE 142 mg/dL (74-106); POTASSIUM 4.4 mmol/L (3.5-5.1); SODIUM SERUM 142 mmol/L (136-145); UREA NITROGEN, BLOOD 66 mg/dL (7-18)
--- NOTE | 2019-12-18 06:49 | NUR ---
TRESSA RN CLOSING NOTES PATIENT RESTING IN BED, OBTUNDED, OPENS EYES. ON TELE MONITOR SR WITH HR 80'S. MOST RECENT TEMP 97.7F VIA AXILLARY, KEPT CLIFFORD HUGGER IN PLACE. ON MECHANICAL VENT SETTINGS ORDERED; TOLERATING WELL, NO SOB OR RESPIRATORY DISTRESS NOTED, SATURATING 99% AT THE MOMENT. IV SITE ANTHONY PICC, FLUSHING AND PATENT, SITE C/D/I. IVF NS RUNNING AT 75ML/HR. JOHNSON CATH IS INTACT, DRAINING YELLOW SEDIMENTED URINE NOTED. GTUBE FLUSHING AND PATENT, CLAMPED. KEPT PT CLEAN, DRY, AND COMFORTABLE. REPOSITIONED Q2H. SAFETY MEASURES MAINTAINED; CALL LIGHT WITHIN REACH, BED IS IN LOW AND LOCKED POSITION, SIDE RAILS UP X2, HOB ELEVATED. WILL ENDORSE TO AM RN FOR JOZEF.
[2019-12-18 08:00] VITALS: BP 92/47
--- NOTE | 2019-12-18 08:00 | NUR ---
TRESSA RN NOTES RECEIVED PATIENT IN BED . WITH TRACH TO VENT SETTING ORDERED, AMBU BAG AT BEDSIDE, NONVERBAL BOTH EYES IS CLOSED, ON TELE MONITOR SR HR 88, WITH JOHNSON CATH TO GRAVITY WITH YELLOW COLOR URINE , RT UPPER ARM PICC LINE IN PLACE, AND FLUSHED WELL , BED IN LOWEST AND LOCKED POSITION, ON WARM BLANKET IN PLACE, G TUBE FEEDING ON HOLD AT THIS TIME , WILL CONT TO MONITOR CLOSELY NO SOB NOTED NOT IN DISTRESS WILL CONT TO MONITOR CLOSELY
--- NOTE | 2019-12-18 08:28 | NUR ---
WOUND CARE CONSULT: PT FOLLOWED BY PLASTIC SURGERY AND PODIATRY TEAMS FOR WOUNDS. DEFER TO SURGICAL TEAMS FOR WOUND TREATMENT PLAN. PT ON ABIGAIL ISOFLEX LOW AIRLOSS BED. ALL SKIN PROTECTION MEASURES IN PLACE AND DISCUSSED WITH NURSING STAFF. WILL SEE PRN.
[2019-12-18] MEDS: FLUCONAZOLE (100 MG) 100 MG TABLET PO SCH (09:00)
[2019-12-18] MEDS: PANTOPRAZOLE 40 MG VIAL IV SCH ×2 (09:48→20:27)
[2019-12-18] MEDS: NEOMY SULF/BACITRAC ZN/POLY 15 GM TUBE TP SCH (09:50)
[2019-12-18] MEDS: CLOTRIMAZOLE 1% 15 GM TUBE TP SCH ×2 (09:50→16:39)
[2019-12-18] MEDS: MEROPENEM 1 G in IV NS 0.9% 100 ML IV SCH ×2 (11:30→22:38)
--- NOTE | 2019-12-18 11:39 | NUR ---
TRESSA CASILLAS NOTE HD COMPLETED 2L OUT BP155/78 Addendum: 12/18/19 at 1507 by ANTONIO CORONA RN wrong entry
[2019-12-18 12:00] VITALS: BP 90/45
--- NOTE | 2019-12-18 12:00 | NUR ---
telephonic nurse note turn reposition, all needs attended ,will cont to monitor
--- NOTE | 2019-12-18 15:09 | NUR ---
MARINE DRAFTER NOTE CALLED TO JEYSON GALLEGO TO START G TUBE FEEDING ,WILL F\U.PER DIETARY OK TO START GLUCERNA 1.2 AT 35 ML PER HOUR VIA G TUBE ,MAX DOSE 65 ML PER HOUR , WILL MONITOR
[2019-12-18] MEDS ORDERED: GLUCERNA 1.2 1,000 ML BOTTLE NG PRN (15:30)
[2019-12-18 16:00] VITALS: BP 104/56
--- NOTE | 2019-12-18 16:14 | NUR ---
REHABILITATION INSPECTOR NOTE CALLED DR BRODERICK MD NOTIFIED PT STARTED G TUBE FEEDING OKAY TO DECREASIE NS RATE CHANGE TO 50 ML PER HR.. WILL F/U Addendum: 12/18/19 at 1653 by ANTONIO CORONA RN GTUBE FEEDING STARTED ORDERED, KEEP HOB ELEVATED AT ALL TIME
[2019-12-18] MEDS: GLUCERNA 1.2 1,000 ML BOTTLE GT PRN (16:37)
--- NOTE | 2019-12-18 18:18 | NUR ---
CUSTOMER SUPPORT EXECUTIVE NOTE PT IN BED WITH VENT SETTINGS, TOLERATING WELL, RT AT BEDSIDE, TRACH DRESSING CHANGED. CONTINUE GT UBE FEEDING AT 30 ML PER HR. HOB ELEVATED, WILL INCREASE FEEDING TO 35 ML PER ORDER. JOHNSON CATHETER TO GRAVITY WITH YELLOW URINE. RIGT UA PICC LINE INTACT AND DRESSING CHANGED. PT CLEAN AND DRY, NO SOB NOTED WILL CONTINUE TO MONITOR.
--- NOTE | 2019-12-18 19:17 | NUR ---
BUCKLE ATTACHING MACHINE OPERATOR NOTE PER DIETARY RECOMMENDATION OK TO ORDER PROSTAT BID, WILL F\U
--- NOTE | 2019-12-18 19:42 | NUR ---
RAMP MANAGER OPENING NOTE RECEIVED PATIENT NON-VERBAL ON VENT. VENT INFO ON AC 16, TV 500, FIO2 35%, NO PEEP WITH A SHILEY #8. PATIENT TOLERATING VENT SETTING WITH NO SIGNS OF ANY DISTRESS. PATIENT ON THE MONITOR WITH SINUS RHYTHM AND HR IN THE 90'S. PATIENT IS GTUBE FEEDING OF GLUCERNA RUNNING AT 30ML/HR TOLERATING WELL WITH NO RESIDUAL. PATIENT HAS A ANTHONY PICC WITH NS AT 50CC/HR. JOHNSON ATTACHED WITH NO SIGN OF LEAKAGE. ALL SAFETY PRECAUTIONS APPLIED. VENT PLUGGED INTO RED OUTLET. WILL CONTINUE TO MONITOR PATIENT THROUGHOUT THE NIGHT.
[2019-12-18 20:00] VITALS: BP_SYST 104; BP_SYST 107; BP_DIAS 57; BP_DIAS 63
[2019-12-19] VITALS (7 sets, daily range): BP systolic 104–146; BP diastolic 57–76
[2019-12-19] MEDS: BLOOD SUGAR DIAGNOSTIC 1 EACH STRIP IN SCH ×4 (00:18→18:23)
[2019-12-19 06:57] LABS: THYROID STIMULATING HORMONE 16.465 uIU/mL (0.358-3.74)
[2019-12-19 07:04] LABS: CALCIUM, SERUM 7.6 mg/dL (8.5-10.1); CARBON DIOXIDE 23 mmol/L (21-32); CHLORIDE 112 mmol/L (98-107); CREATININE 1.9 mg/dL (0.6-1.3); GLUCOSE 116 mg/dL (74-106); POTASSIUM 4.1 mmol/L (3.5-5.1); SODIUM SERUM 143 mmol/L (136-145); UREA NITROGEN, BLOOD 61 mg/dL (7-18)
--- NOTE | 2019-12-19 07:37 | NUR ---
SUPERVISOR MELT HOUSE CLOSING NOTE PATIENT IN BED WITH NO SIGN OF ANY DISTRESS. PATIENT TOLERATING VENT WITH NO SIGNS OF DESATURATION. ALL SAFETY PRECAUTIONS APPLIED. VENT PLUGGED INTO RED OUTLET. ENDORSED PATIENT TO MORNING SHIFT NURSE FOR JOZEF.
--- NOTE | 2019-12-19 08:21 | NUR ---
RN OPENING NOTES RECEIVE PATIENT RESTING IN BED COMFORTABLY, DOES NOT SHOW ANY S.SX OF DISTRESS AT THIS TIME. HE IS AOX1, NON-VERBAL, AND BEDBOUND. HE IS ON MECH VENT VIA SHILEY 8 TRACH, TOLERATING SETTINGS WELL. TELE MONITOR SHOWING SR WITH HR AT 89. PT HAS GENERALIZED EDEMA THROUGHOUT. JOHNSON CATH IS PATENT AND INTACT. PT IS RECEIVING GLUCERNA AT 35 ML.HR, TOLERATING WELL. RESIDUAL OF 20 CC NOTED. ANTHONY IV IS PATENT AND INTACT, RUNNING NS AT 50 CC/HR. SAFETY MEASURES HAVE BEEN IMPLEMENTED, CALL LIGHT IS WITHIN REACH, BED IS IN LOWEST AND LOCKED POSITION, SIDE RAILS UP X2, WILL CONTINUE TO MONITOR FOR ANY CHANGES.
[2019-12-19] MEDS ORDERED: VANCOMYCIN 1 GM in IV D5W 250 ML IV SCH (09:00)
[2019-12-19] MEDS: PROSOURCE / PROSTAT (PYXIS) 30 ML UDC GT SCH ×2 (09:03→16:32)
[2019-12-19] MEDS: FLUCONAZOLE (100 MG) 100 MG TABLET PO SCH (09:03)
[2019-12-19] MEDS: PANTOPRAZOLE 40 MG VIAL IV SCH ×2 (09:03→20:57)
[2019-12-19] MEDS: NEOMY SULF/BACITRAC ZN/POLY 15 GM TUBE TP SCH (09:05)
[2019-12-19] MEDS: CLOTRIMAZOLE 1% 15 GM TUBE TP SCH ×2 (09:05→16:30)
[2019-12-19] MEDS: MEROPENEM 1 G in IV NS 0.9% 100 ML IV SCH ×2 (10:16→22:44)
[2019-12-19 10:22] LABS: MAGNESIUM 2.1 mg/dL (1.8-2.4); PHOSPHORUS 3.5 mg/dL (2.5-4.9)
[2019-12-19 10:27] LABS: BASOPHILS % (AUTO) 0.6 % (0.0-2.0); EOSINOPHILS % (AUTO) 4.9 % (0.0-6.0); HEMATOCRIT 25 % (39-51); LYMPHOCYTES # (AUTO) 1.8 /CMM (0.8-4.8); LYMPHOCYTES % (AUTO) 25.6 % (20.0-44.0); MEAN CORPUSCULAR HGB CONC 32 g/dl (31.0-36.0); MEAN CORPUSCULAR VOLUME 82 fL (80-96); MONOCYTES % (AUTO) 13.8 % (2.0-12.0); NEUTROPHILS % (AUTO) 55.1 % (43.0-81.0); PLATELET COUNT (AUTO) 161 /CMM (150-450); RED BLOOD CELL COUNT(AUTO) 3.09 MIL/uL (4.5-6.0); WHITE BLOOD COUNT (AUTO) 7.2 K/uL (4.3-11.0)
[2019-12-19] MEDS: INSULIN REGULAR, HUMAN 100 UNIT/ML 3 ML VIAL SQ PRN (12:46)
--- NOTE | 2019-12-19 19:30 | NUR ---
recieved in bed eyes open when name spoken HOB elevated GT feding at 53 ml. multiple decubiti and scabs
--- NOTE | 2019-12-19 19:44 | NUR ---
RN CLOSING NOTES PATIENT IS RESTING IN BED COMFORTABLY AT THIS TIME, DOES NO SHOW ANY S.SX OF DISTRESS. TOLERATING VENT SETTINGS WELL. PT NEEDS HAVE BEEN MET, VITAL SIGNS ARE STABLE, NO ACUTE CHANGES OCCURRED THROUGHOUT THE SHIFT. SAFETY MEASURES HAVE BEEN IMPLEMENTED, CALL LIGHT IS WITHIN REACH, BED IS IN LOWEST AND LOCKED POSITION, SIDE RAILS UP X2, PT HAS BEEN ENDORSED TO NIGHTSHIFT RN FOR CONTINUITY OF CARE.
[2019-12-20] VITALS: BP 146/70
[2019-12-20] MEDS: GLUCERNA 1.2 1,000 ML BOTTLE GT PRN (01:03)
[2019-12-20 04:00] VITALS: BP 128/68
[2019-12-20] MEDS: BLOOD SUGAR DIAGNOSTIC 1 EACH STRIP IN SCH ×4 (05:51→18:28)
[2019-12-20] MEDS: INSULIN REGULAR, HUMAN 100 UNIT/ML 3 ML VIAL SQ PRN (05:56)
--- NOTE | 2019-12-20 06:22 | NUR ---
bLOOD SUGAR THIS am 135 COVERED WITH 2 UNITS ORDERED. HE WILL PULL AWAY WHEN ARM PULLED FROM HIS CHEST. EYES OPEN NONVERBAL TOLERATING FEEDING INCREASED TO 40 ML HR GOAL 65ML REDRESSED DAVID HEELS ORDERED
[2019-12-20 07:01] LABS: CALCIUM, SERUM 7.5 mg/dL (8.5-10.1); CARBON DIOXIDE 26 mmol/L (21-32); CHLORIDE 113 mmol/L (98-107); CREATININE 1.8 mg/dL (0.6-1.3); GLUCOSE 138 mg/dL (74-106); POTASSIUM 4.5 mmol/L (3.5-5.1); SODIUM SERUM 145 mmol/L (136-145); UREA NITROGEN, BLOOD 59 mg/dL (7-18)
--- NOTE | 2019-12-20 07:45 | NUR ---
RT PATIENT REC'D TRACHED ON [facility] VENT WITH ORDERED SETTINGS VIRGIL WELL. VENT ALARMS CHECKED + AUDIBLE. PATIENT APPEARS COMFORTABLE AND IN NO DISTRESS. GERARD SANTACRUZ AT HOB. CONT CURRENT PLAN OF RESP CARE. Addendum: 12/20/19 at 1038 by MICAELA FLORES RT Amended: Links added.
[2019-12-20 08:00] VITALS: BP 157/81
[2019-12-20] MEDS: PROSOURCE / PROSTAT (PYXIS) 30 ML UDC GT SCH ×2 (08:50→16:10)
[2019-12-20] MEDS: PANTOPRAZOLE 40 MG VIAL IV SCH (08:50)
[2019-12-20] MEDS: CLOTRIMAZOLE 1% 15 GM TUBE TP SCH ×2 (08:51→16:13)
[2019-12-20] MEDS: NEOMY SULF/BACITRAC ZN/POLY 15 GM TUBE TP SCH (08:51)
[2019-12-20] MEDS: FLUCONAZOLE (100 MG) 100 MG TABLET PO SCH (08:51)
[2019-12-20] MEDS: MEROPENEM 1 G in IV NS 0.9% 100 ML IV SCH (11:33)
[2019-12-20 12:00] VITALS: BP 149/86
[2019-12-20] MEDS ORDERED: VANCOMYCIN 1 GM in IV D5W 250 ML IV SCH (12:00)
--- NOTE | 2019-12-20 12:10 | NUR ---
WATERPROOF BAG CUTTING MACHINE OPERATOR NOTES PATIENT BLOOD GLUCOSE LEVEL 92 MG /DL NO INSULIN ADMINISTRATED PER SLIDING SCALE.
--- NOTE | 2019-12-20 12:43 | NUR ---
SHEET METAL HELPER NOTES 1200 VANCO NOT ADMINISTRATED VANCO THROUGH LEVEL 24 NOTIFIES PHARMACY.
[2019-12-20] MEDS ORDERED: NA PHOS,M-B/NA PHOS,DI-BA 1 EA ENEMA RC PRN (15:30)
[2019-12-20] MEDS ORDERED: MAGNESIUM HYDROXIDE 30 ML UDC GT PRN (15:30)
[2019-12-20] MEDS ORDERED: VANCOMYCIN 1 GM VIAL IV SCH (15:30)
[2019-12-20] MEDS ORDERED: BISACODYL SUPP (10 MG) 10 MG/SUPP.RECT SUPP.RECT RC PRN (15:30)
[2019-12-20] MEDS: IV NS 0.9% 1,000 ML IV PRN (15:44)
[2019-12-20 16:00] VITALS: BP 115/68
[2019-12-20 16:09] VITALS: BP 115/68
[2019-12-20] MEDS ORDERED: ZINC SULFATE 220 MG CAPSULE GT SCH (17:00)
[2019-12-20] MEDS ORDERED: ARGININE/GLUTAMINE/CALCIUM BMB 1 EACH POWD.PACK GT SCH (17:00)
[2019-12-20] MEDS ORDERED: AMLODIPINE BESYLATE 5 MG TABLET GT SCH (17:00)
[2019-12-20] MEDS ORDERED: GABAPENTIN 300 MG CAPSULE GT SCH (17:00)
--- NOTE | 2019-12-20 17:15 | NUR ---
RAILROAD INSPECTOR NOTES PATIENT IS DISCHARGED TO [place], PICTURES TAKEN FROM WOUNDS PUT IN THE CHART. REPORT GIVEN TO ROBERT CASILLAS. NO BELONGING. ENDORSED TO AIRCONDITIONING ENGINEER NURSE FOR PATIENT`S TRANSFER.
[2019-12-20] MEDS ORDERED: BLOOD SUGAR DIAGNOSTIC 1 EACH STRIP IN SCH (18:00)
--- NOTE | 2019-12-20 20:18 | NUR ---
TELE-1/VICE PRESIDENT OF ACADEMIC AFFAIRS REPORT GIVEN TO [facility] FOR TRANSFER TO [place] [facility]. REPORT TO ROBERT GARCIA [place].
[2019-12-20] MEDS ORDERED: METOCLOPRAMIDE HCL 10 MG TABLET GT SCH (21:00)
[2019-12-20] MEDS ORDERED: HYDROCODONE/APAP 5/325MG 1 EACH TABLET GT SCH (21:00)
[2019-12-20] MEDS ORDERED: MEROPENEM 500 MG VIAL IV SCH (21:00)
[2019-12-20] MEDS ORDERED: hydrALAZINE HCL 25 MG TABLET GT SCH (21:00)
[2019-12-20] MEDS ORDERED: MIRTAZAPINE 15 MG TABLET GT SCH (22:00)
[2019-12-20] MEDS ORDERED: ATORVASTATIN 10 MG TABLET GT SCH (22:00)
[2019-12-21] MEDS ORDERED: DOCUSATE SODIUM LIQ 100 MG/10 ML UDC GT SCH (09:00)
[2019-12-21] MEDS ORDERED: DOCUSATE SODIUM 100 MG CAPSULE PO SCH (09:00)
[2019-12-21] MEDS ORDERED: TAMSULOSIN 0.4 MG CAP.SR.24H GT SCH (09:00)
[2019-12-21] MEDS ORDERED: PANTOPRAZOLE 40 MG/PACK PACK GT SCH (11:00)
[2019-12-21] MEDS ORDERED: LEVOTHYROXINE SODIUM 50 MCG TABLET GT SCH (11:00)
[2019-12-21] MEDS ORDERED: VANCOMYCIN 500 MG in IV D5W 100 ML IV SCH (12:00)
== END 2019-12-20 20:15 | DRG 870 ==
LOC: ER 03:02 → TELE-TD 06:22 → ICU 10:41 → TELE-TD 12-17 17:56 → TELE1 12-18 13:22
PROVIDERS: ADMIT Nurse Practitioner Acute Care; ATTEND Internal Medicine
PROC: 5A1955Z Respiratory Ventilation, Greater than 96 Consecutive Hours (ICD-10-PCS; principal; 2019-12-15)
PROC: 30233N1 Transfusion of Nonautologous Red Blood Cells into Peripheral Vein, Percutaneous Approach (ICD-10-PCS; 2019-12-15)
PROC: 0W3P8ZZ Control Bleeding in Gastrointestinal Tract, Via Natural or Artificial Opening Endoscopic (ICD-10-PCS; 2019-12-16)
DX: A41.9 Sepsis, unspecified organism (principal); E43 Unspecified severe protein-calorie malnutrition; G93.41 Metabolic encephalopathy; J96.21 Acute and chronic respiratory failure with hypoxia; N17.0 Acute kidney failure with tubular necrosis; K26.4 Chronic or unspecified duodenal ulcer with hemorrhage; R65.21 Severe sepsis with septic shock; I69.351 Hemiplegia and hemiparesis following cerebral infarction affecting right dominant side; Z99.11 Dependence on respirator [ventilator] status; E27.40 Unspecified adrenocortical insufficiency; D68.69 Other thrombophilia; D62 Acute posthemorrhagic anemia; J98.11 Atelectasis; J90 Pleural effusion, not elsewhere classified; L97.429 Non-pressure chronic ulcer of left heel and midfoot with unspecified severity; L97.419 Non-pressure chronic ulcer of right heel and midfoot with unspecified severity; M86.9 Osteomyelitis, unspecified; B37.49 Other urogenital candidiasis; I12.9 Hypertensive chronic kidney disease with stage 1 through stage 4 chronic kidney disease, or unspecified chronic kidney disease; K21.9 Gastro-esophageal reflux disease without esophagitis; L30.4 Erythema intertrigo; N18.9 Chronic kidney disease, unspecified; Z93.0 Tracheostomy status; Z93.1 Gastrostomy status; E11.22 Type 2 diabetes mellitus with diabetic chronic kidney disease; E03.9 Hypothyroidism, unspecified; E78.5 Hyperlipidemia, unspecified; E87.5 Hyperkalemia; F32.9 Major depressive disorder, single episode, unspecified; F03.90 Unspecified dementia, unspecified severity, without behavioral disturbance, psychotic disturbance, mood disturbance, and anxiety; R13.10 Dysphagia, unspecified; Z74.01 Bed confinement status; Z79.4 Long term (current) use of insulin; Z79.82 Long term (current) use of aspirin; Z87.01 Personal history of pneumonia (recurrent); Z86.74 Personal history of sudden cardiac arrest; N40.0 Benign prostatic hyperplasia without lower urinary tract symptoms; Z79.01 Long term (current) use of anticoagulants; E11.51 Type 2 diabetes mellitus with diabetic peripheral angiopathy without gangrene; L97.529 Non-pressure chronic ulcer of other part of left foot with unspecified severity; L97.519 Non-pressure chronic ulcer of other part of right foot with unspecified severity; I70.245 Atherosclerosis of native arteries of left leg with ulceration of other part of foot; I70.244 Atherosclerosis of native arteries of left leg with ulceration of heel and midfoot; I70.235 Atherosclerosis of native arteries of right leg with ulceration of other part of foot; I70.234 Atherosclerosis of native arteries of right leg with ulceration of heel and midfoot; Z68.26 Body mass index [BMI] 26.0-26.9, adult; K29.70 Gastritis, unspecified, without bleeding; H40.9 Unspecified glaucoma; E11.40 Type 2 diabetes mellitus with diabetic neuropathy, unspecified; L89.156 Pressure-induced deep tissue damage of sacral region; S71.101A Unspecified open wound, right thigh, initial encounter; X58.XXXA Exposure to other specified factors, initial encounter; Y93.9 Activity, unspecified; E11.621 Type 2 diabetes mellitus with foot ulcer; E11.69 Type 2 diabetes mellitus with other specified complication; Y92.129 Unspecified place in nursing home as the place of occurrence of the external cause
CPT/HCPCS: 31720; 36415; 36600; 71045-TC; 80048-TC; 80076-TC; 80202-TC; 81000-TC; 82533; 82570-TC; 82803-TC; 82962-TC; 83690-TC; 83735-TC; 84100-TC; 84132-TC; 84155-TC; 84300-TC; 84439-TC; 84443-TC; 84481; 84484-TC; 85025-TC; 85027-TC; 85730-TC; 86850-TC; 86921-TC; 87081-TC; 87086-TC; 94003-TC; 94640-TC; 94760-TC; 94762-TC; 94799-TC; 99082-TC; A6253; A6403; A7526; C9113; G0378; J1720; J1815; J2185; J2704; J3370; J3490; J7030; J7040; J7050; J7060; P9016-BL